=== PATIENT | male | born 1945 | race Caucasian/White ===

== ENCOUNTER → 2021-01-21 16:24 | Outpatient (BNVA) | payer MEDICARE, OTHER, SELFPAY | PROVIDERS: Family Provider Family Medicine; PCP Family Medicine; Visit Provider Urology | DX: N40.1 Benign prostatic hyperplasia with lower urinary tract symptoms (principal); R97.20 Elevated prostate specific antigen [PSA] | CPT/HCPCS: 81003; 84153 ==

== ENCOUNTER 2021-02-19 09:37 | Outpatient (CLI) | payer MEDICARE, OTHER, SELFPAY ==
--- NOTE | 2021-02-19 09:50 | XR_ITS ---
WS: [id number] Chest 2 views, 02/19/2021 Clinical Data: CHRONIC COUGH/THYROMEGALY Comparison: PA and lateral chest, 04/10/2009. Findings: No nodules, masses or effusions are seen. The heart is normal. The pulmonary vascularity is not increased. No pneumonia or pneumothorax is seen. The aortic arch is tortuous. The diaphragms are flattened. XR/XR chest 2V* [id number] Impression: Atherosclerosis and hyperinflation.
== END 2021-02-19 09:38 | disposition home or self-care (01) ==
PROVIDERS: PCP Family Medicine; Visit Provider Family Medicine
DX: R05 Cough (principal); E01.0 Iodine-deficiency related diffuse (endemic) goiter; I70.90 Unspecified atherosclerosis
CPT/HCPCS: 71046

== ENCOUNTER 2021-02-25 12:11 | Outpatient (CLI) | payer MEDICARE, OTHER, SELFPAY ==
--- NOTE | 2021-02-25 12:22 | US_ITS ---
WS: [id number] ULTRASOUND THYROID TECHNIQUE: Ultrasound of the thyroid. CLINICAL INFORMATION: CHRONIC COUGH/THYROMEGALY COMPARISON: None. FINDINGS: Thyroid: Right and left thyroid lobes are normal in size and echotexture. Solid heterogeneous mid right thyroid nodule measuring 1.8 x 1.6 x 1.8 cm with calcifications. 2 smaller solid right thyroid nodules in the mid thyroid measuring 0.6 x 0.5 cm and measuring 0.4 x 0 .4 CM. Additional cystic lesion in the left inferior thyroid measuring 0.4 x 0.3 cm. Right thyroid lobe: 5.2 cm x 2.2 cm x 2.1 cm Left thyroid lobe: 4.2 cm x 1.3 cm x 1.8 cm. Isthmus: 0.4 mm. Cervical lymphadenopathy: None. US/US thyroid [id number] IMPRESSION: 1. Solid heterogeneous mid right thyroid nodule measuring 1.8 x 1.6 x 1.8 cm w ith calcifications. Recommend further evaluation with FNA. 2. Smaller subcentimeter thyroid nodules described above.
== END 2021-02-25 12:12 | disposition home or self-care (01) ==
LOC: RAD 12:19
PROVIDERS: PCP Family Medicine; Visit Provider Family Medicine
DX: R05 Cough (principal); E01.0 Iodine-deficiency related diffuse (endemic) goiter
CPT/HCPCS: 76536

== ENCOUNTER → 2021-04-29 12:53 | Outpatient (BNVA) | payer MEDICARE, OTHER, SELFPAY | PROVIDERS: PCP Family Medicine; Visit Provider Urology | DX: N13.8 Other obstructive and reflux uropathy (principal); N40.1 Benign prostatic hyperplasia with lower urinary tract symptoms; R97.20 Elevated prostate specific antigen [PSA] | CPT/HCPCS: 81003; 84153 ==

== ENCOUNTER 2021-05-25 22:04 | Emergency (ER) | payer MEDICARE, OTHER, SELFPAY ==
[2021-05-25 22:12] VITALS: BMI 23.7
[2021-05-25 22:19] VITALS: BP 168/95; PULSE 65; RESP 14; TEMP 37.1; O2SAT 98
--- NOTE | 2021-05-25 22:22 | CTR_ITS ---
PROCEDURE INFORMATION: Exam: CT Head Without Contrast Exam date and time: 05/25/2021 10:22 PM Age: 75 years old Clinical indication: Pain; Headache; Patient HX: Thyroid removed sept 8; Additional info: Rule out brain bleed TECHNIQUE: Imaging protocol: Computed tomography of the head without contrast. Radiation optimization: All CT scans at this facility use at least one of these dose optimization techniques: automated exposure control; mA and/or kV adjustment per patient size (includes targeted exams where dose is matched to clinical indication); or iterative reconstruction. COMPARISON: [place] thyroid [id number] 02/25/2021 12:34 PM RADIATION DOSE METRICS: Total DLP (mGy-cm): 904.95 FINDINGS: Brain: Large amount of subarachnoid hemorrhage in the basilar cisterns, about the brainstem and 4th ventricle. Cerebral ventricles: See above Paranasal sinuses: Visualized sinuses are unremarkable. No fluid levels. Mastoid air cells: Visualized mastoid air cells are well aerated. Bones/joints: Unremarkable. No acute fracture. Soft tissues: Unremarkable. CT/CT head wo con* [id number] IMPRESSION: Large amount of subarachnoid hemorrhage in the basilar cisterns, about the brainstem and 4th ventricle. Radiation Dose CTDIVOL = (mGy): DLP = 904.95 (mGy-cm)
[2021-05-25 22:49] LABS: Basophils # 0.1 10^3/uL (0.0-0.1); Basophils % 1.2 %; Eosinophils # 0.3 10^3/uL (0.0-0.8); Eosinophils % 3.3 %; Hematocrit 49.5 % (42.0-52.0); Hemoglobin 17.1 g/dL (11.7-16.6); Lymphocytes # 3.6 10^3/uL (0.8-4.8); Lymphocytes % 47.6 %; Mean Corpuscular HGB Conc 34.5 g/dL (30.0-36.0); Mean Corpuscular Hemoglobin 29.9 pg (28.0-34.0); Mean Corpuscular Volume 86.7 fl (80-94); Mean Platelet Volume 11.2 fL (7.4-10.4); Monocytes # 0.8 10^3/uL (0.2-0.9); Monocytes % 10.2 %; Neutrophils # 2.87 10^3/uL (1.8-7.7); Neutrophils % 37.6 %; Nucleated Red Blood Cells % 0 %; Platelet Count 249 10^3/cmm (130-400); Red Blood Count 5.71 10^6/uL (4.1-5.3); White Blood Count 7.6 10^3/uL (4.0-10.0)
--- NOTE | 2021-05-25 22:55 | ED_ITS ---
Documented by User: Ebony Sellers MD 05/27/21 11:58 HPI - General Adult General: Chief complaint: Headache Stated complaint: HEADACHE Time Seen by Provider: 05/25/21 22:22 History of Present Illness: HPI narrative: Patient is a 75-year-old male with a history of basal cell carcinoma, thyroidectomy from 05/21/2021 presents emergency room with complaints of sudden onset of severe headache since 9 PM. Patient reports multiple episodes of emesis and has never had headaches similar to this. Describes bifrontal headache pain and neck pain with turning. Denies any neurological deficits, diplopia, double vision, slurring of speech. Patient has no other complaints going chest pain shortness breath palpitation, lightheadedness, abdominal complaints or complaints at this time. Onset: 1 hr ago Duration:1 hr Location:home Severity:severe Review of Systems Narrative: Constitutional: No fever, no chills. HEENT: No vision changes, +neck pain b/l CV: No chest pain, no palpitations PULM: no cough, no dyspnea. GI: No abdominal pain, +N/+V/D. : No dysuria MSKEL: No muscle pain SKIN: No new rashes, no lesions. NEURO: +headache, no focal weakness. HEME: No visible bruises PSYCH: Normal mood PFSH ED PFSH: Medical History (Updated 05/25/21 @ 22:59 by Ebony Sellers MD) BPH with obstruction/lower urinary tract symptoms Elevated PSA History of basal cell cancer Surgical History History of eye surgery History of hernia repair History of rotator cuff surgery History of surgical removal of ganglion cyst Family History Father , at age 77 Lung cancer Mother , at age 64 Colon cancer Social History Alcohol intake: never Marital status: Current occupational status: retired History of recent travel: No Physical Exam Narrative: EXAM NARRATIVE: Head: Atraumatic Eyes: PERRL, conjunctiva without injection ENT: Mucous membrane moist NECK: Supple, ROM intact, +neck tenderness to movement LUNGS: LCTAB, no crackles/rhonchi CV: RRR ABDOMEN: Soft, nontender in all quadrants EXTREMITY: Normal ROM SKIN: No rash or erythema NEURO: Mental status? Awake, alert, and oriented to self, year, month, location, and situation.? Following simple axial and appendicular commands.? Has appropriate fund of knowledge, comprehension, and insight.? Able to recall and understands pertinent aspects of medical history and current treatment status.? ? Language? Speech is fluent without word-finding difficulties.? Intact naming, expression, customer loyalty representative, and repetition.? ? Cranial nerves? 2,3,4,6: PERRL, EOMI with no nystagmus. 5: Intact sensation to light touch, symmetric? 7: Smile symmetrical, no facial droop.? 8: Hearing grossly intact.? 9,10: Normal palate movement.? 11: Normal strength in trapezius bilaterally 12: Tongue protrudes midline.? ? Motor examination? Normal bulk & tone. Strength as follows (R/L): Delts (5/5), Biceps (5/5), Triceps (5/5), Wrist ext (5/5), hip flexors (5/5), plantarflexors (5/5), dorsiflexors (5/5). Sensation? Light Touch: Grossly intact and equal in upper and lower extremities bilaterally? Romberg: Negative.? Distal joint position sense intact ? Coordination? Znvahr-kz-ldfd-finger movements intact without dysmetria or past-pointing.? Rapid fingertaps: preserved amplitude without decriment.? No tremor, myoclonus or truncal ataxia.? ? Gait/stance? Steady, normal narrow base gait with appropriate arm swing and turning.? Tandem gait without hesitation or loss of balance. PSYCH: Normal mood and affect Course Vital Signs: Vital signs: Vital Signs Temperature 98.7 F 05/25/21 22:19 Pulse Rate 70 05/26/21 01:48 Respiratory Rate 16 05/26/21 01:48 Blood Pressure 153/61 05/26/21 01:48 Pulse Oximetry 93 05/26/21 01:48 MDM - General Adult MDM Narrative: Medical decision making narrative: Patient is a 75-year-old male who presents the emergency room with complaints of severe headache and neck pain. Patient has says the pain started 9 PM. Since then, patient has been endorsing significant nausea vomiting. Given presentation, this is concerning for subarachnoid bleed and other acute intracranial pathologies at this time. Workup: CBC, BMP, PT/PTT/INR, CT Brain, CTA head Intervention: IVF, tylenol, reglan, benadryl Case signed out to Dr. Walker pending workup. Lab Data: Labs: Lab Results 05/25/21 05/25/21 05/25/21 Range/Units 22:34 22:34 22:34 WBC 7.6 (4.0-10.0) 10^3/ uL RBC 5.71 H (4.1-5.3) 10^6/u L Hgb 17.1 H (11.7-16.6) g/dL Hct 49.5 (42.0-52.0) % MCV 86.7 (80-94) fl MCH 29.9 (28.0-34.0) pg MCHC 34.5 (30.0-36.0) g/dL RDW 13.0 (12.1-15.1) % Plt Count 249 (130-400) 10^3/c mm MPV 11.2 H (7.4-10.4) fL Neut % (Auto) 37.6 % Lymph % (Auto) 47.6 % [place] % (Auto) 10.2 % Eos % (Auto) 3.3 % Baso % (Auto) 1.2 % Neut # (Auto) 2.87 (1.8-7.7) 10^3/u L Lymph # (Auto) 3.6 (0.8-4.8) 10^3/u L [place] # (Auto) 0.8 (0.2-0.9) 10^3/u L Eos # (Auto) 0.3 (0.0-0.8) 10^3/u L Baso # (Auto) 0.1 (0.0-0.1) 10^3/u L Nucleated RBC % (a uto) 0 % Nucleated RBCs # 0.0 /100WBC PT 13.80 (12.1-14.9) SECO NDS INR 1.02 (0.8-1.2) APTT 28.1 (23.9-36.7) SECO NDS Sodium 140 (136-145) mmol/L Potassium 3.5 (3.5-5.1) mmol/L Chloride 103 (98-107) mmol/L Carbon Dioxide 22 (22-29) mmol/L Anion Gap 18.5 (5-19) BUN 14 (8-23) mg/dL Creatinine 0.8 (0.7-1.2) mg/dL GFR Calculation Not Reportable Glucose 120 H (65-115) mg/dL Calculated Osmolal ity 292 (285-295) mOsm/k g Calcium 9.0 (8.5-10.5) mg/dL Total Bilirubin 0.7 (0.15-1.2) mg/dL AST 24 (0-40) U/L ALT 18 (0-41) U/L Alkaline Phosphata se 88 (40-130) IU/L Total Protein 6.2 L (6.6-8.7) g/dL Albumin 4.0 (3.5-5.2) g/dL Globulin 2.2 (1.3-4.6) g/dL Lipase 170 H (13-60) U/L TSH 4.92 H (0.27-4.20) uIU/ mL Free T4 1.40 (0.82-1.77) ng/d L Discharge Plan Discharge Clinical Impression: Headache, Nausea & vomiting Condition: Stable Prescriptions: No Action silver sulfadiazine [Silvadene] 1 % cream 1 applic topical BID Qty: 50 RF: 0 PreserVision AREDS 14,320-226-200 [id number]-fbfk capsule 1 cap PO DAILY RF: 0 zinc 50 mg tablet 50 mg PO DAILY RF: 0 magnesium chloride 64 mg magnesium tablet PO DAILY RF: 0 tamsulosin 0.4 mg capsule 0.4 mg PO BID Qty: 180 RF: 3 Referrals: Tom Sow MD [Primary Care Provider] - Sign Out Sign Out Data: Patient Sign Out occurred on 05/26/21 at 00:19. Patient's care was discussed, and care was transferred from to Vignesh Walker MD. Coding Level of Care Code ED Channel Marketing Program Manager for g Fwd Documented by User: Vignesh Walker MD 05/27/21 02:32 HPI - General Adult General: Chief complaint: Headache Stated complaint: HEADACHE Time Seen by Provider: 05/25/21 22:22 [facility] ED PFSH: Medical History (Updated 05/25/21 @ 22:59 by Ebony Sellers MD) BPH with obstruction/lower urinary tract symptoms Elevated PSA History of basal cell cancer Surgical History History of eye surgery History of hernia repair History of rotator cuff surgery History of surgical removal of ganglion cyst Family History Father , at age 77 Lung cancer Mother , at age 64 Colon cancer Social History Alcohol intake: never Marital status: Current occupational status: retired History of recent travel: No Course Vital Signs: Vital signs: Vital Signs Temperature 98.7 F 05/25/21 22:19 Pulse Rate 70 05/26/21 01:48 Respiratory Rate 16 05/26/21 01:48 Blood Pressure 153/61 05/26/21 01:48 Pulse Oximetry 93 05/26/21 01:48 MDM - General Adult MDM Narrative: Medical decision making narrative: Patient care handoff rece ived from Dr. Sellers pending results of work-up. CT head notable for subarachnoid hemorrhage. This is most likely the cause of the patient's symptoms. Results of this finding were discussed with the patient. No neurologic deficits appreciated upon serial reexamination. Head of bed at 30 degrees. Blood pressure improved with symptom control. Dr Mohan accepted the patient for neuro ICU and neurosurgical evaluation. Given high risk of decompensation and need for emergent neurosurgical evaluation patient will be transported by air. Results of ED evaluation were discussed with the patient. All questions answered. Patient agreeable to plan. Vignesh Walker MD Emergency Medicine Lab Data: Labs: Lab Results 05/25/21 05/25/21 05/25/21 Range/Units 22:34 22:34 22:34 WBC 7.6 (4.0-10.0) 10^3/ uL RBC 5.71 H (4.1-5.3) 10^6/u L Hgb 17.1 H (11.7-16.6) g/dL Hct 49.5 (42.0-52.0) % MCV 86.7 (80-94) fl MCH 29.9 (28.0-34.0) pg MCHC 34.5 (30.0-36.0) g/dL RDW 13.0 (12.1-15.1) % Plt Count 249 (130-400) 10^3/c mm MPV 11.2 H (7.4-10.4) fL Neut % (Auto) 37.6 % Lymph % (Auto) 47.6 % [place] % (Auto) 10.2 % Eos % (Auto) 3.3 % Baso % (Auto) 1.2 % Neut # (Auto) 2.87 (1.8-7.7) 10^3/u L Lymph # (Auto) 3.6 (0.8-4.8) 10^3/u L [place] # (Auto) 0.8 (0.2-0.9) 10^3/u L Eos # (Auto) 0.3 (0.0-0.8) 10^3/u L Baso # (Auto) 0.1 (0.0-0.1) 10^3/u L Nucleated RBC % (a uto) 0 % Nucleated RBCs # 0.0 /100WBC PT 13.80 (12.1-14.9) SECO NDS INR 1.02 (0.8-1.2) APTT 28.1 (23.9-36.7) SECO NDS Sodium 140 (136-145) mmol/L Potassium 3.5 (3.5-5.1) mmol/L Chloride 103 (98-107) mmol/L Carbon Dioxide 22 (22-29) mmol/L Anion Gap 18.5 (5-19) BUN 14 (8-23) mg/dL Creatinine 0.8 (0.7-1.2) mg/dL GFR Calculation Not Reportable Glucose 120 H (65-115) mg/dL Calculated Osmolal ity 292 (285-295) mOsm/k g Calcium 9.0 (8.5-10.5) mg/dL Total Bilirubin 0.7 (0.15-1.2) mg/dL AST 24 (0-40) U/L ALT 18 (0-41) U/L Alkaline Phosphata se 88 (40-130) IU/L Total Protein 6.2 L (6.6-8.7) g/dL Albumin 4.0 (3.5-5.2) g/dL Globulin 2.2 (1.3-4.6) g/dL Lipase 170 H (13-60) U/L TSH 4.92 H (0.27-4.20) uIU/ mL Free T4 1.40 (0.82-1.77) ng/d L Discharge Plan Discharge Clinical Impression: Headache, Nausea & vomiting Condition: Stable Prescriptions: No Action silver sulfadiazine [Silvadene] 1 % cream 1 applic topical BID Qty: 50 RF: 0 PreserVision AREDS 14,320-226-200 [id number] capsule 1 cap PO DAILY RF: 0 zinc 50 mg tablet 50 mg PO DAILY RF: 0 magnesium chloride 64 mg magnesium tablet PO DAILY RF: 0 tamsulosin 0.4 mg capsule 0.4 mg PO BID Qty: 180 RF: 3 Referrals: Tom Sow MD [Primary Care Provider] - Sign Out Sign Out Data: Patient Sign Out occurred on 05/26/21 at 00:19. Patient's care was discussed, and care was transferred from to Vignesh Walker MD. Coding Level of Care Code ED Channel Marketing Program Manager for Griselda Hernandez
[2021-05-25] MEDS: metoclopramide 5 mg/mL SDV 2 mL IVP (23:03)
[2021-05-25] MEDS: acetaminophen 500 mg Tablet PO (23:03)
[2021-05-25] MEDS: diphenhydrAMINE 50 mg/mL SDV 1mL IVP (23:03)
[2021-05-25] MEDS: magnesium sulfate premix 2 GM/50 ML PIGGYBACK IV (23:11)
[2021-05-25] MEDS: sodium chloride 0.9% 500 ML IV (23:11)
[2021-05-25 23:15] LABS: Alanine Aminotransferase 18 U/L (0-41); Alkaline Phosphatase 88 IU/L (40-130); Anion Gap 18.5 (5-19); Aspartate Amino Transferase 24 U/L (0-40); Blood Urea Nitrogen 14 mg/dL (8-23); Carbon Dioxide 22 mmol/L (22-29); Chloride 103 mmol/L (98-107); Creatinine Clr Calc Pharmacy 83.1517; Globulin 2.2 g/dL (1.3-4.6); Glucose 120 mg/dL (65-115); Lipase 170 U/L (13-60); Osmolality Calculated 292 mOsm/kg (285-295); Potassium 3.5 mmol/L (3.5-5.1); Sodium 140 mmol/L (136-145); Thyroid Stimulating Hormone 4.92 uIU/mL (0.27-4.20); Total Bilirubin 0.7 mg/dL (0.15-1.2); Total Protein 6.2 g/dL (6.6-8.7)
[2021-05-25 23:58] LABS: INR 1.02 (0.8-1.2); Partial Thromboplastin Time 28.1 SECONDS (23.9-36.7)
[2021-05-26 00:13] VITALS: BP 162/79; PULSE 70; RESP 16; O2SAT 90
[2021-05-26] MEDS: fentaNYL 50 mcg/mL INJ 2mL IVP (00:23)
[2021-05-26 01:48] VITALS: BP 153/61; PULSE 70; RESP 16; O2SAT 93
== END 2021-05-26 01:40 ==
PROVIDERS: Emergency Medicine; Emergency Provider Emergency Medicine; PCP Family Medicine
DX: R51.9 Headache, unspecified (principal); R11.2 Nausea with vomiting, unspecified; Z85.9 Personal history of malignant neoplasm, unspecified
CPT/HCPCS: 70450; 80053; 83690; 84439; 84443; 85025; 85610; 85730; 96365; 96367; 96375; 99285; J1200; J2765; J3010; J3475; J7040

== ENCOUNTER 2021-07-04 14:33 | Emergency (ER) | payer MEDICARE, OTHER, SELFPAY ==
[2021-07-04 14:44] VITALS: BP 122/74; PULSE 82; RESP 18; TEMP 36.9; O2SAT 96; BMI 20.7
[2021-07-04 15:01] VITALS: BP 100/63; PULSE 80; RESP 18; TEMP 36.8; O2SAT 96
[2021-07-04] MEDS: dexamethasone 10 mg/mL INJ IM (15:31)
[2021-07-04] MEDS: HYDROcodone-acetaminophen 7.5-325 mg Tablet 1 TAB PO (15:32)
--- NOTE | 2021-07-04 15:33 | W.ED.BACK ---
HPI - Back Pain/Injury General: Chief Complaint: Back Pain/Injury Stated Complaint: Severe Back Pain Time Seen by Provider: 07/04/21 15:06 History of Present Illness: HPI Narrative: Patient is a 75-year-old male comes to the ED with lower back pain. Patient says symptoms have been going on for approximately 3 weeks. Pain is located in the right lower back region. Denies any injury or trauma to cause pain. Pain only occurs when he is getting up from chair or bed or with certain movements of his upper body. When sitting at rest he has no pain. Pain is localized in right lower back. Denies any pain radiating down his lower extremities. Denies any cauda equina symptoms. Associated symptoms: Deny abdominal pain, chills, dysuria, fatigue, fever(s), hematuria, nausea or vomiting Review of Systems Const: Denies: fever(s), chills or fatigue Eyes: Denies: change in vision or eye discomfort ENMT: Denies: throat pain, odynophagia, nasal discharge or nasal congestion Card: Denies: chest pain, palpitations, edema, swelling of feet/ankles, dyspnea on exertion or orthopnea Resp: Denies: dyspnea, productive cough or non-productive cough GI: Denies: abdominal pain, nausea, vomiting, diarrhea, constipation or hematochezia : Denies: flank pain, difficulty urinating, dysuria or hematuria Musc: Reports: back pain (right lower back); Denies: neck pain or extremity swelling Skin/Breast: Denies: rash or new lesions Neuro: Denies: headache(s), numbness in extremities or weakness in extremities PFSH ED PFSH: Medical History BPH with obstruction/lower urinary tract symptoms Elevated PSA History of basal cell cancer Surgical History History of eye surgery History of hernia repair History of rotator cuff surgery History of surgical removal of ganglion cyst Family History Father , at age 77 Lung cancer Mother , at age 64 Colon cancer Social History Alcohol intake: never Marital status: Current occupational status: retired History of recent travel: No Physical Exam Const: COMMON NORMALS: no acute distress, patient oriented x3 and alert GENERAL APPEARANCE: cooperative and comfortable HENMT: COMMON NORMALS: normocephalic HEAD & SCALP: normocephalic MOUTH: Normal oral and palatal mucosa present THROAT: posterior oropharynx normal and uvula midline Neck/C-Spine: COMMON NORMALS: supple GENERAL: Yes normal visual inspection Resp: COMMON NORMALS: normal respiratory effort, No retractions, No use of accessory muscles and clear to auscultation bilaterally AUSCULTATION: clear to auscultation bilaterally Cardio: COMMON NORMALS: regular rate, regular rhythm, S1 normal heart sound present, S2 normal heart sound present, No gallops present (Cardio), No clicks present (Cardio), No murmurs present (Cardio) and Peripheral pulses 2+ throughout RATE: regular rate RHYTHM: regular rhythm HEART SOUNDS: S1 normal heart sound present and S2 normal heart sound present PERIPHERAL PULSES: Peripheral pulses 2+ throughout GI: COMMON NORMALS: Normal to inspection, nondistended, normoactive bowel sounds present, Soft to palpation, non-tender and no masses PALPATION: Yes Soft to palpation : COMMON NORMALS: Yes no CVA tenderness BLADDER/KIDNEY EXAM: Yes no CVA tenderness Back/Pelvis: COMMON NORMALS: no CVA tenderness LUMBAR SPINE/LOWER BACK: Yes pain with ROM, No lumbar spinal tenderness, Yes paraspinal muscle tenderness Lumbar paraspinal muscle tenderness: right Right lumbar paraspinal muscle tenderness: L2 and L3 and Yes other soft tissue findings Other lumbar soft tissue findings laterality: right Right other lumbar soft tissue findings details: tenderness (Soft tissue and muscle tenderness-right side) Extremity: COMMON NORMALS: normal to inspection Neuro: COMMON NORMALS: patient oriented x3 and moves all extremities SENSORIUM/ORIENTATION: Yes alert Skin: GENERAL SKIN EXAM: dry skin Course Vital Signs: Vital signs: Vital Signs Temperature 98.4 F 07/04/21 15:38 Pulse Rate 74 07/04/21 15:38 Respiratory Rate 18 07/04/21 15:38 Blood Pressure 108/68 07/04/21 15:38 Pulse Oximetry 96 07/04/21 15:01 MDM - Back Pain/Injury MDM Narrative: Medical decision making narrative: Patient is a 75-year-old male comes to the ED with right lower back pain. Denies any injury or trauma to cause pain has been going on for the past 3 weeks. Symptoms worsen with certain movements, but when at rest and sitting there is no pain. Denies any cauda equina symptoms or pain radiating down the leg. Vitals are stable. Exam just shows some soft tissue tenderness on the right lumbar region. No palpable lumbar spinal tenderness noted. Patient diagnosed with lumbar muscle pain and discharged home with a prescription for prednisone and a muscle relaxer. Patient already has a prescription for hydrocodone that he can take for pain. He was told to follow-up with his PCP in 7 to 10 days for reevaluation. Return to ED precautions given. Patient understood agree with plan. Discharge Plan Discharge Patient Disposition: Home Clinical Impression: Lumbar muscle pain Condition: Stable Prescriptions: New methocarbamol 750 mg tablet 750 mg PO Q8H PRN (Reason: muscle pain) Qty: 20 RF: 0 cyclobenzaprine 10 mg tablet 10 mg PO BID PRN (Reason: muscle spasm) Qty: 20 RF: 0 prednisone 20 mg tablet 20 mg PO BID 7 Days Qty: 14 RF: 0 No Action silver sulfadiazine [Silvadene] 1 % cream 1 applic topical BID Qty: 50 RF: 0 PreserVision AREDS 14,320-226-200 [id number] capsule 1 cap PO DAILY RF: 0 zinc 50 mg tablet 50 mg PO DAILY RF: 0 magnesium chloride 64 mg magnesium tablet PO DAILY RF: 0 tamsulosin 0.4 mg capsule 0.4 mg PO BID Qty: 180 RF: 3 Discharge Orders: Discharge ED (Routine); Ordered 07/04/21 Ordered By: Jimbo Quinteros Referrals: Tom Sow MD [Primary Care Provider] - Discharge Diet: Regular Discharge Activity: Increase activity as tolerated Patient Instructions: Low Back Strain (ED), Lower Back Exercises (ED), Opioid Safety Activity Restrictions/Additional Instructions: Follow-up with medical provider as directed in 7 to 10 days for reevaluation. Apply cold pack or heat on lower back to help with symptoms. Take medications as prescribed. Observe you home with 2 different muscle relaxer medications. The methocarbamol is the preferred muscle relaxer I recommend you filling in using, but if your insurance will not cover that I gave you an alternative option which is the cyclobenzaprine. Muscle relaxers can cause some drowsiness so take at night before bed or take during the day with caution. Return to the ER or your medical provider if condition worsens. Please read and understand discharge instructions. Thank you for choosing [facility] for your healthcare needs today. Please realize this is an emergency room and that we are providing you with a medical screening exam and this may not be complete and all inclusive of all the testing and or work up that you may need to determine your ailment or severity of your illness. It is very important that you follow up as instructed or that you return to the Emergency Department should you have concerns or if your condition changes or worsens in any way. Coding Level of Care Code ED Dyeing Machine Feeder for Griselda Fwd Exam Comprehensive
[2021-07-04 15:38] VITALS: BP 108/68; PULSE 74; RESP 18; TEMP 36.9
--- NOTE | 2021-07-04 15:43 | PC.NURSE ---
Patient request to walk out and does not want wc. He ambulates out with his using walker.
== END 2021-07-04 15:44 | disposition home or self-care (01) ==
PROVIDERS: Emergency Provider Physician Assistant; PCP Family Medicine
DX: M79.18 Myalgia, other site (principal)
CPT/HCPCS: 96372; 99283; J1100

== ENCOUNTER 2021-07-10 11:53 | Outpatient (RCR) | payer MEDICARE, OTHER, SELFPAY | END 2021-07-13 23:59 | disposition home or self-care (01) | LOC: SPO 11:53 | PROVIDERS: PCP Family Medicine; Visit Provider Family Medicine | DX: I63.9 Cerebral infarction, unspecified (principal) | CPT/HCPCS: 97110; 97162; 97165 ==

== ENCOUNTER 2021-07-14 06:00 | Outpatient (RCR) | payer MEDICARE, OTHER, SELFPAY | END 2021-07-25 23:59 | disposition home or self-care (01) | LOC: SPO 06:00 | PROVIDERS: PCP Family Medicine; Visit Provider Family Medicine | DX: I69.30 Unspecified sequelae of cerebral infarction (principal) | CPT/HCPCS: 97110 ==

== ENCOUNTER 2021-07-15 10:57 | Outpatient (CLI) | payer MEDICARE, OTHER, SELFPAY ==
--- NOTE | 2021-07-15 11:17 | CT_ITS ---
WS: [id number] CT THORACIC SPINE HISTORY: ACUTE BACK PAIN TECHNIQUE: Contiguous 2.5 mm axial images are reviewed to thoracic spine. Images are reformatted in s agittal and coronal planes. All CT scans at [facility] use at least one of these dose optimiz ation techniques: automated exposure control; mA and/or kV adjustment per patient size (includes targ eted exams where dose is matched to clinical indication); or iterative reconstruction. DLP: 809.0 mGycm COMPARISON: None available. Very slight straightening of the RIGHT curvature of the thoracic spine. Mild disc space narrowing and endplate osteophytes throughout the mid and lower thoracic spine. There is very slight anterior wedg ing of T7 and T8. No compression fractures. Spinous processes and transverse processes are intact. [place] mbar spine T1-2: Normal. T2-3: Normal. T3-4: Normal. T4-5: Normal. T5-6: Mild facet arthritis. Very mild foraminal narrowing. T6-7: Normal. T7-8: Normal. T8-9: Mild bilateral facet joint arthritis causing mild encroachment into the foramen. Mild foramina l narrowing. T9-10: Mild diffuse osteophytosis encroaching upon the ventral thecal sac, most significant osteophy te encroachment is along the LEFT lateral thecal sac with there is encroachment and abutment and disp lacement with moderate LEFT subarticular and foraminal stenosis. Mild central and RIGHT foraminal nils nosis. T10-11: Moderate bilateral facet joint arthritis. Moderate LEFT and mild RIGHT foraminal stenosis. T11-12: Mild bilateral facet joint arthritis. Osteophytes with mild encroachment into the thecal sac . T12-L1: Osteophyte from the RIGHT facet encroaches into the RIGHT lateral thecal sac. CT/CT thoracic spin wo con* [id number] IMPRESSION: 1. No high-grade central stenosis. 2. Moderate spondylitic changes in the mid to lower thoracic spine. 3. Osteophytes encroach into the LEFT lateral thecal sac at T9-10 causing mode rate LEFT subarticular foraminal stenosis. 4. Moderate LEFT and mild RIGHT foraminal stenosis at T10-11. 5. Small osteophyte encroaches into the RIGHT lateral thecal sac at T12-L1. 6. Mild facet joint arthritis at T11-12.
--- NOTE | 2021-07-15 11:17 | CT_ITS ---
WS: [id number] CT LUMBAR SPINE, noncontrast. HISTORY: ACUTE BACK PAIN TECHNIQUE: Contiguous 2.5 mm axial imaging are performed. Sagittal and coronal reformats are submitte d and reviewed. All CT scans at [facility] use at least one of these dose optimization techni ques: automated exposure control; mA and/or kV adjustment per patient size (includes targeted exams w here dose is matched to clinical indication); or iterative reconstruction. IV contrast: None DLP: 1897.25 mGycm COMPARISON: None available. Degenerative lumbar scoliosis. Asymmetric disc space narrowing and mild S-shaped scoliosis of the lum bar spine. Disc spaces are severely narrowed with endplate osteophytes and extending both anterior an d posterior from the vertebral bodies. No fractures. Vacuum disc phenomenon at all levels in the lumb ar spine. L1-2: Diffuse osteophytic ridging with encroachment upon the ventral thecal sac. Mild central and karina ateral foraminal stenosis. Moderate bilateral subarticular recess stenosis with encroachment upon the traversing L2 nerve roots. L2-3: Diffuse osteophytic ridging and annular disc bulging which is asymmetric to the LEFT. Mild liga mentum flavum disease and facet arthritis. Osteophytes causing encroachment into the subarticular rec esses bilaterally. There is also moderate LEFT foraminal stenosis. Mild central stenosis. L3-4: Retrolisthesis of L3 by 3 mm. Diffuse osteophytic ridging with facet and ligamentum flavum arth ritis. There is severe osteophytic encroachment into the subarticular recesses and foramen. Osteophyt e encasement along the LEFT lateral thecal sac. Moderate to severe central and bilateral subarticular recess stenosis with moderate LEFT foraminal stenosis. The most significant encroachment is upon the LEFT traversing L4 nerve root. L4-5: Diffuse osteophytic ridging with facet arthritis. Osteophytes causing at least moderate bilater al subarticular recess stenosis and foraminal stenosis. Mild central stenosis. L5-S1: Diffuse osteophytic ridging. Osteophytic ridging around the vertebral bodies with also osteoph ytes from the facet joints. Osteophytes extend into the subarticular recesses causing severe central, bilateral subarticular recess and moderate to severe foraminal stenosis. Mild atherosclerosis aorta. Mild narrowing of the SI joints. CT/CT lumbar spine wo con* [id number] IMPRESSION: 1. Severe spondylitic changes and mild S-shaped curvature lumbar spine. 2. No acute fracture. 3. Multilevel areas of central, subarticular recess and foraminal stenosis as described above. Predominantly due to osteophyte disease from the vertebral bod y endplates and articular facets. 4. Severe central, bilateral subarticular recess and moderate to severe forami nal stenosis due to osteophytes at L5-S1. 5. Moderate bilateral subarticular recess and foraminal stenosis with mild yu tral stenosis at L4-5. 6. Moderate to severe central and bilateral subarticular recess stenosis and m oderate LEFT foraminal stenosis at L3-4. Osteophyte encasing the LEFT lateral t hecal sac with significant encroachment upon the traversing LEFT L4 nerve root. 7. Moderate bilateral subarticular recess stenosis at L1-2 with mild central a nd mild bilateral foraminal stenosis. 8. Osteophytes encroach into the subarticular recesses bilaterally at L2-3 res ulting in moderate subarticular recess stenosis with moderate LEFT foraminal st enosis.
== END 2021-07-15 10:58 | disposition home or self-care (01) ==
PROVIDERS: PCP Family Medicine; Visit Provider Family Medicine
DX: M25.78 Osteophyte, vertebrae (principal); M47.814 Spondylosis without myelopathy or radiculopathy, thoracic region; M48.061 Spinal stenosis, lumbar region without neurogenic claudication
CPT/HCPCS: 72128; 72131

== ENCOUNTER 2021-07-16 11:07 | Outpatient (CLI) | payer MEDICARE, OTHER, SELFPAY | END 2021-07-16 11:08 | disposition home or self-care (01) | LOC: LAB 11:13 | PROVIDERS: PCP Family Medicine; Visit Provider Urology | DX: R97.20 Elevated prostate specific antigen [PSA] (principal) | CPT/HCPCS: 84153 ==

== ENCOUNTER 2021-07-22 13:41 | Inpatient (IN) | payer MEDICARE, OTHER, SELFPAY ==
--- NOTE | 2021-07-22 13:46 | W.ED.AMS ---
HPI - Altered Mental Status General: Chief Complaint: Fall Stated Complaint: INCREASED CONFUSION/ INCREASED FALLS Time Seen by Provider: 07/22/21 13:46 History of Present Illness: HPI narrative: Ms Cross is a 75-year-old gentleman with history of hypertension, hyperlipidemia, thyroid disorder who presents to the emergency department due to falls. Upon initial arrival it is just patient in the room and history is limited by patient's mental status. He talks about events going back to 16 March though he believes this is recent and he is difficult to understand though exam is otherwise nonfocal. Additional information provided by at bedside. Normally patient is alert and oriented and well functional. He has slowly been declining over the past week or so and has had recurrent falls and balance problems. Condition he has been more confused and has abnormal speech. Overall the course of symptoms has been worsening. No clear infectious symptoms. History is otherwise limited by mental status. Review of Systems General: Reports: ROS unobtainable due to mental status PFS ED PFSH: Medical History BPH with obstruction/lower urinary tract symptoms Elevated PSA History of basal cell cancer Surgical History History of eye surgery History of hernia repair History of rotator cuff surgery History of surgical removal of ganglion cyst Family History Father , at age 77 Lung cancer Mother , at age 64 Colon cancer Social History Alcohol intake: never Marital status: Current occupational status: retired History of recent travel: No Physical Exam Narrative: EXAM NARRATIVE: GENERAL/CONSTITUTIONAL -mildly ill appearing. No acute distress. Eyes - PERRL, no scleral icterus no conjunctival injection ENMT - Atraumatic external nose and ears. Moist mucous membranes NECK - supple. trachea midline CARDIOVASCULAR - regular rate and rhythm. Peripheral pulses 2+ and equal RESPIRATORY -coarse to auscultation bilaterally. No retractions or accessory muscle use. ABDOMEN/GI -generalized tenderness to palpation without evidence of focal peritonitis or remote peritonitis. MSK - Extremities without obvious deformity or tenderness to palpation SKIN - Warm, Dry NEURO - alert but disoriented. Neurologic testing somewhat limited by patient's participation/ability to follow directions however no focal neurologic deficits were appreciated. Small mouth movements. No asterixis on exam. Course ED course: - Patient was seen and evaluated by me at bedside - Patient placed on cardiac monitors, IV access obtained - Initial evaluation notable for exam as noted above - Labs notable for leukocytosis. Metabolic panel without acute abnormality to explain patient's symptoms, bilirubin elevated of unclear etiology. Urinalysis difficult to interpret in the context of squamous epithelial contamination. - Imaging notable for no acute intracranial hemorrhage or mass, no evidence of significant vascular compromise. CT chest abdomen pelvis notable for pulmonary embolism. - Upon serial reexamination after treatment the patient was similar to mildly improved - Based on patient history, evaluation, labs, and imaging as interpreted the most likely cause of the patient's condition is unclear, he has a pulmonary embolism however there is no significant hypoxemia or hypercapnia that would explain mental status change. He does have history of stroke so perhaps there is a component of generalized body stress leading to encephalopathy though another primary cause of metabolic encephalopathy may be present. - Lovenox ordered. - The results of ED evaluation were discussed with the patient including plan for admission due to requirement for level of care not available if discharged to prevent significant worsening/deterioration. -Hospitalist service contacted and agreed admit the patient. - Patient was admitted without further deterioration or significant events. Vital Signs: Vital signs: Vital Signs Temperature 98.9 F 07/25/21 15:22 Pulse Rate 90 07/25/21 15:22 Respiratory Rate 16 07/25/21 15:22 Blood Pressure 147/83 07/25/21 15:22 Pulse Oximetry 96 07/25/21 15:22 MDM - Altered Mental Status Medical Records: Attestation: I reviewed the patient's medical records. Lab Data: Attestation: I reviewed the patient's lab results. Labs: Lab Results 07/22/21 07/22/21 07/22/21 13:40 13:40 13:40 WBC 14.4 10^3/uL H 10 ^3/uL (4.0-10.0) RBC 4.81 10^6/uL 10^6 /uL (4.1-5.3) Hgb 14.4 g/dL g/dL (11.7-16.6) Hct 42.6 % % (42.0-52.0) MCV 88.6 fl fl (80-94) MCH 29.9 pg pg (28.0-34.0) MCHC 33.8 g/dL g/dL (30.0-36.0) RDW 14.1 % % (12.1-15.1) Plt Count 243 10^3/cmm 10^3 /cmm (130-400) MPV 10.7 fL H fL (7.4-10.4) Neut % (Auto) 75.9 % % Lymph % (Auto) 12.7 % % [place] % (Auto) 10.3 % % Eos % (Auto) 0.2 % % Baso % (Auto) 0.3 % % Neut # (Auto) 10.95 10^3/uL H 1 0^3/uL (1.8-7.7) Lymph # (Auto) 1.8 10^3/uL 10^3/ uL (0.8-4.8) [place] # (Auto) 1.5 10^3/uL H 10^ 3/uL (0.2-0.9) Eos # (Auto) 0.0 10^3/uL 10^3/ uL (0.0-0.8) Baso # (Auto) 0.1 10^3/uL 10^3/ uL (0.0-0.1) Nucleated RBC % (a uto) 0 % % Nucleated RBCs # 0.0 /100WBC /100W BC Specimen Type Sample Site ABG pH ABG pCO2 ABG pO2 ABG HCO3 ABG Base Excess Rashid Test Hematocrit O2 Delivery Device FiO2 Home Staging Specialist ID Sodium 137 mmol/L mmol/L (136-145) Potassium 4.5 mmol/L mmol/L (3.5-5.1) Chloride 100 mmol/L mmol/L (98-107) Carbon Dioxide 24 mmol/L mmol/L (22-29) Anion Gap 17.5 (5-19) BUN 25 mg/dL H mg/dL (8-23) Creatinine 0.9 mg/dL mg/dL (0.7-1.2) GFR Calculation Not Reportable Glucose 101 mg/dL mg/dL (65-115) POC Glucose Calculated Osmolal ity 289 mOsm/kg mOsm/ kg (285-295) Lactate Calcium 9.8 mg/dL mg/dL (8.5-10.5) Total Bilirubin 1.4 mg/dL H mg/dL (0.15-1.2) AST 56 U/L H U/L (0-40) ALT 31 U/L U/L (0-41) Alkaline Phosphata se 95 IU/L IU/L (40-130) Ammonia Troponin T Baselin e 21 ng/L H ng/L (0-15) Troponin T 120 Min [place] Troponin T NT-Pro-B Natriuret Pep Total Protein 6.1 g/dL L g/dL (6.6-8.7) Albumin 4.0 g/dL g/dL (3.5-5.2) Globulin 2.1 g/dL g/dL (1.3-4.6) Vitamin B12 TSH 3.51 uIU/mL uIU/m L (0.27-4.20) Urine Color Urine Appearance Urine pH Ur Specific Gravit y Urine Protein Urine Glucose (UA) Urine Ketones Urine Blood Urine Nitrate Urine Bilirubin Urine Urobilinogen Ur Leukocyte Afsaneh ase Urine RBC Urine WBC Ur Squamous Epith Cells Amorphous Sediment Urine Bacteria RPR 07/22/21 07/22/21 07/22/21 13:40 13:40 14:34 WBC RBC Hgb Hct MCV MCH MCHC RDW Plt Count MPV Neut % (Auto) Lymph % (Auto) [place] % (Auto) Eos % (Auto) Baso % (Auto) Neut # (Auto) Lymph # (Auto) [place] # (Auto) Eos # (Auto) Baso # (Auto) Nucleated RBC % (a uto) Nucleated RBCs # Specimen Type Sample Site ABG pH ABG pCO2 ABG pO2 ABG HCO3 ABG Base Excess Rashid Test Hematocrit O2 Delivery Device FiO2 Home Staging Specialist ID Sodium Potassium Chloride Carbon Dioxide Anion Gap BUN Creatinine GFR Calculation Glucose POC Glucose Calculated Osmolal ity Lactate 1.6 mmol/L mmol/L (0.5-2.2) Calcium Total Bilirubin AST ALT Alkaline Phosphata se Ammonia Troponin T Baselin e Troponin T 120 Min [place] Troponin T NT-Pro-B Natriuret Pep 117 pg/mL pg/mL (0-450) Total Protein Albumin Globulin Vitamin B12 915 pg/mL pg/mL (232-1245) TSH Urine Color Urine Appearance Urine pH Ur Specific Gravit y Urine Protein Urine Glucose (UA) Urine Ketones Urine Blood Urine Nitrate Urine Bilirubin Urine Urobilinogen Ur Leukocyte Afsaneh ase Urine RBC Urine WBC Ur Squamous Epith Cells Amorphous Sediment Urine Bacteria RPR Nonreactive (Nonreactive) 07/22/21 07/22/21 07/22/21 14:35 15:30 16:40 WBC RBC Hgb Hct MCV MCH MCHC RDW Plt Count MPV Neut % (Auto) Lymph % (Auto) [place] % (Auto) Eos % (Auto) Baso % (Auto) Neut # (Auto) Lymph # (Auto) [place] # (Auto) Eos # (Auto) Baso # (Auto) Nucleated RBC % (a uto) Nucleated RBCs # Specimen Type Sample Site ABG pH ABG pCO2 ABG pO2 ABG HCO3 ABG Base Excess Rashid Test Hematocrit O2 Delivery Device FiO2 Home Staging Specialist ID Sodium Potassium Chloride Carbon Dioxide Anion Gap BUN Creatinine GFR Calculation Glucose POC Glucose 111 mg/dL H mg/dL (70-110) Calculated Osmolal ity Lactate Calcium Total Bilirubin AST ALT Alkaline Phosphata se Ammonia Troponin T Baselin e Troponin T 120 Min [place] 17.75 ng/L H ng/L (0-15) Delta Troponin T -3.25 ABS# L ABS# (0-10) NT-Pro-B Natriuret Pep Total Protein Albumin Globulin Vitamin B12 TSH Urine Color Yellow (Yellow) Urine Appearance Sl hazy (CLEAR) Urine pH 6.5 (5-7) Ur Specific Gravit y 1.015 (1.005-1.030) Urine Protein Neg (Negative) Urine Glucose (UA) Norm (Normal) Urine Ketones Negative (Negative) Urine Blood Neg (Negative) Urine Nitrate Positive H (Negative) Urine Bilirubin Neg (Negative) Urine Urobilinogen Norm mg/dL mg/dL (Negative) Ur Leukocyte Afsaneh ase Negative (Negative) Urine RBC 0-4 /hpf H /hpf (0-2) Urine WBC 5-10 /hpf H /hpf (0-5) Ur Squamous Epith Cells 5-10 /hpf H /hpf (0-5) Amorphous Sediment Not Reportable Urine Bacteria 3+ /hpf H /hpf (NONE) RPR 07/22/21 07/22/21 17:19 17:54 WBC RBC Hgb Hct MCV MCH MCHC RDW Plt Count MPV Neut % (Auto) Lymph % (Auto) [place] % (Auto) Eos % (Auto) Baso % (Auto) Neut # (Auto) Lymph # (Auto) [place] # (Auto) Eos # (Auto) Baso # (Auto) Nucleated RBC % (a uto) Nucleated RBCs # Specimen Type Arterial Sample Site Radial, right ABG pH 7.46 H (7.35-7.45) ABG pCO2 34.2 mmHg L mmHg (35-45) ABG pO2 65.3 mmHg L mmHg (80.0-100.0) ABG HCO3 24.1 mmol/L mmol/ L (22-26) ABG Base Excess 0.6 mmol/L mmol/L (-2.0-2.0) Rashid Test N/a Hematocrit 40.1 % L % (42-52) O2 Delivery Device Room air FiO2 21.0 % % Home Staging Specialist ID Amh Sodium Potassium Chloride Carbon Dioxide Anion Gap BUN Creatinine GFR Calculation Glucose POC Glucose Calculated Osmolal ity Lactate Calcium Total Bilirubin AST ALT Alkaline Phosphata se Ammonia 17 umol/L umol/L (16-60) Troponin T Baselin e Troponin T 120 Min [place] Troponin T NT-Pro-B Natriuret Pep Total Protein Albumin Globulin Vitamin B12 TSH Urine Color Urine Appearance Urine pH Ur Specific Gravit y Urine Protein Urine Glucose (UA) Urine Ketones Urine Blood Urine Nitrate Urine Bilirubin Urine Urobilinogen Ur Leukocyte Afsaneh ase Urine RBC Urine WBC Ur Squamous Epith Cells Amorphous Sediment Urine Bacteria RPR EKG Data^: EKG 1: Attestation: I personally reviewed and interpreted this EKG as follows: EKG interpretation date: 07/22/21 EKG interpretation time: 14:33 Interpretation: Twelve-lead EKG shows a regular rhythm at a rate of 90. MS interval 156, QRS duration 94, QTc 385. Normal axis. Interpretation: Sinus rhythm. Discharge Plan Discharge Admit Provider: Levy Moralez Condition: Stable Discharge Orders: Discharge Order (Routine); Ordered 07/25/21 Ordered By: Cata Vallecillo Discharge Diet: Regular Discharge Activity: Resume usual activity Coding Level of Care Code ED Legal Billing Clerk for Chg Mary
[2021-07-22 13:47] VITALS: BP 118/62; PULSE 85; RESP 17; TEMP 37.2; O2SAT 95; BMI 20.9
--- NOTE | 2021-07-22 13:56 | CT_ITS ---
WS: [id number] CT HEAD NONCONTRAST HISTORY: ams TECHNIQUE: Contiguous axial imaging performed through the brain in 2.5 mm imaging. Bone and soft tiss ue windows. Sagittal and coronal reformats reviewed. All CT scans at [facility] use at least one of these dose optimization techniques: automated exposure control; mA and/or kV adjustment per pa tient size (includes targeted exams where dose is matched to clinical indication); or iterative recon struction. DLP: 938.13 mGy.cm COMPARISON: 05/25/2021 Resolved subarachnoid hemorrhage since 05/25/2021. No acute blood products are identified. Mild symmetric atrophy and mild chronic microvascular ischemic disease. No prior large territory infa rct. Small lacunar infarct in the anterior RIGHT internal capsule. Ventricles: Normal size with no hydrocephalus. Paranasal sinuses: As visualized are clear. Mastoid air cells: Well pneumatized. Calvarium and scalp: Skull is intact with no soft tissue edema or swelling. CT/CT head wo con* [id number] IMPRESSION: 1. No acute intracranial hemorrhage or edema. 2. Mild cerebral atrophy and mild chronic microvascular ischemic disease.
--- NOTE | 2021-07-22 13:56 | XRR_ITS ---
PROCEDURE INFORMATION: Exam: XR Chest Exam date and time: 07/22/2021 1:56 PM Age: 75 years old Clinical indication: Other: Increased falls, confusion, AMS TECHNIQUE: Imaging protocol: XR of the chest. Views: 1 view. COMPARISON: CR XR chest 2V* [id number] 02/19/2021 10:01 AM FINDINGS: Lungs: Unremarkable. No consolidation. Pleural spaces: Unremarkable. No pleural effusion. No pneumothorax. Heart/Mediastinum: Unremarkable. No cardiomegaly. Bones/joints: Unremarkable. XR/XR chest 1V portable [id number] IMPRESSION: No acute findings. Radiation Dose CTDIVOL = (mGy): DLP = (mGy-cm)
--- NOTE | 2021-07-22 13:56 | CT_ITS ---
WS: [id number] CT ANGIOGRAM CEREBRAL AND CAROTID ARTERIES HISTORY: ams TECHNIQUE: CT angiogram is performed of the carotid and cerebral arteries. During arterial injection imaging is obtained from the skull vertex to the aortic arch in 1.25 mm imaging. Coronal and sagittal reformats are submitted. Additional multi planar reformats of the carotid and cerebral arteries are submitted, MIP imaging also reviewed. NASCET criteria utilized. [facility] at least one of these dose optimization techniques: automated exposure control; mA and/or kV adjust ment per patient size (includes targeted exams where dose is matched to clinical indication); or iter ative reconstruction. CONTRAST: Omnipaque 350; 95 mL IV. DLP: 2272.29 mGy.cm COMPARISON: None available. Carotid Angiogram: Right carotid: Common carotid artery: Arises normally from the innominate artery. No significant plaque or stenosis. Internal carotid artery: Partial calcified encasement of the proximal RIGHT ICA. No significant steno sis. External carotid artery: Patent. Left carotid: Common carotid artery: Arises normally from the aorta. No significant plaque or stenosis. Internal carotid artery: No plaque or stenosis. External carotid artery: Patent. Right vertebral artery: Unremarkable. Left vertebral artery: Small caliber but patent. Subclavian arteries: No stenosis or significant abnormality. Upper thorax: Normal. Thyroid gland: Absent RIGHT thyroid lobe. Subcentimeter nodule in the LEFT thyroid. Osseous structures: Mild cervical spondylitic disease. CEREBRAL ANGIOGRAM: Intracranial vertebral arteries: Normal with no significant atherosclerosis. Basilar artery: No significant stenosis or occlusion. No aneurysm. Intracranial Internal carotid arteries: Mild atherosclerotic plaque. No high-grade stenosis. Middle cerebral arteries: Normal. Anterior cerebral arteries and ACOM: Normal. Posterior cerebral arteries and PCOM's: Normal. Dural venous sinuses are normally enhancing. Mastoid air cells: Normal. Paranasal sinuses: Normal. Calvarium: Normal. CT/CT angio headneck* [id number] IMPRESSION: 1. No high-grade carotid stenosis. Mild atherosclerotic plaque and intimal thi ckening of the proximal RIGHT ICA. 2. No aneurysms or significant occlusions or stenosis.
[2021-07-22] MEDS: iohexol 350 mg/mL 100 mL Btl IV ×2 (14:23→15:45)
[2021-07-22 14:29] LABS: Basophils # 0.1 10^3/uL (0.0-0.1); Basophils % 0.3 %; Eosinophils % 0.2 %; Hematocrit 42.6 % (42.0-52.0); Hemoglobin 14.4 g/dL (11.7-16.6); Lymphocytes # 1.8 10^3/uL (0.8-4.8); Lymphocytes % 12.7 %; Mean Corpuscular HGB Conc 33.8 g/dL (30.0-36.0); Mean Corpuscular Hemoglobin 29.9 pg (28.0-34.0); Mean Corpuscular Volume 88.6 fl (80-94); Mean Platelet Volume 10.7 fL (7.4-10.4); Monocytes # 1.5 10^3/uL (0.2-0.9); Monocytes % 10.3 %; Neutrophils # 10.95 10^3/uL (1.8-7.7); Neutrophils % 75.9 %; Nucleated Red Blood Cells % 0 %; Platelet Count 243 10^3/cmm (130-400); Red Blood Count 4.81 10^6/uL (4.1-5.3); Red Cell Distribution Width 14.1 % (12.1-15.1); White Blood Count 14.4 10^3/uL (4.0-10.0)
--- NOTE | 2021-07-22 14:32 | PC.PHAR ---
pts bradley [phone] verified pts medications-pts states the modafinil was dced ext med history shows last filled 06/24/21 30d/s pts states the pt hasnt had in 2-3 week
[2021-07-22 14:38] LABS: Glucose Point of Care 111 mg/dL (70-110)
[2021-07-22 14:45] VITALS: BP 135/65; PULSE 135; RESP 13; TEMP 37.1; O2SAT 97
[2021-07-22 14:53] LABS: Troponin(5th) Baseline 21 ng/L (0-15)
[2021-07-22 15:03] LABS: Alanine Aminotransferase 31 U/L (0-41); Alkaline Phosphatase 95 IU/L (40-130); Blood Urea Nitrogen 25 mg/dL (8-23); Calcium 9.8 mg/dL (8.5-10.5); Carbon Dioxide 24 mmol/L (22-29); Chloride 100 mmol/L (98-107); Creatinine Clr Calc Pharmacy 70.3846; Globulin 2.1 g/dL (1.3-4.6); Glucose 101 mg/dL (65-115); Osmolality Calculated 289 mOsm/kg (285-295); Sodium 137 mmol/L (136-145); Thyroid Stimulating Hormone 3.51 uIU/mL (0.27-4.20); Total Bilirubin 1.4 mg/dL (0.15-1.2); Total Protein 6.1 g/dL (6.6-8.7)
[2021-07-22 15:06] LABS: Anion Gap 17.5 (5-19); Aspartate Amino Transferase 56 U/L (0-40); Potassium 4.5 mmol/L (3.5-5.1)
--- NOTE | 2021-07-22 15:29 | CTR_ITS ---
PROCEDURE INFORMATION: Exam: CT Chest With Contrast; Diagnostic Exam date and time: 07/22/2021 3:29 PM Age: 75 years old Clinical indication: Constipation; Shortness of breath and other: AMS; Patient HX: Best images possible PT has difficulty staying still and following commands; Additional info: AMS, ? source of infection, abd pain, SOB TECHNIQUE: Imaging protocol: Diagnostic computed tomography of the chest with contrast. Radiation optimization: All CT scans at this facility use at least one of these dose optimization techniques: automated exposure control; mA and/or kV adjustment per patient size (includes targeted exams where dose is matched to clinical indication); or iterative reconstruction. Contrast material: OMNI 350; Contrast volume: 95 ml; Contrast route: INTRAVENOUS (IV); COMPARISON: CT thoracic spin wo con* [id number] 07/15/2021 11:30 AM RADIATION DOSE METRICS: Total DLP (mGy-cm): 1194.04 FINDINGS: Lungs: Unremarkable. No consolidation. No masses. Pulmonary arteries: The arteries are optimally filled with intravenous contrast. Large filling defect is seen in the proximal right pulmonary artery with smaller scattered filling defects scattered in the right and left pulmonary arteries. These findings correspond to positive diagnosis of proximal pulmonary embolism. Pleural spaces: Pleural thickening is seen in the posteromedial aspect of the right lower lobe 16 mm x 17 mm (series 4, image 40). A small pleural based density seen in the anterolateral aspect of the left lower lobe measuring 9.7 mm (series 4, image 44). No pneumothorax. No pleural effusion. Heart: Unremarkable. No cardiomegaly. No pericardial effusion. Aorta: Unremarkable. No aortic aneurysm. Lymph nodes: Unremarkable. No enlarged lymph nodes. Bones/joints: Unremarkable Soft tissues: Unremarkable. IMPRESSION: 1. Positive for proximal pulmonary embolism 2. Small subpleural densities bilateral lower lobes 3. Otherwise negative chest examination. PROCEDURE INFORMATION: Exam: CT Abdomen And Pelvis With Contrast Exam date and time: 07/22/2021 3:29 PM Age: 75 years old Clinical indication: Constipation; Shortness of breath and other: AMS; Patient HX: Best images possible PT has difficulty staying still and following commands; Additional info: AMS, ? source of infection, abd pain, SOB TECHNIQUE: Imaging protocol: Computed tomography of the abdomen and pelvis with contrast. Radiation optimization: All CT scans at this facility use at least one of these dose optimization techniques: automated exposure control; mA and/or kV adjustment per patient size (includes targeted exams where dose is matched to clinical indication); or iterative reconstruction. Contrast material: OMNI 350; Contrast volume: 95 ml; Contrast route: INTRAVENOUS (IV); COMPARISON: CT thoracic spin wo con* [id number] 07/15/2021 11:30 AM RADIATION DOSE METRICS: Total DLP (mGy-cm): 1194.04 FINDINGS: Liver: Normal. No mass. Gallbladder and bile ducts: Normal. No calcified stones. No ductal dilation. Pancreas: Normal. No ductal dilation. Spleen: Normal. No splenomegaly. Adrenal glands: Normal. No mass. Kidneys and ureters: Normal. No hydronephrosis. Stomach and bowel: Unremarkable. No obstruction. No mucosal thickening. Appendix: No evidence of appendicitis. Intraperitoneal space: Unremarkable. No free air. No significant fluid collection. Vasculature: Unremarkable. No abdominal aortic aneurysm. Lymph nodes: Unremarkable. No enlarged lymph nodes. Urinary bladder: Excessively filled with fluid. (Coronal measurement 13 cm x 15 cm) Reproductive: Unremarkable as visualized. Bones/joints: Severe osteoarthritis lumbar spine No acute fracture. Soft tissues: Unremarkable. CT/CT chest abd pel w con* IMPRESSION: Negative examination of the abdomen and pelvis. Radiation Dose CTDIVOL = (mGy): DLP = 1194.04~1194.04 (mGy-cm)
[2021-07-22 15:50] LABS: Lactate (Lactic Acid level) 1.6 mmol/L (0.5-2.2)
[2021-07-22 15:54] LABS: Rapid Plasma Reagin Syphilis Nonreactive (Nonreactive)
[2021-07-22 16:21] LABS: Troponin 5 2HR 17.75 ng/L (0-15)
[2021-07-22 16:26] LABS: Troponin 5 2HR Delta -3.25 ABS# (0-10)
[2021-07-22 16:36] VITALS: PULSE 87; RESP 24; TEMP 37.4; O2SAT 97
[2021-07-22 16:36] LABS: Vitamin B12 915 pg/mL (232-1245)
[2021-07-22] MEDS: sodium chloride 0.9% 1,000 ML 999 ML IV (17:10)
--- NOTE | 2021-07-22 17:10 | PC.NURSE ---
performed in and out cath per provider order. Output of 1200 ml.
[2021-07-22 17:25] LABS: NT Pro B Type Natriuretic Pept 117 pg/mL (0-450)
[2021-07-22 17:31] LABS: ABG PCO2 34.2 mmHg (35-45); ABG PH Result 7.46 (7.35-7.45); Arterial Blood Gas Hematocrit 40.1 % (42-52); Base Excess ABG 0.6 mmol/L (-2.0-2.0); Blood Gas Operator Identificat AMH; Blood Gas Sample Site Radial, right; Blood Gas Sample Type Arterial; HCO3 ABG 24.1 mmol/L (22-26); Oxygen Device ROOM AIR; PO2 ABG 65.3 mmHg (80.0-100.0)
[2021-07-22] MEDS: enoxaparin 80 mg/0.8 mL Syringe 70 MG SUBCUT (17:46)
[2021-07-22 17:59] LABS: Add Urine Microscopic? YES; Bilirubin Urine Neg (Negative); Blood Urine Neg (Negative); Glucose Urine UA Norm (Normal); Ketones Urine Negative (Negative); Leukocyte Esterase Urine Negative (Negative); Nitrate Urine Positive (Negative); Protein Urine Neg (Negative); Specific Gravity, Urine 1.015 (1.005-1.030); Urine Appearance SL Hazy (CLEAR); Urine Color Yellow (Yellow); Urobilinogen Urine Norm (Negative); pH Urine 6.5 (5-7)
[2021-07-22 18:00] LABS: Add Urine Culture? Yes; Bacteria Urine 3+ /hpf; RBC Urine 0-4 /hpf (0-2)
[2021-07-22 18:28] LABS: Ammonia 17 umol/L (16-60)
[2021-07-22] MEDS: folic acid 1 mg Tablet PO (18:33)
[2021-07-22 20:23] VITALS: BP 114/60; PULSE 88; RESP 14; O2SAT 95
[2021-07-22 20:27] LABS: Troponin 5 6HR 24.91 ng/L (0-15); Troponin 5 6HR Delta 3.91 ng/L (0-12)
--- NOTE | 2021-07-22 21:23 | PM.HP ---
Providers/Chief Complaint Admitting Physician: Levy Moralez Primary Care Provider: Tom Sow MD Chief Complaint: INCREASED CONFUSION/ INCREASED FALLS History of Present Illness Bryant Cross is a 75 year old male with past medical history of hypertension, dyslipidemia, thyroid disease, BPH, prior falls, recent subacromial hemorrhage requiring hospitalization who is brought to emergency room by his family due to increased confusion and falls. The symptoms started to 3 days ago and progressively got worse. The family is not sure why the patient is confused. The patient received IV fluids in the emergency room and feels a little better. He reports pain in the suprapubic area with burning urination. Denies nausea or vomiting. No diarrhea. Reports being thirsty. Patient's son who is a lab support technician in this hospital also mentions that he has difficulties with urination, difficulties with passing urine. Emergency room the patient was found to have urinary tract infection. Also he has a PE. He received first dose of Lovenox in the emergency room. ER physician discussed the case with the patient's neurosurgeon at [facility] who was okay with anticoagulation. According to the ER physician, per neurosurgery Xarelto or Eliquis would be reasonable choices for outpatient anticoagulation. The patient denies any recent tenderness or swelling in the legs. No chest pain, shortness of breath, cough, palpitations. Review of Systems General: Reports: 10 or more systems reviewed and unremarkable except in HPI and below Medications/Allergies Home Medications Medication Instructions Recorded Confirmed Last Taken Type zinc 50 mg tablet 50 mg PO DAILY 01/21/21 07/22/21 Unknown History tamsulosin 0.4 mg capsule 0.4 mg PO BID #180 cap 01/23/21 07/22/21 Unknown Rx albuterol sulfate 2 puff INHALATION Q4H PRN 07/22/21 07/22/21 Unknown History carvedilol 6.25 mg PO BID 07/22/21 07/22/21 07/22/21 10:00 History cyclobenzaprine 10 mg PO TID PRN 07/22/21 07/22/21 Unknown History famotidine [Pepcid] 20 mg PO BID 07/22/21 07/22/21 07/22/21 History finasteride 5 mg PO QAM 07/22/21 07/22/21 07/22/21 10:00 History hydrocodone-acetaminophen [Corona] 1 tab PO QID PRN 07/22/21 07/22/21 07/19/21 History levothyroxine 25 mcg PO QAM 07/22/21 07/22/21 07/22/21 History losartan 25 mg PO QAM 07/22/21 07/22/21 07/22/21 10:00 History magnesium 1 cap PO DAILY 07/22/21 07/22/21 Unknown History multivitamin 1 tab PO DAILY 07/22/21 07/22/21 Unknown History vit C,I-Gs-sruzj-lutein-zeaxan 1 tab PO BID 07/22/21 07/22/21 07/22/21 History [PreserVision AREDS-2] Allergies Allergy/AdvReac Type Severity Reaction Status Date / Time levofloxacin [From Levaquin] Allergy Unknown Verified 07/22/21 13:47 tramadol [From Ultram] Allergy Unknown Verified 07/22/21 13:47 PFSH Acute PFSH: Medical History BPH with obstruction/lower urinary tract symptoms Elevated PSA History of basal cell cancer Surgical History History of eye surgery History of hernia repair History of rotator cuff surgery History of surgical removal of ganglion cyst Family History Father , at age 77 Lung cancer Mother , at age 64 Colon cancer Social History Alcohol intake: never Marital status: Current occupational status: retired History of recent travel: No Vitals/I&O/Wt Last Vital Signs Temp 99.4 F 07/22/21 16:36 Pulse 88 07/22/21 20:23 Resp 14 07/22/21 20:23 BP 114/60 07/22/21 20:23 Pulse Ox 95 07/22/21 20:23 07/22/21 07/22/21 07/22/21 06:59 14:59 22:59 Intake Total 1000 / 1000 Balance 1000 / 1000 Weight last 48 hrs Weight 68.039 kg Physical Exam Narrative: EXAM NARRATIVE: Currently the patient is awake but confused and disoriented. Follows instructions. Responses are slow but adequate. Slightly restless. No other type of acute distress. Skin is warm and dry. Eyes PERRL, extraocular muscles are intact. Dry mucous membranes Neck supple. No JVD Lungs are clear bilaterally. No wheeze or crackles. No respiratory distress Heart S1, S2, regular Abdomen is soft, nontender, bowel sounds are present Extremities no edema cyanosis or calf tenderness bilaterally. Neuro examination is nonfocal. Speech is slurred. No facial asymmetry. Data : 07/22/21 13:40 07/22/21 13:40 Other Labs: Laboratory Results WBC 14.4 10^3/uL (4.0-10.0) H 07/22/21 13:40 RBC 4.81 10^6/uL (4.1-5.3) 07/22/21 13:40 Hgb 14.4 g/dL (11.7-16.6) 07/22/21 13:40 Hct 42.6 % (42.0-52.0) 07/22/21 13:40 MCV 88.6 fl (80-94) 07/22/21 13:40 MCH 29.9 pg (28.0-34.0) 07/22/21 13:40 MCHC 33.8 g/dL (30.0-36.0) 07/22/21 13:40 RDW 14.1 % (12.1-15.1) 07/22/21 13:40 Plt Count 243 10^3/cmm (130-400) 07/22/21 13:40 MPV 10.7 fL (7.4-10.4) H 07/22/21 13:40 Neut % (Auto) 75.9 % 07/22/21 13:40 Lymph % (Auto) 12.7 % 07/22/21 13:40 Hooker % (Auto) 10.3 % 07/22/21 13:40 Eos % (Auto) 0.2 % 07/22/21 13:40 Baso % (Auto) 0.3 % 07/22/21 13:40 Neut # (Auto) 10.95 10^3/uL (1.8-7.7) H 07/22/21 13:40 Lymph # (Auto) 1.8 10^3/uL (0.8-4.8) 07/22/21 13:40 Hooker # (Auto) 1.5 10^3/uL (0.2-0.9) H 07/22/21 13:40 Eos # (Auto) 0.0 10^3/uL (0.0-0.8) 07/22/21 13:40 Baso # (Auto) 0.1 10^3/uL (0.0-0.1) 07/22/21 13:40 Nucleated RBC % (auto) 0 % 07/22/21 13:40 Nucleated RBCs # 0.0 /100WBC 07/22/21 13:40 Specimen Type Arterial 07/22/21 17:19 Sample Site Radial, right 07/22/21 17:19 ABG pH 7.46 (7.35-7.45) H 07/22/21 17:19 ABG pCO2 34.2 mmHg (35-45) L 07/22/21 17:19 ABG pO2 65.3 mmHg (80.0-100.0) L 07/22/21 17:19 ABG HCO3 24.1 mmol/L (22-26) 07/22/21 17:19 ABG Base Excess 0.6 mmol/L (-2.0-2.0) 07/22/21 17:19 Rashid Test N/a 07/22/21 17:19 Hematocrit 40.1 % (42-52) L 07/22/21 17:19 O2 Delivery Device Room air 07/22/21 17:19 FiO2 21.0 % 07/22/21 17:19 Radiographer Mammographer ID [facility] 07/22/21 17:19 Sodium 137 mmol/L (136-145) 07/22/21 13:40 Potassium 4.5 mmol/L (3.5-5.1) 07/22/21 13:40 Chloride 100 mmol/L (98-107) 07/22/21 13:40 Carbon Dioxide 24 mmol/L (22-29) 07/22/21 13:40 Anion Gap 17.5 (5-19) 07/22/21 13:40 BUN 25 mg/dL (8-23) H 07/22/21 13:40 Creatinine 0.9 mg/dL (0.7-1.2) 07/22/21 13:40 GFR Calculation Not Reportable 07/22/21 13:40 Glucose 101 mg/dL (65-115) 07/22/21 13:40 POC Glucose 111 mg/dL (70-110) H 07/22/21 14:35 Calculated Osmolality 289 mOsm/kg (285-295) 07/22/21 13:40 Lactate 1.6 mmol/L (0.5-2.2) 07/22/21 14:34 Calcium 9.8 mg/dL (8.5-10.5) 07/22/21 13:40 Total Bilirubin 1.4 mg/dL (0.15-1.2) H 07/22/21 13:40 AST 56 U/L (0-40) H 07/22/21 13:40 ALT 31 U/L (0-41) 07/22/21 13:40 Alkaline Phosphatase 95 IU/L (40-130) 07/22/21 13:40 Ammonia 17 umol/L (16-60) 07/22/21 17:54 Troponin T Baseline 21 ng/L (0-15) H 07/22/21 13:40 Troponin T 120 Minute 17.75 ng/L (0-15) H 07/22/21 15:30 Delta Troponin T -3.25 ABS# (0-10) L 07/22/21 15:30 Troponin T Hi Sens 6Hr 24.91 ng/L (0-15) H 07/22/21 19:58 Troponin T Hi Sens 6Hr Delta 3.91 ng/L (0-12) 07/22/21 19:58 NT-Pro-B Natriuret Pep 117 pg/mL (0-450) 07/22/21 13:40 Total Protein 6.1 g/dL (6.6-8.7) L 07/22/21 13:40 Albumin 4.0 g/dL (3.5-5.2) 07/22/21 13:40 Globulin 2.1 g/dL (1.3-4.6) 07/22/21 13:40 Vitamin B12 915 pg/mL (232-1245) 07/22/21 13:40 TSH 3.51 uIU/mL (0.27-4.20) 07/22/21 13:40 Urine Color Yellow (Yellow) 07/22/21 16:40 Urine Appearance Sl hazy (CLEAR) 07/22/21 16:40 Urine pH 6.5 (5-7) 07/22/21 16:40 Ur Specific [place] 1.015 (1.005-1.030) 07/22/21 16:40 Urine Protein Neg (Negative) 07/22/21 16:40 Urine Glucose (UA) Norm (Normal) 07/22/21 16:40 Urine Ketones Negative (Negative) 07/22/21 16:40 Urine Blood Neg (Negative) 07/22/21 16:40 Urine Nitrate Positive (Negative) H 07/22/21 16:40 Urine Bilirubin Neg (Negative) 07/22/21 16:40 Urine Urobilinogen Norm mg/dL (Negative) 07/22/21 16:40 Ur Leukocyte Esterase Negative (Negative) 07/22/21 16:40 Urine RBC 0-4 /hpf (0-2) H 07/22/21 16:40 Urine WBC 5-10 /hpf (0-5) H 07/22/21 16:40 Ur Squamous Epith Cells 5-10 /hpf (0-5) H 07/22/21 16:40 Amorphous Sediment Not Reportable 07/22/21 16:40 Urine Bacteria 3+ /hpf (NONE) H 07/22/21 16:40 RPR Nonreactive (Nonreactive) 07/22/21 13:40 Impressions Chest X-Ray 07/22/21 13:56 IMPRESSION: No acute findings. Radiation Dose CTDIVOL = (mGy): DLP = (mGy-cm) Head CT 07/22/21 13:56 IMPRESSION: 1. No acute intracranial hemorrhage or edema. 2. Mild cerebral atrophy and mild chronic microvascular ischemic disease. Head/Neck CTA 07/22/21 13:56 IMPRESSION: 1. No high-grade carotid stenosis. Mild atherosclerotic plaque and intimal thickening of the proximal RIGHT ICA. 2. No aneurysms or significant occlusions or stenosis. Chest/Abdomen/Pelvis CT 07/22/21 15:29 IMPRESSION: Negative examination of the abdomen and pelvis. Radiation Dose CTDIVOL = (mGy): DLP = 1194.04~1194.04 (mGy-cm) ADDENDUM: 07/22/21 1677 Findings were discussed with Vignesh Walker at 07/22/2021 5:01 PM FOOD SERVICE SUPERVISOR. Radiation Dose CTDIVOL = (mGy): DLP = 1194.04~1194.04 (mGy-cm) Micro: Microbiology 07/22/21 15:36 Blood Culture - Preliminary Blood SPECIMEN COLLECTED 07/22/21 15:30 Blood Culture - Preliminary Blood SPECIMEN COLLECTED A&P Assessment and plan (1) Acute metabolic encephalopathy: Status: Acute (2) UTI (urinary tract infection): Status: Acute (3) Urinary retention: Status: Acute (4) BPH with obstruction/lower urinary tract symptoms: Status: Acute (5) Pulmonary embolus: Status: Acute (6) Dehydration: Status: Acute (7) Hypertension: Status: Acute Additional A&P Information 75 year old male with past medical history of hypertension, dyslipidemia, thyroid disease, BPH, prior falls, recent subacromial hemorrhage requiring hospitalization who is brought to emergency room by his family due to increased confusion and falls. The symptoms started to 3 days ago and progressively got worse. He reports pain in the suprapubic area with burning urination. Most likely the patient has acute metabolic encephalopathy due to urinary tract infection, urinary retention, dehydration. Additionally the patient is found to have PE. He is hemodynamically and respiratory carson stable. Received first dose of Lovenox. Okay to anticoagulate per neurosurgery. (Per ED physician) Sutton catheter will be inserted. We will start him on IV fluids and Rocephin. We will monitor his CBC and chemistry panel. We will continue Lovenox. Okay to use Xarelto or Eliquis for long-term anticoagulation. CODE STATUS. The patient wants to be full code. The plan of care was discussed with the patient and his son. They verbalized understanding and agreement. Attestations Medical Necessity Statement*: Based on my assessment of patient's current condition, findings and diagnosis I expect that the patient will spend more than 2 midnights in the hospital. Coding Level of Care Code Acute Meat Team Lead for Griselda Fwd Diagnoses Acute metabolic encephalopathy G93.41 UTI (urinary tract infection) N39.0 Urinary retention R33.9 BPH with obstruction/lower urinary tract symptoms N40.1; N13.8 Pulmonary embolus I26.99 Dehydration E86.0 Hypertension I10
[2021-07-22] MEDS: cefTRIAXone 1,000 MG in sodium chloride 0.9% (plus) 50 ML 100 MG IV (21:51)
[2021-07-22] MEDS: sodium chloride 0.9% 1,000 ML 75 ML IV (21:52)
[2021-07-23] VITALS (7 sets, daily range): BP systolic 99–120; BP diastolic 53–63; PULSE 77–94; RESP 16–19; TEMP 36.4–37.1; O2SAT 92–96
[2021-07-23 00:54] LABS: Vitamin B12 741 pg/mL (232-1245)
[2021-07-23 05:49] LABS: Basophils # 0.1 10^3/uL (0.0-0.1); Basophils % 0.4 %; Eosinophils # 0.1 10^3/uL (0.0-0.8); Eosinophils % 0.7 %; Hematocrit 35.5 % (42.0-52.0); Hemoglobin 12.2 g/dL (11.7-16.6); Lymphocytes # 1.9 10^3/uL (0.8-4.8); Lymphocytes % 14.4 %; Mean Corpuscular HGB Conc 34.4 g/dL (30.0-36.0); Mean Corpuscular Volume 90.1 fl (80-94); Mean Platelet Volume 10.5 fL (7.4-10.4); Monocytes # 1.4 10^3/uL (0.2-0.9); Monocytes % 10.3 %; Neutrophils # 9.95 10^3/uL (1.8-7.7); Neutrophils % 73.8 %; Nucleated Red Blood Cells % 0 %; Platelet Count 200 10^3/cmm (130-400); Red Blood Count 3.94 10^6/uL (4.1-5.3); Red Cell Distribution Width 14.3 % (12.1-15.1); White Blood Count 13.5 10^3/uL (4.0-10.0)
[2021-07-23 06:12] LABS: Anion Gap 12.5 (5-19); Blood Urea Nitrogen 13 mg/dL (8-23); Calcium 8.4 mg/dL (8.5-10.5); Carbon Dioxide 24 mmol/L (22-29); Chloride 103 mmol/L (98-107); Glucose 79 mg/dL (65-115); Magnesium 1.8 mg/dL (1.7-2.3); Osmolality Calculated 281 mOsm/kg (285-295); Phosphorus 2.8 mg/dL (2.5-4.5); Potassium 3.5 mmol/L (3.5-5.1); Sodium 136 mmol/L (136-145)
[2021-07-23] MEDS: enoxaparin 80 mg/0.8 mL Syringe 70 MG SUBCUT ×2 (08:31→20:27)
[2021-07-23] MEDS: sodium chloride 0.9% 1,000 ML 75 ML IV (10:10)
--- NOTE | 2021-07-23 10:59 | P.PN_ITS ---
Subjective Subjective: Interval history: Seen and examined this morning. Patient oriented to self and to time but not to place. He was a little slow to answer but was able to tell me it is the year 2020 and Rosailno is the president. He also know his date of and his name. He did tell me that he had a brain bleed but unsure when it happened. He says he lives at home with his . He does appear slightly confused but able to give me some details. He denies any urinary complaints at this time. Unable to provide further history. Vitals/I&O/Wt Last Vital Signs Temp 98.1 F 07/23/21 07:52 Pulse 79 07/23/21 07:52 Resp 16 07/23/21 07:52 BP 116/53 07/23/21 07:52 Pulse Ox 93 07/23/21 07:52 07/22/21 07/23/21 07/23/21 22:59 06:59 14:59 Intake Total 1050 / 1050 1000 / 1000 Output Total 200 / 200 550 / 750 Balance 850 / 850 -550 / 300 1000 / 1000 Weight last 48 hrs Weight 68.039 kg Physical Exam Narrative: EXAM NARRATIVE: General: Alert oriented x2, patient seen sitting up in bed. Able to follow all instructions. Does respond slowly but responds appropriately. He is not in any acute distress at this time. HEENT: Normocephalic, atraumatic, EOMI, breathing room air Cardio: Regular rate rhythm, normal S1-S2, no murmurs rubs gallops, Respiratory: Good bilateral air entry, no wheezes no rhonchi appreciated GI: Abdomen soft, nontender, nondistended, bowel sounds + Extremities: Pulses 2+, no edema, no cyanosis Neuro: Nonfocal neuro exam. Speech is very clear. No focal asymmetry. Able to move all 4 extremities and follow commands appropriately. Does not appear confused. Believes he is in [facility] but other than that is alert and oriented. Urinary Catheter Management^: Sutton: Cath Placed During This Visit: yes Reason for Continuing Indwelling Catheter: Acute Urinary Retention or Obstruction Urinary Catheter Date of Insertion: 07/22/21 Urinary Catheter Time of Insertion: 21:25 Data : 07/23/21 05:12 07/23/21 05:12 Micro: Microbiology 07/22/21 15:36 Blood Culture - Preliminary Blood SPECIMEN COLLECTED 07/22/21 15:30 Blood Culture - Preliminary Blood SPECIMEN COLLECTED A&P Assessment and plan (1) Dehydration: Status: Acute (2) UTI (urinary tract infection): Status: Acute (3) Pulmonary embolus: Status: Acute (4) BPH with obstruction/lower urinary tract symptoms: Status: Acute Additional A&P Information Patient's urinalysis was abnormal. Urine culture has been sent. He is currently on ceftriaxone. He denies any urine complaints at this time. Most likely confusion on admission was secondary to UTI. Patient does appear stable at this time. Sutton catheter was inserted. IV fluids were started. ER physician did speak to [facility] because of patient's recent subarachnoid hemorrhage requiring hospitalization. Patient was brought in due to confusion and falls. Patient is no longer confused. He was disoriented to place and thought he was in [facility] but other than that he was quite alert and oriented this morning when seen. We will continue patient on Lovenox twice daily. Will transition to Eliquis at discharge. Patient is improving altered mental status carson. Will await for final urine culture to decide antibiotics. DVT prophylaxis: On full dose Lovenox Diet: Regular diet Disposition: Greater than 48-hour inpatient stay. Attestations Medical Necessity Statement*: >48 hrs Time Spent in Patient Care: 16 - 35 minutes Coding Level of Care Code Acute Crisis Intervention Specialist for Griselda Hernandez Diagnoses Dehydration E86.0 UTI (urinary tract infection) N39.0 Pulmonary embolus I26.99 BPH with obstruction/lower urinary tract symptoms N40.1; N13.8
[2021-07-23] MEDS: famotidine 20 mg Tablet PO (17:07)
--- NOTE | 2021-07-23 21:20 | USCV_ITS ---
Bryant Cross Age: 75 Gender: M : 1945 Exam Date: 07/23/2021 06:55 Ordering Phys: Levy Moralez MD Technologist: Yu Champagne [place] [facility] [place]: EVAL FOR DVT HISTORY: Lower extremity swelling. PROCEDURES: Venous duplex imaging was performed in bilateral lower extremities. The following venous structures were evaluated: common femoral vein, profunda vein, proximal portion of the greater saphenous vein, superficial femoral vein, and the popliteal vein. In addition, the posterior tibial and peroneal trunk were evaluated. Serial compression, augmentation maneuvers, and spectral Doppler flow evaluation were performed. FINDINGS: Normal 2-D Doppler and augmentation and compressibility throughout the lower extremity venous structures. Additional imaging through the proximal calf veins also reveals no thrombus. Limited evaluation of the greater saphenous vein is patent with no thrombus. CONCLUSIONS No DVT bilateral lower extremities. Dr. Stephy Deras DO (Electronically Signed) Final Date: 23 July 2021 08:40 S
[2021-07-24] VITALS (8 sets, daily range): BP systolic 100–151; BP diastolic 60–82; PULSE 78–90; RESP 12–18; TEMP 36.7–37.3; O2SAT 92–96
[2021-07-24 02:47] LABS: Basophils % 0.4 %; Eosinophils # 0.3 10^3/uL (0.0-0.8); Eosinophils % 2.9 %; Hemoglobin 11.8 g/dL (11.7-16.6); Lymphocytes # 2.1 10^3/uL (0.8-4.8); Lymphocytes % 22.5 %; Mean Corpuscular HGB Conc 34.7 g/dL (30.0-36.0); Mean Corpuscular Hemoglobin 30.4 pg (28.0-34.0); Mean Corpuscular Volume 87.6 fl (80-94); Mean Platelet Volume 10.4 fL (7.4-10.4); Monocytes % 11.1 %; Neutrophils # 5.72 10^3/uL (1.8-7.7); Neutrophils % 62.8 %; Nucleated Red Blood Cells % 0 %; Platelet Count 204 10^3/cmm (130-400); Red Blood Count 3.88 10^6/uL (4.1-5.3); Red Cell Distribution Width 14.2 % (12.1-15.1); White Blood Count 9.1 10^3/uL (4.0-10.0)
[2021-07-24 03:10] LABS: Anion Gap 10.5 (5-19); Blood Urea Nitrogen 11 mg/dL (8-23); Carbon Dioxide 24 mmol/L (22-29); Chloride 105 mmol/L (98-107); Glucose 84 mg/dL (65-115); Magnesium 1.7 mg/dL (1.7-2.3); Osmolality Calculated 281 mOsm/kg (285-295); Potassium 3.5 mmol/L (3.5-5.1); Sodium 136 mmol/L (136-145)
[2021-07-24] MEDS: levothyroxine 25 mcg Tablet PO (05:46)
[2021-07-24] MEDS: sodium chloride 0.9% 1,000 ML 75 ML IV ×2 (05:46→20:33)
[2021-07-24] MEDS: enoxaparin 80 mg/0.8 mL Syringe 70 MG SUBCUT ×2 (08:51→20:33)
[2021-07-24] MEDS: famotidine 20 mg Tablet PO ×2 (08:51→17:32)
[2021-07-24] MEDS: cefTRIAXone 1,000 MG in sodium chloride 0.9% (plus) 50 ML 100 MG IV (08:53)
--- NOTE | 2021-07-24 11:18 | P.PN_ITS ---
Subjective Subjective: Interval history: Seen this morning. Patient is much more awake alert oriented and lucid today. He does not appear very confused. Appears much improved compared to admission. He states he is doing well has no complaints. Denies any urinary complaints today. However does state that he is wearing a diaper and has soiled it and would like nursing to come and help him. Urine culture does show coagulase-negative Staphylococcus greater than 100,000 colonies. Final results culture sensitivity pending. Vitals/I&O/Wt Last Vital Signs Temp 98.4 F 07/24/21 08:00 Pulse 84 07/24/21 08:24 Resp 18 07/24/21 08:24 BP 151/77 07/24/21 08:00 Pulse Ox 95 07/24/21 08:24 07/23/21 07/24/21 07/24/21 22:59 06:59 14:59 Intake Total 1300 / 2540 200 / 2740 410 / 410 Output Total 400 / 400 620 / 1020 Balance 900 / 2140 -420 / 1720 410 / 410 Weight last 48 hrs Weight 68.039 kg Physical Exam Narrative: EXAM NARRATIVE: General: Alert oriented x3, patient seen sitting up in bed. Able to follow all instructions. No acute distress. Appears much better energetic and improved compared to admission. HEENT: Normocephalic, atraumatic, EOMI, breathing room air Cardio: Regular rate rhythm, normal S1-S2, no murmurs rubs gallops, Respiratory: Good bilateral air entry, no wheezes no rhonchi appreciated GI: Abdomen soft, nontender, nondistended, bowel sounds + Extremities: Pulses 2+, no edema, no cyanosis Neuro: Nonfocal neuro exam. Urinary Catheter Management^: Sutton: Cath Placed During This Visit: yes Reason for Continuing Indwelling Catheter: Acute Urinary Retention or Obstruction Urinary Catheter Date of Insertion: 07/22/21 Urinary Catheter Time of Insertion: 21:25 Data : 07/24/21 02:23 07/24/21 02:23 Micro: Microbiology 07/22/21 16:40 Urine Culture - Preliminary Urine,Clean Catch Coagulase negativ staphylococc 07/22/21 15:36 Blood Culture - Preliminary Blood NEGATIVE TO DATE 07/22/21 15:30 Blood Culture - Preliminary Blood NEGATIVE TO DATE A&P Assessment and plan (1) Dehydration: Status: Acute (2) UTI (urinary tract infection): Status: Acute (3) Pulmonary embolus: Status: Acute (4) BPH with obstruction/lower urinary tract symptoms: Status: Acute Additional A&P Information Patient's urinalysis was abnormal. Urine culture has been sent. He is currently on ceftriaxone. He denies any urine complaints at this time. Most likely confusion on admission was secondary to UTI. Patient does appear stable at this time. Sutton catheter was inserted. IV fluids were started. We will continue patient on IV ceftriaxone at this point. Urine culture growing-is negative Staphylococcus. Final culture sensitivity pending. ER physician did speak to [facility] because of patient's recent subarachnoid hemorrhage requiring hospitalization. Patient was brought in due to confusion and falls. Patient is no longer confused. We will transition patient to Eliquis at discharge. We will stop full dose Lovenox. Will await for final urine culture to decide antibiotics. DVT prophylaxis: On full dose Lovenox Diet: Regular diet Disposition: Plan for discharge in a.m after culture sensitivity results are back.. Attestations Medical Necessity Statement*: Greater than 24 hours Time Spent in Patient Care: 16 - 35 minutes Coding Level of Care Code Acute Supervisor Tank Cleaning for [facility] Fwd Diagnoses Dehydration E86.0 UTI (urinary tract infection) N39.0 Pulmonary embolus I26.99 BPH with obstruction/lower urinary tract symptoms N40.1; N13.8
[2021-07-24 16:20] LABS: SARS Covid-2 Antigen Negative (Negative)
--- NOTE | 2021-07-24 19:05 | PC.NURSE ---
Report to Funmi TANG at this time.
[2021-07-25 02:30] VITALS: PULSE 80; RESP 18; O2SAT 93
[2021-07-25 02:59] LABS: Basophils % 0.5 %; Eosinophils # 0.3 10^3/uL (0.0-0.8); Eosinophils % 4.5 %; Hematocrit 35.1 % (42.0-52.0); Hemoglobin 12.2 g/dL (11.7-16.6); Lymphocytes # 1.9 10^3/uL (0.8-4.8); Lymphocytes % 31.2 %; Mean Corpuscular HGB Conc 34.8 g/dL (30.0-36.0); Mean Corpuscular Hemoglobin 30.4 pg (28.0-34.0); Mean Corpuscular Volume 87.5 fl (80-94); Mean Platelet Volume 10.5 fL (7.4-10.4); Monocytes # 0.7 10^3/uL (0.2-0.9); Monocytes % 11.7 %; Neutrophils % 51.8 %; Nucleated Red Blood Cells % 0 %; Platelet Count 222 10^3/cmm (130-400); Red Blood Count 4.01 10^6/uL (4.1-5.3); Red Cell Distribution Width 13.6 % (12.1-15.1)
[2021-07-25 03:25] LABS: Anion Gap 12.4 (5-19); Blood Urea Nitrogen 8 mg/dL (8-23); Calcium 8.3 mg/dL (8.5-10.5); Carbon Dioxide 23 mmol/L (22-29); Chloride 107 mmol/L (98-107); Glucose 90 mg/dL (65-115); Osmolality Calculated 286 mOsm/kg (285-295); Potassium 3.4 mmol/L (3.5-5.1); Sodium 139 mmol/L (136-145)
[2021-07-25 04:00] VITALS: BP 139/78; PULSE 78; RESP 12; TEMP 36.6; O2SAT 97
[2021-07-25] MEDS: levothyroxine 25 mcg Tablet PO (06:47)
[2021-07-25 08:00] VITALS: BP 148/82; PULSE 82; RESP 17; TEMP 36.8; O2SAT 94
[2021-07-25 08:13] VITALS: PULSE 78; RESP 16; O2SAT 97
[2021-07-25] MEDS: enoxaparin 80 mg/0.8 mL Syringe 70 MG SUBCUT (08:13)
[2021-07-25] MEDS: cefTRIAXone 1,000 MG in sodium chloride 0.9% (plus) 50 ML 100 MG IV (08:13)
[2021-07-25] MEDS: famotidine 20 mg Tablet PO (08:14)
[2021-07-25] MEDS: potassium chloride oral liq 20 mEq/15 mL UDC 40 MEQ PO (08:46)
[2021-07-25] MEDS: sodium chloride 0.9% 1,000 ML 75 ML IV (10:06)
[2021-07-25 11:35] VITALS: BP 147/83; PULSE 90; RESP 16; TEMP 37.2; O2SAT 96
--- NOTE | 2021-07-25 11:57 | PC.SOCIAL ---
IMM Update: pg 2 of IMM updated and reviewed w/ patient. Copy provided.
--- NOTE | 2021-07-25 13:58 | PC.CHAP ---
Pastoral Care Encounter/Spiritual Assessment Type of Contact [] Declined broach trouble shooter visit [] Patient/Family/Request visit [] Outpatient visit [xx] Follow-up visit [] Physician referral [] Code/Alert [xx] Routine visit [] Staff referral [] Actively dying [] Patient sleeping [] Family support [] [] Out of room [] Palliative care [] [] Receiving care in room [] Pre-surgical visit [] Trauma [] Long length of stay [] ICU visit [] Other: Relational/Emotional Strength [xx] Patient feels connected with others/family/visitors/staff [] Distress [] Loneliness/isolation [] Abandonment Spirituality of Patient [xx] Person of Mechelle [] Attends [employer] of their Mechelle [xx] Believes in Prayer [xx] Reads Bible or Judaism materials [] There are Spiritual issues to be addressed Retail Merchandiser Technician Interventions [xx] Prayer [xx] Active listening [xx] Non-anxious presence [] Spiritual/emotional support [] Crisis/trauma care [] Spiritual counseling [] Bereavement support [] Provided bereavement packet [xx] Provided Bible/devotional materials [] Provided toy/stuffed animal, coloring book to patient or family member [] Provided Communion [] Anointing/Stites [] Salvation [xx] Completed spiritual assessment [] Other: Impact on Illness or Injury [] Angry [] Fearful [] Anxious [] Often cries [] Exhaustion [] Unable to work [] Unable to attend zoroastrianism [] Unable to walk/stand [] Unable to read [] Unable to drive [] Unable to eat/drink [] Unable to sleep [] Unable to be with family [] Patient intubated [] Other: Summary Patient stated he is feeling great now. He is being discharged today. His bride of 50+ years will be caring for him at home and he intends to let her spoil him. Time spent with patient 7 minutes
[2021-07-25 15:22] VITALS: BP 147/83; PULSE 90; RESP 16; TEMP 37.2; O2SAT 96
--- NOTE | 2021-07-25 17:46 | PM.DCS ---
Discharge Providers Date of Admission: 07/22/21 19:20 Date of Discharge: July 25, 2021 Attending Provider at Admission: Levy Moralez Attending Provider at Discharge: Cata Vallecillo MD Primary Care Provider: Tom Sow MD Diagnoses at Discharge Discharge Diagnosis (1) Dehydration: Status: Acute (2) UTI (urinary tract infection): Status: Acute (3) Pulmonary embolus: Status: Acute (4) BPH with obstruction/lower urinary tract symptoms: Status: Acute Reason for Visit Reason for Visit: INCREASED CONFUSION/ INCREASED FALLS Hospital Course Hospital Course HPI as per Dr. Moralez Bryant Cross is a 75 year old male with past medical history of hypertension, dyslipidemia, thyroid disease, BPH, prior falls, recent subacromial hemorrhage requiring hospitalization who is brought to emergency room by his family due to increased confusion and falls. The symptoms started to 3 days ago and progressively got worse. The family is not sure why the patient is confused. The patient received IV fluids in the emergency room and feels a little better. He reports pain in the suprapubic area with burning urination. Denies nausea or vomiting. No diarrhea. Reports being thirsty. Patient's son who is a industrial engineering technician in this hospital also mentions that he has difficulties with urination, difficulties with passing urine. Emergency room the patient was found to have urinary tract infection. Also he has a PE. He received first dose of Lovenox in the emergency room. ER physician discussed the case with the patient's neurosurgeon at [facility] who was okay with anticoagulation. According to the ER physician, per neurosurgery Xarelto or Eliquis would be reasonable choices for outpatient anticoagulation. The patient denies any recent tenderness or swelling in the legs. No chest pain, shortness of breath, cough, palpitations. Course Patient was treated with full dose Lovenox while in the hospital for PE. He was also placed on ceftriaxone for UTI. Urine culture grew coagulase-negative staph aureus. Patient responded well to ceftriaxone and confusion improved. He is back to baseline now. Sutton catheter removed at discharge. He will be sent home on Eliquis and cefpodoxime. Stable at discharge doing well cognitively intact. Physical Exam Narrative: EXAM NARRATIVE: General: Alert oriented x3, patient seen sitting up in bed. No acute distress. HEENT: Normocephalic, atraumatic, EOMI, breathing room air Cardio: Regular rate rhythm, normal S1-S2, no murmurs rubs gallops, Respiratory: Good bilateral air entry, no wheezes no rhonchi appreciated GI: Abdomen soft, nontender, nondistended, bowel sounds + Extremities: Pulses 2+, no edema, no cyanosis Neuro: Nonfocal neuro exam. Urinary Catheter Management^: Sutton: Cath Placed During This Visit: yes, but has since been removed by the nurse Reason for Continuing Indwelling Catheter: Other Urinary Catheter Date of Insertion: 07/22/21 Urinary Catheter Time of Insertion: 21:25 Date Urinary Catheter Removed: 07/25/21 Time Urinary Catheter Discontinued: 14:54 Discharge Data Data Completed and Pending: Completed Studies During Hospitalization Category Date Time Status CT angio headneck * 44325/[id number] Urge nt Cat Scan 07/22/21 13:[address] chest abd pel w con* Stat Cat Scan 07/22/21 15:[address] head wo con* 7 0450 Urgent Cat Scan 07/22/21 13:56 Completed XR chest 1V zack ble [id number] Urgent Exams 07/22/21 13:56 [place] [id number] Routin e Ultrasound 07/23/21 21:20 Completed Pending at discharge Category Date Time Status Blood Culture Sta t Lab 07/22/21 15:36 Results Urine Culture Sta t Lab 07/22/21 16:40 Results Labs from last 24 hours 07/25/21 07/25/21 02:18 02:18 WBC 6.0 RBC 4.01 L Hgb 12.2 Hct 35.1 L MCV 87.5 MCH 30.4 MCHC 34.8 RDW 13.6 Plt Count 222 MPV 10.5 H Neut % (Auto) 51.8 Lymph % (Auto) 31.2 [place] % (Auto) 11.7 Eos % (Auto) 4.5 Baso % (Auto) 0.5 Neut # (Auto) 3.10 Lymph # (Auto) 1.9 [place] # (Auto) 0.7 Eos # (Auto) 0.3 Baso # (Auto) 0.0 Nucleated RBC % (a uto) 0 Nucleated RBCs # 0.0 Sodium 139 Potassium 3.4 L Chloride 107 Carbon Dioxide 23 Anion Gap 12.4 BUN 8 Creatinine 0.7 GFR Calculation Not Reportable Glucose 90 Calculated Osmolal ity 286 Calcium 8.3 L Vitals: Last Vital Signs Temp 98.9 F 07/25/21 15:22 Pulse 90 07/25/21 15:22 Resp 16 07/25/21 15:22 BP 147/83 07/25/21 15:22 Pulse Ox 96 07/25/21 15:22 Discharge Plan Discharge Patient Disposition: Xfer SNF Condition: Stable Prescriptions: New Eliquis 5 mg tablet 5 mg PO BID 30 Days Qty: 76 RF: 2 cefpodoxime 200 mg tablet 200 mg PO BID 4 Days Qty: 8 RF: 0 Continued zinc 50 mg tablet 50 mg PO DAILY RF: 0 tamsulosin 0.4 mg capsule 0.4 mg PO BID Qty: 180 RF: 3 PreserVision AREDS-2 250-90-40-1 mg Capsule 1 tab PO BID RF: 0 cyclobenzaprine 10 mg tablet 10 mg PO TID PRN (Reason: muscle spasm) RF: 0 multivitamin Tablet 1 tab PO DAILY RF: 0 carvedilol 6.25 mg tablet 6.25 mg PO BID RF: 0 hydrocodone-acetaminophen 5-325 mg Tablet 1 tab PO QID PRN (Reason: Pain) RF: 0 levothyroxine 25 mcg tablet 25 mcg PO QAM RF: 0 Pepcid 20 mg Tablet 20 mg PO BID RF: 0 losartan 25 mg tablet 25 mg PO QAM RF: 0 albuterol sulfate 90 mcg/actuation HFA aerosol inhaler 2 puff INHALATION Q4H PRN (Reason: Shortness Of Breath) RF: 0 finasteride 5 mg tablet 5 mg PO QAM RF: 0 Held magnesium 1 cap PO DAILY RF: 0 Hold Instructions: see pcp Discharge Orders: Discharge Order (Routine); Ordered 07/25/21 Ordered By: Cata Vallecillo Referrals: [facility] [Outside] Luis Brannon MD [Physician] - 08/06/21 9:15 am Tom Sow MD [Primary Care Provider] - 2 weeks (Please schedule an appointment with your primary care provider within the next two weeks.) Discharge Diet: Regular Discharge Activity: Resume usual activity Patient Instructions: Cefpodoxime Proxetil (By mouth) (Vantin), Apixaban (By mouth) (Eliquis), Opioid Safety Discharge Attestations Time Spent in Discharge Care*: less than 30 min Quality Metrics Clinical Quality Measures During this hospital stay, did patient experience: VTE Contraindication to Overlap Therapy: Overlap therapy prescribed VTE Discharge Education: Education about anticoagulant therapy/Care Notes given Deep Vein Thrombosis/Pulmonary Embolism Present on Admission: Yes Coding Level of Care Code Acute Chg FW DC note Diagnoses Dehydration E86.0 UTI (urinary tract infection) N39.0 Pulmonary embolus I26.99 BPH with obstruction/lower urinary tract symptoms N40.1; N13.8
== END 2021-07-25 15:23 | disposition skilled nursing facility (03) | DRG 689 ==
LOC: ER 15:31 → MEDSURG 19:59
PROVIDERS: Admitting Provider Internal Medicine; Emergency Provider Emergency Medicine; PCP Family Medicine; Visit Provider Internal Medicine
DX: N39.0 Urinary tract infection, site not specified (principal); I26.99 Other pulmonary embolism without acute cor pulmonale; G93.41 Metabolic encephalopathy; I10 Essential (primary) hypertension; E78.5 Hyperlipidemia, unspecified; N40.1 Benign prostatic hyperplasia with lower urinary tract symptoms; R33.8 Other retention of urine; R97.20 Elevated prostate specific antigen [PSA]; Z85.828 Personal history of other malignant neoplasm of skin; Z91.81 History of falling; E86.0 Dehydration; B95.8 Unspecified staphylococcus as the cause of diseases classified elsewhere; Z79.891 Long term (current) use of opiate analgesic; E07.9 Disorder of thyroid, unspecified
CPT/HCPCS: 36415; 36416; 36600; 51701; 51702; 70450; 70496; 70498; 71045; 71260; 74177; 80048; 80053; 81001; 82140; 82607; 82803; 82962; 83605; 83735; 83880; 84100; 84443; 84484; 85025; 86592; 87040; 87077; 87086; 87186; 87426; 93005; 93970; 96361; 96372; 96374; 97110; 97116; 97162; 97165; 97535; 99285; J0696; J1650; J3411; J7030; Q9967

== ENCOUNTER → 2021-07-31 15:43 | Outpatient (BNVA) | payer MEDICARE, OTHER, SELFPAY | PROVIDERS: PCP Family Medicine; Visit Provider Nurse Practitioner Family | DX: N39.0 Urinary tract infection, site not specified (principal) | CPT/HCPCS: 81003; 87086 ==

== ENCOUNTER → 2021-08-06 09:23 | Outpatient (BNVA) | payer MEDICARE, OTHER, SELFPAY | PROVIDERS: PCP Family Medicine; Visit Provider Urology | DX: N39.0 Urinary tract infection, site not specified (principal) | CPT/HCPCS: 81003 ==

== ENCOUNTER → 2021-08-11 08:54 | Outpatient (BNVA) | payer MEDICARE, OTHER, SELFPAY | PROVIDERS: PCP Family Medicine; Referring Provider Family Medicine; Visit Provider Nurse Practitioner | DX: Z86.79 Personal history of other diseases of the circulatory system (principal); Z86.711 Personal history of pulmonary embolism; M54.9 Dorsalgia, unspecified; Z79.01 Long term (current) use of anticoagulants | CPT/HCPCS: 99204 ==

== ENCOUNTER 2021-08-19 06:00 | Outpatient (RCR) | payer MEDICARE, OTHER, SELFPAY | END 2021-09-11 16:51 | disposition home or self-care (01) | LOC: SPT 06:00 | PROVIDERS: PCP Family Medicine; Referring Provider Nurse Practitioner; Visit Provider Nurse Practitioner | DX: R26.89 Other abnormalities of gait and mobility (principal); Z86.79 Personal history of other diseases of the circulatory system | CPT/HCPCS: 97110; 97112; 97162 ==

== ENCOUNTER 2021-09-25 14:07 | Outpatient (CLI) | payer MEDICARE, OTHER, SELFPAY ==
--- NOTE | 2021-09-25 17:41 | ONC CON_ITS ---
Dr. Yuan New Patient Note Patient: Bryant Cross Unit #: [id number]: [id number] Dicatated By: Santo Yuan M.D.Date of Visit: Sep 25, 2021 Onc MED New Patient/Consult Referring Physician: Dr. Tom Sow M.D. Chief Complaint: Pulmonary embolism. History of Present Illness: This is a 76-year-old man who had an episode of significant pulmonary embolism in July 2021. In February 2021 he was found on ultrasound to have a solid heterogeneous mid right thyroid nodule measuring 1.8 x 1.6 x 1.8 cm. He was referred to Dr. 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 That procedure was complicated by postoperative nausea/vomiting. May 25, 2021 he presented to the emergency room with severe pain in his head and neck and he was confirmed on head CT to have a large amount of subarachnoid hemorrhage in the basilar cisterns, about the brainstem, and the fourth ventricle. He was admitted to the [facility], and on discharge he was transferred to [facility] in [place]. According to his he experienced severe back pain during his rehab, but eventually was able to return home. On July 22, 2021 he was seen in the emergency room after having recurrent falls at home in association with acute mental status changes. He was found to have evidence of urinary retention and tract infection. His evaluation included CT scans of the chest, abdomen, and pelvis. 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 The chest CT, though, showed a large filling defect in the proximal right pulmonary artery with scattered smaller filling defects in the right and left pulmonary arteries, consistent with pulmonary emboli. Small subpleural densities were noted in the lower lobes bilaterally. There were no other acute findings. He began on anticoagulation with Lovenox and he was also given antibiotic coverage for the urinary tract infection. His bilateral lower extremity venous Doppler study showed no evidence of deep vein thrombosis. He was discharged to [facility] on apixaban. He was able to return home 5 days later. He is seen now in regard to the pulmonary embolism. He has remained on anticoagulation with apixaban, currently at a standard dosage of 5 mg twice daily. He says he is still fatigued and is still having problems with his short-term memory, but he is better now than he was. He is up and around at home, though he does have some difficulty walking due to balance issues. His ECOG score is 2. His appetite is better. His weight had dropped 30 pounds, but he has now regained 10 pounds. He is not have fever or night sweats. He has not had any further headaches. He sometimes has numbness in his hands and arms when he first wakes up in the morning. He has not been having shortness of breath or chest pain. He does have some cough associated with sinus drainage. He has GERD and he has been having problems with constipation following the hospital admission in July. He did require an indwelling Sutton catheter on a temporary basis. It was able to be [facility] and his bladder function since that has been okay. He has been seen by Dr. Brannon for an elevated PSA level. Past Medical History: His medical history includes asthma, benign prostatic hypertrophy, elevated PSA, gastroesophageal reflux disease, history of subarachnoid hemorrhage in May 2021, hyperlipidemia, obstructive sleep apnea, osteoarthritis, and thyroid cancer. Past Surgical History: His surgical/procedural history includes bilateral inguinal hernia repairs, excision of basal cell skin cancer, lasix eye surgery, right hemithyroidectomy, right shoulder rotator cuff repair, and colonoscopy in 2007. Medications: Apixaban 1 Tablet (of 5 mg) Oral b.i.d., Carvedilol 1 Tablet (of 6.25 mg) Oral b.i.d., Finasteride 1 Tablet (of 5 mg) Oral daily, IS-ZC 50 1 Tablet (of 50 mg) Oral daily, Levothyroxine Sodium 1 Tablet (of 25 mcg) Oral daily, Losartan Potassium 1 Tablet (of 25 mg) Oral daily, Mag-Tab SR 1 Tablet (of 84 mg (7meq) ) Tablet, controlled release Oral daily, Multivitamin 1 Tablet Oral daily, ProAir HFA 2 Puff(s) (of 108 (90 base) mcg/act) Aerosol, solution Inhalation q 4 hours PRN, Tamsulosin HCl 1 Tablet (of 0.4 mg) Capsule Oral b.i.d. Allergies: Levaquin and Ultram. Social History: Mr. Cross is . He had a [employer] business. He is now retired. He is a non-smoker. He does not drink alcohol. Family History: Father of lung cancer and mother of colon cancer. He has 1 sister who is in good health. He has 1 brother who suffers from alcoholism. Review Of Symptoms: Constitutional - He still feels fatigued and he says his short-term memory is not good, but he is better now than he was. He is up and around, though he does have some difficulty walking due to balance issues. His appetite was very poor and he had a weight loss of 30 pounds. He is eating better now, and he has regained 10 pounds. He does not have fever or night sweats. 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 About 2 weeks ago he had an acute visual change in his left eye which he described as his blind spot getting bigger. It lasted only a few minutes, ENMT - He has hearing loss, and that is also a little worse. He has sinus drainage. No mouth sores. No sore throat or difficulty swallowing, Hematologic/Lymphatic - No abnormal bruising or bleeding, Respiratory - No shortness of breath. He has cough associated with the sinus drainage. No pleuritic pain or hemoptysis, Cardiovascular - No angina pain. No palpitations, Gastrointestinal - No nausea or vomiting. He has acid reflux. He has been having problems with constipation. No blood in the stool or black stools, Genitourinary (M) - He had urinary retention, but his bladder function is better now. He still has some urinary frequency and nocturia, Musculoskeletal - He has joint pain, mainly in his hands, Integumentary - No skin rash or other skin changes, Neurologic - He currently is not having headache. He is having difficulty with balance. He sometimes has numbness in his hands and arms when he first wakes up in the morning, Psychiatric - No anxiety. He is having some depression. He has been not sleeping well. Vital Signs: Performed on Sep 25, 2021 16:12: 4, 0, 22.85, 1.94 sq.m, 71 in, 97 %, 70 /min, 18 /min, 122/68 mm(hg), 98.1 F (LOW), and 163.8 lbs (HIGH). Physical Examination: Constitutional - He appears somewhat weak generally, Eyes - Sclerae nonicteric. Conjunctivae clear, ENMT - No lesions noted in the oral cavity, Neck - No mass or thyromegaly, Hematologic/Lymphatic - No cervical, clavicular, or axillary adenopathy, Respiratory - Lungs are clear with some decrease in air movement bilaterally, Cardiovascular - Heart rhythm is regular. There is no murmur, gallop, or rub noted. There is no carotid bruit noted, Abdomen - Soft and non-tender. Liver and spleen are not enlarged. There is no abdominal mass or ascites noted and there is no inguinal adenopathy, Back/Spine - No spine or CVA tenderness noted, Extremities - No edema. He has good posterior tibial pulses bilaterally, Integumentary - No rashes. No suspicious skin lesions noted, Neurologic - No focal neurologic deficits noted. Problem List: 1. Pulmonary embolism diagnosed by chest CT in July 2021. 2. History of subarachnoid hemorrhage in May 2021, diagnosed 4 days following right hemithyroidectomy for thyroid papillary carcinoma. 3. Hyperlipidemia. 4. GERD. 5. Mild asthma. 6. Obstructive sleep apnea. 7. Osteoarthritis. 8. Benign prostatic hypertrophy. Problems Addressed with this Encounter and Plan: Patient with an episode of significant pulmonary embolism in July 2021. It involved the proximal right pulmonary artery as well as smaller pulmonary arteries bilaterally. It occurred during the recovery phase of a subarachnoid hemorrhage in May 2021. He has been on anticoagulation with apixaban, thus far with no adverse consequences. I discussed the situation at length with the patient and his . It seems likely that the subarachnoid hemorrhage was associated with the recurrent vomiting he was experiencing following the thyroid surgery. As there is no evidence to suggest any underlying vascular anomaly, the risk for him having further hemorrhage appears to be low. In addition, as the pulmonary embolism occurred during his recovery, it is likely to have been a provoked episode of thromboembolism. As such, as long as the emboli are resolving, I think it will be acceptable to limit his anticoagulation to 3 months of treatment. As he has now been on anticoagulation for 2 months, I am going to schedule him for CT pulmonary angiogram. I will then plan to see him for a follow-up visit in 1 month. If the emboli are resolved and he is otherwise stable clinically, he will be given the option to stop the apixaban. Signed By: Santo Yuan M.D. <<Signature on File>>
== END 2021-09-25 14:08 | disposition home or self-care (01) ==
LOC: ONCMED 14:16
PROVIDERS: PCP Family Medicine; Visit Provider Internal Medicine Medical Oncology
DX: I26.99 Other pulmonary embolism without acute cor pulmonale (principal); I10 Essential (primary) hypertension; E78.5 Hyperlipidemia, unspecified; K21.9 Gastro-esophageal reflux disease without esophagitis; J45.909 Unspecified asthma, uncomplicated; G47.33 Obstructive sleep apnea (adult) (pediatric); M19.90 Unspecified osteoarthritis, unspecified site; N40.0 Benign prostatic hyperplasia without lower urinary tract symptoms; Z79.01 Long term (current) use of anticoagulants; Z79.899 Other long term (current) drug therapy
CPT/HCPCS: 99205

== ENCOUNTER 2021-09-29 06:00 | Outpatient (RCR) | payer MEDICARE, OTHER, SELFPAY | END 2021-10-13 23:59 | disposition home or self-care (01) | LOC: SPT 06:00 | PROVIDERS: PCP Family Medicine; Referring Provider Physician Assistant; Visit Provider Physician Assistant | DX: M54.50 Low back pain, unspecified (principal); M19.90 Unspecified osteoarthritis, unspecified site | CPT/HCPCS: 97110; 97162 ==

== ENCOUNTER 2021-09-30 07:48 | Outpatient (CLI) | payer MEDICARE, OTHER, SELFPAY ==
--- NOTE | 2021-09-30 | CT_ITS ---
WS: [id number] CTA OF THE CHEST WITH PULMONARY EMBOLISM PROTOCOL TECHNIQUE: High-resolution contrast enhanced CTA of the chest with coronal and sagittal reformatted i mages with pulmonary embolism protocol. MIP images are also reviewed. CLINICAL INFORMATION: FOLLOW UP PULMONARY EMBOLI COMPARISON: None. DLP: 827.[address] scans at [facility] use at least one of these dose optimization techniques: automated e xposure control; mA and/or kV adjustment per patient size (includes targeted exams where dose is matc hed to clinical indication); or iterative reconstruction. FINDINGS: Proximal main pulmonary arteries are normal. Normal segmental and subsegmental pulmonary arteries. Pr eviously described pulmonary emboli have resolved. No new or progressed pulmonary embolus today. Mild chronic emphysematous changes. Patchy subpleural opacities in the left lower lobe. Micronodular tree-in-bud infiltrates in the lingula likely inflammatory. 4 mm noncalcified nodule right lower lobe unchanged. A few hazy opacities in the right lower lobe. Prominent right hilar lymph node nonspecifi c but likely reactive. No anterior mediastinal or subcarinal lymphadenopathy. No axillary lymphadenop athy. Adrenal glands are normal. Hypertrophic changes thoracic spine. Disc space narrowing worse in t he lower thoracic spine. CT/CT angio chest PE protcl [id number] IMPRESSION: 1. Previously described pulmonary emboli have resolved. No suspicious filling defects today. 2. Slight patchy opacities in the left greater than right lower lobe. This is likely infectious or inflammatory. Recommend follow-up to resolution. 3. Small noncalcified nodule right lower lobe measuring 4 mm is unchanged. 4. Mild chronic emphysematous changes. 5. Prominent right hilar lymph node nonspecific but likely reactive. Otherwise no lymphadenopathy
[2021-09-30] MEDS: iohexol 350 mg/mL 100 mL Btl IV (11:45)
== END 2021-09-30 07:49 | disposition home or self-care (01) ==
PROVIDERS: PCP Family Medicine; Visit Provider Internal Medicine Medical Oncology
DX: I26.99 Other pulmonary embolism without acute cor pulmonale (principal); R91.1 Solitary pulmonary nodule
CPT/HCPCS: 71275; Q9967

== ENCOUNTER 2021-10-14 06:00 | Outpatient (RCR) | payer MEDICARE, OTHER, SELFPAY | END 2021-10-31 23:00 | disposition home or self-care (01) | LOC: SPT 06:00 | PROVIDERS: PCP Family Medicine; Referring Provider Physician Assistant; Visit Provider Physician Assistant | DX: M54.50 Low back pain, unspecified (principal); M51.36 Other intervertebral disc degeneration, lumbar region | CPT/HCPCS: 97110 ==

== ENCOUNTER 2021-10-28 14:30 | Outpatient (CLI) | payer MEDICARE, OTHER, SELFPAY ==
--- NOTE | 2021-10-28 18:11 | ONC FU_ITS ---
Dr. Yuan Patient Follow-Up Note Patient: Bryant Cross Unit #: [id number]: [id number] Dicatated By: Santo Yuan M.D.Date of Visit:Oct 28, 2021 Onc Med Follow-up/Prog Note Chief Complaint: Pulmonary embolism. History of Present Illness: This is a 76-year-old man who had an episode of significant pulmonary embolism in July 2021. In February 2021 he was found on ultrasound to have a solid heterogeneous mid right thyroid nodule measuring 1.8 x 1.6 x 1.8 cm. He was referred to Dr. 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 That procedure was complicated by postoperative nausea/vomiting. On May 25, 2021 he had presented to the emergency room with severe pain in his head and neck and he was confirmed on head CT to have a large amount of subarachnoid hemorrhage in the basilar cisterns, about the brainstem, and the fourth ventricle. He was admitted to the [facility], and on discharge he was transferred to [facility] in [place]. According to his he experienced severe back pain during his rehab, but he eventually was able to return home. On July 22, 2021 he was seen in the emergency room after having recurrent falls at home in association with acute mental status changes. He was found to have evidence of urinary retention and a urinary tract infection. His evaluation included CT scans of the chest, abdomen, and pelvis. 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 The chest CT, though, showed a large filling defect in the proximal right pulmonary artery with scattered smaller filling defects in the right and left pulmonary arteries, consistent with pulmonary emboli. Small subpleural densities were noted in the lower lobes bilaterally. There were no other acute findings. He began on anticoagulation with Lovenox and he was also given antibiotic coverage for the urinary tract infection. His bilateral lower extremity venous Doppler study showed no evidence of deep vein thrombosis. He was discharged to [facility] on apixaban. He was able to return home 5 days later. I had seen him initially on 09/25/2021. He was still on anticoagulation with apixaban, though he was fairly anxious to get off of it. In the setting of what was potentially a provoked episode of thromboembolism, we discussed the possibility of stopping anticoagulation after 3 months of treatment with the provision that there was satisfactory resolution of the emboli. His repeat CT pulmonary angiogram on 09/30/2021 did show resolution of previously described pulmonary emboli. There were slight patchy opacities, including micronodular tree-in-bud infiltrates in the lingula, which were felt to be most likely inflammatory, but follow-up was recommended. A 4 mm noncalcified right lower lobe nodule appeared unchanged. There was no mediastinal or axillary lymphadenopathy. He is seen for a follow-up visit. He continues to have significant fatigue, though he has up and around at home and he is able to do some light work. ECOG score is 1. His notes that he has continued to sleep a lot, requiring at least 2 or 3 naps every day. He also instantly forgets stuff, and he continues to have issues with balance. His appetite is not too bad. He has not had fever. During the past several weeks he has had a few episodes of night sweating. He has sinus drainage and he has some cough associated with it. He does not complain of shortness of breath or chest pain. He currently has no GI/ complaints other than occasional acid reflux. He notes improvement in his bowel function. His back pain has been getting better with physical therapy. He does not complain of headache. He occasionally has numbness in his right arm at night. He has no other focal neurologic symptoms. He does have known obstructive sleep apnea, but in the past he had very poor tolerance for CPAP. Medications: Apixaban 1 Tablet (of 5 mg) Oral b.i.d., Finasteride 1 Tablet (of 5 mg) Oral daily, IS-ZC 50 1 Tablet (of 50 mg) Oral daily, Losartan Potassium 1 Tablet (of 25 mg) Oral daily, Mag-Tab SR 1 Tablet (of 84 mg (7meq) ) Tablet, controlled release Oral daily, Multivitamin 1 Tablet Oral daily, ProAir HFA 2 Puff(s) (of 108 (90 base) mcg/act) Aerosol, solution Inhalation q 4 hours PRN, Tamsulosin HCl 1 Tablet (of 0.4 mg) Capsule Oral b.i.d. Allergies: Levaquin and Ultram. Vital Signs: Performed on Oct 28, 2021 15:29 Height - 71.00 in Weight - 170.0 lbs (HIGH) BSA - 1.97 sq.m BMI - 23.71 Temperature - 98.8 F Pulse - 74 /min Respiration - 18 /min BP - 109/64 mm(hg) O2 Sat - 94 % (LOW) Pain - 0 Fatigue - 5 Physical Examination: Constitutional - He appears somewhat weak generally, Eyes - Sclerae nonicteric. Conjunctivae clear, ENMT - No lesions noted in the oral cavity, Hematologic/Lymphatic - No cervical, clavicular, or axillary adenopathy, Respiratory - Lungs are clear with some decrease in air movement bilaterally, Cardiovascular - Heart rhythm is regular. There is no murmur, gallop, or rub noted, Abdomen - Soft. Liver and spleen are not enlarged. There is no abdominal mass or ascites noted and there is no inguinal adenopathy, Extremities - No edema, Neurologic - No focal neurologic deficits noted. Problem List: 1. Pulmonary embolism diagnosed by chest CT in July 2021. 2. History of subarachnoid hemorrhage in May 2021, diagnosed 4 days following right hemithyroidectomy for thyroid papillary carcinoma. 3. Hyperlipidemia. 4. GERD. 5. Mild asthma. 6. Obstructive sleep apnea. 7. Osteoarthritis. 8. Benign prostatic hypertrophy. Problems Addressed with this Encounter and Plan: 1. Patient with an episode of significant pulmonary embolism in July 2021. It involved the proximal right pulmonary artery as well as smaller pulmonary arteries bilaterally. It occurred during the recovery phase of a subarachnoid hemorrhage in May 2021. He initially began on anticoagulation with Lovenox, with subsequent transition to apixaban. A repeat CT pulmonary angiogram on 09/30/2021 showed complete resolution of the pulmonary emboli. He has now completed 3 months of anticoagulation. As this was potentially a provoked episode of thromboembolism and the emboli have resolved, he is given the option to stop the apixaban now. He is aware that there will be some risk for recurrent thrombosis. 2. His repeat CT scan did show pulmonary opacities bilateral, which were felt to be most likely inflammatory. He will be given empiric antibiotic coverage with azithromycin, and he will be scheduled for a follow-up CT in 3 months. 3. He underwent hemithyroidectomy in May 2021, reportedly for thyroid papillocarcinoma. He is requesting follow-up information, I will request the op note and path report from Dr. Ahuja. Signed By: Santo Yuan M.D. <<Signature on File>>
== END 2021-10-28 14:31 | disposition home or self-care (01) ==
PROVIDERS: PCP Family Medicine; Visit Provider Internal Medicine Medical Oncology
DX: Z86.711 Personal history of pulmonary embolism (principal); E78.5 Hyperlipidemia, unspecified; K21.9 Gastro-esophageal reflux disease without esophagitis; J45.909 Unspecified asthma, uncomplicated; G47.33 Obstructive sleep apnea (adult) (pediatric); N40.0 Benign prostatic hyperplasia without lower urinary tract symptoms; M19.90 Unspecified osteoarthritis, unspecified site; Z79.01 Long term (current) use of anticoagulants; Z79.899 Other long term (current) drug therapy
CPT/HCPCS: 99214

== ENCOUNTER → 2021-11-04 10:44 | Outpatient (BNVA) | payer MEDICARE, OTHER, SELFPAY | PROVIDERS: PCP Family Medicine; Visit Provider Urology | DX: N13.8 Other obstructive and reflux uropathy (principal); N40.1 Benign prostatic hyperplasia with lower urinary tract symptoms; R97.20 Elevated prostate specific antigen [PSA] | CPT/HCPCS: 81003; 84153 ==

== ENCOUNTER → 2022-01-08 10:44 | Outpatient (BNVA) | payer MEDICARE, OTHER, SELFPAY | PROVIDERS: PCP Family Medicine; Visit Provider Orthopaedic Surgery | DX: M48.061 Spinal stenosis, lumbar region without neurogenic claudication (principal) | CPT/HCPCS: 72110; 99214 ==

== ENCOUNTER → 2022-01-13 10:26 | Outpatient (BNVA) | payer MEDICARE, OTHER, SELFPAY | PROVIDERS: PCP Family Medicine; Referring Provider Orthopaedic Surgery; Visit Provider Anesthesiology Pain Medicine | DX: M48.061 Spinal stenosis, lumbar region without neurogenic claudication (principal); M47.816 Spondylosis without myelopathy or radiculopathy, lumbar region; M51.16 Intervertebral disc disorders with radiculopathy, lumbar region; M51.9 Unspecified thoracic, thoracolumbar and lumbosacral intervertebral disc disorder; M79.604 Pain in right leg; M79.605 Pain in left leg | CPT/HCPCS: 99205 ==

== ENCOUNTER 2022-01-14 14:26 | Outpatient (CLI) | payer MEDICARE, OTHER, SELFPAY ==
--- NOTE | 2022-01-14 14:30 | MR_ITS ---
WS: [id number] MRI LUMBAR SPINE NONCONTRAST HISTORY: pain COMPARISON: CT 07/22/2021 TECHNIQUE: Sagittal and axial multisequence imaging is submitted. Cervical spondylosis with mild stenosis centrally at C4-5. Mild increase in the lumbar lordosis. Mild RIGHT curvature. Retrolisthesis of L1-L5 by 2 to 4 mm. Disc spaces are moderately narrowed throughout with a large endplate osteophytes. Conus terminates normally at L1-2 disc level. T12-L1: Diffuse annular disc bulge. RIGHT foraminal disc protrusion. Mild central and bilateral joelle inal stenosis. L1-L2: Diffuse osteophytic ridging with retrolisthesis of L1. Effacement of ventral CSF. Mild central and bilateral foraminal stenosis. L2-L3: Diffuse annular disc bulging and osteophytic ridging. Mild encroachment upon the ventral theca l sac by disc and osteophyte disease. Moderate central with bilateral subarticular recess stenosis an d mild to moderate foraminal stenosis, LEFT greater than RIGHT. L3-L4: Mild annular disc bulging and osteophytic ridging. Moderate facet and ligamentum flavum arthri tis. Severe central with bilateral subarticular recess stenosis and moderate foraminal stenosis. Oste ophytes contribute to the stenosis especially involving the LEFT subarticular recess. L4-L5: Diffuse annular disc bulging with osteophytic ridging. Ligamentum flavum hypertrophy. Severe c entral, bilateral subarticular recess and at least moderate foraminal stenosis. L5-S1: Retrolisthesis of L5 with severe ligamentum flavum hypertrophy. There is severe central and bi lateral subarticular recess and foraminal stenosis. Significant encroachment upon the L5 and S1 nerve roots. Paravertebral soft tissues are normal. MR/MR lumbar spine wo con* [id number] IMPRESSION: 1. Advanced degenerative disc disease and spondylitic changes throughout the l umbar spine. 2. Severe central, bilateral subarticular recess and foraminal stenosis at L5- S1 with encroachment upon the L5 and S1 nerve roots. 3. Severe central, bilateral subarticular recess stenosis and moderate foramin al stenosis at L3-4 and L4-5. Secondary to combination of factors as described above. 4. Moderate central, bilateral subarticular recess and mild to moderate forami nal stenosis at L2-3. 5. Mild central and bilateral foraminal stenosis at T12-L1 and L1-2.
== END 2022-01-14 14:27 | disposition home or self-care (01) ==
LOC: RAD 14:31
PROVIDERS: PCP Family Medicine; Visit Provider Orthopaedic Surgery
DX: M48.061 Spinal stenosis, lumbar region without neurogenic claudication (principal); M54.9 Dorsalgia, unspecified; M51.36 Other intervertebral disc degeneration, lumbar region; M48.02 Spinal stenosis, cervical region; M48.05 Spinal stenosis, thoracolumbar region
CPT/HCPCS: 72148

== ENCOUNTER → 2022-01-20 10:41 | Outpatient (BNVA) | payer MEDICARE, OTHER, SELFPAY | PROVIDERS: PCP Family Medicine; Visit Provider Physician Assistant | DX: M48.062 Spinal stenosis, lumbar region with neurogenic claudication (principal); M51.37 Other intervertebral disc degeneration, lumbosacral region | CPT/HCPCS: 99213; 99999 ==

== ENCOUNTER 2022-03-06 08:30 | Oncology outpatient (recurring) (ONCR) | payer MEDICARE, OTHER, SELFPAY ==
[2022-02-25 10:57] LABS: Basophils # 0.1 10^3/uL (0.0-0.1); Basophils % 0.9 %; Eosinophils # 0.2 10^3/uL (0.0-0.8); Eosinophils % 3.3 %; Hematocrit 46.4 % (42.0-52.0); Hemoglobin 16.3 g/dL (11.7-16.6); Lymphocytes # 2.8 10^3/uL (0.8-4.8); Lymphocytes % 42.4 %; Mean Corpuscular HGB Conc 35.1 g/dL (30.0-36.0); Mean Corpuscular Hemoglobin 30.7 pg (28.0-34.0); Mean Corpuscular Volume 87.4 fl (80-94); Mean Platelet Volume 10.8 fL (7.4-10.4); Monocytes # 0.6 10^3/uL (0.2-0.9); Monocytes % 9.3 %; Neutrophils # 2.93 10^3/uL (1.8-7.7); Nucleated Red Blood Cells % 0 %; Platelet Count 198 10^3/cmm (130-400); Red Blood Count 5.31 10^6/uL (4.1-5.3); Red Cell Distribution Width 13.3 % (12.1-15.1); White Blood Count 6.7 10^3/uL (4.0-10.0)
[2022-02-25 11:14] LABS: Erythrocyte Sedimentation Rate < 1 mm/hr (0-10)
[2022-02-25 11:40] LABS: Alanine Aminotransferase 21 U/L (0-41); Albumin Level 4.1 g/dL (3.5-5.2); Alkaline Phosphatase 84 IU/L (40-130); Aspartate Amino Transferase 22 U/L (0-40); Blood Urea Nitrogen 16 mg/dL (8-23); Calcium 9.6 mg/dL (8.5-10.5); Carbon Dioxide 27 mmol/L (22-29); Chloride 105 mmol/L (98-107); Globulin 2.4 g/dL (1.3-4.6); Glucose 125 mg/dL (65-115); Iron 105 ug/dL (59-158); Osmolality Calculated 293 mOsm/kg (285-295); Percent Saturation 39.9 % (20-50); Sodium 140 mmol/L (136-145); Total Bilirubin 0.7 mg/dL (0.15-1.2); Total Iron Binding Capacity 263 mcg/dl; Total Protein 6.5 g/dL (6.6-8.7); Unsaturated Iron Binding 158 ug/dL (112-347)
[2022-02-25 12:11] LABS: Vitamin B12 635 pg/mL (232-1245)
--- NOTE | 2022-03-06 08:30 | CT_ITS ---
WS: [id number] CT CHEST WITH INTRAVENOUS CONTRAST HISTORY: Follow-up pulmonary opacifications. TECHNIQUE: Contiguous 5 mm axial imaging performed on the thorax. Coronal and sagittal reformats are submitted. All CT scans at [facility] use at least one of these dose optimization techniques: automated exposure control; mA and/or kV adjustment per patient size (includes targeted exams where dose is matched to clinical indication); or iterative reconstruction. CONTRAST: Omnipaque 300; 50 mL IV. DLP: 757.44 mGy.cm COMPARISON: 09/30/1999 2200 07/22/2021 Lungs and central airway: Mild pulmonary hyperexpansion with centrilobular and paraseptal emphysemato us changes. Very minimal septal thickening in the posterior RIGHT lower lobe. As compared to the prio r study the interstitial and septal thickening has continued to improve. Mild persistent interstitial thickening at the lung bases. No change in the 4 mm nodule at the LEFT lung base. Pleura: Normal. No pleural effusion. Heart and pericardium: Normal size heart with no pericardial effusion. Mediastinum and mode: No mediastinum or hilar adenopathy. Decrease in size of the RIGHT hilar lymph n ode to 10 mm. Vessels: Normal size pulmonary artery. Very minimal atherosclerosis aorta. No aneurysm. Mild coronary artery atherosclerosis. Chest wall and lower neck: Prior RIGHT thyroidectomy. Upper abdomen: Small hiatal hernia. Stomach is markedly distended with food products. No adrenal mass . Visualized liver and spleen are negative. Gallbladder contracted. Osseous structures: Mild straightening of the normal thoracic kyphosis. Disc spaces are narrowed. No osteoblastic or osteolytic bone disease. CT/CT chest w con* [id number] IMPRESSION: 1. Continued improvement in pulmonary aeration since the prior study 09/30/2021 . Very minimal residual interstitial thickening at the lung bases. No pneumonia . 2. No adenopathy. 3. Chronic emphysema. 4. RIGHT thyroidectomy.
[2022-03-06] MEDS: iohexol 300 mg/mL 50 mL Btl IV (08:55)
== END 2022-03-12 23:59 | disposition home or self-care (01) ==
LOC: ONCMED 03-12 10:25
PROVIDERS: Internal Medicine Medical Oncology; PCP Family Medicine; Visit Provider Nurse Practitioner Family
DX: Z53.9 Procedure and treatment not carried out, unspecified reason (principal); R91.8 Other nonspecific abnormal finding of lung field; J43.9 Emphysema, unspecified; D48.5 Neoplasm of uncertain behavior of skin; N40.1 Benign prostatic hyperplasia with lower urinary tract symptoms
CPT/HCPCS: 36415; 71260; 80053; 82607; 83540; 83550; 84153; 85025; 85651; 86140; 99214

== ENCOUNTER 2022-04-08 10:57 | Outpatient (CLI) | payer MEDICARE, OTHER, SELFPAY ==
--- NOTE | 2022-04-08 11:04 | MR_ITS ---
WS: [id number] MRI HEAD WITHOUT CONTRAST TECHNIQUE: Sagittal T1, T2 axial, T2 axial FLAIR, axial and coronal T1 images, axial susceptibility w eighted imaging, axial diffusion weighted images, and coronal T2 images were obtained. CLINICAL INFORMATION: MEMORY LOSS/BALANCE PROBLEM/CVA COMPARISON: CT July 22, 2021 and MRI 2008 FINDINGS: No evidence of restricted diffusion to suggest acute ischemia. Ventricular system and basal cisterns are patent. Mild small vessel changes progressed compared to 2009. Small vessel changes in the keshawn. Mild parenchymal volume loss. Normal posterior fossa. Normal vascular flow voids at the skull base. No extra-axial fluid collection s. No evidence of mass or mass effect. Mild mucosal thickening in the ethmoid air cells. Mastoid air cells are well aerated. No hemosiderin on susceptibly weighted images. Normal optic chiasm and pituitary infundibulum. Cavern ous sinuses and Meckel's cave are normal. Advanced symmetric atrophy temporal lobes and hippocampal f ormations. MR/MR head wo con* [id number] IMPRESSION: 1. No evidence of restricted diffusion to suggest acute ischemia. 2. Mild small vessel changes with mild parenchymal volume loss progressed sin ce 2008. Small vessel changes in the keshawn. 3. Moderate to advanced symmetric atrophy temporal lobes and hippocampal forma tions progressed compared to 2009. 4. No hemosiderin on susceptibly weighted images. 5. No other suspicious findings.
== END 2022-04-08 10:58 | disposition home or self-care (01) ==
LOC: RAD 10:57
PROVIDERS: PCP Family Medicine; Visit Provider Family Medicine
DX: R41.3 Other amnesia (principal); R27.9 Unspecified lack of coordination; I63.9 Cerebral infarction, unspecified; G31.9 Degenerative disease of nervous system, unspecified
CPT/HCPCS: 70551

== ENCOUNTER → 2022-05-05 10:17 | Outpatient (BNVA) | payer MEDICARE, OTHER, SELFPAY | PROVIDERS: PCP Family Medicine; Visit Provider Urology | DX: N40.1 Benign prostatic hyperplasia with lower urinary tract symptoms (principal); R97.20 Elevated prostate specific antigen [PSA]; N13.8 Other obstructive and reflux uropathy | CPT/HCPCS: 36415; 81003; 84153; 99213 ==

== ENCOUNTER 2022-06-03 12:30 | Oncology outpatient (recurring) (ONCR) | payer MEDICARE, OTHER, SELFPAY ==
[2022-06-03 13:03] LABS: Basophils % 0.8 %; Eosinophils # 0.1 10^3/uL (0.0-0.8); Eosinophils % 1.7 %; Hematocrit 46.9 % (42.0-52.0); Lymphocytes # 1.2 10^3/uL (0.8-4.8); Lymphocytes % 23.1 %; Mean Corpuscular HGB Conc 34.1 g/dL (30.0-36.0); Mean Corpuscular Hemoglobin 30.6 pg (28.0-34.0); Mean Corpuscular Volume 89.7 fl (80-94); Mean Platelet Volume 10.4 fL (7.4-10.4); Monocytes # 0.9 10^3/uL (0.2-0.9); Monocytes % 16.7 %; Neutrophils # 3.05 10^3/uL (1.8-7.7); Neutrophils % 57.3 %; Nucleated Red Blood Cells % 0 %; Platelet Count 172 10^3/cmm (130-400); Red Blood Count 5.23 10^6/uL (4.1-5.3); Red Cell Distribution Width 13.4 % (12.1-15.1); White Blood Count 5.3 10^3/uL (4.0-10.0)
[2022-06-03 13:23] LABS: Alanine Aminotransferase 20 U/L (0-41); Albumin Level 3.8 g/dL (3.5-5.2); Alkaline Phosphatase 95 U/L (40-130); Anion Gap 14.1 (5-19); Aspartate Amino Transferase 22 U/L (0-40); Blood Urea Nitrogen 17 mg/dL (8-23); Calcium 9.4 mg/dL (8.5-10.5); Carbon Dioxide 27 mmol/L (22-29); Chloride 103 mmol/L (98-107); Globulin 2.6 g/dL (1.3-4.6); Glucose 121 mg/dL (65-115); Osmolality Calculated 293 mOsm/kg (285-295); Potassium 4.1 mmol/L (3.5-5.1); Sodium 140 mmol/L (136-145); Total Bilirubin 1.2 mg/dL (0.15-1.2); Total Protein 6.4 g/dL (6.6-8.7)
== END 2022-06-12 23:59 | disposition home or self-care (01) ==
PROVIDERS: PCP Family Medicine; Visit Provider Nurse Practitioner Family
DX: I26.99 Other pulmonary embolism without acute cor pulmonale (principal); R53.83 Other fatigue; R41.3 Other amnesia; Z79.899 Other long term (current) drug therapy
CPT/HCPCS: 36415; 80053; 85025; 99214

== ENCOUNTER → 2022-06-26 13:30 | Outpatient (BNVA) | payer MEDICARE, OTHER, SELFPAY | PROVIDERS: PCP Family Medicine; Visit Provider Podiatrist Foot & Ankle Surgery | DX: L60.8 Other nail disorders (principal); L60.3 Nail dystrophy | CPT/HCPCS: 99213 ==

== ENCOUNTER 2022-08-28 12:21 | Outpatient (CLI) | payer MEDICARE, OTHER, SELFPAY ==
[2022-08-28 13:19] LABS: Thyroid Stimulating Hormone 3.94 uIU/mL (0.27-4.20)
== END 2022-08-28 12:22 | disposition home or self-care (01) ==
PROVIDERS: PCP Family Medicine; Visit Provider Specialist
DX: C73 Malignant neoplasm of thyroid gland (principal); E04.1 Nontoxic single thyroid nodule
CPT/HCPCS: 36415; 84439; 84443

== ENCOUNTER 2022-09-11 10:06 | Outpatient (CLI) | payer MEDICARE, OTHER, SELFPAY ==
[2022-09-11 11:11] LABS: Prostate Specific AG Urology 27.24 ng/mL (0-4)
== END 2022-09-11 10:07 | disposition home or self-care (01) ==
LOC: LAB 10:13
PROVIDERS: PCP Family Medicine; Visit Provider Urology
DX: R97.20 Elevated prostate specific antigen [PSA] (principal)
CPT/HCPCS: 36415; 84153

== ENCOUNTER → 2022-09-15 15:24 | Outpatient (BNVA) | payer MEDICARE, OTHER, SELFPAY | PROVIDERS: PCP Family Medicine; Visit Provider Urology | DX: R97.20 Elevated prostate specific antigen [PSA] (principal); R93.89 Abnormal findings on diagnostic imaging of other specified body structures | CPT/HCPCS: 81003; 99213 ==

== ENCOUNTER → 2022-09-23 13:06 | Outpatient (BNVA) | payer MEDICARE, OTHER, SELFPAY | PROVIDERS: PCP Family Medicine; Visit Provider Podiatrist Foot & Ankle Surgery | DX: L60.8 Other nail disorders (principal); L60.3 Nail dystrophy | CPT/HCPCS: 99213 ==

== ENCOUNTER → 2022-09-24 11:11 | Outpatient (BNVA) | payer MEDICARE, OTHER, SELFPAY | PROVIDERS: PCP Family Medicine; Visit Provider Family Medicine | DX: I26.99 Other pulmonary embolism without acute cor pulmonale (principal); Z86.79 Personal history of other diseases of the circulatory system; M48.061 Spinal stenosis, lumbar region without neurogenic claudication; C73 Malignant neoplasm of thyroid gland; R93.89 Abnormal findings on diagnostic imaging of other specified body structures; R00.2 Palpitations; N13.8 Other obstructive and reflux uropathy; N40.1 Benign prostatic hyperplasia with lower urinary tract symptoms; Z13.220 Encounter for screening for lipoid disorders; Z79.899 Other long term (current) drug therapy | CPT/HCPCS: 80053; 80061; 84443; 85025 ==

== ENCOUNTER 2022-10-19 11:51 | Outpatient (CLI) | payer MEDICARE, OTHER, SELFPAY ==
--- NOTE | 2022-10-19 12:14 | CT_ITS ---
WS: [id number] CT NECK TECHNIQUE: Contrast-enhanced CT of the neck with coronal and sagittal reformatted images. CLINICAL INFORMATION: MALIGNANT NEOPLASM OF THYROID GLAND/THYROID NODULE COMPARISON: None. DLP: 215.[address] scans at [facility] use at least one of these dose optimization techniques: automated e xposure control; mA and/or kV adjustment per patient size (includes targeted exams where dose is matc hed to clinical indication); or iterative reconstruction. FINDINGS: Prior postoperative changes RIGHT thyroidectomy. Several clusters of low-attenuation peripheral enhan cing ovoid nodules in the RIGHT thyroid bed and extending about the RIGHT jugular vein and common car otid artery in the superior thyroid bed. This may represent recurrent disease or enlarged lymph nodes .This can be further evaluated with ultrasound and/or PET/CT to assess for activity. Largest nodule i n the RIGHT thyroid bed measures 12.9 mm. Small LEFT low-attenuation thyroid nodule measuring 4 mm. Normal LEFT thyroid enhancement. Lung apices are well aerated. Partially visualized paranasal sinuses are well aerated. Mild mucosal t hickening LEFT maxillary sinus. Mastoid air cells are well aerated. Normal posterior nasopharynx. Nor mal parapharyngeal fat. Tiny peripheral enhancing polypoid lesion in the RIGHT vallecula. This measur es 5 mm and could be further evaluated with endoscopy. This abuts the RIGHT epiglottis. Normal glotti s and subglottic airway. Normal piriform sinuses. Normal RIGHT submandibular gland. Atrophic LEFT submandibular gland. Parotid glands are normal. Other carson no cervical lymphadenopathy. Moderate calcified atheromatous disease RIGHT carotid bulb. Moderat e spondylitic changes cervical spine. Pannus of the C1-C2 articulation. Grade 1 anterolisthesis C4 on C5. Disc space narrowing worse at C4-C6. CT/CT neck w con* [id number] IMPRESSION: 1. Postoperative changes prior RIGHT thyroidectomy with surgical clips. Severa l low-attenuation peripherally enhancing ovoid nodules in the RIGHT thyroid bed and extending about the RIGHT carotid and jugular vein in the superior bed..Th is can be further evaluated with ultrasound and/or PET/CT. Largest nodule or ly mph node measures 12 x 9 mm. Recurrent disease not excluded. 2. Normal LEFT thyroid enhancement with small 4 mm low-attenuation nodule. 3. Tiny peripherally enhancing polypoid lesion in the RIGHT vallecula abutting the epiglottis. This can be further evaluated with endoscopy. 4. No other suspicious findings.
[2022-10-19] MEDS: iohexol 350 mg/mL 500 mL Btl (per mL) IV (13:00)
== END 2022-10-19 11:52 | disposition home or self-care (01) ==
LOC: RAD 11:51
PROVIDERS: PCP Family Medicine; Visit Provider Specialist
DX: E04.1 Nontoxic single thyroid nodule (principal)
CPT/HCPCS: 70491; Q9967

== ENCOUNTER 2022-12-26 13:27 | Outpatient (CLI) | payer MEDICARE, OTHER, SELFPAY ==
--- NOTE | 2022-12-26 13:45 | CTR_ITS ---
PROCEDURE INFORMATION: Exam: CT Abdomen And Pelvis Without And With Contrast Exam date and time: 12/26/2022 1:52 PM Age: 77 years old Clinical indication: Other: Prostate CA; Prior surgery; Surgery type: Hernia x 2; Additional info: Prostate cancer, CT abd/pelvis with and without contrast as soon as possible TECHNIQUE: Imaging protocol: Computed tomography of the abdomen and pelvis without and with contrast. Radiation optimization: All CT scans at this facility use at least one of these dose optimization techniques: automated exposure control; mA and/or kV adjustment per patient size (includes targeted exams where dose is matched to clinical indication); or iterative reconstruction. Contrast material: OMNI 350; Contrast volume: 100 ml; Contrast route: INTRAVENOUS (IV); REPORTING DATA: Count of CT and Cardiac NM exams in prior 12 months: This patient has received 2 known CTs and 0 known cardiac nuclear medicine studies in the 12 months prior to the current study. COMPARISON: CT chest abd pel w con* 07/22/2021 3:42 PM RADIATION DOSE METRICS: Total DLP (mGy-cm): 981.49 FINDINGS: Lungs: There are chronic changes at the lung bases. Mediastinal space: There is mucosal thickening of the distal esophagus and gastroesophageal junction. Liver: Normal. No mass. Gallbladder and bile ducts: Normal. No calcified stones. No ductal dilation. Pancreas: There are punctate pancreatic calcifications consistent with chronic pancreatitis change. Subcentimeter cystic lesions are present at the junction of the pancreatic body/tail the larger of which measures 0.4 mm. Spleen: Normal. No splenomegaly. Adrenal glands: Normal. No mass. Kidneys and ureters: Normal. No hydronephrosis. Stomach and bowel: There is focal exophytic contour abnormality of the proximal sigmoid colon measuring 2.2 x 2.4 cm in the transverse/AP dimensions with internal heterogeneous density. Appendix: A normal appendix is identified. Intraperitoneal space: Unremarkable. No free air. No significant fluid collection. Vasculature: Unremarkable. No abdominal aortic aneurysm. Lymph nodes: Unremarkable. No enlarged lymph nodes. Urinary bladder: See Reproductive finding. Reproductive: Prostate gland is heterogeneous, enlarged, and indents the base of the bladder. Bones/joints: There are degenerative changes in the visualized spine. Grade 1 retrolisthesis of L1 on L2, L2 on L3, L3 on L4, L4 on L5, and L5 on S1. Multilevel broad-based disc osteophyte complexes. Mild lateral curvature of the lumbar spine with the convexity to the right. This may be positional in nature. Soft tissues: Small fat containing umbilical hernia. CT/CT abdomen pelvis wo/w [id number] IMPRESSION: 1. Prostate gland is heterogeneous, enlarged, and indents the base of the bladder. 2. There is mucosal thickening of the distal esophagus and gastroesophageal junction. Differential includes nonspecific esophagitis/gastritis. Follow-up to exclude neoplasm as clinically warranted. 3. Focal exophytic contour abnormality of the proximal sigmoid colon may represent a large diverticulum. Neoplasm cannot be excluded. There is heterogeneous density within this region which may represent stool or mucosal thickening. Follow-up with colonoscopy findings as clinically warranted.
[2022-12-26] MEDS: iohexol 350 mg/mL 500 mL Btl (per mL) IV (14:12)
== END 2022-12-26 13:28 | disposition home or self-care (01) ==
LOC: RAD 13:34
PROVIDERS: PCP Family Medicine; Visit Provider Urology
DX: C61 Malignant neoplasm of prostate (principal)
CPT/HCPCS: 74178; Q9967

== ENCOUNTER → 2023-01-12 14:56 | Outpatient (BNVA) | payer MEDICARE, OTHER, SELFPAY | PROVIDERS: PCP Family Medicine; Referring Provider Specialist; Visit Provider Internal Medicine | DX: C73 Malignant neoplasm of thyroid gland (principal); C77.0 Secondary and unspecified malignant neoplasm of lymph nodes of head, face and neck; R97.20 Elevated prostate specific antigen [PSA] | CPT/HCPCS: 99204 ==

== ENCOUNTER 2023-01-18 11:10 | Outpatient (CLI) | payer MEDICARE, OTHER, SELFPAY ==
--- NOTE | 2023-01-18 09:00 | NM_ITS ---
WS: [id number] NUCLEAR MEDICINE BONE SCAN Radiopharmaceutical: 26.1 Tc-99m MDP mCi IV Injection site: antecubital Postinjection imaging delay: 1 hr CLINICAL INFORMATION: PROSTATE CANCER COMPARISON: None. FINDINGS: Bone lesions: There are no osseous lesions suspicious for metastatic disease. Linear type uptake in t he lumbar spine endplate suspicious for acute to subacute compression versus degenerative endplate-ty pe change. This appears to involve the inferior endplate L2 and superior endplate L4. Soft tissue contours: Normal. Kidneys: Normal. Other findings: Degenerative uptake in both knees and AC joints. NM/NM bone scan whole body* [id number] IMPRESSION: 1. No evidence of osseous metastatic disease. 2. Linear radiotracer uptake within the lumbar spine suspicious for acute to s ubacute compression fractures versus degenerative endplate-type change. This ca n be followed up with MRI.
== END 2023-01-18 11:11 | disposition home or self-care (01) ==
PROVIDERS: PCP Family Medicine; Visit Provider Urology
DX: C61 Malignant neoplasm of prostate (principal)
CPT/HCPCS: 78306; A9561

== ENCOUNTER 2023-01-18 12:13 | Emergency (ER) | payer MEDICARE, OTHER, SELFPAY ==
[2023-01-18 12:16] VITALS: BP 129/66; PULSE 68; TEMP 36.9; O2SAT 93; BMI 25.1
[2023-01-18 12:26] VITALS: BP 126/68; PULSE 68; O2SAT 95
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
[2023-01-18 14:21] VITALS: BP 117/70; PULSE 59; O2SAT 96
== END 2023-01-18 14:22 | disposition home or self-care (01) ==
PROVIDERS: Emergency Provider Physician Assistant; PCP Family Medicine
DX: S16.1XXA Strain of muscle, fascia and tendon at neck level, initial encounter (principal); Z79.82 Long term (current) use of aspirin; V89.2XXA Person injured in unspecified motor-vehicle accident, traffic, initial encounter; E78.5 Hyperlipidemia, unspecified; Z85.850 Personal history of malignant neoplasm of thyroid
CPT/HCPCS: 72125; 99284

== ENCOUNTER → 2023-01-20 12:14 | Outpatient (BNVA) | payer MEDICARE, OTHER, SELFPAY | PROVIDERS: PCP Family Medicine; Visit Provider Urology | DX: C61 Malignant neoplasm of prostate (principal); R33.8 Other retention of urine | CPT/HCPCS: 81003; 99213 ==

== ENCOUNTER 2023-01-26 08:56 | Oncology outpatient (recurring) (ONCR) | payer MEDICARE, OTHER, SELFPAY ==
--- NOTE | 2023-01-26 09:53 | N.ONRAD NP_ITS ---
Radiation Oncology Consultation Patient Name: Braynt Cross Date of : 1945 Date of Service: 01/26/2023 Attending Physician: Roge Muñoz M.D. Bryant Cross was seen in consultation this afternoon at the request of the Luis Brannon M.D. for consideration of prostate radiotherapy in the management of a recently diagnosed very high-risk prostate cancer. He initially was identified to have an elevated PSA level of 16.1 ng/mL in April of 2022. An MRI of the prostate ordered on May 21, 2022 described a 4.6 cm x 3.5 cm x 3.8 cm prostate gland (40 cc). Abnormal signal intensity was identified in the transition zone and peripheral zone of the left lobe and 2.5 cm. The lesion abutted the prostatic capsule (PI-RADS 5). He initially elected active surveillance. A repeat PSA obtained in September 2022 was 27.2 ng/mL. An MRI guided biopsy performed on December 17, 2022 diagnosed a prostatic adenocarcinoma with a Nigel score of 4+5 the left mid gland, the left apex, and 95% of the tissue submitted from the prostatic lesion. An adenocarcinoma with a Graford score of 4+4 was also present within the biopsy specimens obtained from the right base, right mid gland, apex, and left base. No perineural invasion or extraprostatic extension was reported. A nuclear bone scintigraphy and abdominopelvic CT scan did not demonstrate metastatic disease. The patient was referred for radiotherapy treatment options. I discussed with Mr. Cross The [place] [employer] on Cancer for prostate cancer and specifically the patient's clinical IIIC (T1cN0) very high-risk prostate cancer and the National Comprehensive Cancer Network Guidelines recommending androgen deprivation therapy, external beam radiotherapy with or without brachytherapy. I will request a PYLARIFY scan to evaluate possible metastatic disease. Pending the results of imaging, I would endorse a 7/2-week course of radiotherapy which will be implemented following neoadjuvant hormonal therapy. I will request a medical oncology consultation for ADT and will order labs. A planning CT scan with contrast will be acquired prior to implementation of radiation treatment to delineate the clinical target volumes. I reviewed the potential toxicities of pelvic radiotherapy. The patient has verbalized understanding would like to proceed as recommended. The patient's medical treatment plan was discussed with Luis Brannon M.D. Signed by: Roge Muñoz 01/26/2023 9:53:03 AM
== END 2023-02-10 23:59 | disposition home or self-care (01) ==
PROVIDERS: PCP Family Medicine; Visit Provider Radiology Radiation Oncology
DX: C61 Malignant neoplasm of prostate (principal)
CPT/HCPCS: 99205

== ENCOUNTER → 2023-02-09 15:18 | Outpatient (BNVA) | payer MEDICARE, OTHER, SELFPAY | PROVIDERS: PCP Family Medicine; Visit Provider Nurse Practitioner Family | DX: L81.4 Other melanin hyperpigmentation (principal); D22.5 Melanocytic nevi of trunk; Z71.89 Other specified counseling; L85.3 Xerosis cutis; L57.8 Other skin changes due to chronic exposure to nonionizing radiation; Z85.828 Personal history of other malignant neoplasm of skin; L57.0 Actinic keratosis | CPT/HCPCS: 17000; 17003; 99213 ==

== ENCOUNTER 2023-03-05 10:30 | Oncology outpatient (recurring) (ONCR) | payer MEDICARE, OTHER, SELFPAY ==
--- NOTE | 2023-02-19 11:25 | ONCRAD EPV_ITS ---
Radiation Oncology Follow-Up Note Patient Name: Bryant Cross Date of : 1945 Date of Service: 02/19/2023 Attending Physician: Roge Muñoz M.D. Bryant Cross returned to my office this to discuss the results of a Pylarify scan. He was recently diagnosed with a clinical stage IIIC (T1cN0) very high-risk prostate cancer. He initially was identified to have an elevated PSA level of 16.1 ng/mL in April of 2022. An MRI of the prostate ordered on May 21, 2022 described a 4.6 cm x 3.5 cm x 3.8 cm prostate gland (40 cc). Abnormal signal intensity was identified in the transition zone and peripheral zone of the left lobe and 2.5 cm. The lesion abutted the prostatic capsule (PI-RADS 5). He initially elected active surveillance. A repeat PSA obtained in September 2022 was 27.2 ng/mL. An MRI guided biopsy performed on December 17, 2022 diagnosed a prostatic adenocarcinoma with a [place] score of 4+5 the left mid gland, the left apex, and 95% of the tissue submitted from the prostatic lesion. An adenocarcinoma with a Nigel score of 4+4 was also present within the biopsy specimens obtained from the right base, right mid gland, apex, and left base. No perineural invasion or extraprostatic extension was reported. A nuclear bone scintigraphy and abdominopelvic CT scan did not demonstrate metastatic disease. A Pylarify scan ordered on February 16, 2023 identified abnormal activity within the left side of the prostate gland. I would endorse a 7/2-week course of radiotherapy which will be implemented following neoadjuvant hormonal therapy. I will request a medical oncology consultation for ADT and order PSA and testosterone levels. A planning CT scan with contrast will be acquired prior to implementation of radiation treatment to delineate the clinical target volumes. I reviewed the potential toxicities of pelvic radiotherapy. The patient has verbalized understanding would like to proceed as recommended. The patient's medical treatment plan was discussed with Santo Yuan M.D. Signed by: Dr. Roge Muñoz 02/19/2023 11:23:39 AM
[2023-02-19 12:32] LABS: Testosterone Total 399.9 ng/dL (193-740)
[2023-03-05] MEDS: leuprolide 22.5 mg Kit IM (11:15)
[2023-03-05 11:20] VITALS: BP 105/59; PULSE 89; RESP 16; TEMP 36.4; O2SAT 93
== END 2023-03-12 23:59 | disposition home or self-care (01) ==
PROVIDERS: PCP Family Medicine; Visit Provider Radiology Radiation Oncology
DX: C61 Malignant neoplasm of prostate (principal); Z79.52 Long term (current) use of systemic steroids; Z79.818 Long term (current) use of other agents affecting estrogen receptors and estrogen levels; Z86.711 Personal history of pulmonary embolism; Z92.3 Personal history of irradiation
CPT/HCPCS: 36415; 84153; 84403; 96372; 99204; 99215; J9217

== ENCOUNTER → 2023-03-22 10:30 | Outpatient (BNVA) | payer MEDICARE, OTHER, SELFPAY | PROVIDERS: PCP Family Medicine; Visit Provider Internal Medicine Cardiovascular Disease | DX: I48.91 Unspecified atrial fibrillation (principal); I47.29 Other ventricular tachycardia; Z86.711 Personal history of pulmonary embolism; N40.1 Benign prostatic hyperplasia with lower urinary tract symptoms; N13.8 Other obstructive and reflux uropathy; M51.37 Other intervertebral disc degeneration, lumbosacral region | CPT/HCPCS: 93005; 99204 ==

== ENCOUNTER → 2023-03-26 13:05 | Outpatient (BNVA) | payer MEDICARE, OTHER, SELFPAY | PROVIDERS: PCP Family Medicine; Visit Provider Podiatrist Foot & Ankle Surgery | DX: E11.8 Type 2 diabetes mellitus with unspecified complications (principal); S90.32XA Contusion of left foot, initial encounter; W20.8XXA Other cause of strike by thrown, projected or falling object, initial encounter; L60.8 Other nail disorders; M20.21 Hallux rigidus, right foot; M20.22 Hallux rigidus, left foot | CPT/HCPCS: 73630; 99213 ==

== ENCOUNTER → 2023-03-29 10:04 | Outpatient (BNVA) | payer MEDICARE, OTHER, SELFPAY | PROVIDERS: PCP Family Medicine | DX: I47.29 Other ventricular tachycardia (principal); I47.20 Ventricular tachycardia, unspecified; I48.91 Unspecified atrial fibrillation; R07.9 Chest pain, unspecified | CPT/HCPCS: 93005 ==

== ENCOUNTER 2023-04-14 07:19 | Outpatient (CLI) | payer MEDICARE, OTHER, SELFPAY ==
--- NOTE | 2023-04-14 08:00 | USCV_ITS ---
Bryant Cross Age: 77 Gender: M : 1945 Exam Date: 04/14/2023 07:34 Ordering Phys: Hanna Jacinto MD ([email or web address]) Technologist: Robin Granados Exam Location: [facility] Indication: SOB BP: 132 / 70 HR: 69 Rhythm: Sinus Technical Quality: Adequate MEASUREMENTS (Male / Female) Normal Values 2D ECHO LVOT Diameter 2.0 cm LV Ejection Fraction MOD 2C 71.2 % LV Ejection Fraction 2C AL 71.7 % LA Diameter 3.1 cm LA Width 2.8 cm LA Height 4.3 cm RA Width 4.6 cm RA Height 4.5 cm Aorta at Sinotubular Diameter 2.7 cm IVC Diameter 1.7 cm M-MODE Aortic Annulus Diameter 2.9 cm LA Ao Ratio MM 1.1 MV E Point Septal Separation 0.6 cm DOPPLER AV Peak Velocity 131.7 cm/s LVOT Peak Velocity 91.0 cm/s AV Area Cont Eq vti 2.3 cm squared AV Area Cont Eq pk 2.3 cm squared MV Peak Velocity 68.0 cm/s MV Area PHT 4.6 cm squared Mitral E to A Ratio 0.8 MV E' Velocity 27.0 cm/s Mitral E to MV E' Ratio 6.4 Mitral E to LV E' Lateral Ratio 5.2 Mitral E to LV E' Septal Ratio 8.2 TR Peak Velocity 257.3 cm/s TR Peak Gradient 26.5 mmHg TR Mean Velocity 190.5 cm/s TR Mean Gradient 15.7 mmHg TR Velocity Time Integral 60.0 cm Right Atrial Pressure 3.0 mmHg Pulmonary Artery Systolic Pressu 29.5 mmHg PV Peak Velocity 120.7 cm/s RV Acceleration Time 0.1 s RV Ejection Time 0.3 s RV AcT/ET 0.5 FINDINGS Left Ventricle Normal left ventricular size, systolic function and wall thickness, with no regional wall motion abnormalities. Left ventricular ejection fraction is estimated at 70 %. Normal diastolic function. Right Ventricle Normal right ventricular size and systolic function. Right Atrium Normal right atrial size. Left Atrium Normal left atrial size. Mitral Valve Structurally normal mitral valve. No mitral valve stenosis. Trace mitral valve regurgitation. Aortic Valve Structurally normal trileaflet aortic valve. No aortic valve stenosis. Trace aortic valve regurgitation. Tricuspid Valve Structurally normal tricuspid valve. No tricuspid valve stenosis. Trace tricuspid valve regurgitation. Pulmonic Valve Structurally normal pulmonic valve. No pulmonary valve stenosis. Trace pulmonary valve regurgitation. Pericardium No pericardial effusion. Aorta Normal size aortic root and proximal ascending aorta. IVC Normal IVC dimension with >50% respiratory change of the inferior vena cava. CONCLUSIONS 1. Normal left ventricular size, systolic function and wall thickness, with no regional wall motion abnormalities. Left ventricular ejection fraction is estimated at 70 %. Normal diastolic function. 2. No prior similar studies to compare. Hanna Jacinto MD (Electronically Signed) Final Date: 18 April 2023 15:17 S
--- NOTE | 2023-04-14 08:31 | ECG_ITS ---
[facility] Test Date: 2023-04-14 Pat Name: Bryant Cross Department: Room: Gender: Male Director Mission: : 1945 Requested By: Hanna Jacinto Order Number: [id number] Ab MD: Hanna Jacinto M.D. Interpretive Statements NAME OF STUDY: EXERCISE SESTAMIBI STRESS TEST INDICATION: Chest Pain Baseline blood pressure of 129/76 mm Hg, heart rate of 69 beats per minute and oxygen saturation of 92%. EKG showed sinus rhythm, normal axis with normal ST-Ts. The patient exercised for 6 minutes 3 seconds on a standard Jose protocol. Patient attained a maximum heart rate of 122 beats per minute(86% of the maximum predicted heart rate) with a blood pressure at the peak exercise of 169/68 mm Hg. The EKG at the peak exercise revealed sinus tachycardia with [address] depression in lead II, III, aVF, V4 to V6 not diagnostic of ischemia. Patient did not have any chest pain or any significant arrhythmis with the exercise During the recovery phase, there were no new changes. Blood pressure at the end of the recovery phase was not done with a heart rate of 27 beats per minute. CONCLUSION: 1. Normal EKG response to treadmill exercise. 2. No exercise-induced chest pain or cardiac arrhythmia 3. Excellent exercise tolerance for age, attained a maximum of 7 METs. 4. Baseline normal blood pressure with normal response to exercise. 5. Perfusion scan will be documented separately. Electronically Signed On 04-15-2023 11:36:47 CDT by Hanna Jacinto M.D. [email or web address]
--- NOTE | 2023-04-14 08:31 | NMCV_ITS ---
NM claire perf SPECT r/s* [id number] Bryant Cross Age: 77 Gender: M : 1945 Exam Date: 04/14/2023 08:31 Ordering Phys: Hanna Jacinto MD ([email or web address]) Technologist: ROCIO Yung Exam Location: [facility] Indications: SHORTNESS OF BREATH, CHEST PAIN STRESS TEST Please see [facility] for [facility] IMAGE PROTOCOL Rest/Stress 1 Exercise Day Radiopharmaceutical Dose (mCi) Administration Site Administered by Rest: Tc-99m 11.0 IV ROCIO Whatley Sestamibi Stress:Tc-99m 32.9 IV ROCIO Whatley Sestamibi Rest: 14-Apr-2023 60 Discovery 630 Stress: 14-Apr-2023 15 Discovery 630 Radiopharmaceutical was injected at 85 % maximum heart rate. Images obtained in supine and prone position. SPECT RESULTS Technical Quality: Excellent Raw Data Analysis: Normal Image Corrections: No attenuation or motion correction applied Summed Stress Score: 0 Summed Rest Score: 0 Summed Difference Score: 0 PERFUSION FINDINGS SPECT images demonstrate homogeneous tracer distribution throughout the myocardium. FUNCTIONAL RESULTS (calculated via Gated SPECT) Stress Image LV EF (%): 68 Stress EDV (mL):78 TID: 1.02 Stress ESV (mL):25 FUNCTIONAL FINDINGS: The left ventricle is normal in size. Transient Ischemia Dilatation of 1. The left ventricular ejection fraction is normal with a value of 68%. There is normal left ventricular wall thickening. Normal end-diastolic and end-systolic volumes. IMPRESSIONS 1. Myocardial perfusion imaging is normal. 2. Overall left ventricular systolic function is normal without regional wall motion abnormalities, LVEF=68%. 3. EKG portion of the study will be reported separately. 4. Scan indicates low risk for cardiac events. Hanna Jacinto MD (Electronically Signed) Final Date: 14 April 2023 17:44 S
[2023-04-14 08:32] VITALS: BMI 26.1
[2023-04-14 10:33] VITALS: BP 138/62; PULSE 82
== END 2023-04-14 07:20 | disposition home or self-care (01) ==
LOC: RAD 07:22 → CDL 08:30
PROVIDERS: PCP Family Medicine; Visit Provider Internal Medicine Cardiovascular Disease
DX: R06.02 Shortness of breath (principal); R07.9 Chest pain, unspecified
CPT/HCPCS: 36415; 78452; 93017; 93306; A9500

== ENCOUNTER → 2023-04-21 16:05 | Outpatient (BNVA) | payer MEDICARE, OTHER, SELFPAY | PROVIDERS: PCP Family Medicine; Visit Provider Internal Medicine | DX: C73 Malignant neoplasm of thyroid gland (principal); C77.0 Secondary and unspecified malignant neoplasm of lymph nodes of head, face and neck; R97.20 Elevated prostate specific antigen [PSA] | CPT/HCPCS: 36415; 84432; 84439; 84443; 86800; 99214 ==

== ENCOUNTER 2023-05-03 10:55 | Oncology outpatient (recurring) (ONCR) | payer MEDICARE, OTHER, SELFPAY ==
[2023-04-14 08:42] LABS: Basophils # 0.1 10^3/uL (0.0-0.1); Basophils % 0.8 %; Eosinophils # 0.3 10^3/uL (0.0-0.8); Eosinophils % 5.4 %; Hematocrit 46.1 % (42.0-52.0); Hemoglobin 16.3 g/dL (11.7-16.6); Lymphocytes # 1.9 10^3/uL (0.8-4.8); Lymphocytes % 32.6 %; Mean Corpuscular HGB Conc 35.4 g/dL (30.0-36.0); Mean Corpuscular Hemoglobin 31.5 pg (28.0-34.0); Mean Platelet Volume 10.3 fL (7.4-10.4); Monocytes # 0.7 10^3/uL (0.2-0.9); Monocytes % 11.4 %; Neutrophils # 2.95 10^3/uL (1.8-7.7); Neutrophils % 49.5 %; Nucleated Red Blood Cells % 0 %; Platelet Count 177 10^3/cmm (130-400); Red Blood Count 5.18 10^6/uL (4.1-5.3); Red Cell Distribution Width 13.1 % (12.1-15.1)
[2023-04-14 09:22] LABS: Alanine Aminotransferase 25 U/L (0-41); Albumin Level 3.9 g/dL (3.5-5.2); Alkaline Phosphatase 76 U/L (40-130); Anion Gap 13.4 (5-19); Aspartate Amino Transferase 27 U/L (0-40); Blood Urea Nitrogen 16 mg/dL (8-23); Calcium 9.9 mg/dL (8.5-10.5); Carbon Dioxide 26 mmol/L (22-29); Chloride 104 mmol/L (98-107); Globulin 2.5 g/dL (1.3-4.6); Glucose 104 mg/dL (65-115); Osmolality Calculated 289 mOsm/kg (285-295); Potassium 4.4 mmol/L (3.5-5.1); Sodium 139 mmol/L (136-145); Total Bilirubin 0.8 mg/dL (0.15-1.2); Total Protein 6.4 g/dL (6.6-8.7)
[2023-04-22] MEDS: iohexol 350 mg/mL 100 mL Btl IV (08:36)
== END 2023-05-03 23:59 | disposition home or self-care (01) ==
PROVIDERS: Radiology Radiation Oncology; PCP Family Medicine; Visit Provider Radiology Radiation Oncology
DX: Z51.0 Encounter for antineoplastic radiation therapy (principal); C61 Malignant neoplasm of prostate
CPT/HCPCS: 77300; 77301; 77334; 77338; 77385; 77470; 80053; 85025; Q9967

== ENCOUNTER 2023-05-13 10:41 | Oncology outpatient (recurring) (ONCR) | payer MEDICARE, OTHER, SELFPAY ==
--- NOTE | 2023-05-04 13:06 | ONCRAD TMN_ITS ---
Radiation Oncology Weekly Treatment Management Patient: Tay Hurtado MR#: [id number] : 1945 Attending Physician: Yang Hurely Date of Service: 05/04/2023 Referring Physician(s) : Dr. Tom Sow Diagnosis: C61 - Malignant neoplasm of prostate, Diagnosed 12/17/2022 (Active) Stage IIIC, T1c, N0, M0, P>=20, G5 I26.99 - Other pulmonary embolism without acute cor pulmonale, Diagnosed 09/25/2021 (Active) Radiotherapy to date: Course: [id number], Treatment Site: Prost Initial, Ref. ID: [id number], Energy: 15X, Dose/Fx (cGy): 200, #Fx: , Dose Correction (cGy): 0, Total Dose (cGy): 1,000, Start Date: 04/28/2023, Elapsed Days: 6 Reason for visit: The patient is being seen today as part of their regularly scheduled weekly on treatment visits to assess for acute toxicities from radiotherapy. Review of Systems: No urinary changes. 5 x nocturia. On Flomax am and PM. Takes pm dose in afternoon. [place] ok. Walking on Treadmill 15 min a day. Vital Signs: Performed on 05/04/2023 11:13 AM BMI - 25.161 kg/m2 (high), Height - 71 in, Weight - 180.4 lbs, Temperature - 97.5 f, Pulse - 68 /min, Respiration - 16 /min, O2 Sat - 96 %, Pain - 0, Fatigue - 8 and BP - 130/ 65 mm(hg). Physical Exam: Imaging: Radiation therapy imaging related to accurate target localization (i.e. KV, MV and CBCT) was reviewed. Appropriate changes, if any, were made to ensure treatment accuracy. Plan: Good tolerance of treatment. Delay pm dose of tamsulosin dose until evening. If that does not help then take both tabs in evening. Continue as planned. Telemedicine Consent Patient seen today via Telemedicine by agreement and consent of patient. Telemedicine technology used during the visit include audio and, as available, review of images. This patient encounter is appropriate and reasonable under the circumstances given the patient???s particular presentation at this time. The patient has been advised of the potential risks and limitations of this mode of treatment (including but not limited to the absence of in-person examination) and has agreed to be treated in a remote fashion in spite of them. Any and all of the patient???s/patient???s family???s questions on this issue have been answered and I have made no promises or guarantees to the patient. The patient has also been advised to contact this office for worsening conditions or problems, and seek emergency medical treatment and/or call 911 if the patient deems either necessary. Signed by: Yang Hurley 05/04/2023 1:06:01 PM
--- NOTE | 2023-05-11 11:56 | ONCRAD TMN_ITS ---
Radiation Oncology Weekly Treatment Management Patient: Bryant Cross MR#: [id number] : 1945 Attending Physician: Yang Hurley Date of Service: 05/11/2023 Referring Physician(s) : Dr. Tom Sow Diagnosis: C61 - Malignant neoplasm of prostate, Diagnosed 12/17/2022 (Active) Stage IIIC, T1c, N0, M0, P>=20, G5 I26.99 - Other pulmonary embolism without acute cor pulmonale, Diagnosed 09/25/2021 (Active) Radiotherapy to date: Course: [id number], Treatment Site: Prost Initial, Ref. ID: [id number], Energy: 15X, Dose/Fx (cGy): 200, #Fx: , Dose Correction (cGy): 0, Total Dose (cGy): 2,000, Start Date: 04/28/2023, Elapsed Days: 13 Reason for visit: The patient is being seen today as part of their regularly scheduled weekly on treatment visits to assess for acute toxicities from radiotherapy. Review of Systems: Stable urination with 3 to 4 x nocturia. He is taking 2 Flomax together after dinner with no real improvement. Previously took this BID. Some non bothersome HF. Vital Signs: Performed on 05/11/2023 10:54 AM BMI - 25.161 kg/m2 (high), Height - 71 in, Weight - 180.4 lbs, Temperature - 97.1 f, Pulse - 60 /min, Respiration - 16 /min, O2 Sat - 98 %, Pain - 0, Fatigue - 4 and BP - 117/ 71 mm(hg). Physical Exam: Imaging: Radiation therapy imaging related to accurate target localization (i.e. KV, MV and CBCT) was reviewed. Appropriate changes, if any, were made to ensure treatment accuracy. Plan: Good tolerance of treatment. Will continue as planned. Signed by: Yang Hurley 05/11/2023 11:54:12 AM Telemedicine Consent Patient seen today via Telemedicine by agreement and consent of patient. Telemedicine technology used during the visit include audio and, as available, review of images. This patient encounter is appropriate and reasonable under the circumstances given the patient???s particular presentation at this time. The patient has been advised of the potential risks and limitations of this mode of treatment (including but not limited to the absence of in-person examination) and has agreed to be treated in a remote fashion in spite of them. Any and all of the patient???s/patient???s family???s questions on this issue have been answered and I have made no promises or guarantees to the patient. The patient has also been advised to contact this office for worsening conditions or problems, and seek emergency medical treatment and/or call 911 if the patient deems either necessary.
== END 2023-05-13 23:59 | disposition home or self-care (01) ==
PROVIDERS: PCP Family Medicine; Visit Provider Radiology Radiation Oncology
DX: C61 Malignant neoplasm of prostate (principal)
CPT/HCPCS: 77336; 77385; 99024

== ENCOUNTER 2023-06-02 10:51 | Oncology outpatient (recurring) (ONCR) | payer MEDICARE, OTHER, SELFPAY ==
--- NOTE | 2023-05-18 15:39 | ONCRAD TMN_ITS ---
Radiation Oncology Weekly Treatment Management Patient: Tay Carnes MR#: [id number] : 1945> Attending Physician: Dallin Hoff Date of Service: 05/18/2023 Referring Physician(s) : Dr. Tom Sow Diagnosis: C61 - Malignant neoplasm of prostate, Diagnosed 12/17/2022 (Active) Stage IIIC, T1c, N0, M0, P>=20, G5 I26.99 - Other pulmonary embolism without acute cor pulmonale, Diagnosed 09/25/2021 (Active) Radiotherapy to date: Course: [id number], Treatment Site: Prost Initial, Ref. ID: [id number], Energy: 15X, Dose/Fx (cGy): 200, #Fx: , Dose Correction (cGy): 0, Total Dose (cGy): 2,800, Start Date: 04/28/2023, End Date: 05/18/2023, Elapsed Days: 20 Reason for visit: The patient is being seen today as part of their regularly scheduled weekly on treatment visits to assess for acute toxicities from radiotherapy. Review of Systems: He is stable with nocturia x3 or 4. He is taking 2 Flomax in the evening. He states that his urinary pattern has significantly improved compared to pretreatment when he was getting up 7-8 times per night. No issues with bowel movements. Performance status unchanged. Vital Signs: Performed on 05/18/2023 11:18 AM BMI - 25.551 kg/m2 (high), Height - 71 in, Weight - 183.2 lbs, Temperature - 97 f, Pulse - 62 /min, Respiration - 18 /min, O2 Sat - 96 %, Pain - 0, Fatigue - 0 and BP - 133/ 69 mm(hg). Physical Exam: Alert, oriented, no acute distress. Ambulatory without assistance. Imaging: Radiation therapy imaging related to accurate target localization (i.e. KV, MV and CBCT) was reviewed. Appropriate changes, if any, were made to ensure treatment accuracy. Plan: Continue radiation according to plan. No questions about the treatment process. Signed by: Dallin Hoff 05/18/2023 3:37:42 PM
--- NOTE | 2023-05-26 16:19 | ONCRAD TMN_ITS ---
Radiation Oncology Weekly Treatment Management Patient: Bryant Cross MR#: [id number] : 1945 Attending Physician: Desean Borges Date of Service: 05/26/2023 Referring Physician(s) : Dr. Tom Sow Diagnosis: C61 - Malignant neoplasm of prostate, Diagnosed 12/17/2022 (Active) Stage IIIC, T1c, N0, M0, P>=20, G5 I26.99 - Other pulmonary embolism without acute cor pulmonale, Diagnosed 09/25/2021 (Active) Radiotherapy to date: Course: [id number], Treatment Site: Prost Initial, Ref. ID: [id number], Energy: 15X, Dose/Fx (cGy): 200, #Fx: , Dose Correction (cGy): 0, Total Dose (cGy): 4,000, Start Date: 04/28/2023, Elapsed Days: 28 Reason for visit: The patient is being seen today as part of their regularly scheduled weekly on treatment visits to assess for acute toxicities from radiotherapy. Review of Systems: Patient continues on Flomax 2 in the evening. He denies any difficulty with diarrhea, constipation or rectal bleeding. He drinks an herbal tea at about 5 in the afternoon. Patient is present today with his . Vital Signs: Physical Exam: Alert and oriented male appearing his stated age. Patient is ambulatory without assistance. Imaging: Radiation therapy imaging related to accurate target localization (i.e. KV, MV and CBCT) was reviewed. Appropriate changes, if any, were made to ensure treatment accuracy. Plan: Continue prescribed treatment. Signed by: Desean Borges 05/26/2023 4:17:36 PM
--- NOTE | 2023-06-01 10:59 | ONCRAD TMN_ITS ---
Radiation Oncology Weekly Treatment Management Patient: Bryant Cross MR#: [id number] : 1945 Attending Physician: Yang Hurley Date of Service: 06/01/2023 Referring Physician(s) : Dr. Tom Sow Diagnosis: C61 - Malignant neoplasm of prostate, Diagnosed 12/17/2022 (Active) Stage IIIC, T1c, N0, M0, P>=20, G5 I26.99 - Other pulmonary embolism without acute cor pulmonale, Diagnosed 09/25/2021 (Active) Radiotherapy to date: Course: [id number], Treatment Site: Prost Initial, Ref. ID: [id number], Energy: 15X, Dose/Fx (cGy): 200, #Fx: , Dose Correction (cGy): 0, Total Dose (cGy): 4,600, Start Date: 04/28/2023, End Date: 05/31/2023, Elapsed Days: 33 [id number], Treatment Site: ProstateBoost, Ref. ID: [id number], Energy: 15X, Dose/Fx (cGy): 200, #Fx: , Dose Correction (cGy): 0, Total Dose (cGy): 200, Start Date: 06/01/2023, Elapsed Days: 0 Reason for visit: The patient is being seen today as part of their regularly scheduled weekly on treatment visits to assess for acute toxicities from radiotherapy. Review of Systems: Fatigued with ongoing HF and sweats. These HF and sweats do wake him at night .This contributes to his q 2 hr nocturia. Low is ok. No pain. On Flomax 2 q HS. Some bowel urgency. Vital Signs: Performed on 06/01/2023 9:35 AM BMI - 25.272 kg/m2 (high), Height - 71 in, Weight - 181.2 lbs, Temperature - 97.2 f, Pulse - 65 /min, Respiration - 16 /min, O2 Sat - 96 %, Pain - 0, Fatigue - 0 and BP - 121/ 68 mm(hg). Physical Exam: Imaging: Radiation therapy imaging related to accurate target localization (i.e. KV, MV and CBCT) was reviewed. Appropriate changes, if any, were made to ensure treatment accuracy. Plan: Good tolerance of treatment. He has significant ongoing hormonal withdraw symptoms. He may choose to stop any continued ADT due to the decreased QOL . I discussed adding Effexor for HF. He will consider it. Continue treatment as planned. Signed by: Yang Hurley 06/01/2023 10:57:42 AM
== END 2023-06-02 23:59 | disposition home or self-care (01) ==
PROVIDERS: PCP Family Medicine; Visit Provider Radiology Radiation Oncology
DX: C61 Malignant neoplasm of prostate (principal)
CPT/HCPCS: 77336; 77385; 99024

== ENCOUNTER → 2023-06-10 10:06 | Outpatient (BNVA) | payer MEDICARE, OTHER, SELFPAY | PROVIDERS: PCP Family Medicine; Visit Provider Podiatrist Foot & Ankle Surgery | DX: L60.0 Ingrowing nail (principal) | CPT/HCPCS: 99213 ==

== ENCOUNTER 2023-06-11 09:00 | Oncology outpatient (recurring) (ONCR) | payer MEDICARE, OTHER, SELFPAY ==
--- NOTE | 2023-06-08 15:25 | ONCRAD TMN_ITS ---
Radiation Oncology Weekly Treatment Management Patient: Tay Carnes MR#: [id number] : 1945> Attending Physician: Yang Hurley Date of Service: 06/08/2023 Referring Physician(s) : Dr. Tom Sow Diagnosis: C61 - Malignant neoplasm of prostate, Diagnosed 12/17/2022 (Active) Stage IIIC, T1c, N0, M0, P>=20, G5 I26.99 - Other pulmonary embolism without acute cor pulmonale, Diagnosed 09/25/2021 (Active) Radiotherapy to date: Course: [id number], Treatment Site: Prost Initial, Ref. ID: [id number], Energy: 15X, Dose/Fx (cGy): 200, #Fx: 23 / 23, Dose Correction (cGy): 0, Total Dose (cGy): 4,600, Start Date: 04/28/2023, End Date: 05/31/2023, Elapsed Days: 33 Treatment Site: ProstateBoost, Ref. ID: [id number], Energy: 15X, Dose/Fx (cGy): 200, #Fx: 6 15, Dose Correction (cGy): 0, Total Dose (cGy): 1,200, Start Date: 06/01/2023, Elapsed Days: 7 Reason for visit: The patient is being seen today as part of their regularly scheduled weekly on treatment visits to assess for acute toxicities from radiotherapy. Review of Systems: Some abdominal bloating. No diarrhea. Persistent hot flashes. A bit of urinary burning. Some decrease of nocturia. On Flomax 2 q hs Vital Signs: Performed on 06/08/2023 11:10 AM BMI - 25.189 kg/m2 (high), Height - 71 in, Weight - 180.6 lbs, Temperature - 97.1 f, Pulse - 64 /min, Respiration - 18 /min, O2 Sat - 96 %, Pain - 0, Fatigue - 8 and BP - 111/ 59 mm(hg)(/low). Physical Exam: Imaging: Radiation therapy imaging related to accurate target localization (i.e. KV, MV and CBCT) was reviewed. Appropriate changes, if any, were made to ensure treatment accuracy. Plan: Fair to good tolerance of treatment. Need simethicone containing AA for gassy abdominal pain. He had a UA and did not have a UTI. Not interested now in Pyridium. Continue treatment as planned. Telemedicine Consent Patient seen today via Telemedicine by agreement and consent of patient. Telemedicine technology used during the visit include audio and, as available, review of images. This patient encounter is appropriate and reasonable under the circumstances given the patient???s particular presentation at this time. The patient has been advised of the potential risks and limitations of this mode of treatment (including but not limited to the absence of in-person examination) and has agreed to be treated in a remote fashion in spite of them. Any and all of the patient???s/patient???s family???s questions on this issue have been answered and I have made no promises or guarantees to the patient. The patient has also been advised to contact this office for worsening conditions or problems, and seek emergency medical treatment and/or call 911 if the patient deems either necessary Signed by: Yang Hurley 06/08/2023 3:24:11 PM
[2023-06-11 09:03] VITALS: BMI 26.1
[2023-06-11 09:06] VITALS: BP 119/71; PULSE 65; RESP 18; TEMP 36.6; O2SAT 97
[2023-06-11 09:25] LABS: Basophils % 0.7 %; Eosinophils # 0.8 10^3/uL (0.0-0.8); Eosinophils % 17.7 %; Hematocrit 41.1 % (37-53); Lymphocytes # 0.7 10^3/uL (0.8-4.8); Lymphocytes % 15.9 %; Mean Corpuscular HGB Conc 35.3 g/dL (30-55); Mean Corpuscular Hemoglobin 31.4 pg (27-33); Mean Platelet Volume 9.9 fL (7.4-10.4); Monocytes # 0.6 10^3/uL (0.2-0.9); Neutrophils # 2.33 10^3/uL (1.8-7.7); Neutrophils % 52.3 %; Nucleated Red Blood Cells % 0 %; Platelet Count 150 10^3/cmm (157-399); Red Blood Count 4.62 10^6/uL (3.85-5.65); Red Cell Distribution Width 14.4 % (12.1-15.1); White Blood Count 4.46 10^3/uL (3.29-11.43)
[2023-06-11 09:56] LABS: Alanine Aminotransferase 30 U/L (0-41); Albumin Level 4.1 g/dL (3.5-5.2); Alkaline Phosphatase 81 U/L (40-130); Anion Gap 11.1 (5-19); Aspartate Amino Transferase 29 U/L (0-40); Blood Urea Nitrogen 13 mg/dL (8-23); Calcium 9.5 mg/dL (8.5-10.5); Carbon Dioxide 29 mmol/L (22-29); Chloride 106 mmol/L (98-107); Globulin 2.5 g/dL (1.3-4.6); Glucose 101 mg/dL (65-115); Osmolality Calculated 294 mOsm/kg (285-295); Potassium 4.1 mmol/L (3.5-5.1); Prostate Specific Antigen 0.023 ng/mL (0-4); Sodium 142 mmol/L (136-145); Total Protein 6.6 g/dL (6.6-8.7)
[2023-06-11] MEDS: leuprolide 22.5 mg Kit IM (11:15)
== END 2023-06-12 23:59 | disposition home or self-care (01) ==
PROVIDERS: Internal Medicine Medical Oncology; PCP Family Medicine; Visit Provider Radiology Radiation Oncology
DX: C61 Malignant neoplasm of prostate (principal); Z51.0 Encounter for antineoplastic radiation therapy; Z79.818 Long term (current) use of other agents affecting estrogen receptors and estrogen levels; Z86.711 Personal history of pulmonary embolism; Z79.899 Other long term (current) drug therapy
CPT/HCPCS: 36415; 77014; 77336; 77385; 80053; 81000; 84153; 85025; 87086; 96402; 99024; 99214; J9217

== ENCOUNTER 2023-06-21 10:55 | Oncology outpatient (recurring) (ONCR) | payer MEDICARE, OTHER, SELFPAY ==
--- NOTE | 2023-06-15 13:32 | ONCRAD TMN_ITS ---
Radiation Oncology Weekly Treatment Management Patient: Tay Hurtado MR#: [id number] : 1945 Attending Physician: Yang Hurley Date of Service: 06/15/2023 Referring Physician(s) : Dr. Tom Sow Diagnosis: C61 - Malignant neoplasm of prostate, Diagnosed 12/17/2022 (Active) Stage IIIC, T1c, N0, M0, P>=20, G5 I26.99 - Other pulmonary embolism without acute cor pulmonale, Diagnosed 09/25/2021 (Active) Radiotherapy to date: Course: [id number], Treatment Site: Prost Initial, Ref. ID: [id number], Energy: 15X, Dose/Fx (cGy): 200, #Fx: , Dose Correction (cGy): 0, Total Dose (cGy): 4,600, Start Date: 04/28/2023, End Date: 05/31/2023, Elapsed Days: 33 Course: [id number], Treatment Site: ProstateBoost, Ref. ID: [id number], Energy: 15X, Dose/Fx (cGy): 200, #Fx: , Dose Correction (cGy): 0, Total Dose (cGy): 2,200, Start Date: 06/01/2023, Elapsed Days: 14 Reason for visit: The patient is being seen today as part of their regularly scheduled weekly on treatment visits to assess for acute toxicities from radiotherapy. Review of Systems: Fatigue a bit worse. Just had his repeat ADT shot last week. Persistent somewhat bothersome HF. Nocturia better only 3 x last night. No urinary pain. Bowels sometimes more frequent but no diarrhea. Vital Signs: Performed on 06/15/2023 11:33 AM BMI - 25.133 kg/m2 (high), Height - 71 in, Weight - 180.2 lbs, Temperature - 97 f, Pulse - 78 /min, Respiration - 16 /min, O2 Sat - 97 %, Pain - 0, Fatigue - 0 and BP - 124/ 67 mm(hg). Physical Exam: Imaging: Radiation therapy imaging related to accurate target localization (i.e. KV, MV and CBCT) was reviewed. Appropriate changes, if any, were made to ensure treatment accuracy. Plan: Good tolerance of treatment. Continue as planned. Signed by: Yang Hurley 06/15/2023 1:31:02 PM
--- NOTE | 2023-06-21 22:02 | N.ONRD TS_ITS ---
Radiation Oncology Treatment Summary Patient: Tay>Bryant> MR#: [id number] : 1945> Age: 77> Sex: Male Dictated by: Yang Hurley Date of Service: 06/21/2023 Referring Physician(s) : Dr. Tom Sow Diagnosis: C61 - Malignant neoplasm of prostate, Diagnosed 12/17/2022 (Active) Stage IIIC, T1c, N0, M0, P>=20, G5 I26.99 - Other pulmonary embolism without acute cor pulmonale, Diagnosed 09/25/2021 (Active) Radiotherapy to Date: Course: [id number] Treatment Site: Prost Initial, Ref. ID: [id number], Energy: 15X, Dose/Fx (cGy): 200, #Fx: 23 / 23, Dose Correction (cGy): 0, Total Dose (cGy): 4,600, Start Date: 04/28/2023, End Date: 05/31/2023, Elapsed Days: 33 Course: [id number], Treatment Site: ProstateBoost, Ref. ID: [id number], Energy: 15X, Dose/Fx , cGy): 200, #Fx: 15 / 15, Dose Correction (cGy): 0, Total Dose (cGy): 3,000, Start Date: 06/01/2023, , end Date: 06/21/2023, Elapsed Days: 20 Clinical Summary: The patient tolerated RT well. He underwent repeat ADT administration while on treatment. He had ongoing somewhat bothersome HF and fatigue from this. Stable 3 x nocturia without other urinary or bowel sxs. Plan: End of treatment today. Follow up in one month. Signed by: Yang Hurley>06/21/2023 10:00:21 PM <<Signature on File>>
== END 2023-07-13 23:59 | disposition home or self-care (01) ==
PROVIDERS: PCP Family Medicine; Visit Provider Radiology Radiation Oncology
DX: C61 Malignant neoplasm of prostate (principal)
CPT/HCPCS: 77336; 77385; 99024

== ENCOUNTER 2023-07-21 16:32 | Outpatient (CLI) | payer MEDICARE, OTHER, SELFPAY ==
--- NOTE | 2023-07-21 17:00 | CT_ITS ---
WS: [id number] CT ABDOMEN PELVIS TECHNIQUE: Contrast-enhanced CT of the abdomen and pelvis with coronal and sagittal reformatted image s. CLINICAL INFORMATION: increasing abd pain and swelling in abd COMPARISON: PET/CT 02/11/2023, CT 12/26/2022 DLP: 388.[address] scans at [facility] [place] use at least one of these dose optimization techniques: automated e xposure control; mA and/or kV adjustment per patient size (includes targeted exams where dose is matc hed to clinical indication); or iterative reconstruction. FINDINGS: Previously described nodular enlarged enhancing prostate compatible with history of prostate carcinom a eccentric to the LEFT as seen on the prior PET/CT. Prostate measures smaller today likely due to in terval treatment related changes. Mild bladder wall thickening likely due to chronic bladder outlet o bstruction. No pelvic or inguinal lymphadenopathy. Lung bases are well aerated. Interstitial thickening in the lung bases. Mild diffuse fatty filtration of the liver. Normal spleen. Large amount of fluid and food products in the stomach. Small esophagea l hiatal hernia. Thickening of the distal esophagus can be seen with esophagitis. Gallbladder is cont racted. Normal portal vein and splenic vein. Normal pancreas. Adrenal glands are normal. Normal renal parenchymal enhancement. No hydronephrosis. Normal caliber abdominal aorta. Celiac and SMA are patent. No abdominal or pelvic lymphadenopathy. Tiny fat-containing umbilical shara ia. Retroaortic LEFT renal vein. Sigmoid diverticulosis. Normal appendix in the RIGHT lower quadrant. Moderate spondylitic changes lumbar spine. IMPRESSION: 1. Nodular heterogeneous prostate compatible with history of prostate carcinoma measures slightly sm aller compared to previous. Prostate measures 3.5 x 4.0 cm today. 2. No abdominal or pelvic lymphadenopathy. No evidence of metastatic disease in the abdomen or pelvi s. 3. Small esophageal hernia with thickening of the distal esophagus can be seen with esophagitis. Thi s can be further evaluated with endoscopy. 4. No other acute findings.
[2023-07-21] MEDS: iohexol 350 mg/mL 500 mL Btl (per mL) IV (17:16)
[2023-07-21] MEDS: iohexol 350 mg/mL 500 mL Btl (per mL) PO (17:17)
== END 2023-07-21 16:33 | disposition home or self-care (01) ==
PROVIDERS: PCP Family Medicine; Visit Provider Family Medicine
DX: R10.9 Unspecified abdominal pain (principal); Z85.46 Personal history of malignant neoplasm of prostate; K44.9 Diaphragmatic hernia without obstruction or gangrene; K20.90 Esophagitis, unspecified without bleeding
CPT/HCPCS: 74177; Q9967

== ENCOUNTER 2023-07-22 10:25 | Oncology outpatient (recurring) (ONCR) | payer MEDICARE, OTHER, SELFPAY ==
--- NOTE | 2023-07-22 11:28 | ONCRAD EPV_ITS ---
Radiation Oncology Established Patient Visit Patient: Bryant Cross [id number] : 1945 Age: 77 Sex: Male Dictated by: Dr. Nuzhat Johns Date of Service: 07/22/2023 Interval history: Patient completed his external beam radiation for his prostate cancer 1 month ago. He received a another Lupron injection during the course of his treatment and is due for a third shot in August. He feels like his bowel and bladder habits have returned to normal. However earlier this week he began to feel bloated and had some increased abdominal pain. A CT scan done yesterday did not show any abnormalities. It did show that his prostate was slightly smaller. I reviewed these results with him and his . We talked about how at this time he is really experiencing many of the symptoms of menopause because of his androgen therapy. He has had fatigue, hot flashes, multiple waking at night, and weight gain. At this point I recommended to him that we hold his ADT especially with his history of pulmonary embolism, and allow his PSA to rise over the next 1 to 2 years. I reminded him that it would reach a point that would be his new normal. The radiation effects can take 1 to 2 years to be seen in the PSA. His requested a PSA today and we will get that ordered. Otherwise he will be seen back in 6 months with a PSA at that time. Referring Physician(s) : Dr. Tom Sow Diagnosis: C61 - Malignant neoplasm of prostate, Diagnosed 12/17/2022 (Active) Stage I, T1c, N0, M0, P>=20, G5 I26.99 - Other pulmonary embolism without acute cor pulmonale, Diagnosed 09/25/2021 (Active) Pulmonary embolism. This is a 76-year-old man who had an episode of significant pulmonary embolism in July 2021. In February 2021 he was found on ultrasound to have a solid heterogeneous mid right thyroid nodule measuring 1.8 x 1.6 x 1.8 cm. He was referred to Dr. 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 That procedure was complicated by postoperative nausea/vomiting. On May 25, 2021 he had presented to the emergency room with severe pain in his head and neck and he was confirmed on head CT to have a large amount of subarachnoid hemorrhage in the basilar cisterns, about the brainstem, and the fourth ventricle. He was admitted to the [facility] in [place], and on discharge he was transferred to [facility] in [place]. According to his he experienced severe back pain during his rehab, but he eventually was able to return home. On July 22, 2021 he was seen in the emergency room after having recurrent falls at home in association with acute mental status changes. He was found to have evidence of urinary retention and a urinary tract infection. His evaluation included CT scans of the chest, abdomen, and pelvis. 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 The chest CT, though, showed a large filling defect in the proximal right pulmonary artery with scattered smaller filling defects in the right and left pulmonary arteries, consistent with pulmonary emboli. Small subpleural densities were noted in the lower lobes bilaterally. There were no other acute findings. He began on anticoagulation with Lovenox and he was also given antibiotic coverage for the urinary tract infection. His bilateral lower extremity venous Doppler study showed no evidence of deep vein thrombosis. He was discharged to [facility] on apixaban. He was able to return home 5 days later. I had seen him initially on 09/25/2021. He was still on anticoagulation with apixaban, though he was fairly anxious to get off of it. In the setting of what was potentially a provoked episode of thromboembolism, we discussed the possibility of stopping anticoagulation after 3 months of treatment with the provision that there was satisfactory resolution of the emboli. His repeat CT pulmonary angiogram on 09/30/2021 did show resolution of previously described pulmonary emboli. There were slight patchy opacities, including micronodular tree-in-bud infiltrates in the lingula, which were felt to be most likely inflammatory, but follow-up was recommended. A 4 mm noncalcified right lower lobe nodule appeared unchanged. There was no mediastinal or axillary lymphadenopathy. He is seen for a follow-up visit. He continues to have significant fatigue, though he has up and around at home and he is able to do some light work. ECOG score is 1. His notes that he has continued to sleep a lot, requiring at least 2 or 3 naps every day. He also instantly forgets stuff, and he continues to have issues with balance. His appetite is not too bad. He has not had fever. During the past several weeks he has had a few episodes of night sweating. He has sinus drainage and he has some cough associated with it. He does not complain of shortness of breath or chest pain. He currently has no GI/ complaints other than occasional acid reflux. He notes improvement in his bowel function. His back pain has been getting better with physical therapy. He does not complain of headache. He occasionally has numbness in his right arm at night. He has no other focal neurologic symptoms. He does have known obstructive sleep apnea, but in the past he had very poor tolerance for CPAP. Radiotherapy to Date: Course: [id number], Treatment Site: Prost Initial, Ref. ID: [id number], Energy: 15X, Dose/Fx (cGy): 200, #Fx: , Dose Correction (cGy): 0, Total Dose (cGy): 4,600, Start Date: 04/28/2023, End Date: 05/31/2023, Elapsed Days: 33 [id number], Treatment Site: ProstateBoost, Ref. ID: [id number], Energy: 15X, Dose/Fx (cGy): 200, #Fx: , Dose Correction (cGy): 0, Total Dose (cGy): 3,000, Start Date: 06/01/2023, End Date: 06/21/2023, Elapsed Days: 20 Current History: As above Current Medications: Apixaban, finasteride, iS-ZC 50, losartan Potassium, mag-Tab SR, multivitamin, proAir HFA, tamsulosin HCl, zithromax Z-Donavan. Allergies: Levaquin and Ultram. Current Complaints / Review of Systems: . Vital Signs: Performed on 07/22/2023 10:37 AM BMI - 24.882 kg/m2 (high), Height - 71 in, Weight - 178.4 lbs, Temperature - 97.1 f, Pulse - 71 /min, Respiration - 16 /min, O2 Sat - 97 %, Pain - 0, Fatigue - 0 and BP - 138/ 68 mm(hg). Physical Exam: General: Alert and oriented x 3. No acute distress. HEENT: Normocephalic, atraumatic. Extraocular Movements Intact: Pupils Equal, Round, Reactive to Light: Sclerae anicteric. . LUNGS: Clear to auscultation. HEART: Regular rate and rhythm, MUSCULOSKELETAL: No gross musculoskeletal abnormalities noted. ABDOMEN: Soft, mildly distended and mildly tender without masses or organomegaly. Bowell sounds are present. EXTREMITIES: No gross peripheral edema is identified. NEUROLOGIC: Alert and orientated x2 gait walks with a cane speech is intact. Performance Status: ECOG 2 Lab: None pending. PSA pending Pathology: Primary, c61 - malignant neoplasm of prostate, Diagnosed 12/17/2022 (active) stage iiic, t1c, n0, m0, p>=20, g5 and Primary, i26.99 - other pulmonary embolism without acute cor pulmonale, Diagnosed 09/25/2021 (active). Imaging: See HPI Impression: Adenocarcinoma the prostate Nigel score 9, initial PSA 27 status post ADT and external beam radiation completed in June 2023 Plan: At this time we will discontinue his ADT for now. We will see him back in 6 months or call if any problems arise in the interim. Signed by: 07/22/2023 11:26:56 AM <<Signature on File>> Time spent with patient:25 CPT Code: CPT Code:
[2023-07-22 11:49] LABS: Prostate Specific Antigen < 0.014 ng/mL (0-4)
== END 2023-08-12 23:59 | disposition home or self-care (01) ==
PROVIDERS: PCP Family Medicine; Visit Provider Radiology Radiation Oncology
DX: C61 Malignant neoplasm of prostate (principal); Z51.0 Encounter for antineoplastic radiation therapy
CPT/HCPCS: 36415; 84153; 99024

== ENCOUNTER → 2023-08-10 10:21 | Outpatient (BNVA) | payer MEDICARE, OTHER, SELFPAY | PROVIDERS: PCP Family Medicine; Referring Provider Family Medicine; Visit Provider Surgery | DX: R10.9 Unspecified abdominal pain (principal); K21.9 Gastro-esophageal reflux disease without esophagitis | CPT/HCPCS: 99204 ==

== ENCOUNTER → 2023-08-12 08:44 | Outpatient (BNVA) | payer MEDICARE, OTHER, SELFPAY | PROVIDERS: PCP Family Medicine; Visit Provider Podiatrist Foot & Ankle Surgery | DX: L60.0 Ingrowing nail (principal) | CPT/HCPCS: 11750 ==

== ENCOUNTER 2023-08-13 08:15 | Day surgery (SDC) | payer MEDICARE, OTHER, SELFPAY ==
[2023-08-13 08:50] VITALS: BP 119/73; PULSE 77; RESP 16; TEMP 36.3; O2SAT 97; BMI 25.1
[2023-08-13] MEDS: sodium chloride 0.9% 1,000 ML 30 ML IV (09:03)
--- NOTE | 2023-08-13 09:07 | ANES.PREANE2 ---
Pre-Anesthetic Assessment Height/Weight: Height 1.8 m Weight 81.647 kg Temp Pulse Resp BP Pulse Ox O2 Del Method 97.3 F L 77 16 119/73 97 Room Air 08/13/23 08:50 08/13/23 08:50 08/13/23 08:50 08/13/23 08:50 08/13/23 08:50 08/13/23 08:50 Preop Diagnosis: GERD Operation Date: 08/13/23 10:15 Proposed Procedures p [id number] egd R10.9,K21.9(Not Applicable) - Niko Friedman DO Familial anesthetic complications: post op nausea Was Beta Jorge taken within 24 hours: N/A Was Clonidine taken within 24 hours: N/A Last intake: Intake Last Liquid Date 08/12/23 Last Liquid Time 18:00 Last Solid Date 08/12/23 Last Solid Time 18:00 Social No alcohol and No tobacco Exam alert, oriented x 3, clear to auscultation bilaterally and regular rate & rhythm Airway Submandibular: within normal limits Cervical ROM: within normal limits Mallampati: Class II Dentition: full Pulmonary Asthma emphysema CV/HEM Atrial Fibrillation and Hypertension on BP meds to keep pressure low so no more brain bleeds, history of blood clots in lungs, history of VTach None reported Hepatic None reported GI Gastroesophageal Reflux Disease (controlled ) Metabolic Thyroid Disease (thyroid cancer (removed)) Musc/skel Lower Back Pain and Osteoarthritis/DJD Neuropsych Depression and Transient Ischemic Attack Anesthetic Plan ASA status: 3 Anesthesia: MAC Medications/Allergies Home Medications Medication Instructions Recorded Confirmed Last Taken Type vit C 250 mg-vit E 90 mg-zinc 40 1 tab PO BID 07/22/21 08/13/23 08/12/23 History mg-copper 1 [id number] capsule (PreserVision AREDS-2) acetaminophen 325 mg capsule 325 mg PO QID PRN Pain 08/06/21 08/13/23 Unknown History ketoconazole 2 % shampoo 1 applic topical ONCE #120 mL 02/25/22 08/13/23 Unknown Rx finasteride 5 mg tablet 5 mg PO DAILY #90 tabs 09/16/22 08/13/23 08/12/23 Rx codeine 10 mg-guaifenesin 100 mg/5 5 ml PO Q6H PRN cough #237 mL 09/24/22 08/13/23 Unknown Rx mL oral liquid (Virtussin AC) aspirin 81 mg tablet,delayed 81 mg PO DAILY #30 tabs 10/27/22 08/13/23 08/12/23 Rx release (Adult Aspirin Regimen) losartan 25 mg tablet 25 mg PO QAM #30 tabs 11/18/22 08/13/23 08/12/23 Rx magnesium 200 mg tablet 200 mg PO DAILY 01/18/23 08/13/23 08/12/23 History zinc acetate 50 mg (zinc) capsule 50 mg PO DAILY 01/18/23 08/12/23 08/11/23 History famotidine 20 mg tablet (Pepcid) 20 mg PO BID PRN Heartburn 03/22/23 08/13/23 Unknown History albuterol sulfate 90 mcg/actuation 2 puff inhalation Q4H PRN 04/27/23 08/13/23 08/13/23 Rx aerosol inhaler shortness of breath or wheezing #8.5 grams cholecalciferol (vitamin D3) 50 50 mcg PO DAILY 08/10/23 08/13/23 08/12/23 History mcg (2,000 unit) capsule pantoprazole 40 mg tablet,delayed 40 mg PO BID 6 weeks #84 tabs 08/10/23 08/13/23 08/12/23 Rx release (Protonix) cephalexin 500 mg capsule 500 mg PO BID #14 caps 08/12/23 08/13/23 Unknown Rx silver sulfadiazine 1 % topical 1 applic topical BID #50 grams 08/12/23 08/13/23 Unknown Rx cream (Silvadene) Allergies Allergy/AdvReac Type Severity Reaction Status Date / Time levofloxacin [From Levaquin] Allergy Severe ALGY-Rash Verified 08/13/23 08:48 tramadol [From Ultram] AdvReac Mild Unknown Verified 08/13/23 08:48 Current Medications Generic Name Dose Route Start Last Admin Trade Name Freq PRN Reason Stop Dose Admin Sodium Chloride 1,000 mls @ 30 mls/hr 08/13/23 08:45 08/13/23 09:03 Sodium Chloride 0.9% IV 08/14/23 08:44 30 mls/hr .Q24H DARCY Administration PFSH Anesthesia Medical History Pincer nail deformity V tach Atrial fibrillation History of pulmonary embolism Hyperlipidemia GERD (gastroesophageal reflux disease) Degenerative joint disease of spine Degenerative arthritis Obstructive sleep apnea Asthma Back pain History of subarachnoid hemorrhage Thyroid cancer Elevated PSA BPH with obstruction/lower urinary tract symptoms Surgical History Status post surgical removal of malignant neoplasm of skin Basal cell skin cancer History of thyroid surgery (05/21/21) Right hemithyroidectomy History of hernia repair Bilateral inguinal hernia repair History of eye surgery History of surgical removal of ganglion cyst History of rotator cuff surgery Family History Father , at age 77 Lung cancer Mother , at age 64 Colon cancer Social History Smoking and tobacco/nicotine status: never used tobacco/nicotine Alcohol intake: never Substance/Drug Use: never Marital status: Current occupational status: retired Data Anesthesia Cardiac Studies: Echocardiogram 04/14/23 Sestamibi Stress Test (Cardiology) 04/14/23 Cardiac Event Monitor 09/30/22
--- NOTE | 2023-08-13 10:14 | W.PM.OPSUD ---
Surgery/Procedure H&P Update DATE OF PROCEDURE: August 13, 2023 DATE H&P PERFORMED: 08/10/23 H&P UPDATE INFORMATION: I have reviewed H&P completed within last 30 days, I have examined patient prior to procedure and Changes to prior documentation as noted here CHANGES TO PREVIOUS DOCUMENTATION: Patient is refusing colonoscopy and only wants EGD PREOP DIAGNOSIS: GERD PLANNED PROCEDURE: Operation Date: 08/13/23 10:15 Proposed Procedures p [id number] egd R10.9,K21.9(Not Applicable) - Niko Friedman DO
[2023-08-13 10:38] VITALS: BP 136/95; PULSE 81; RESP 16; TEMP 36.1; O2SAT 97
[2023-08-13 10:53] VITALS: BP 127/74; PULSE 71; RESP 16; O2SAT 98
[2023-08-13 11:09] VITALS: BP 114/67; PULSE 64; RESP 16; O2SAT 96
--- NOTE | 2023-08-13 13:33 | ANE.PACU2 ---
Inpatient post-anesthesia follow up: Airway intact: Yes Vital signs: Temperature 97 F Pulse Rate 64 Respiratory Rate 16 Blood Pressure 114/67 Pulse Oximetry 96 Oxygen Delivery Me thod Room Air Oxygen Flow Rate Fraction of Inspir ed Oxygen Hydration adequate: Yes Nausea and vomiting: No Pain level: 1 Mental status: Baseline
== END 2023-08-13 11:20 | disposition home or self-care (01) ==
PROVIDERS: PCP Family Medicine; Visit Provider Surgery
PROC: 0DJ08ZZ Inspection of Upper Intestinal Tract, Via Natural or Artificial Opening Endoscopic (ICD-10-PCS; CPT 43235; principal; 2023-08-13 10:15)
DX: R10.9 Unspecified abdominal pain (principal); K21.9 Gastro-esophageal reflux disease without esophagitis; K44.9 Diaphragmatic hernia without obstruction or gangrene; K29.50 Unspecified chronic gastritis without bleeding; I48.91 Unspecified atrial fibrillation; I10 Essential (primary) hypertension; Z86.73 Personal history of transient ischemic attack (TIA), and cerebral infarction without residual deficits; Z86.711 Personal history of pulmonary embolism; N40.1 Benign prostatic hyperplasia with lower urinary tract symptoms; N13.8 Other obstructive and reflux uropathy
CPT/HCPCS: 43239; 88305; 88342; J2704; J7030

== ENCOUNTER → 2023-08-18 12:41 | Outpatient (BNVA) | payer MEDICARE, OTHER, SELFPAY | PROVIDERS: PCP Family Medicine; Visit Provider Internal Medicine Cardiovascular Disease | DX: I48.91 Unspecified atrial fibrillation (principal) | CPT/HCPCS: 99214 ==

== ENCOUNTER 2023-08-23 10:41 | Outpatient (CLI) | payer MEDICARE, OTHER, SELFPAY ==
[2023-08-23 13:54] LABS: Free T4 Free Thyroxine 1.18 ng/dL (0.82-1.77); Thyroid Stimulating Hormone 2.72 uIU/mL (0.27-4.20)
[2023-08-25 11:03] LABS: Thyroglobulin AB <1 IU/mL (< or = 1)
[2023-09-02 16:50] LABS: Thyroglobulin Level 9.9 ng/mL
== END 2023-08-23 10:42 | disposition home or self-care (01) ==
LOC: ENDOOACUTE 12:25
PROVIDERS: PCP Family Medicine; Visit Provider Internal Medicine
DX: C73 Malignant neoplasm of thyroid gland (principal); C77.0 Secondary and unspecified malignant neoplasm of lymph nodes of head, face and neck; R97.20 Elevated prostate specific antigen [PSA]
CPT/HCPCS: 36415; 84432; 84439; 84443; 86800; 99214

== ENCOUNTER → 2023-08-26 08:19 | Outpatient (BNVA) | payer MEDICARE, OTHER, SELFPAY | PROVIDERS: PCP Family Medicine; Visit Provider Podiatrist Foot & Ankle Surgery | DX: L60.0 Ingrowing nail (principal) | CPT/HCPCS: 99213 ==

== ENCOUNTER 2023-09-03 08:53 | Oncology outpatient (recurring) (ONCR) | payer MEDICARE, OTHER, SELFPAY ==
[2023-09-03 09:40] LABS: Basophils % 0.9 %; Eosinophils # 0.3 10^3/uL (0.0-0.8); Hematocrit 39.4 % (37-53); Lymphocytes # 0.9 10^3/uL (0.8-4.8); Lymphocytes % 24.4 %; Mean Corpuscular Hemoglobin 31.7 pg (27-33); Mean Corpuscular Volume 90.6 fl (82-101); Mean Platelet Volume 9.8 fL (7.4-10.4); Monocytes # 0.4 10^3/uL (0.2-0.9); Monocytes % 10.9 %; Neutrophils # 1.94 10^3/uL (1.8-7.7); Neutrophils % 55.5 %; Nucleated Red Blood Cells % 0 %; Platelet Count 163 10^3/cmm (157-399); Red Blood Count 4.35 10^6/uL (3.85-5.65); Red Cell Distribution Width 12.4 % (12.1-15.1); White Blood Count 3.49 10^3/uL (3.29-11.43)
[2023-09-03 10:05] LABS: Alanine Aminotransferase 30 U/L (0-41); Albumin Level 3.9 g/dL (3.5-5.2); Alkaline Phosphatase 77 U/L (40-130); Anion Gap 12.9 (5-19); Aspartate Amino Transferase 28 U/L (0-40); Blood Urea Nitrogen 19 mg/dL (8-23); Carbon Dioxide 28 mmol/L (22-29); Chloride 107 mmol/L (98-107); Globulin 2.4 g/dL (1.3-4.6); Glucose 108 mg/dL (65-115); Osmolality Calculated 301 mOsm/kg (285-295); Potassium 3.9 mmol/L (3.5-5.1); Sodium 144 mmol/L (136-145); Total Bilirubin 0.8 mg/dL (0.15-1.2); Total Protein 6.3 g/dL (6.6-8.7)
[2023-09-03 10:06] LABS: Prostate Specific Antigen < 0.014 ng/mL (0-4)
[2023-09-03 11:22] LABS: Testosterone Total < 2.5 ng/dL (193-740)
== END 2023-09-12 23:59 | disposition home or self-care (01) ==
PROVIDERS: Nurse Practitioner Family; PCP Family Medicine; Visit Provider Radiology Radiation Oncology
DX: C61 Malignant neoplasm of prostate (principal); Z51.0 Encounter for antineoplastic radiation therapy; Z08 Encounter for follow-up examination after completed treatment for malignant neoplasm; Z79.818 Long term (current) use of other agents affecting estrogen receptors and estrogen levels; Z86.711 Personal history of pulmonary embolism; Z79.01 Long term (current) use of anticoagulants; R53.83 Other fatigue
CPT/HCPCS: 36415; 80053; 84153; 84403; 85025; 99214

== ENCOUNTER → 2023-09-21 08:52 | Outpatient (BNVA) | payer MEDICARE, OTHER, SELFPAY | PROVIDERS: PCP Family Medicine; Visit Provider Surgery | DX: Z09 Encounter for follow-up examination after completed treatment for conditions other than malignant neoplasm (principal) | CPT/HCPCS: 99213 ==

== ENCOUNTER → 2023-09-30 13:43 | Outpatient (BNVA) | payer MEDICARE, OTHER, SELFPAY | PROVIDERS: PCP Family Medicine; Visit Provider Nurse Practitioner Family | DX: I48.91 Unspecified atrial fibrillation (principal) | CPT/HCPCS: 93005; 99213 ==

== ENCOUNTER → 2023-11-09 14:25 | Outpatient (BNVA) | payer MEDICARE, OTHER, SELFPAY | PROVIDERS: PCP Family Medicine; Referring Provider Dermatology; Visit Provider Student in an Organized Health Care Education/Training Program | DX: G56.03 Carpal tunnel syndrome, bilateral upper limbs (principal); M65.312 Trigger thumb, left thumb; C73 Malignant neoplasm of thyroid gland | CPT/HCPCS: 20600; 20605; 36415; 73130; 84432; 84439; 84443; 86800; 99204; J3301; J3490 ==

== ENCOUNTER 2023-11-09 15:57 | Outpatient (CLI) | payer MEDICARE, OTHER, SELFPAY | END 2023-11-09 15:58 | disposition home or self-care (01) | LOC: LAB 15:58 | PROVIDERS: PCP Family Medicine; Visit Provider Internal Medicine | DX: G56.03 Carpal tunnel syndrome, bilateral upper limbs (principal); M65.312 Trigger thumb, left thumb; C73 Malignant neoplasm of thyroid gland | CPT/HCPCS: 20600; 20605; 36415; 84432; 84439; 84443; 86800; 99204; J3301; J3490 ==

== ENCOUNTER → 2023-11-15 09:49 | Outpatient (BNVA) | payer MEDICARE, OTHER, SELFPAY | PROVIDERS: PCP Family Medicine; Visit Provider Internal Medicine | DX: C73 Malignant neoplasm of thyroid gland (principal); C77.0 Secondary and unspecified malignant neoplasm of lymph nodes of head, face and neck; R97.20 Elevated prostate specific antigen [PSA] | CPT/HCPCS: 84439; 84443; 84480; 99214 ==

== ENCOUNTER 2023-11-29 13:44 | Oncology outpatient (recurring) (ONCR) | payer MEDICARE, OTHER, SELFPAY ==
[2023-11-29 14:09] LABS: Basophils % 0.6 %; Eosinophils # 0.1 10^3/uL (0.0-0.8); Eosinophils % 3.4 %; Hematocrit 41.8 % (37-53); Lymphocytes # 0.9 10^3/uL (0.8-4.8); Lymphocytes % 23.7 %; Mean Corpuscular Hemoglobin 30.5 pg (27-33); Mean Corpuscular Volume 89.7 fl (82-101); Mean Platelet Volume 9.6 fL (7.4-10.4); Monocytes # 0.4 10^3/uL (0.2-0.9); Monocytes % 11.2 %; Neutrophils # 2.18 10^3/uL (1.8-7.7); Neutrophils % 60.8 %; Nucleated Red Blood Cells % 0 %; Platelet Count 162 10^3/cmm (157-399); Red Blood Count 4.66 10^6/uL (3.85-5.65); Red Cell Distribution Width 13.5 % (12.1-15.1); White Blood Count 3.58 10^3/uL (3.29-11.43)
[2023-11-29 14:36] LABS: Alanine Aminotransferase 18 U/L (0-41); Albumin Level 3.8 g/dL (3.5-5.2); Alkaline Phosphatase 94 U/L (40-130); Aspartate Amino Transferase 20 U/L (0-40); Blood Urea Nitrogen 19 mg/dL (8-23); Calcium 9.6 mg/dL (8.5-10.5); Carbon Dioxide 29 mmol/L (22-29); Chloride 101 mmol/L (98-107); Globulin 2.4 g/dL (1.3-4.6); Glucose 115 mg/dL (65-115); Osmolality Calculated 287 mOsm/kg (285-295); Sodium 137 mmol/L (136-145); Total Bilirubin 0.8 mg/dL (0.15-1.2); Total Protein 6.2 g/dL (6.6-8.7)
[2023-11-29 14:39] LABS: Prostate Specific Antigen < 0.014 ng/mL (0-4)
[2023-11-29 16:17] LABS: Testosterone Total 563.5 ng/dL (193-740)
[2023-11-29 21:57] LABS: Free T4 Free Thyroxine 0.95 ng/dL (0.82-1.77); Thyroid Stimulating Hormone 0.64 uIU/mL (0.27-4.20)
== END 2023-12-12 23:59 | disposition home or self-care (01) ==
PROVIDERS: Internal Medicine Medical Oncology; Nurse Practitioner Family; PCP Family Medicine; Visit Provider Radiology Radiation Oncology
DX: C61 Malignant neoplasm of prostate (principal); Z51.0 Encounter for antineoplastic radiation therapy; Z08 Encounter for follow-up examination after completed treatment for malignant neoplasm; Z79.818 Long term (current) use of other agents affecting estrogen receptors and estrogen levels; Z86.711 Personal history of pulmonary embolism; Z79.01 Long term (current) use of anticoagulants; R53.83 Other fatigue
CPT/HCPCS: 36415; 80053; 84153; 84403; 84439; 84443; 85025; 99214

== ENCOUNTER → 2023-12-15 12:54 | Outpatient (BNVA) | payer MEDICARE, OTHER, SELFPAY | PROVIDERS: PCP Family Medicine; Visit Provider Internal Medicine | DX: C73 Malignant neoplasm of thyroid gland (principal); C77.0 Secondary and unspecified malignant neoplasm of lymph nodes of head, face and neck | CPT/HCPCS: 36415; 84439; 84443; 84480; 99214 ==

== ENCOUNTER 2024-01-03 11:56 | Outpatient (CLI) | payer MEDICARE, OTHER, SELFPAY ==
[2024-01-03 13:12] LABS: Free T4 Free Thyroxine 0.21 ng/dL (0.82-1.77); Thyroid Stimulating Hormone 72.37 uIU/mL (0.27-4.20)
[2024-01-04 12:14] LABS: T3 Total 42 ng/dL (76-181)
== END 2024-01-03 11:57 | disposition home or self-care (01) ==
LOC: LAB 11:56
PROVIDERS: PCP Family Medicine; Visit Provider Internal Medicine
DX: C73 Malignant neoplasm of thyroid gland (principal); C77.0 Secondary and unspecified malignant neoplasm of lymph nodes of head, face and neck
CPT/HCPCS: 36415; 84439; 84443; 84480

== ENCOUNTER → 2024-01-19 12:10 | Outpatient (BNVA) | payer MEDICARE, OTHER, SELFPAY | PROVIDERS: PCP Family Medicine; Visit Provider Internal Medicine | DX: C73 Malignant neoplasm of thyroid gland (principal); C77.0 Secondary and unspecified malignant neoplasm of lymph nodes of head, face and neck; Z79.890 Hormone replacement therapy | CPT/HCPCS: 99214 ==

== ENCOUNTER → 2024-01-27 13:09 | Outpatient (BNVA) | payer MEDICARE, OTHER, SELFPAY | PROVIDERS: PCP Family Medicine; Visit Provider Dermatology | DX: L57.0 Actinic keratosis (principal); L30.9 Dermatitis, unspecified; D48.5 Neoplasm of uncertain behavior of skin; Z85.828 Personal history of other malignant neoplasm of skin; L82.1 Other seborrheic keratosis | CPT/HCPCS: 11102; 17000; 69100; 99213 ==

== ENCOUNTER 2024-02-01 14:22 | Oncology outpatient (recurring) (ONCR) | payer MEDICARE, OTHER, SELFPAY ==
--- NOTE | 2024-02-01 14:30 | CT_ITS ---
WS: [id number] CT chest wo con [id number] HISTORY: Chronic productive cough TECHNIQUE: Axial imaging performed through the thorax. Coronal and sagittal reformats are submitted. All CT scans at [facility] use at least one of these dose optimization techniques: automated exposure control; mA and/or kV adjustment per patient size (includes targeted exams where dose is mat ched to clinical indication); or iterative reconstruction. CONTRAST: None DLP: 421.92 mGy.cm COMPARISON: 03/06/2022 Lungs and central airway: Lungs are hyperexpanded. Breathing motion artifact beginning at the lung ba ses. Increased peripheral interstitial thickening at the lung bases with areas of fibrosis and scarri ng. The pulmonary fibrotic changes do appear to have progressed slightly since 03/06/2022. No pneumoni a. Pleura: Normal. No pleural effusion. Heart and pericardium: Normal size heart with no pericardial effusion. Mediastinum and mode: No mediastinum or hilar adenopathy. Vessels: Normal size aorta. Normal size pulmonary artery. Very minimal coronary artery calcifications . Chest wall and lower neck: No soft tissue masses. Clips noted at the thyroid bed. Upper abdomen: Moderate size hiatal hernia. There is significant dilatation of the stomach with fluid and food products. Patient may have recently eaten. No adrenal mass. Osseous structures: Mild increase in thoracic kyphosis. Disc spaces are narrowed and desiccated. No d estructive bone lesions. Fusion across the L1-[address]/CT chest wo con [id number] IMPRESSION: 1. No pneumonia. 2. Pulmonary fibrotic changes have slightly progressed at the lung bases since 03/06/2022. 3. No adenopathy.
== END 2024-02-11 23:59 | disposition home or self-care (01) ==
PROVIDERS: PCP Family Medicine; Visit Provider Family Medicine
DX: C61 Malignant neoplasm of prostate (principal); Z51.0 Encounter for antineoplastic radiation therapy; Z08 Encounter for follow-up examination after completed treatment for malignant neoplasm; Z79.818 Long term (current) use of other agents affecting estrogen receptors and estrogen levels; Z86.711 Personal history of pulmonary embolism; Z79.01 Long term (current) use of anticoagulants; R53.83 Other fatigue; J41.1 Mucopurulent chronic bronchitis
CPT/HCPCS: 71250

== ENCOUNTER → 2024-02-08 13:39 | Outpatient (BNVA) | payer MEDICARE, OTHER, SELFPAY | PROVIDERS: PCP Family Medicine; Visit Provider Student in an Organized Health Care Education/Training Program | DX: G56.03 Carpal tunnel syndrome, bilateral upper limbs; M65.312 Trigger thumb, left thumb | CPT/HCPCS: 99213 ==

== ENCOUNTER → 2024-02-16 10:26 | Outpatient (BNVA) | payer MEDICARE, OTHER, SELFPAY | PROVIDERS: PCP Family Medicine; Visit Provider Internal Medicine | DX: C73 Malignant neoplasm of thyroid gland (principal); C77.0 Secondary and unspecified malignant neoplasm of lymph nodes of head, face and neck; E03.9 Hypothyroidism, unspecified; Z79.890 Hormone replacement therapy | CPT/HCPCS: 99214 ==

== ENCOUNTER → 2024-02-21 13:08 | Outpatient (BNVA) | payer MEDICARE, OTHER, SELFPAY | PROVIDERS: PCP Family Medicine; Visit Provider Dermatology | DX: C44.319 Basal cell carcinoma of skin of other parts of face (principal); D48.5 Neoplasm of uncertain behavior of skin | CPT/HCPCS: 13132; 17000; 17311 ==

== ENCOUNTER 2024-03-01 11:53 | Oncology outpatient (recurring) (ONCR) | payer MEDICARE, OTHER, SELFPAY ==
[2024-03-01 12:23] LABS: Basophils % 0.8 %; Eosinophils # 0.4 10^3/uL (0.0-0.8); Eosinophils % 7.7 %; Hematocrit 42.9 % (37-53); Lymphocytes # 1.1 10^3/uL (0.8-4.8); Lymphocytes % 22.1 %; Mean Corpuscular Hemoglobin 32.3 pg (27-33); Mean Corpuscular Volume 92.5 fl (82-101); Mean Platelet Volume 10.3 fL (7.4-10.4); Monocytes # 0.6 10^3/uL (0.2-0.9); Monocytes % 12.1 %; Neutrophils # 2.74 10^3/uL (1.8-7.7); Neutrophils % 57.1 %; Nucleated Red Blood Cells % 0 %; Platelet Count 170 10^3/cmm (157-399); Red Blood Count 4.64 10^6/uL (3.85-5.65); Red Cell Distribution Width 15.2 % (12.1-15.1)
[2024-03-01 12:53] LABS: Alanine Aminotransferase 18 U/L (0-41); Albumin Level 3.9 g/dL (3.5-5.2); Alkaline Phosphatase 87 U/L (40-130); Anion Gap 15.4 (5-19); Aspartate Amino Transferase 20 U/L (0-40); Blood Urea Nitrogen 19 mg/dL (8-23); Calcium 9.3 mg/dL (8.5-10.5); Carbon Dioxide 26 mmol/L (22-29); Chloride 102 mmol/L (98-107); Globulin 2.5 g/dL (1.3-4.6); Glucose 101 mg/dL (65-115); Osmolality Calculated 290 mOsm/kg (285-295); Potassium 4.4 mmol/L (3.5-5.1); Sodium 139 mmol/L (136-145); Testosterone Total 311.8 ng/dL (193-740); Thyroid Stimulating Hormone 48.66 uIU/mL (0.27-4.20); Total Bilirubin 0.9 mg/dL (0.15-1.2); Total Protein 6.4 g/dL (6.6-8.7)
[2024-03-01 12:54] LABS: Prostate Specific Antigen < 0.014 ng/mL (0-4)
[2024-03-01 15:33] LABS: Vitamin B12 > 2000 pg/mL (232-1245)
[2024-03-01 15:43] LABS: Folate Level 8.6 ng/mL (4.5-32.2)
[2024-03-03 07:14] LABS: Thyroglobulin AB 39 IU/mL (< or = 1)
== END 2024-03-12 23:59 | disposition home or self-care (01) ==
PROVIDERS: Internal Medicine; Internal Medicine Medical Oncology; PCP Family Medicine; Visit Provider Family Medicine
DX: C61 Malignant neoplasm of prostate (principal); Z79.818 Long term (current) use of other agents affecting estrogen receptors and estrogen levels; Z86.711 Personal history of pulmonary embolism; Z79.01 Long term (current) use of anticoagulants; C73 Malignant neoplasm of thyroid gland; C77.0 Secondary and unspecified malignant neoplasm of lymph nodes of head, face and neck; E03.9 Hypothyroidism, unspecified; R53.82 Chronic fatigue, unspecified; N40.1 Benign prostatic hyperplasia with lower urinary tract symptoms; N13.8 Other obstructive and reflux uropathy
CPT/HCPCS: 36415; 80053; 82607; 82746; 84153; 84403; 84432; 84439; 84443; 85025; 86800; 99214

== ENCOUNTER 2024-04-24 11:36 | Outpatient (CLI) | payer MEDICARE, OTHER, SELFPAY ==
[2024-04-24 13:18] LABS: Thyroid Stimulating Hormone 74.76 uIU/mL (0.27-4.20)
[2024-04-27 08:09] LABS: Thyroglobulin AB 18 IU/mL (< or = 1)
[2024-04-28 13:00] LABS: Thyroglobulin Level 6.3 ng/mL
== END 2024-04-24 11:37 | disposition home or self-care (01) ==
LOC: LAB 11:39
PROVIDERS: PCP Family Medicine; Visit Provider Internal Medicine
DX: C73 Malignant neoplasm of thyroid gland (principal); C77.0 Secondary and unspecified malignant neoplasm of lymph nodes of head, face and neck
CPT/HCPCS: 36415; 84432; 84439; 84443; 86800

== ENCOUNTER → 2024-04-25 10:37 | Outpatient (BNVA) | payer MEDICARE, OTHER, SELFPAY | PROVIDERS: PCP Family Medicine; Visit Provider Internal Medicine | DX: E03.9 Hypothyroidism, unspecified (principal); C73 Malignant neoplasm of thyroid gland; C77.0 Secondary and unspecified malignant neoplasm of lymph nodes of head, face and neck; I48.91 Unspecified atrial fibrillation; Z79.890 Hormone replacement therapy | CPT/HCPCS: 99214 ==

== ENCOUNTER 2024-05-09 10:26 | Outpatient (CLI) | payer MEDICARE, OTHER, SELFPAY ==
[2024-05-09 11:42] LABS: Free T4 Free Thyroxine 0.74 ng/dL (0.82-1.77)
== END 2024-05-09 10:27 | disposition home or self-care (01) ==
LOC: LAB 10:27
PROVIDERS: PCP Family Medicine; Visit Provider Internal Medicine
DX: E03.9 Hypothyroidism, unspecified (principal); I61.9 Nontraumatic intracerebral hemorrhage, unspecified; I60.9 Nontraumatic subarachnoid hemorrhage, unspecified; J43.9 Emphysema, unspecified; R04.89 Hemorrhage from other sites in respiratory passages; Z86.79 Personal history of other diseases of the circulatory system
CPT/HCPCS: 36415; 84439; 99203

== ENCOUNTER 2024-05-22 14:52 | Outpatient (CLI) | payer MEDICARE, OTHER, SELFPAY ==
[2024-05-22 15:43] LABS: Free T4 Free Thyroxine 1.31 ng/dL (0.82-1.77)
== END 2024-05-22 14:53 | disposition home or self-care (01) ==
LOC: LAB 14:54
PROVIDERS: PCP Family Medicine; Visit Provider Internal Medicine
DX: C73 Malignant neoplasm of thyroid gland (principal); C77.0 Secondary and unspecified malignant neoplasm of lymph nodes of head, face and neck
CPT/HCPCS: 36415; 84439; 99214

== ENCOUNTER → 2024-05-26 10:15 | Outpatient (BNVA) | payer MEDICARE, OTHER, SELFPAY | PROVIDERS: PCP Family Medicine; Visit Provider Student in an Organized Health Care Education/Training Program | DX: G56.02 Carpal tunnel syndrome, left upper limb (principal); M65.312 Trigger thumb, left thumb; M65.322 Trigger finger, left index finger | CPT/HCPCS: 99214 ==

== ENCOUNTER 2024-06-01 11:16 | Oncology outpatient (recurring) (ONCR) | payer MEDICARE, OTHER, SELFPAY ==
[2024-06-01 11:40] LABS: Basophils % 0.8 %; Eosinophils # 0.1 10^3/uL (0.0-0.8); Eosinophils % 3.6 %; Hematocrit 43.8 % (37-53); Mean Corpuscular HGB Conc 35.2 g/dL (30-55); Mean Corpuscular Hemoglobin 32.4 pg (27-33); Mean Corpuscular Volume 92.2 fl (82-101); Monocytes # 0.7 10^3/uL (0.2-0.9); Monocytes % 18.2 %; Neutrophils # 1.83 10^3/uL (1.8-7.7); Neutrophils % 50.4 %; Nucleated Red Blood Cells % 0 %; Platelet Count 150 10^3/cmm (157-399); Red Blood Count 4.75 10^6/uL (3.85-5.65); Red Cell Distribution Width 13.9 % (12.1-15.1); White Blood Count 3.63 10^3/uL (3.29-11.43)
[2024-06-01 12:08] LABS: Alanine Aminotransferase 21 U/L (0-41); Albumin Level 4.1 g/dL (3.5-5.2); Alkaline Phosphatase 92 U/L (40-130); Anion Gap 14.5 (5-19); Aspartate Amino Transferase 27 U/L (0-40); Blood Urea Nitrogen 20 mg/dL (8-23); Calcium 9.4 mg/dL (8.5-10.5); Carbon Dioxide 27 mmol/L (22-29); Chloride 106 mmol/L (98-107); Globulin 2.6 g/dL (1.3-4.6); Glucose 107 mg/dL (65-115); Osmolality Calculated 299 mOsm/kg (285-295); Potassium 4.5 mmol/L (3.5-5.1); Sodium 143 mmol/L (136-145); Total Bilirubin 1.1 mg/dL (0.15-1.2); Total Protein 6.7 g/dL (6.6-8.7)
[2024-06-01 12:10] LABS: Prostate Specific Antigen < 0.014 ng/mL (0-4)
== END 2024-06-12 23:59 | disposition home or self-care (01) ==
PROVIDERS: Nurse Practitioner Family; PCP Family Medicine; Visit Provider Family Medicine
DX: C61 Malignant neoplasm of prostate (principal); Z08 Encounter for follow-up examination after completed treatment for malignant neoplasm; Z86.711 Personal history of pulmonary embolism; Z92.25 Personal history of immunosuppression therapy
CPT/HCPCS: 36415; 80053; 84153; 84403; 85025; 99213

== ENCOUNTER 2024-06-09 08:20 | Outpatient (CLI) | payer MEDICARE, OTHER, SELFPAY ==
--- NOTE | 2024-06-09 08:30 | MR_ITS ---
WS: [id number] MRI BRAIN WITH AND WITHOUT CONTRAST HISTORY: I61.9 - Nontraumatic intracerebral hemorrhage, unspecified COMPARISON: 04/08/2022, CT head 07/22/2021 TECHNIQUE: Multiplanar imaging performed through the brain with MultiHance 18 ml's IV. Diffusion imaging is normal. No acute infarct. Moderate bilateral symmetric atrophy and mild small ve ssel ischemic disease with minimal progression since 2021. Bilateral ischemic changes are also noted within the keshawn. Reidentified is the moderate to advanced temporal and hippocampal formation atrophy. No susceptibility artifacts or prior lacunar infarcts. Mildly dilated ventricles on the basis of atrophy. Progression of temporal lobe dilatation since the prior study. Mild bilateral cerebellar atrophy also is stable. Clivus and pituitary gland are normal. Visualized posterior fossa and brainstem are also normal. Postcontrast images are negative for masses or vascular malformations. Dural venous sinuses are normal. Paranasal sinuses: Small amount of fluid in the LEFT maxillary sinus. Mastoid air cells: Normal. Calvarium and scalp: Normal. MR/MR head wo/w con [id number] IMPRESSION: 1. No acute diffusion abnormality or hemorrhage. 2. Mild atrophy and small vessel ischemic disease. Very minimal change since t he prior study from 2021. 3. Mild ventriculomegaly on the basis of atrophy. Progression of temporal lobe dilatation since 2019. 4. Moderate to advanced temporal lobe and hippocampal atrophy.
--- NOTE | 2024-06-09 09:15 | MR_ITS ---
WS: [id number] MRA CAROTID ARTERIES HISTORY: I60.9 - Nontraumatic subarachnoid hemorrhage, unspecified COMPARISON: None available. TECHNIQUE: MRA is performed with intravenous gadolinium. 2D imaging also performed. MIP and source im ages are reviewed. Right: Cervical common carotid arteries patent. There is a focal narrowing of mild stenosis involving the origin of the RIGHT ICA. Stenosis is estimated at 50%. No high-grade stenosis or occlusion. The remaining ICA is patent. External carotid artery normal caliber. Left: LEFT cervical carotid artery arises normally from the arch. The caliber is small but patent. Mi nimal plaque at the bifurcation with no high-grade stenosis. Patent internal and external carotid art eries. Subclavian Arteries: Patent. No occlusions. Vertebral Arteries: Both vertebral arteries are patent. Loss of flow in the distal LEFT vertebral art lorrie is better seen on the source images. Not visualized due to small caliber on the reformats. MR/MR angio neck w con* [id number] IMPRESSION: 1. Proximal, bilateral cervical ICA stenosis estimated at 50% or less. No high -grade stenosis. 2. Small caliber but patent distal LEFT vertebral artery. 3. Normal subclavian arteries.
--- NOTE | 2024-06-09 10:00 | MR_ITS ---
WS: [id number] MRA ANGIOGRAPHY [place] HISTORY: I60.9 - Nontraumatic subarachnoid hemorrhage, unspecified COMPARISON: None available. TECHNIQUE: 3-D MR angiography is performed of the [place]. All images are reviewed including source images. Distal vertebral arteries are not included on this MR angiogram. Distal vertebral arteries were inclu ded on the MRI brain obtained on the same day. Distal vertebral arteries are small caliber and patent . Basilar artery is normal caliber. Posterior cerebral arteries are identified. Both posterior communic ating arteries are well visualized. Mild atherosclerotic plaque in the carotid arteries to the cavernous sinuses. Mild stenosis with no o cclusion. Additional mild atherosclerotic disease in the M1 segments. No aneurysms. No occlusions. No beading or vasculitis. Anterior cerebral arteries are patent. MR/MR angio head wo con [id number] IMPRESSION: 1. Mild atherosclerotic plaque in the distal intracranial carotid arteries and the M1 segments. No occlusions or high-grade stenosis. 2. No [place] aneurysm. 3. No vasculitis.
== END 2024-06-09 08:21 | disposition home or self-care (01) ==
LOC: RAD 08:20
PROVIDERS: PCP Family Medicine; Visit Provider Psychiatry & Neurology Neurology
DX: I61.9 Nontraumatic intracerebral hemorrhage, unspecified (principal); I60.9 Nontraumatic subarachnoid hemorrhage, unspecified; G31.9 Degenerative disease of nervous system, unspecified
CPT/HCPCS: 70544; 70548; 70553; A9577

== ENCOUNTER → 2024-06-22 14:05 | Outpatient (BNVA) | payer MEDICARE, OTHER, SELFPAY | PROVIDERS: PCP Family Medicine; Visit Provider Nurse Practitioner Family | DX: L57.0 Actinic keratosis (principal); L30.9 Dermatitis, unspecified; L82.1 Other seborrheic keratosis; Z85.828 Personal history of other malignant neoplasm of skin | CPT/HCPCS: 17000; 17110; 99213 ==

== ENCOUNTER 2024-06-26 09:37 | Outpatient (CLI) | payer MEDICARE, OTHER, SELFPAY ==
[2024-06-26 10:36] LABS: Free T4 Free Thyroxine 1.88 ng/dL (0.82-1.77); Thyroid Stimulating Hormone 3.21 uIU/mL (0.27-4.20)
== END 2024-06-26 09:38 | disposition home or self-care (01) ==
LOC: LAB 09:39
PROVIDERS: PCP Family Medicine; Visit Provider Internal Medicine
DX: C73 Malignant neoplasm of thyroid gland (principal); E03.9 Hypothyroidism, unspecified
CPT/HCPCS: 36415; 84439; 84443

== ENCOUNTER → 2024-06-27 14:25 | Outpatient (BNVA) | payer MEDICARE, OTHER, SELFPAY | PROVIDERS: PCP Family Medicine; Visit Provider Psychiatry & Neurology Neurology | DX: R09.89 Other specified symptoms and signs involving the circulatory and respiratory systems (principal); I61.9 Nontraumatic intracerebral hemorrhage, unspecified; I48.91 Unspecified atrial fibrillation; I47.20 Ventricular tachycardia, unspecified; E03.9 Hypothyroidism, unspecified | CPT/HCPCS: 99212; 99213 ==

== ENCOUNTER 2024-07-03 08:27 | Day surgery (SDC) | payer MEDICARE, OTHER, SELFPAY ==
[2024-07-03] VITALS (9 sets, daily range): BP systolic 93–134; BP diastolic 58–83; PULSE 46–54; RESP 10–16; TEMP 36.1–36.7; O2SAT 95–99; BMI 25.1
--- NOTE | 2024-07-03 08:59 | W.PM.OPSFHP ---
Same Day Surgery H&P Indication for Procedure/HPI DATE OF PROCEDURE: July 03, 2024 CHIEF COMPLAINT/INDICATIONFOR SURGICAL PROCEDURE: Left carpal tunnel syndrome, left thumb and index trigger fingers PREOP DIAGNOSIS: Left carpal tunnel syndrome, left thumb index trigger fingers PLANNED PROCEDURE: Operation Date: 07/03/24 10:20 Proposed Procedures p Carpal Tunnel Release(Left) - Brad Neli, DO s thumb and index finger trigger release(Left) - Brad Neli, DO Medications/Allergies* Home Medications Medication Instructions Recorded Confirmed Type vit C 250 mg-vit E 90 mg-zinc 40 1 tab PO BID 07/22/21 06/30/24 History mg-copper 1 [id number] capsule (PreserVision AREDS-2) magnesium 200 mg tablet 200 mg PO DAILY 01/18/23 06/30/24 History zinc acetate 50 mg (zinc) capsule 50 mg PO DAILY 01/18/23 06/30/24 History Allergies/Adverse Reactions Allergy/AdvReac Type Severity Reaction Status Date / Time levofloxacin [From Levaquin] Allergy Severe ALGY-Rash Verified 06/30/24 13:33 tramadol [From Ultram] AdvReac Mild Unknown Verified 06/30/24 13:33 Pertinent History/Comorbid Conditions* Medical History (Updated 06/15/24 @ 10:23 by Rajeev Craig MD) Moderate major depression Essential hypertension H/O radioactive iodine thyroid ablation Pincer nail deformity V tach Atrial fibrillation History of pulmonary embolism Hyperlipidemia GERD (gastroesophageal reflux disease) Degenerative joint disease of spine Degenerative arthritis Obstructive sleep apnea Asthma Back pain History of subarachnoid hemorrhage Thyroid cancer Elevated PSA BPH with obstruction/lower urinary tract symptoms Surgical History (Updated 12/03/23 @ 19:26 by Santo Yuan MD) History of esophagogastroduodenoscopy (EGD) Dr Gasca and Dr Ahuja Hx of colonoscopy x3 10+ years Status post surgical removal of malignant neoplasm of skin Basal cell skin cancer History of thyroid surgery (05/21/21) Right hemithyroidectomy History of hernia repair Bilateral inguinal hernia repair History of eye surgery History of surgical removal of ganglion cyst History of rotator cuff surgery Family History (Updated 01/13/21 @ 15:14 by Mary Tavarez LPN) Father, at age 77 Mother, at age 64 Colon cancer Mother Lung cancer Father Social History Smoking and tobacco/nicotine status: never used tobacco/nicotine Second hand smoke exposure: Yes Alcohol intake: never Substance/Drug Use: never Adopted: No Caregiver/support person: No Lives independently: Yes Household members: spouse Marital status: Current occupational status: retired Do you think of yourself as: Straight/Heterosexual Current gender identity: Male Pertinent Exam Findings alert, oriented x 3, operative site marked and procedure specific exam findings Please refer to detailed orthopedic examination on 05/26/2024 listed below: Bilateral UE Neg spurlings Neg tinels shoulders or elbows positive median nerve compression test bilateral,positive tinels wrist carpal tunnel mild thenar weakness bilateral, no intrinsic atropy or weakness noted TTP over L thumb A1 brittanie with mild palpable nodule with mechanical clicking noted Tenderness palpation over the left index finger A1 brittanie with mechanical triggering and palpable nodule noted Recommendations Surgery/Procedure today Other Plans: plan to proceed to the OR today for left carpal tunnel release, left thumb trigger release and left index finger trigger release. Patient understands the ins and outs procedure, the risk benefits complication alternatives surgery and through shared decision make elects proceed with surgical intervention. All questions have been answered at this time. Will proceed with surgery today. Coding Level of Care Code Acute Code for Chg Fwjama
--- NOTE | 2024-07-03 09:27 | P.ANESASSM_ITS ---
Pre-Anesthetic Assessment Height/Weight: Height 1.8 m Weight 81.647 kg Temp Pulse Resp BP Pulse Ox O2 Del Method 97.5 F L 54 L 16 126/83 98 Room Air 07/03/24 09:03 07/03/24 09:03 07/03/24 09:03 07/03/24 09:03 07/03/24 09:03 07/03/24 09:03 Preop Diagnosis: Left carpal tunnel syndrome, left thumb index trigger fingers Operation Date: 07/03/24 10:20 Proposed Procedures p Carpal Tunnel Release(Left) - Brad Neli, DO s thumb and index finger trigger release(Left) - Brad [place], DO Familial anesthetic complications: PONV Was Beta Jorge taken within 24 hours: N/A Was Clonidine taken within 24 hours: N/A Last intake: Intake Last Liquid Date 07/02/24 Last Liquid Time 23:55 Last Solid Date 07/02/24 Last Solid Time 18:00 Social No alcohol and No tobacco Exam alert, oriented x 3, clear to auscultation bilaterally and regular rate & rhythm Airway Mallampati: Class I Dentition: full Pulmonary Sleep Apnea CV/HEM Atrial Fibrillation V tach GI Gastroesophageal Reflux Disease Metabolic Thyroid Disease Neuropsych Cerebrovascular Accident (hemorrhage post op after thyroid, possibly due to refractory PONV) Anesthetic Plan ASA status: 3 Anesthesia: MAC Risk of > 500 ml blood loss (7ml/kg in children): No Medications/Allergies Home Medications Medication Instructions Recorded Confirmed Last Taken Type vit C 250 mg-vit E 90 mg-zinc 40 1 tab PO BID 07/22/21 06/30/24 06/30/24 History mg-copper 1 [id number] capsule (PreserVision AREDS-2) aspirin 81 mg tablet,delayed 81 mg PO DAILY #30 tabs 10/27/22 06/30/24 06/29/24 Rx release (Adult Aspirin Regimen) magnesium 200 mg tablet 200 mg PO DAILY 01/18/23 06/30/24 06/30/24 History zinc acetate 50 mg (zinc) capsule 50 mg PO DAILY 01/18/23 06/30/24 06/30/24 History albuterol sulfate 90 mcg/actuation 2 puff inhalation Q4H PRN 04/27/23 06/30/24 08/13/23 Rx aerosol inhaler shortness of breath or wheezing #8.5 grams metoprolol succinate 25 mg See Rx Instructions .Route 08/24/23 06/30/24 07/02/24 Rx tablet,extended release 24 hr .COMPLEX #30 tabs finasteride 5 mg tablet 5 mg PO DAILY #90 tabs 11/02/23 06/30/24 07/02/24 Rx losartan 25 mg tablet 25 mg PO QAM #30 tabs 11/02/23 06/30/24 07/02/24 Rx loperamide 2 mg capsule 2 mg PO Q6H PRN loose stool #30 01/25/24 06/30/24 Unknown Rx caps flecainide 50 mg tablet 50 mg PO Q12H #60 tabs 03/22/24 06/30/24 06/30/24 Rx tamsulosin 0.4 mg capsule 0.4 mg PO BID #180 caps 05/04/24 06/30/24 07/02/24 Rx levothyroxine 200 mcg tablet 200 mcg PO DAILY #60 tabs 05/10/24 06/30/24 07/02/24 Rx pantoprazole 40 mg tablet,delayed 40 mg PO DAILY #30 tabs 06/01/24 06/30/24 06/30/24 Rx release (Protonix) fluticasone propionate 50 2 spray intranasal DAILY #16 grams 06/15/24 06/30/24 Unknown Rx mcg/actuation nasal spray,suspension (Flonase Allergy Relief) hydrocodone 5 mg-acetaminophen 325 1 tab PO Q6H PRN pain 5 days #20 07/03/24 Unknown Rx mg tablet tabs ondansetron 4 mg disintegrating 4 mg PO Q8H PRN nausea and 07/03/24 Unknown Rx tablet vomiting 3 days #9 tabs Allergies Allergy/AdvReac Type Severity Reaction Status Date / Time levofloxacin [From Levaquin] Allergy Severe ALGY-Rash Verified 06/30/24 13:33 tramadol [From Ultram] AdvReac Mild Unknown Verified 06/30/24 13:33 PFSH Anesthesia Medical History Moderate major depression Essential hypertension H/O radioactive iodine thyroid ablation Pincer nail deformity V tach Atrial fibrillation History of pulmonary embolism Hyperlipidemia GERD (gastroesophageal reflux disease) Degenerative joint disease of spine Degenerative arthritis Obstructive sleep apnea Asthma Back pain History of subarachnoid hemorrhage Thyroid cancer Elevated PSA BPH with obstruction/lower urinary tract symptoms Surgical History History of esophagogastroduodenoscopy (EGD) Dr Gasca and Dr Ahuja Hx of colonoscopy x3 10+ years Status post surgical removal of malignant neoplasm of skin Basal cell skin cancer History of thyroid surgery (05/21/21) Right hemithyroidectomy History of hernia repair Bilateral inguinal hernia repair History of eye surgery History of surgical removal of ganglion cyst History of rotator cuff surgery Family History Father , at age 77 Lung cancer Mother , at age 64 Colon cancer Social History Smoking and tobacco/nicotine status: never used tobacco/nicotine Second hand smoke exposure: Yes Alcohol intake: never Substance/Drug Use: never Adopted: No Caregiver/support person: No Lives independently: Yes Household members: spouse Marital status: Current occupational status: retired Do you think of yourself as: Straight/Heterosexual Current gender identity: Male Data Anesthesia Cardiac Studies: Echocardiogram 04/14/23 Sestamibi Stress Test (Cardiology) 04/14 Cardiac Event Monitor 09/30/22
[2024-07-03] MEDS: acetaminophen 1,000 MG/100 ML PIGGYBACK 400 MG IV (09:43)
[2024-07-03] MEDS: sodium chloride 0.9% 1,000 ML 30 ML IV (09:43)
[2024-07-03] MEDS: ceFAZolin 2,000 MG in sodium chloride 0.9% (plus) 50 ML 100 MG IV (11:00)
[2024-07-03] MEDS: lidocaine 2% INJ 20 mL INJECTION (11:16)
[2024-07-03] MEDS: ROPivacaine 0.5% SDV 30 mL 150 MG INJECTION (11:16)
--- NOTE | 2024-07-03 11:55 | P.OP_ITS ---
Operative Report Date of procedure: June Surgeon: Brad Quinteros DO Procedure: Preop Diagnosis: Left Carpal Tunnel Syndrome Left thumb trigger, left index finger trigger Post-op diagnosis: Same Procedure done: Left carpal tunnel release Left trigger thumb release Left index trigger finger release Surgeon: Brad Quinteros DO Anesthesia: MAC (Local) Estimated blood loss: 2 mL Tourniquet time 17 minutes IV fluids: See anesthesia record Complications: None Findings: See operative report narrative Condition: stable Disposition: same day Brief History: Patient is a pleasant 78 year-old male with left carpal tunnel syndrome left thumb trigger, left index finger trigger. Patient has been worked up in the outpatient setting findings and physical examination consistent with this. Patient nerve conduction studies consistent with carpal tunnel syndrome. We detailed out patient's risk benefits complication alternatives with surgical and nonsurgical treatment options. Through shared decision making, patient agrees to proceed with surgical intervention of the left carpal tunnel release, left thumb trigger release, left index finger trigger release. Patient understands and agrees with current plan. All questions answered. Patient elects to proceed with surgical intervention. Procedure: Patient seen and evaluated in the preoperative holding area. Consent was reviewed and signed with patient. Correct extremity was marked. Patient was seen evaluated by the anesthesia department once cleared for surgery was brought back to the operative suite. Patient was kept on [facility] in supine position all bony prominences were well-padded patient properly secured to the bed. Left upper extremity was then placed onto an armboard. A nonsterile tourniquet was applied to the left upper arm. Patient underwent anesthesia per the anesthesia department. Patient's left upper extremity was then prepped and draped in standard orthopedic fashion. Final timeout performed. Patient received appropriate preoperative antibiotics. Under sterile aseptic technique patient received local anesthesia over the preplanned incision sites. Esmarch was used to exsanguinate the left upper extremity and tourniquet was insufflated to 250 mmHg. A standard mini open left carpal tunnel incision was made. Starting distally at Hall's cardinal line in line with the fourth ray extending proximally distal to the wrist crease centered over the carpal tunnel. Sharp scalpel incision was made through skin and subcutaneous tissue. Self-retaining retractor was placed and the palmar fascia was identified. This was then split longitudinally and direct visualization of the transverse carpal ligament was then made. I then utilizing scalpel feathered through the transverse carpal ligament until I entered the floor of the transverse carpal tunnel ligament into the carpal tunnel. Next I switched to dissection scissors and completed my release of the transverse carpal ligament distally with care to protect the recurrent motor branch. I completely released into the palmar fat and until no entrapment was noted distally. Care was made to protect the superficial palmar arch during my distal dissection. Next, nasal speculum placed proximally for retraction of soft tissue on top of the Transverse carpal ligament. Next the contents of the carpal tunnel where protected and and subsequently utilizing dissection scissors under loupe magnification completely released the transverse carpal ligament proximally into the antebrachial fascia. Care was made to protect the palmar cutaneous branch by keeping my scissors curved ulnarly. Once completely released, I then placed my Darrington and had appropriate decompression of the carpal tunnel proximally as well as distally. I then inspected the contents of the carpal tunnel which showed an hourglass shape of the median nerve showing its compression. No masses were noted. Tendons appeared healthy. Wound was then thoroughly irrigated. I then proceeded with the trigger releases. I started with the left trigger thumb. I identified patient's left thumb MP flexion crease marked appropriate incision transversely across the flexion crease within Jayce's lines sharp scalpel incision was made only through skin.? Once this was done I switched to Littler dissection scissors this I then subsequently spread longitudinally in the planes of the digital nerves.? Once these were identified these were protected by my emergency room physician assistant with Kasdan retractors.? Next I identified directly over the A1 brittanie of the right?thumb.? This was significantly thickened and identified to be the area of patient's?thumb?triggering.? I used sharp scalpel to incise the A1 brittanie and then utilized my emergency room physician assistant to retract the ability and under loupe magnification released the entirety of the A1 brittanie both proximally and distally up to the oblique brittanie.? This point time the tendon was then inspected and found to be healthy there was some inflammation around the tendon itself but no evidence of tearing and no need for any debridement.? The Ragnell was used to pull the tendon out of the incision and there was no mechanical?triggering I then took the patient's?thumb?through range of motion no recurrent?triggering was noted.? There irrigation performed and a Ray-Sotero was placed inside the incision site. Next turned attention towards the left index finger trigger release. Once appropriately anesthetized a standard longitudinal/oblique incision was made centering over the A1 brittanie following patient's flexor crease of the left index finger.? Sharp scalpel incision was made only through skin and then switched to Littler dissection scissors and spread longitudinally directly over the flexor tendon sheath.? I then mobilized both radially and ulnarly and Kasdan retractors were used and placed by my emergency room physician assistant to protect neurovascular bundle.? Next I visualized the A1 brittanie and this was incised with a scalpel.? I then switched to dissection scissors and released the A1 brittanie both proximally as well as distally to its entirety.? Significant tendon sheath fluid was noted consistent with inflammation.? Mild fraying of the flexor tendons noted but no tear.? At this point I utilized a rag nail and pulled the tendons FDS and FDP out of the incision and no?triggering was noted.? This point thorough irrigation was performed.? Tourniquet deflated. Hemostasis satisfactory with bipolar electrocautery. I then closed the incision with interrupted nylon stitches. Xeroform 4 x 4's and a bulky soft dressing was applied to the left upper extremity. Patient was then awakened from anesthesia and taken to PACU in stable condition. Patient tolerated procedure without complications. Disposition: Patient taken to PACU in stable condition recovering well. Dressing clean dry and intact. Patient will receive appropriate discharge instructions as well as pain medication postoperatively. Patient to follow-up with me in the office in 2 weeks. They understand they may be weightbearing as tolerated to the left hand. Patient should keep incision clean dry and intact. Patient understands if any questions or concerns may contact the office.
--- NOTE | 2024-07-03 11:56 | W.PM.BPON ---
Date of Procedure: [July 03, 2024] Surgeon: [Dr. Quinteros DO] Research Management Associate(s): [Jimbo Quinteros PA-C] Procedure(s) performed: [Left carpal tunnel release Left trigger thumb release Left index trigger finger release] Findings of the procedure(s): [Left carpal tunnel syndrome and left index trigger finger left trigger thumb. Procedure went well and as planned.] Estimated blood loss: [2 ml] Specimen(s) removed: [N/A] Post-operative diagnosis: [Left carpal tunnel syndrome and left index trigger finger left trigger thumb]
--- NOTE | 2024-07-03 11:58 | PM.PACU ---
PACU note Narrative: Patient is an 78-year-old male that just underwent a left carpal tunnel release, left index trigger finger release and left trigger thumb release. Patient transferred to PACU in stable condition. Pain is well controlled. Dressing on hand is dry and in place. Patient's fingers are warm and well-perfused. Patient can wiggle fingers. normal cap refill under 2 seconds. Patient has normal elbow range of motion. Unable to assess sensation due to residual localized anesthetic. Exam: awake Disposition: discharged
--- NOTE | 2024-07-03 12:29 | SUR.PHASEII ---
GOOD CAP REFILL ROM AND SENSATION OF LEFT HAND FINGERS.
--- NOTE | 2024-07-03 13:30 | ANE.PACU2 ---
Inpatient post-anesthesia follow up: Airway intact: Yes Vital signs: Temperature 98.0 F Pulse Rate 51 Respiratory Rate 14 Blood Pressure 134/66 Pulse Oximetry 97 Oxygen Delivery Me thod Room Air Oxygen Flow Rate Fraction of Inspir ed Oxygen Hydration adequate: Yes Nausea and vomiting: No Pain level: 1 Mental status: Baseline
== END 2024-07-03 13:30 | disposition home or self-care (01) ==
PROVIDERS: PCP Family Medicine; Visit Provider Student in an Organized Health Care Education/Training Program
PROC: (CPT 64721; principal; 2024-07-03 10:20)
PROC: (CPT 26055; 2024-07-03 10:20)
DX: G56.02 Carpal tunnel syndrome, left upper limb (principal); M65.312 Trigger thumb, left thumb; M65.322 Trigger finger, left index finger; G47.30 Sleep apnea, unspecified; I48.91 Unspecified atrial fibrillation; K21.9 Gastro-esophageal reflux disease without esophagitis; Z86.73 Personal history of transient ischemic attack (TIA), and cerebral infarction without residual deficits; Z79.82 Long term (current) use of aspirin; I10 Essential (primary) hypertension; Z86.711 Personal history of pulmonary embolism; E78.5 Hyperlipidemia, unspecified; N40.1 Benign prostatic hyperplasia with lower urinary tract symptoms
CPT/HCPCS: 26055 ×2; 64721; J0131; J0690; J1100; J2405; J2704; J2795; J3010; J7030

== ENCOUNTER 2024-07-20 15:02 | Emergency (ER) | payer MEDICARE, OTHER, SELFPAY ==
[2024-07-20 15:06] VITALS: BP 122/76; PULSE 62; RESP 15; TEMP 36.3; O2SAT 97; BMI 24.7
--- NOTE | 2024-07-20 15:06 | CTR_ITS ---
PROCEDURE INFORMATION: Exam: CT Head Without Contrast Exam date and time: 07/20/2024 3:37 PM Age: 78 years old Clinical indication: Injury or trauma; Fall; Blunt trauma (contusions or hematomas); Without loss of consciousness; Injury date: 07/20/2024; Additional info: Blunt head injury, HX of aneurysm TECHNIQUE: Imaging protocol: Computed tomography of the head without contrast. Radiation optimization: All CT scans at this facility use at least one of these dose optimization techniques: automated exposure control; mA and/or kV adjustment per patient size (includes targeted exams where dose is matched to clinical indication); or iterative reconstruction. COMPARISON: MR head wo/w con [id number] 06/09/2024 9:09 AM RADIATION DOSE METRICS: Total DLP (mGy-cm): 1209.4 FINDINGS: Brain: There are global involutional changes of the brain which are in keeping with the patient's age. Periventricular hypodensities are nonspecific but most likely reflect chronic microvascular ischemic disease. There is no acute intracranial hemorrhage, mass effect or midline shift. Cerebral ventricles: The ventricles appear prominent and may be disproportionate to the sulci. In the appropriate clinical setting, this may reflect normal pressure hydrocephalus. Correlate with clinical information in this regard. Paranasal sinuses: The visualized sinuses are unremarkable. Mastoid air cells: There is no mastoid effusion detected. Bones: Unremarkable. No acute fracture. Soft tissues: Midline frontal scalp injury. CT/CT head wo con* [id number] IMPRESSION: 1. Midline frontal scalp injury. 2. Ventricles appear prominent and may be disproportionate to the sulci. In the appropriate clinical setting, this may reflect normal pressure hydrocephalus. Correlate with clinical information in this regard. 3. No acute intracranial hemorrhage, mass effect or midline shift.
--- NOTE | 2024-07-20 15:07 | CTR_ITS ---
PROCEDURE INFORMATION: Exam: CT Cervical Spine Without Contrast Exam date and time: 07/20/2024 3:37 PM Age: 78 years old Clinical indication: Injury or trauma; Fall; Blunt trauma; Injury date: 07/20/2024; Additional info: Blunt head injury, impacted front of head TECHNIQUE: Imaging protocol: Computed tomography of the cervical spine without contrast. Radiation optimization: All CT scans at this facility use at least one of these dose optimization techniques: automated exposure control; mA and/or kV adjustment per patient size (includes targeted exams where dose is matched to clinical indication); or iterative reconstruction. COMPARISON: CT cervical spin wo con* [id number] 01/18/2023 1:05 PM RADIATION DOSE METRICS: Total DLP (mGy-cm): 195.3 FINDINGS: Bones: There is anterolisthesis at C4-C5 and C7-T1. No anterior wedging deformity. No acute lucent fracture lines visualized. Spondylitic changes are seen at multiple levels. Cervical facet arthropathy is eccentric to the left. There is no severe central canal stenosis demonstrated by CT. Neural foraminal stenosis is seen at C3-C4 through C6-C7. Lungs: The lung apices are not included in the field of view. Soft tissues: Unremarkable. CT/CT cervical spin wo con* [id number] IMPRESSION: 1. No acute cervical spinal injury demonstrated by CT. 2. Degenerative changes of the cervical spine.
--- NOTE | 2024-07-20 15:35 | CTR_ITS ---
PROCEDURE INFORMATION: Exam: CT Maxillofacial Without Contrast Exam date and time: 07/20/2024 3:37 PM Age: 78 years old Clinical indication: Injury or trauma; Fall; Blunt trauma (contusions or hematomas); Head/scalp and nose and maxilla; Without loss of consciousness; Injury date: 07/20/2024 TECHNIQUE: Imaging protocol: Computed tomography of the face without contrast. Radiation optimization: All CT scans at this facility use at least one of these dose optimization techniques: automated exposure control; mA and/or kV adjustment per patient size (includes targeted exams where dose is matched to clinical indication); or iterative reconstruction. COMPARISON: CT head wo con* [id number] 07/20/2024 3:37 PM RADIATION DOSE METRICS: Total DLP (mGy-cm): 588.7 FINDINGS: Paranasal sinuses: There is mild sinus mucosal disease, with no air-fluid level identified. Orbital cavities: The appearance of the optic globes suggests previous bilateral cataract surgery. The orbital conal contents are unremarkable. Mastoid air cells: There is no mastoid effusion detected. Auditory system: There is probable cerumen in the external auditory canals bilaterally. Bones: No acute facial fracture identified. Soft tissues: Midline frontal scalp injury. CT/CT facial bones wo con* [id number] IMPRESSION: No acute facial fracture identified.
--- NOTE | 2024-07-20 15:46 | ED_ITS ---
HPI - Fall General: Chief Complaint: Fall Stated Complaint: open wond on forehead, fall Time Seen by Provider: 07/20/24 15:36 History of Present Illness: 78-year-old male who fell while working on a tractor and burning some trash he hit his head on the tractor tire has a large laceration. He also has a partial- thickness laceration on his nose there was no loss of consciousness. He stumbled while using cane on uneven ground he tried to catch himself but after a few steps fell and hit the tractor. He has no other injury. No injuries extremities. He did strike his head. He has not had any vomiting no visual changes. He recently had a carpal tunnel release he had no injury to that hand at the time of the fall today. He still has similar function as he had prior to the fall. He does have a history of previous subarachnoid hemorrhage. Associated symptoms-after fall: Denies abdominal pain or chest pain Related Data Home Medications Medication Instructions Recorded Confirmed vit C 250 mg-vit E 90 mg-zinc 40 1 tab PO BID 07/22/21 07/21/24 mg-copper 1 [id number] capsule (PreserVision AREDS-2) magnesium 200 mg tablet 200 mg PO DAILY 01/18/23 07/21/24 zinc acetate 50 mg (zinc) capsule 50 mg PO DAILY 01/18/23 07/21/24 Previous Rx's Medication Instructions Recorded aspirin 81 mg tablet,delayed 81 mg PO DAILY #30 tabs 10/27/22 release (Adult Aspirin Regimen) albuterol sulfate 90 mcg/actuation 2 puff inhalation Q4H PRN 04/27/23 aerosol inhaler shortness of breath or wheezing #8.5 grams metoprolol succinate 25 mg See Rx Instructions .Route 08/24/23 tablet,extended release 24 hr .COMPLEX #30 tabs finasteride 5 mg tablet 5 mg PO DAILY #90 tabs 11/02/23 loperamide 2 mg capsule 2 mg PO Q6H PRN loose stool #30 01/25/24 caps flecainide 50 mg tablet 50 mg PO Q12H #60 tabs 03/22/24 pantoprazole 40 mg tablet,delayed 40 mg PO DAILY #30 tabs 06/01/24 release (Protonix) fluticasone propionate 50 2 spray intranasal DAILY #16 grams 06/15/24 mcg/actuation nasal spray,suspension (Flonase Allergy Relief) levothyroxine 200 mcg tablet See Rx Instructions .Route 07/04/24 .COMPLEX #60 tabs losartan 25 mg tablet 25 mg PO QAM #30 tabs 07/20/24 mupirocin 2 % topical ointment 1 applic topical BID #22 grams 07/20/24 tamsulosin 0.4 mg capsule 0.4 mg PO BID #180 caps 07/20/24 Allergies Allergy/AdvReac Type Severity Reaction Status Date / Time levofloxacin [From Levaquin] Allergy Severe ALGY-Rash Verified 07/21/24 09:50 tramadol [From Ultram] AdvReac Mild Unknown Verified 07/21/24 09:50 Review of Systems Const: Denies: fever(s) or chills Card: Denies: chest pain Resp: Denies: dyspnea GI: Denies: abdominal pain, nausea or vomiting : Denies: dysuria, urinary frequency or urinary urgency Musc: Denies: back pain Skin/Breast: Denies: rash PFSH ED PFSH: Medical History Moderate major depression Essential hypertension H/O radioactive iodine thyroid ablation Pincer nail deformity V tach Atrial fibrillation History of pulmonary embolism Hyperlipidemia GERD (gastroesophageal reflux disease) Degenerative joint disease of spine Degenerative arthritis Obstructive sleep apnea Asthma Back pain History of subarachnoid hemorrhage Thyroid cancer Elevated PSA BPH with obstruction/lower urinary tract symptoms Surgical History History of esophagogastroduodenoscopy (EGD) Dr Gasca and Dr Ahuja Hx of colonoscopy x3 10+ years Status post surgical removal of malignant neoplasm of skin Basal cell skin cancer History of thyroid surgery (05/21/21) Right hemithyroidectomy History of hernia repair Bilateral inguinal hernia repair History of eye surgery History of surgical removal of ganglion cyst History of rotator cuff surgery Family History Father , at age 77 Lung cancer Mother , at age 64 Colon cancer Social History Smoking and tobacco/nicotine status: unknown if used tobacco/nicotine Second hand smoke exposure: Yes Alcohol intake: never Substance/Drug Use: never Adopted: No Caregiver/support person: No Lives independently: Yes Household members: spouse Marital status: Current occupational status: retired Do you think of yourself as: Straight/Heterosexual Current gender identity: Male Physical Exam Const: COMMON NORMALS: no acute distress GENERAL APPEARANCE: cooperative and comfortable ORIENTATION/CONSCIOUSNESS: Yes awake, Yes oriented to person, Yes oriented to place and Yes oriented to time HENMT: COMMON NORMALS: normocephalic and hearing grossly normal bilaterally HEAD & SCALP: normocephalic OTHER: 10 cm laceration vertical down the appro ximate midline of the forehead full- thickness no active bleeding Resp: COMMON NORMALS: normal respiratory effort, No retractions, No use of accessory muscles and clear to auscultation bilaterally AUSCULTATION: clear to auscultation bilaterally Cardio: COMMON NORMALS: regular rate, regular rhythm and No murmurs present (Cardio) RATE: regular rate RHYTHM: regular rhythm GI: COMMON NORMALS: Soft to palpation and No hepatosplenomegaly present AUSCULTATION: Yes normoactive bowel sounds PALPATION: Yes Soft to palpation, No Tenderness to palpation present (GI), No Guarding due to palpation present (GI) and Yes No hepatosplenomegaly present Extremity: COMMON NORMALS: normal to inspection, capillary refill normal, no clubbing, cyanosis or edema, no calf tenderness and no pedal edema OTHER: Normal sensation in the left right hands normal range of motion. Sutures in place. No sign infection no redness erythema, There is a full-thickness laceration on the left elbow no active bleeding. Range of motion normal. No crepitus at the elbow or pain. Neuro: SENSORIUM/ORIENTATION: Yes oriented to person, Yes oriented to place and Yes oriented to time Skin: COMMON NORMALS: no rashes or lesions noted GENERAL SKIN EXAM: no rashes or lesions noted Procedures Laceration Laceration 1: Site: face Size (cm): 10 Description: linear Depth: simple, single layer Local Anesthetic: lidocaine 1% and with epi Amount of anesthesia used (mL): 6 Pre-repair: wound explored, irrigated extensively and deep structures intact Skin layer closed with: other (Prolene) Size (cm): 5-0 Number of sutures: 1 Technique: running Course Vital Signs: Vital signs: Vital Signs Temperature 97.3 F L 07/20/24 15:06 Pulse Rate 60 07/20/24 18:05 Respiratory Rate 15 07/20/24 15:06 Blood Pressure 119/78 07/20/24 18:05 Pulse Oximetry 97 07/20/24 18:05 Oxygen Delivery Me thod Room Air 07/20/24 15:06 MDM - Fall Medical Decision Making Wound on the elbow Steri-Stripped offered patient to sutures however it will likely heal same with or without he does not want to have the sutures placed. We did suture the forehead that should be removed in 7 days by his primary care doctor. Tetanus updated. Labs and imaging updated. Patient has some mild ventriculomegaly that was seen on previous MRI in May was also seen this evening. No other acute findings. Medical Records I reviewed the patient's medical records. Lab Data I reviewed the patient's lab results. Radiology Impressions Head CT 07/20/24 15:06 IMPRESSION: 1. Midline frontal scalp injury. 2. Ventricles appear prominent and may be disproportionate to the sulci. In the appropriate clinical setting, this may reflect normal pressure hydrocephalus. Correlate with clinical information in this regard. 3. No acute intracranial hemorrhage, mass effect or midline shift. Cervical Spine CT 07/20/24 15:07 IMPRESSION: 1. No acute cervical spinal injury demonstrated by CT. 2. Degenerative changes of the cervical spine. Face CT 07/20/24 15:35 IMPRESSION: No acute facial fracture identified. All radiology interpretation(s) finalized by discharge Discharge Plan Discharge Patient Disposition: Home Clinical Impression: Laceration of face, Concussion, Fall Condition: Stable Prescriptions: New mupirocin 2 % ointment 1 applic topical BID Qty: 22 0RF No Action albuterol sulfate 90 mcg/actuation HFA aerosol inhaler 2 puff INHALATION Q4H PRN (Reason: shortness of breath or wheezing) Qty: 8.5 5RF Rx Instructions: 340B PLAN finasteride 5 mg tablet 5 mg PO DAILY Qty: 90 3RF loperamide 2 mg capsule 2 mg PO Q6H PRN (Reason: loose stool) Qty: 30 0RF aspirin [Adult Aspirin Regimen] 81 mg tablet,delayed release (DR/EC) 81 mg PO DAILY Qty: 30 11RF fluticasone propionate [Flonase Allergy Relief] 50 mcg/actuation spray,suspension 2 spray intranasal DAILY Qty: 16 0RF Rx Instructions: administer into each nostril metoprolol succinate 25 mg tablet extended release 24 hr See Rx Instructions .ROUTE .COMPLEX Qty: 30 11RF Dose Instruction: TAKE 1 TABLET BY MOUTH EVERY DAY Rx Instructions: TAKE 1 TABLET BY MOUTH EVERY DAY flecainide 50 mg tablet 50 mg PO Q12H Qty: 60 3RF pantoprazole [Protonix] 40 mg tablet,delayed release (DR/EC) 40 mg PO DAILY Qty: 30 3RF levothyroxine 200 mcg tablet See Rx Instructions .ROUTE .COMPLEX Qty: 60 1RF Dose Instruction: TAKE 1 TABLET BY MOUTH EVERY DAY Rx Instructions: TAKE 1 TABLET BY MOUTH EVERY DAY losartan 25 mg tablet 25 mg PO QAM Qty: 30 11RF tamsulosin 0.4 mg capsule 0.4 mg PO BID Qty: 180 0RF PreserVision AREDS-2 250-90-40-1 mg Capsule 1 tab PO BID zinc acetate 50 mg (zinc) Capsule 50 mg PO DAILY magnesium 200 mg Tablet 200 mg PO DAILY Discharge Orders: Discharge ED (Routine); Ordered 07/20/24 Ordered By: Scott Moy Referrals: Rajeev Craig MD [Primary Care Provider] - Discharge Diet: Usual diet Discharge Activity: Resume usual activity Patient Instructions: Facial Laceration (ED), Opioid Safety, Pain Management Activity Restrictions/Additional Instructions: Thank you for choosing [facility] for your healthcare needs today. It is very important that you follow up as instructed or that you return to the Emergency Department should you have concerns or if your condition changes or worsens in any way. You are seen in the emergency room for a fall. CT of the head and neck and facial bones were all normal. You did have a pretty significant laceration on the forehead which was sutured. Apply the topical antibiotic ointment to the wound twice a day sutures to be removed in 7 days. Do not submerge wound in water for extended periods of time washing occasional for usual bathing is fine. If there is any redness or drainage return. You will likely get a significant amount of swelling and bruising around your face over the next day or 2 this is normal as the blood settles from the injury to the forehead. It will likely settle about the eyes and cause a significant amount of swelling. You can apply the topical antibiotic ointment to the left elbow as well. Coding Level of Care Code ED Wardrobe Manager for Griselda Hernandez
[2024-07-20 17:10] VITALS: BP 137/69; PULSE 58; O2SAT 98
[2024-07-20 17:30] VITALS: BP 146/74; PULSE 64; O2SAT 98
[2024-07-20] MEDS: lidocaine-epi 1% 20 mL INJ INJECTION (17:30)
[2024-07-20] MEDS: tetanus-dipt-pertussis 0.5 mL SDV IM (18:01)
[2024-07-20 18:05] VITALS: BP 119/78; PULSE 60; O2SAT 97
== END 2024-07-20 18:15 | disposition home or self-care (01) ==
PROVIDERS: Emergency Provider Family Medicine; PCP Family Medicine
DX: S01.81XA Laceration without foreign body of other part of head, initial encounter (principal); W19.XXXA Unspecified fall, initial encounter; S06.0XAA Concussion with loss of consciousness status unknown, initial encounter; Z79.82 Long term (current) use of aspirin; C73 Malignant neoplasm of thyroid gland; I10 Essential (primary) hypertension
CPT/HCPCS: 12015; 70450; 70486; 72125; 90471; 90715; 99284

== ENCOUNTER → 2024-07-21 09:15 | Outpatient (BNVA) | payer MEDICARE, OTHER, SELFPAY | PROVIDERS: PCP Family Medicine; Visit Provider Physician Assistant | DX: Z98.890 Other specified postprocedural states (principal) | CPT/HCPCS: 99024 ==

== ENCOUNTER 2024-07-25 10:15 | Outpatient (CLI) | payer MEDICARE, OTHER, SELFPAY ==
--- NOTE | 2024-07-25 10:21 | XRR_ITS ---
PROCEDURE INFORMATION: Exam: XR Chest Exam date and time: 07/25/2024 10:25 AM Age: 78 years old Clinical indication: Injury or trauma; Blunt trauma (contusions or hematomas); Injury details: Recent fall on 07/20, intermittent chest pains since, HX of stroke 2 yrs ago; Patient HX: HX of skin, prostate, and thyroid cancer TECHNIQUE: Imaging protocol: Radiologic exam of the chest. Views: 2 views. COMPARISON: CT chest [facility] [id number] 02/01/2024 2:27 PM FINDINGS: Lungs: Unremarkable. No consolidation. Pleural spaces: Unremarkable. No pleural effusion. No pneumothorax. Heart/Mediastinum: Unremarkable. No cardiomegaly. Bones/joints: Unremarkable. XR/XR chest 2V* [id number] IMPRESSION: No acute findings.
== END 2024-07-25 10:16 | disposition home or self-care (01) ==
LOC: RAD 10:16
PROVIDERS: PCP Family Medicine
DX: R07.9 Chest pain, unspecified (principal); W19.XXXA Unspecified fall, initial encounter
CPT/HCPCS: 71046

== ENCOUNTER 2024-08-01 13:05 | Outpatient (CLI) | payer MEDICARE, OTHER, SELFPAY ==
--- NOTE | 2024-08-01 13:08 | XR_ITS ---
WS: [id number] Exam: XR thoracic spine 3V* [id number] Date/Time of Exam: 08/01/2024 1:29 PM Reason For Exam: fall The lungs are hyperinflated and clear. The lower lateral LEFT chest is out of the [id number]-swgk. The anterior chest is out of the hcdkg-kf-hliy on the lateral projection. Cardiomediastinal silhouette is unremarkable for technique. Bony structures are intact. Moderate DJD and spondylosis of the T-spine. IMPRESSION1. Pulmonary hyperinflation. No acute process noted based on images presented.
--- NOTE | 2024-08-01 13:08 | XR_ITS ---
WS: [id number] Exam: XR cervical spine 3V* [id number] Date/Time of Exam: 08/01/2024 1:29 PM Reason For Exam: fall No fracture identified. 3 mm degenerative anterolisthesis of C4 on C5. Facet arthropathy at all level s. Degenerative vacuum disc at C6-7. Mild spondylosis. Normal paraspinal soft tissues. Surgical clips in the RIGHT neck. RIGHT carotid artery calcifications. There is demineralization and/or cystic diaz ge in the RIGHT lateral aspect of the odontoid. This is unchanged since cervical spine CT performed . XR/XR cervical spine 3V* [id number] IMPRESSION: . 1. 3 mm degenerative anterolisthesis of C4 on C5. 2. Moderate degenerative changes as detailed above. No acute fracture. 3. Demineralization of the RIGHT lateral aspect of the odontoid unchanged.
== END 2024-08-01 13:06 | disposition home or self-care (01) ==
LOC: RAD 13:07
PROVIDERS: PCP Family Medicine
DX: M43.12 Spondylolisthesis, cervical region (principal); M50.323 Other cervical disc degeneration at C6-C7 level; M85.88 Other specified disorders of bone density and structure, other site; J98.4 Other disorders of lung; W19.XXXA Unspecified fall, initial encounter
CPT/HCPCS: 72040; 72072

== ENCOUNTER 2024-08-25 12:28 | Outpatient (CLI) | payer MEDICARE, OTHER, SELFPAY ==
[2024-08-25 13:18] LABS: Free T4 Free Thyroxine 0.81 ng/dL (0.82-1.77); Thyroid Stimulating Hormone 75.53 uIU/mL (0.27-4.20)
== END 2024-08-25 12:29 | disposition home or self-care (01) ==
LOC: LAB 12:30
PROVIDERS: PCP Family Medicine; Visit Provider Internal Medicine
DX: C73 Malignant neoplasm of thyroid gland (principal)
CPT/HCPCS: 36415; 84439; 84443

== ENCOUNTER 2024-08-31 14:08 | Oncology outpatient (recurring) (ONCR) | payer MEDICARE, OTHER, SELFPAY ==
[2024-08-31 15:43] LABS: Basophils % 0.7 %; Eosinophils # 0.2 10^3/uL (0.0-0.8); Eosinophils % 4.2 %; Hematocrit 43.7 % (37-53); Lymphocytes # 1.3 10^3/uL (0.8-4.8); Lymphocytes % 30.7 %; Mean Corpuscular HGB Conc 34.1 g/dL (30-55); Mean Corpuscular Hemoglobin 32.4 pg (27-33); Mean Platelet Volume 10.3 fL (7.4-10.4); Monocytes # 0.6 10^3/uL (0.2-0.9); Monocytes % 13.2 %; Neutrophils # 2.21 10^3/uL (1.8-7.7); Nucleated Red Blood Cells % 0 %; Platelet Count 153 10^3/cmm (157-399); Red Cell Distribution Width 13.8 % (12.1-15.1); White Blood Count 4.33 10^3/uL (3.29-11.43)
[2024-08-31 16:12] LABS: Alanine Aminotransferase 21 U/L (0-41); Albumin Level 3.9 g/dL (3.5-5.2); Alkaline Phosphatase 135 U/L (40-130); Aspartate Amino Transferase 24 U/L (0-40); Blood Urea Nitrogen 18 mg/dL (8-23); Calcium 9.4 mg/dL (8.5-10.5); Carbon Dioxide 26 mmol/L (22-29); Chloride 102 mmol/L (98-107); Creatinine Clr Calc Pharmacy 57.6482; Globulin 2.5 g/dL (1.3-4.6); Glucose 108 mg/dL (65-115); Osmolality Calculated 286 mOsm/kg (285-295); Prostate Specific Antigen 0.018 ng/mL (0-4); Sodium 137 mmol/L (136-145); Testosterone Total 366.9 ng/dL (193-740); Total Bilirubin 0.7 mg/dL (0.15-1.2); Total Protein 6.4 g/dL (6.6-8.7)
== END 2024-09-12 23:59 | disposition home or self-care (01) ==
PROVIDERS: Internal Medicine; PCP Family Medicine; Visit Provider Family Medicine
DX: C61 Malignant neoplasm of prostate; Z86.711 Personal history of pulmonary embolism; Z92.25 Personal history of immunosuppression therapy; C73 Malignant neoplasm of thyroid gland; C77.0 Secondary and unspecified malignant neoplasm of lymph nodes of head, face and neck; N40.1 Benign prostatic hyperplasia with lower urinary tract symptoms; N13.8 Other obstructive and reflux uropathy
CPT/HCPCS: 36415; 80053; 84153; 84403; 85025; 99213

== ENCOUNTER 2024-09-14 06:57 | Outpatient (CLI) | payer MEDICARE, OTHER, SELFPAY | END 2024-09-14 06:58 | disposition home or self-care (01) | LOC: RT 06:58 | PROVIDERS: PCP Family Medicine; Visit Provider Family Medicine | DX: J43.9 Emphysema, unspecified (principal); R09.89 Other specified symptoms and signs involving the circulatory and respiratory systems; Z86.711 Personal history of pulmonary embolism; R94.2 Abnormal results of pulmonary function studies; C73 Malignant neoplasm of thyroid gland; C77.0 Secondary and unspecified malignant neoplasm of lymph nodes of head, face and neck; E03.9 Hypothyroidism, unspecified | CPT/HCPCS: 94010; 94726; 94729; 99214 ==

== ENCOUNTER 2024-10-18 15:30 | Outpatient (CLI) | payer MEDICARE, OTHER, SELFPAY | END 2024-10-18 15:31 | disposition home or self-care (01) | LOC: LAB 15:31 | PROVIDERS: PCP Family Medicine; Visit Provider Psychiatry & Neurology Neurology | DX: F03.90 Unspecified dementia, unspecified severity, without behavioral disturbance, psychotic disturbance, mood disturbance, and anxiety (principal) | CPT/HCPCS: 36415; 83520 ==

== ENCOUNTER → 2024-10-24 08:56 | Outpatient (BNVA) | payer MEDICARE, OTHER, SELFPAY | PROVIDERS: PCP Family Medicine; Visit Provider Nurse Practitioner Family | DX: L85.3 Xerosis cutis (principal); L57.8 Other skin changes due to chronic exposure to nonionizing radiation; Z08 Encounter for follow-up examination after completed treatment for malignant neoplasm; Z85.828 Personal history of other malignant neoplasm of skin; L82.0 Inflamed seborrheic keratosis; L29.89 Other pruritus; L53.8 Other specified erythematous conditions; L57.0 Actinic keratosis | CPT/HCPCS: 17000; 17110; 99213 ==

== ENCOUNTER 2024-10-25 10:27 | Outpatient (CLI) | payer MEDICARE, OTHER, SELFPAY ==
[2024-10-25 12:11] LABS: Free T4 Free Thyroxine 1.81 ng/dL (0.82-1.77); Thyroid Stimulating Hormone 1.43 uIU/mL (0.27-4.20)
== END 2024-10-25 10:28 | disposition home or self-care (01) ==
LOC: LAB 10:33
PROVIDERS: PCP Family Medicine; Visit Provider Internal Medicine
DX: E03.9 Hypothyroidism, unspecified (principal)
CPT/HCPCS: 36415; 84439; 84443

== ENCOUNTER → 2024-10-31 10:03 | Outpatient (BNVA) | payer MEDICARE, OTHER, SELFPAY | PROVIDERS: PCP Family Medicine; Visit Provider Internal Medicine | DX: E03.9 Hypothyroidism, unspecified (principal); C73 Malignant neoplasm of thyroid gland; C77.0 Secondary and unspecified malignant neoplasm of lymph nodes of head, face and neck | CPT/HCPCS: 99214 ==

== ENCOUNTER 2024-11-30 12:43 | Oncology outpatient (recurring) (ONCR) | payer MEDICARE, OTHER, SELFPAY ==
[2024-11-30 13:23] LABS: Basophils % 0.7 %; Eosinophils # 0.5 10^3/uL (0.0-0.8); Eosinophils % 8.6 %; Hematocrit 45.4 % (37-53); Lymphocytes # 1.5 10^3/uL (0.8-4.8); Lymphocytes % 26.1 %; Mean Corpuscular HGB Conc 34.8 g/dL (30-55); Mean Corpuscular Hemoglobin 32.2 pg (27-33); Mean Corpuscular Volume 92.5 fl (82-101); Mean Platelet Volume 10.3 fL (7.4-10.4); Monocytes # 0.8 10^3/uL (0.2-0.9); Monocytes % 14.1 %; Neutrophils # 2.83 10^3/uL (1.8-7.7); Neutrophils % 50.5 %; Nucleated Red Blood Cells % 0 %; Platelet Count 171 10^3/cmm (157-399); Red Blood Count 4.91 10^6/uL (3.85-5.65); Red Cell Distribution Width 12.9 % (12.1-15.1)
[2024-11-30 13:52] LABS: Alanine Aminotransferase 15 U/L (0-41); Albumin Level 3.9 g/dL (3.5-5.2); Alkaline Phosphatase 87 U/L (40-130); Anion Gap 12.4 (5-19); Aspartate Amino Transferase 21 U/L (0-40); Blood Urea Nitrogen 19 mg/dL (8-23); Calcium 9.5 mg/dL (8.5-10.5); Carbon Dioxide 27 mmol/L (22-29); Chloride 106 mmol/L (98-107); Creatinine Clr Calc Pharmacy 63.2362; Globulin 2.5 g/dL (1.3-4.6); Glucose 84 mg/dL (65-115); Lactate Dehydrogenase 184 U/L (135-225); Osmolality Calculated 293 mOsm/kg (285-295); Potassium 4.4 mmol/L (3.5-5.1); Prostate Specific Antigen 0.021 ng/mL (0-4); Sodium 141 mmol/L (136-145); Total Bilirubin 0.9 mg/dL (0.15-1.2); Total Protein 6.4 g/dL (6.6-8.7)
[2024-11-30 14:14] LABS: Testosterone Total 463.7 ng/dL (193-740)
== END 2024-12-11 23:59 | disposition home or self-care (01) ==
PROVIDERS: Internal Medicine; PCP Family Medicine; Visit Provider Family Medicine
DX: Z08 Encounter for follow-up examination after completed treatment for malignant neoplasm (principal); Z85.46 Personal history of malignant neoplasm of prostate; N13.8 Other obstructive and reflux uropathy; N40.1 Benign prostatic hyperplasia with lower urinary tract symptoms; E03.9 Hypothyroidism, unspecified; Z86.711 Personal history of pulmonary embolism; Z90.89 Acquired absence of other organs; Z92.21 Personal history of antineoplastic chemotherapy; Z92.3 Personal history of irradiation
CPT/HCPCS: 36415; 80053; 83615; 84153; 84403; 85025; 99213

== ENCOUNTER 2024-12-14 13:37 | Outpatient (CLI) | payer MEDICARE, OTHER, SELFPAY ==
--- NOTE | 2024-12-14 13:40 | USCV_ITS ---
Bryant Cross Age: 79 Gender: M : 1945 Exam Date: 12/14/2024 14:30 Ordering Phys: Hermes Rehman MD Technologist: Exam Location: [facility] [place] Indication: sob BP: 130 / 83 HR: 54 Rhythm: Sinus Technical Quality: Adequate MEASUREMENTS (Male / Female) Normal Values 2D ECHO LV Diastolic Diameter PLAX 3.6 cm 4.2 - 5.9 / 3.9 - 5.3 cm IVS Diastolic Thickness 1.4 cm 0.6 - 1.0 / 0.6 - 0.9 cm IVS Systolic Thickness 1.8 cm LVPW Diastolic Thickness 1.1 cm 0.6 - 1.0 / 0.6 - 0.9 cm LVPW Systolic Thickness 1.8 cm LVOT Diameter 2.1 cm LV Ejection Fraction 2D Teich 61.6 % LV Ejection Fraction MOD 4C 66.1 % LV Ejection Fraction MOD 2C 64.5 % LV Ejection Fraction 2C AL 64.3 % LA Diameter 3.4 cm RA Systolic Volume 4C AL 42.7 ml RA Systolic Volume 4C MOD 39.9 ml Aorta at Sinotubular Diameter 2.9 cm IVC Diameter 1.6 cm M-MODE LA Ao Ratio MM 1.0 AV Cusp Separation MM 1.9 cm DOPPLER AV Peak Velocity 102.0 cm/s LVOT Peak Velocity 81.0 cm/s AV Area Cont Eq vti 3.8 cm squared AV Area Cont Eq pk 2.7 cm squared MV Area PHT 5.1 cm squared Mitral E to A Ratio 0.9 TV Peak Velocity 268.0 cm/s TR Peak Velocity 276.0 cm/s TR Peak Gradient 30.5 mmHg PV Peak Velocity 101.0 cm/s FINDINGS Left Ventricle Left ventricle is normal in size. LV systolic function is normal with EF of 60-65%. No regional wall motion abnormalities. Right Ventricle Normal in size and function Right Atrium Normal in size Left Atrium Normal in size Mitral Valve Structurally normal mitral valve. Mild mitral regurgitation Aortic Valve Aortic valve is thickened. No significant stenosis or regurgitation. Tricuspid Valve Mild tricuspid regurgitation. Pulmonary artery systolic pressure is normal Pulmonic Valve Mild pulmonic regurgitation. Pericardium Normal Aorta Normal in size IVC Appears to be normal CONCLUSIONS LV systolic function is normal with EF of 60-65% Mild mitral regurgitation Mild tricuspid regurgitation Mild pulmonic regurgitation Compared to prior echocardiogram from 2022, no significant changes are seen Jarrod Momin MD (Electronically Signed) Final Date: 31 December 2024 22:40 S
== END 2024-12-14 13:38 | disposition home or self-care (01) ==
LOC: RAD 13:38
PROVIDERS: PCP Family Medicine; Visit Provider Student in an Organized Health Care Education/Training Program
DX: R94.2 Abnormal results of pulmonary function studies (principal); I34.0 Nonrheumatic mitral (valve) insufficiency; I35.8 Other nonrheumatic aortic valve disorders; I07.1 Rheumatic tricuspid insufficiency; I37.1 Nonrheumatic pulmonary valve insufficiency
CPT/HCPCS: 93306

== ENCOUNTER → 2024-12-26 14:11 | Outpatient (BNVA) | payer MEDICARE, OTHER, SELFPAY | PROVIDERS: PCP Family Medicine; Visit Provider Psychiatry & Neurology Neurology | DX: I26.99 Other pulmonary embolism without acute cor pulmonale (principal); I48.91 Unspecified atrial fibrillation; I47.20 Ventricular tachycardia, unspecified; I61.9 Nontraumatic intracerebral hemorrhage, unspecified; G20.A1 Parkinson's disease without dyskinesia, without mention of fluctuations | CPT/HCPCS: 99212 ==

== ENCOUNTER → 2024-12-29 12:23 | Outpatient (BNVA) | payer MEDICARE, OTHER, SELFPAY | PROVIDERS: PCP Family Medicine; Visit Provider Internal Medicine | DX: E03.9 Hypothyroidism, unspecified (principal); C73 Malignant neoplasm of thyroid gland; C77.0 Secondary and unspecified malignant neoplasm of lymph nodes of head, face and neck | CPT/HCPCS: 36415; 84432; 84439; 84443; 86800; 99214 ==

== ENCOUNTER 2025-01-26 09:38 | Outpatient (CLI) | payer MEDICARE, OTHER, SELFPAY ==
--- NOTE | 2025-01-26 09:44 | CTR_ITS ---
PROCEDURE INFORMATION: Exam: CT Chest Without Contrast; Diagnostic Exam date and time: 01/26/2025 9:58 AM Age: 79 years old Clinical indication: Other: Decreased diffusion capacity of lung; Cancer (type)--prostate, thyroid, skin TECHNIQUE: Imaging protocol: Diagnostic computed tomography of the chest without contrast. Radiation optimization: All CT scans at this facility use at least one of these dose optimization techniques: automated exposure control; mA and/or kV adjustment per patient size (includes targeted exams where dose is matched to clinical indication); or iterative reconstruction. COMPARISON: CT chest con [id number] 02/01/2024 2:27 PM RADIATION DOSE METRICS: Total DLP (mGy-cm): 412.01 FINDINGS: Lungs: Mild fibrous stranding in the bilateral lower lobes. Moderate emphysematous COPD. Pleural spaces: Unremarkable. No pneumothorax. No pleural effusion. Heart: Unremarkable. No cardiomegaly. No pericardial effusion. Coronary arteries: Coronary artery calcifications. Lymph nodes: Unremarkable. No enlarged lymph nodes. Vasculature: Unremarkable. No aortic aneurysm. Bones/joints: Interval a 20% compression of a midthoracic vertebral body. This has occurred since 02/01/2024. Soft tissues: Unremarkable. CT/CT chest con [id number] IMPRESSION: 1. No evidence of metastatic disease. 2. Mild interval thoracic compression fracture.
== END 2025-01-26 09:39 | disposition home or self-care (01) ==
PROVIDERS: PCP Family Medicine; Visit Provider Student in an Organized Health Care Education/Training Program
DX: R94.2 Abnormal results of pulmonary function studies (principal); R91.8 Other nonspecific abnormal finding of lung field; J44.9 Chronic obstructive pulmonary disease, unspecified; J43.9 Emphysema, unspecified; I25.10 Atherosclerotic heart disease of native coronary artery without angina pectoris; S22.008A Other fracture of unspecified thoracic vertebra, initial encounter for closed fracture; X58.XXXA Exposure to other specified factors, initial encounter
CPT/HCPCS: 71250

== ENCOUNTER → 2025-02-08 08:20 | Outpatient (BNVA) | payer MEDICARE, OTHER, SELFPAY | PROVIDERS: PCP Family Medicine; Visit Provider Podiatrist Foot & Ankle Surgery | DX: M79.671 Pain in right foot (principal); M20.21 Hallux rigidus, right foot; M20.22 Hallux rigidus, left foot; L84 Corns and callosities | CPT/HCPCS: 73630; 99214 ==

== ENCOUNTER 2025-03-08 12:42 | Oncology outpatient (recurring) (ONCR) | payer MEDICARE, OTHER, SELFPAY ==
[2025-03-08 13:53] LABS: Basophils # 0.1 10^3/uL (0.0-0.1); Eosinophils # 0.5 10^3/uL (0.0-0.8); Hematocrit 44.5 % (37-53); Lymphocytes # 1.3 10^3/uL (0.8-4.8); Lymphocytes % 25.8 %; Mean Corpuscular HGB Conc 35.1 g/dL (30-55); Mean Corpuscular Volume 91.4 fl (82-101); Mean Platelet Volume 10.3 fL (7.4-10.4); Monocytes # 0.6 10^3/uL (0.2-0.9); Monocytes % 10.8 %; Nucleated Red Blood Cells % 0 %; Platelet Count 193 10^3/cmm (157-399); Red Blood Count 4.87 10^6/uL (3.85-5.65); Red Cell Distribution Width 14.8 % (12.1-15.1); White Blood Count 5.19 10^3/uL (3.29-11.43)
[2025-03-08 14:32] LABS: Alanine Aminotransferase 30 U/L (0-41); Alkaline Phosphatase 77 U/L (40-130); Aspartate Amino Transferase 41 U/L (0-40); Blood Urea Nitrogen 22 mg/dL (8-23); Calcium 9.7 mg/dL (8.5-10.5); Carbon Dioxide 24 mmol/L (22-29); Chloride 104 mmol/L (98-107); Ferritin 68 ng/mL (30-400); Globulin 2.8 g/dL (1.3-4.6); Glucose 90 mg/dL (65-115); Lactate Dehydrogenase 248 U/L (135-225); Osmolality Calculated 293 mOsm/kg (285-295); Prostate Specific Antigen 0.125 ng/mL (0-4); Sodium 140 mmol/L (136-145); Total Bilirubin 0.6 mg/dL (0.15-1.2); Total Protein 6.8 g/dL (6.6-8.7)
[2025-03-08 15:11] LABS: Testosterone Total 292.3 ng/dL (193-740)
== END 2025-03-12 23:59 | disposition home or self-care (01) ==
PROVIDERS: Internal Medicine; PCP Family Medicine; Visit Provider Family Medicine
DX: C73 Malignant neoplasm of thyroid gland (principal); C61 Malignant neoplasm of prostate; N13.8 Other obstructive and reflux uropathy; N40.1 Benign prostatic hyperplasia with lower urinary tract symptoms; K59.00 Constipation, unspecified; I26.99 Other pulmonary embolism without acute cor pulmonale; E03.9 Hypothyroidism, unspecified; Z86.711 Personal history of pulmonary embolism; Z90.89 Acquired absence of other organs; Z92.21 Personal history of antineoplastic chemotherapy; Z92.3 Personal history of irradiation
CPT/HCPCS: 36415; 80053; 82728; 83615; 84153; 84403; 85025; 99213

== ENCOUNTER 2025-03-30 11:15 | Oncology outpatient (recurring) (ONCR) | payer MEDICARE, OTHER, SELFPAY ==
--- NOTE | 2025-03-30 11:45 | US_ITS ---
WS: [id number] THYROID ULTRASOUND REASON FOR EXAM: see below TECHNIQUE: Grayscale and Doppler ultrasound examination of the thyroid gland. FINDINGS: Total thyroidectomy. No significant cervical adenopathy. No neck mass. US/US thyroid [id number] IMPRESSION: Status post thyroidectomy with no significant abnormality.
[2025-03-30 12:47] LABS: Thyroid Stimulating Hormone 22.12 uIU/mL (0.27-4.20)
[2025-04-02 13:35] LABS: Free T4 Free Thyroxine 1.50 ng/dL (0.82-1.77)
== END 2025-04-12 23:59 | disposition home or self-care (01) ==
LOC: RAD 11:17 → ONCMED 04-02 09:15
PROVIDERS: Internal Medicine; PCP Family Medicine; Visit Provider Family Medicine
DX: Z08 Encounter for follow-up examination after completed treatment for malignant neoplasm (principal); Z85.46 Personal history of malignant neoplasm of prostate; N13.8 Other obstructive and reflux uropathy; N40.1 Benign prostatic hyperplasia with lower urinary tract symptoms; E03.9 Hypothyroidism, unspecified; Z86.711 Personal history of pulmonary embolism; Z90.89 Acquired absence of other organs; Z92.21 Personal history of antineoplastic chemotherapy; Z92.3 Personal history of irradiation; C73 Malignant neoplasm of thyroid gland; C77.0 Secondary and unspecified malignant neoplasm of lymph nodes of head, face and neck
CPT/HCPCS: 36415; 76536; 84432; 84439; 84443; 86800

== ENCOUNTER → 2025-04-04 09:16 | Outpatient (BNVA) | payer MEDICARE, OTHER, SELFPAY | PROVIDERS: PCP Family Medicine; Visit Provider Nurse Practitioner Family | DX: I48.91 Unspecified atrial fibrillation (principal); Z79.82 Long term (current) use of aspirin; I47.29 Other ventricular tachycardia; M51.379 Other intervertebral disc degeneration, lumbosacral region without mention of lumbar back pain or lower extremity pain; N40.1 Benign prostatic hyperplasia with lower urinary tract symptoms; Z86.711 Personal history of pulmonary embolism | CPT/HCPCS: 99213 ==

== ENCOUNTER → 2025-04-05 09:27 | Outpatient (BNVA) | payer MEDICARE, OTHER, SELFPAY | PROVIDERS: PCP Family Medicine; Visit Provider Internal Medicine | DX: E03.9 Hypothyroidism, unspecified (principal); C73 Malignant neoplasm of thyroid gland | CPT/HCPCS: 99214 ==

== ENCOUNTER 2025-05-03 12:07 | Outpatient (CLI) | payer MEDICARE, OTHER, SELFPAY ==
[2025-05-03 13:07] LABS: Thyroid Stimulating Hormone 5.27 uIU/mL (0.27-4.20)
[2025-05-03 13:31] LABS: Free T4 Free Thyroxine 1.57 ng/dL (0.82-1.77)
== END 2025-05-03 12:08 | disposition home or self-care (01) ==
PROVIDERS: PCP Family Medicine; Visit Provider Internal Medicine
DX: E03.9 Hypothyroidism, unspecified (principal)
CPT/HCPCS: 36415; 84439; 84443

== ENCOUNTER → 2025-05-04 11:31 | Outpatient (BNVA) | payer MEDICARE, OTHER, SELFPAY | PROVIDERS: PCP Family Medicine; Visit Provider Internal Medicine | DX: E03.9 Hypothyroidism, unspecified (principal) | CPT/HCPCS: 99214 ==

== ENCOUNTER → 2025-05-07 08:00 | Outpatient (BNVA) | payer MEDICARE, OTHER, SELFPAY | PROVIDERS: PCP Family Medicine; Visit Provider Podiatrist Foot & Ankle Surgery | DX: L57.8 Other skin changes due to chronic exposure to nonionizing radiation (principal); X32.XXXA Exposure to sunlight, initial encounter; L81.4 Other melanin hyperpigmentation; L91.8 Other hypertrophic disorders of the skin; L73.8 Other specified follicular disorders; L82.1 Other seborrheic keratosis; Z08 Encounter for follow-up examination after completed treatment for malignant neoplasm; Z85.828 Personal history of other malignant neoplasm of skin; L82.0 Inflamed seborrheic keratosis; L53.8 Other specified erythematous conditions; R20.8 Other disturbances of skin sensation; L29.89 Other pruritus; L57.0 Actinic keratosis; L60.0 Ingrowing nail | CPT/HCPCS: 11750; 17000; 17110; 99213; J9999 ==

== ENCOUNTER 2025-05-16 12:36 | Outpatient (CLI) | payer MEDICARE, OTHER, SELFPAY ==
[2025-05-16 13:03] LABS: Hematocrit 46.2 % (37-53); Hemoglobin 16.10 g/dL (11.27-16.99); Mean Corpuscular HGB Conc 34.8 g/dL (30-55); Mean Corpuscular Hemoglobin 31.9 pg (27-33); Mean Corpuscular Volume 91.7 fl (82-101); Nucleated Red Blood Cells % 0 %; Platelet Count 186 10^3/cmm (157-399); Red Blood Count 5.04 10^6/uL (3.85-5.65); White Blood Count 5.32 10^3/uL (3.29-11.43)
[2025-05-16 13:56] LABS: Alanine Aminotransferase 16 U/L (0-41); Albumin Level 4.2 g/dL (3.5-5.2); Alkaline Phosphatase 91 U/L (40-130); Anion Gap 15.6 (5-19); Aspartate Amino Transferase 22 U/L (0-40); Blood Urea Nitrogen 19 mg/dL (8-23); Calcium 9.8 mg/dL (8.5-10.5); Carbon Dioxide 26 mmol/L (22-29); Chloride 103 mmol/L (98-107); Globulin 3.0 g/dL (1.3-4.6); Glucose 99 mg/dL (65-115); Osmolality Calculated 292 mOsm/kg (285-295); Potassium 4.6 mmol/L (3.5-5.1); Prostate Specific Antigen 0.206 ng/mL (0-4); Sodium 140 mmol/L (136-145); Total Protein 7.2 g/dL (6.6-8.7)
[2025-05-17 11:46] LABS: Free T4 Free Thyroxine 1.33 ng/dL (0.82-1.77); Thyroid Stimulating Hormone 12.32 uIU/mL (0.27-4.20)
== END 2025-05-16 12:37 | disposition home or self-care (01) ==
PROVIDERS: Nurse Practitioner Family; PCP Family Medicine; Visit Provider Internal Medicine
DX: C61 Malignant neoplasm of prostate (principal); E03.9 Hypothyroidism, unspecified
CPT/HCPCS: 36415; 80053; 84153; 84403; 84439; 84443; 85025

== ENCOUNTER → 2025-05-17 10:34 | Outpatient (BNVA) | payer MEDICARE, OTHER, SELFPAY | PROVIDERS: PCP Family Medicine; Visit Provider Internal Medicine | DX: C73 Malignant neoplasm of thyroid gland (principal); C77.0 Secondary and unspecified malignant neoplasm of lymph nodes of head, face and neck; E03.9 Hypothyroidism, unspecified; I48.91 Unspecified atrial fibrillation | CPT/HCPCS: 99214 ==

== ENCOUNTER → 2025-05-21 08:43 | Outpatient (BNVA) | payer MEDICARE, OTHER, SELFPAY | PROVIDERS: PCP Family Medicine; Visit Provider Podiatrist Foot & Ankle Surgery | DX: L60.0 Ingrowing nail (principal) | CPT/HCPCS: 99213 ==

== ENCOUNTER 2025-05-23 12:08 | Observation (INO) | payer MEDICARE, OTHER, SELFPAY ==
--- OUTSIDE RECORDS SUMMARY | 2025-01-04 12:00 | XMS_ITS ---
Author Organization [email or web address] [facility], [facility] Address [address] [facility] [address] [place] [address] Care Team Providers Care Machining Supervisor Name Role Phone Jhony Esparza DO Primary Care Provider DOUG Fritz Unavailable [phone] REASON FOR VISIT 1 yr w/ ua/pvr/psa Encounters Encounter Location Date Provider Diagnosis [email or web address], [facility] [address] [place] [address] 01/04/2025 DOUG FERGUSON Plan Of Treatment No Information Progress Notes * Bryant CROSS GDOB:1945 (79 yo M)Acc No.[id number]:01/04/2025 Progress Notes Patient: Bryant MOSLEY Provider: Catherine Ferguson APRN :1945 A ge:79 Y S ex:Male Date:01/04/2025 Address:[address] [place], [place] [id number] Pcp:Jhony Esparza DO Subjective: * Chief Complaints: * 1 . 1 yr w/ ua/pvr/psa. * Medical History: Objective: * Vitals: Assessment: Plan: * Treatment: * Billing Information: * Visit Code: * Procedure Codes: * Electronic signature of JADEN FERGUSON APRN on 05/23/2025 at 12:13 PM CDT Sign off status: Pending * Provider: Catherine Ferguson APRN Date: 01/04/2025 Generated for Isaac mix/Eros/eTransmitting on: 05/23/2025 12:13 PM CDT
[2025-05-23] VITALS (23 sets, daily range): BP systolic 93–114; BP diastolic 49–88; PULSE 58–147; RESP 13–29; TEMP 36.4–36.6; O2SAT 94–99; BMI 23.7
--- OUTSIDE RECORDS SUMMARY | 2025-05-23 12:12 | XMS_ITS | Patient Health Record ---
Author Organization [employer] [facility] Address [address] [place] [address] Care Team Providers Care Coal Washer Name Role Phone Jhony Esparza DO Primary Care Provider Unavail DOUG Hernandez Unavailable [phone] Allergies Allergen (clinical drug ingredient) Drug/Non Drug Allergy documented on EMR Reaction Allergy Type Onset Date Status Levaquin Unknown Drug Allergy Active tramadol Tramadol Unknown Drug Allergy Active Reason For Referral No Information Medications Medication SIG (Take, Route, Frequency, Duration) Notes Start Date End Date Status methIMAzole 10 MG TAKE 2 TABLETS BY MO UTH EVERY DAY Oral; Duration: 30 Days Active Metoprolol Succinate ER 25 MG Oral; Duration: 60 Days Acti ve Pantoprazole Sodium 40 MG Oral; Duration: 30 Days Active methIMAzole 10 MG Oral; Duration: 30 Days Active Finasteride 5 MG Oral; Duration: 90 Days Active Losartan Potassium 25 MG Oral; Duration: 90 Days Active Pantoprazole Sodium 40 MG TAKE 1 TABLET BY MOUTH TWICE DAILY FOR SIX WEEKS Oral; Duration: 42 Days Active Losartan Potassium 25 MG TAKE 1 TABLET B Y MOUTH EVERY MORNING Oral; Duration: 90 Days Active Metoprolol Succinate ER 25 MG TAKE 1 TABLET BY MOUTH EVERY DAY Oral; Duration: 60 Days Active Flecainide Acetate 50 MG TAKE 1 TABLET B Y MOUTH EVERY TWELVE HOURS Oral; Duration: 60 Days Active Social History Tobacco Use: Social History Observation Description Date Details (start date - stop date) Never Smoker NA - NA Tobacco Control (Standard) Question Answer Notes Tobacco use: Nonsmoker Problems Problem Type SNOMED Code ICD Code Onset Dates Problem Status W/U Status Risk Notes Problem Malignant neoplasm of prostate (257993856) Malignant neoplasm of prostate (C61) Active confirmed Problem History of external beam radiation therapy (7428000337557 3) History of external beam radiation therapy (Z92.3) Active confirmed Encounters Encounter Location Date Provider Diagnosis [facility], [place] [address] [place] [address] 01/04/2025 DOUG FERGUSON Plan Of Treatment Pending Test Test Name Order Date TESTOSTERONE, TOTAL, MALES (ADULT), [place] ( 873) 01/03/2024 PSA, TOTAL (5363) 01/03/2024 Future Test Test Name Order Date TESTOSTERONE, TOTAL, MALES (ADULT), [place] ( 873) 07/01/2024 PSA, TOTAL (5363) 07/01/2024 Insurance Providers Payer Name Payer Address Payer Phone Subscriber Number Group Number Insured Name Patient Relationship to Insured Coverage Start Date Coverage End Date [place] [address] VERÓNICA DONNY DICKEY [id number] Bryant Cross Self - patient is the insured [employer] [address] [place], [place] [address]MAGY QUIROS [id number] Bryant Cross Self - patient is the insured Medical (General) History Medical History History ICD Code Prostate ca thyroid cancer history of brain bleed skin cancer Surgical History Surgery Date(Month/Year) hernia surgery finger on right hand retina surgery thyroid partially removed
--- OUTSIDE RECORDS SUMMARY | 2025-05-23 12:12 | XMS_ITS | Clinical Summary ---
Author Organization [facility] Address [address] [place] [address] Care Team Providers Care Engineering Agent Name Role Phone Tom Sow MD Primary Care Provider Allergies Active Allergy Reactions Criticality Noted Date Comments Levofloxacin Hives High 11/18/2009 Tramadol Confusion Low 08/10/2016 Medications MAGNESIUM CHLORIDE (MAG 64 PO) Take 1 Tablet by mouth daily . Active raNITIdine (ZANTAC) 150 mg tablet Take 150 mg by mouth 2 times daily . 06/13/2016 Active meloxicam (MOBIC) 15 mg tablet Take 15 mg by mouth daily . 06/13/2016 Active VIT A/VIT C/VIT E/ZINC/COPPER (OCUVITE PRESERVISION ORAL) Take 1 Tablet by mouth 2 times daily. Active zinc sulfate 220 (50) mg capsule Take 220 mg by mouth 1 time daily as needed. 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 Gender Identity Not on file Sexual Orientation Not on file Last Filed Vital Signs Vital Sign [place] Time Taken Comments Blood Pressure 125/76 11/17/2016 11:20 AM NATIONAL STORMWATER LEADER Pulse 73 11/17/2016 11:20 AM NATIONAL STORMWATER LEADER Temperature 36.8 C (98.2 F) 08/19/2016 1:00 PM 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 STORMWATER LEADER Respiratory Rate 13 08/19/2016 12:00 PM NATIONAL STORMWATER LEADER Oxygen Saturation 93% 08/19/2016 1:00 PM NATIONAL STORMWATER LEADER Inhaled Oxygen Concentration - - Weight 79.4 kg (175 lb) 11/17/2016 11:20 AM 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 STORMWATER LEADER Height 180.3 cm (5' 11 ) 11/17/2016 11:20 AM 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 STORMWATER LEADER Body Mass Index 24.41 11/17/2016 11:20 AM NATIONAL STORMWATER LEADER Plan of Treatment Health Maintenance Due Date Last Done Comments DTAP/TDAP/TD VACCINES (1 - Tdap) 1964 PNEUMOCOCCAL VACCINE 50+ YEARS (1 of 1 - PCV) 09/25/18 94 ZOSTER VACCINE (1 of 2) 1993 RSV VACCINE (60+ or ) (1 - 1-dose 75+ series) 2018 INFLUENZA VACCINE (#1) 2025 Medical Devices Implanted Type Area Pm Head Cook Device Identifier Shelf Expiration Date Model / Serial / Lot Anchr Tnds Biocmp Swvlck 7mm [id number] - [id number] Implanted:Qty: 1 on 08/19/2016 by Gorge Martin III, MD at [facility] Right: Shoulder [employer] 09/13/2017 AR-1662BCC -7 / / [id number] [place] Speedbridge W/ Biocmpst Swivelck [id number] - [id number] Implanted:Qty: 1 on 08/19/2016 by Gorge Martin III, MD at [facility] Right: Shoulder [employer] 01/10/2018 AR-[id number] -4 / / [id number] [place] Sut Bio Swvlck-C 4.17x56xm [id number] - [id number] Implanted:Qty: 1 on 08/19/2016 by Gorge Martin III, MD at [facility] Right: Shoulder [employer] 01/11/2018 AR-[id number] -2 / / [id number] Insurance MEDICARE PART A AND B [facility] MEDICARE PART A AND B Advance Directives For more information, please contact: [phone] * Full Code (Latest Code Status on File) Date Activated Date Inactivated Comments 08/19/2016 7:38 AM 08/19/2016 3:40 PM * Full Code Date Activated Date Inactivated Comments 08/19/2016 6:54 AM 08/19/2016 7:38 AM Care Teams Engineering Agent Relationship Specialty [place] [address] [place] [id number] PCP - General Family Practice 10/03/15
--- OUTSIDE RECORDS SUMMARY | 2025-05-23 12:12 | XMS_ITS | Clinical Summary ---
Author Organization [facility] Address [address] [facility] Attn: Epic [place] [address] Care Team Providers Care Automatic Buffer Name Role Phone Tom Sow MD Primary Care Provider [phone] Allergies Active Allergy Reactions Criticality Noted Date Comments Levofloxacin Hives High 11/18/2009 Tramadol Confusion Low 08/10/2016 Medications carvediloL (COREG) 12.5 mg tablet Take 1 Tablet (12.5 mg) by mouth every 12 hours. 60 Tablet 1 Active finasteride (PROSCAR) 5 mg tablet Take 1 Tablet (5 mg) by mouth daily. 30 Tablet 1 Active levothyroxine 25 mcg tablet Take 1 Tablet (25 mcg) by mouth daily in the morning. 30 Tablet 1 Active melatonin 3 mg Tablet Take 2 Tablets (6 mg) by mouth daily at bedtime. 30 Each 1 Active menthol (HALLS COUGH DROPS) 7.6 mg Lozenge 1 Lozenge (7.6 mg) by See Admin Instructions route every 2 hours as needed for Sore Throat. 1 Active modafiniL (PROVIGIL) 200 mg TabletIndication s:Subarachnoid hemorrhage (CMS/HCC),Cognit silvia impairment Take 1 Tablet (200 mg) by mouth daily. 30 Tablet 1 Active multivitamin,berta cium,minerals,ir on,folic acid (THERA-M,THERA-M PLUS) 9 mg iron-400 mcg Tablet Take 1 Tablet by mouth daily. 1 Active phenoL (CHLORASEPTIC) 1.4 % Aerosol, [place] 1 [place] by Mouth/Throat route every 2 hours as needed for Discomfort or Sore Throat. 1 Active tamsulosin (FLOMAX) 0.4 mg capsule Take 1 Capsule (0.4 mg) by mouth daily after supper. 30 Capsule 1 Active Vit C-Vit G-Qawznx-UzKx-Katy tein (PRESERVISION) 226 mg-200 unit -5 mg-0.8 mg Capsule Take 1 Capsule by mouth daily. 1 Active zinc sulfate 50 mg zinc (220 mg) capsule Take 1 Capsule (220 mg) by mouth daily. 1 Active raNITIdine (ZANTAC) 150 mg tablet Take 150 mg by mouth 2 times daily . 6 Active vit A/vit C/vit E/zinc/copper (OCUVITE PRESERVISION ORAL) Take 1 Tablet by mouth 2 times daily. 6 Active meloxicam (MOBIC) 15 mg tablet Take 15 mg by mouth daily . 6 Active zinc sulfate 50 mg zinc (220 mg) capsule Take 220 mg by mouth 1 time daily as needed. 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 BPH (benign prostatic hyperplasia) 06/05/2021 Hypothyroidism 06/05/2021 Hyponatremia 06/05/2021 HTN (hypertension), benign 06/05/2021 Cognitive impairment 06/05/2021 Impaired mobility and ADLs 06/05/2021 GERD (gastroesophageal reflux disease) 0 Dysphagia, pharyngoesophageal phase 11/18/2009 Immunizations Immunization Administration Dates Next Due INFLUENZA VACCINE HIGH DOSE QUADRIVALENT 65 YR U P PF IM 06/24/2021 Social History Tobacco Use Types Packs/Day Years Used Date Smoking Tobacco: Never Smokeless Tobacco: Never Alcohol Use Standard Drinks/Week Comments No 0 (1 standard drink = 0.6 oz pur e alcohol) Sex and Gender Information Value Date Recorded Sex Assigned at Not on file 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 Gender Identity Not on file Sexual Orientation Not on file Last Filed Vital Signs Vital Sign [place] Time Taken Comments Blood Pressure 113/71 06/24/2021 3:33 AM CDT Pulse 67 06/24/2021 3:33 AM CDT Temperature 36.4 C (97.5 F) 06/24/2021 3:33 AM CDT Respiratory Rate 16 06/24/2021 3:33 AM CDT Oxygen Saturation 97% 06/24/2021 3:33 AM CDT Inhaled Oxygen Concentration - - Weight 69.8 kg (153 lb 12.8 oz) 06/22/2021 5:11 AM CDT Height 180.3 cm (5' 11 ) 06/05/2021 4:05 PM CDT Body Mass Index 21.45 06/05/2021 4:05 PM CDT Plan of Treatment Health Maintenance Due Date Last Done Comments DTAP/TDAP/TD VACCINES (1 - Tdap) 1962 PNEUMOCOCCAL VACCINE 50+ YEARS (1 of 1 - PCV) 09/25/18 94 ZOSTER VACCINE (1 of 2) 1993 RSV VACCINE (60+ or ) (1 - 1-dose 75+ series) 2018 INFLUENZA VACCINE (#1) 2025 06/24/2021 Medical Devices Implanted Type Area Chemistry Laboratory Technician Device Identifier Shelf Expiration Date Model / Serial / Lot [place] Speedbridge W/ Biocmpst Wali [id number] - [id number] Implanted:Qty: 1 on 08/19/2016 by Gorge Martin III, MD [place] Right: Shoulder [employer] 01/10/2018 AR-2600SBS -4 / / [id number] [place] Sut Bio Swvlck-C 4.20z65us [id number] - [id number] Implanted:Qty: 1 on 08/19/2016 by Gorge Martin III, MD [place] Right: Shoulder [employer] 01/11/2018 AR-2324BCC -2 / / [id number] Anchr Tnds Biocmp Swvlck 7mm [id number] - [id number] Implanted:Qty: 1 on 08/19/2016 by Gorge Martin III, MD [place] Right: Shoulder [employer] 09/13/2017 AR-[id number] -7 / / [id number] Insurance MEDICARE PART A AND B [facility] Advance Directives For more information, please contact: [phone] * Full Code (Latest Code Status on File) Date Activated Date Inactivated Comments 06/05/2021 4:20 PM 06/24/2021 3:52 PM Care Teams Automatic Buffer Relationship Specialty Start Date End Date Tom Sow MD [address] [place] [id number] PCP - General Family Practice 10/03/15
--- NOTE | 2025-05-23 12:19 | W.ED.ARRPALP ---
HPI - Arrhythmia/Palpitations General: Chief Complaint: Arrhythmia/Palpitations Stated Complaint: Chest pain Time Seen by Provider: 05/23/25 12:14 History of Present Illness: 79-year-old man with a history of atrial fibrillation, history of intracranial hemorrhage so not on any anticoagulation any longer, hypertension, depression, arthritis, obstructive sleep apnea, and a history of thyroid cancer now with hypothyroidism who presents to the emergency room with palpitations and tachycardia. He says he woke up this way. He says whenever he sits up quickly he gets a little bit dizzy. No chest pain. Some shortness of breath and dizziness with exertion. He does have a history of atrial fibrillation. No fevers. No cough. No abdominal pain. No vomiting. No altered mental status. No focal motor deficits Related Data Home Medications ?Medication ?Instructions ?Recorded ?Confirmed vit C 250 mg-vit E 90 mg-zinc 40 1 tab PO BID 07/22/21 05/23/25 mg-copper 1 nn-nnmpyh-dwvvud capsule (PreserVision AREDS-2) magnesium 200 mg tablet 200 mg PO DAILY 01/18/23 05/23/25 zinc acetate 50 mg (zinc) capsule 50 mg PO DAILY 01/18/23 05/23/25 Previous Rx's ?Medication ?Instructions ?Recorded albuterol sulfate 90 mcg/actuation 2 puff inhalation Q4H PRN 12/12/24 aerosol inhaler shortness of breath or wheezing #8.5 grams aspirin 81 mg tablet,delayed 81 mg PO DAILY #90 tabs 12/12/24 release (Adult Aspirin Regimen) finasteride 5 mg tablet 5 mg PO DAILY #90 tabs 12/12/24 flecainide 50 mg tablet 50 mg PO Q12H #180 tabs 12/12/24 losartan 25 mg tablet 25 mg PO QAM #90 tabs 12/12/24 metoprolol succinate 25 mg 25 mg PO DAILY #90 tabs 12/12/24 tablet,extended release 24 hr tamsulosin 0.4 mg capsule 0.4 mg PO BID #180 caps 12/12/24 pantoprazole 40 mg tablet,delayed 40 mg PO DAILY #90 tabs 02/02/25 release (Protonix) silver sulfadiazine 1 % topical 1 applic topical BID #50 grams 05/07/25 cream (Silvadene) levothyroxine 175 mcg tablet See Rx Instructions .Route 05/18/25 (Synthroid) .COMPLEX #102 tabs Allergies Allergy/AdvReac Type Severity Reaction Status Date / Time levofloxacin (From Levaquin) Allergy Severe ALGY-Rash Verified 05/21/25 08:45 tramadol (From Ultram) AdvReac Mild Unknown Verified 05/21/25 08:45 Review of Systems Narrative: Constitutional symptoms: Negative except as documented in HPI. Skin symptoms: Negative except as documented in HPI. Eye symptoms: Negative except as documented in HPI. ENMT symptoms: Negative except as documented in HPI. Respiratory symptoms: Negative except as documented in HPI. Cardiovascular symptoms: Negative except as documented in HPI. Gastrointestinal symptoms: Negative except as documented in HPI. Genitourinary symptoms: Negative except as documented in HPI. Musculoskeletal symptoms: Negative except as documented in HPI. Neurologic symptoms: Negative except as documented in HPI. Psychiatric symptoms: Negative except as documented in HPI. Endocrine symptoms: Negative except as documented in HPI. PFSH ED PFSH: Medical History (Updated 05/23/25 @ 14:38 by Socorro Lara MD) Moderate major depression Essential hypertension H/O radioactive iodine thyroid ablation Pincer nail deformity V tach Atrial fibrillation History of pulmonary embolism Hyperlipidemia GERD (gastroesophageal reflux disease) Degenerative joint disease of spine Degenerative arthritis Obstructive sleep apnea Asthma Back pain History of subarachnoid hemorrhage Thyroid cancer Elevated PSA BPH with obstruction/lower urinary tract symptoms Surgical History History of esophagogastroduodenoscopy (EGD) Dr Gasca and Dr Ahuja Hx of colonoscopy x3 10+ years Status post surgical removal of malignant neoplasm of skin Basal cell skin cancer History of thyroid surgery (05/21/21) Right hemithyroidectomy History of hernia repair Bilateral inguinal hernia repair History of eye surgery History of surgical removal of ganglion cyst History of rotator cuff surgery Family History Father , at age 77 Lung cancer Mother , at age 64 Colon cancer Social History Smoking and tobacco/nicotine status: never used tobacco/nicotine Second hand smoke exposure: Yes Alcohol intake: never Substance/Drug Use: never Adopted: No Caregiver/support person: No Lives independently: Yes Household members: spouse Marital status: Current occupational status: retired Do you think of yourself as: Straight/Heterosexual Current gender identity: Male Physical Exam Narrative: EXAM NARRATIVE: General: Alert, no acute distress. Skin: Warm, dry. Head: Normocephalic, atraumatic. Neck: Supple, trachea midline. Eye: Extraocular movements are intact. Ears, nose, mouth and throat: mucosa moist. Cardiovascular: Tachycardic, Normal peripheral perfusion. Respiratory: Lungs are clear to auscultation, respirations are non-labored, breath sounds are equal, Symmetrical chest wall expansion. Gastrointestinal: Soft, Nontender, Non distended Musculoskeletal: Normal ROM, no deformity. Neurological: Alert and oriented, No focal neurological deficit observed. Psychiatric: Cooperative, appropriate mood & affect. Course Vital Signs: Vital signs: Vital Signs Temperature 97.5 F L 05/23/25 12:10 Pulse Rate 65 05/23/25 14:30 Respiratory Rate 18 05/23/25 12:27 Blood Pressure 94/58 05/23/25 14:30 Pulse Oximetry 98 05/23/25 14:30 Oxygen Delivery Me thod Room Air 05/23/25 14:30 MDM - Arrhythmia/Palpitations Medical Decision Making Medical decision making: Differential diagnosis including but not limited to and based on the above HPI, review of systems and physical exam: for patient with palpitations: atrial fibrillation with rapid ventricular response. ventricular tachycardia. sinus tachycardia. PVCs. also concern for underlying issues causing tachycardia. Infection, electrolyte abnormalities and thyroid issues. Orders placed to evaluate differential diagnosis based on the above differential, HPI and physical exam EKG: Time 1211. Rate 152. Atrial fibrillation with rapid ventricular response, nonspecific ST-T changes, no ectopy, This was reviewed and interpreted by myself the ER physician at 1212 Chest x-ray: No acute process. No infiltrate. No pneumothorax. This was reviewed and interpreted by myself the emergency room physician. I also reviewed the radiology report. Lab Review: Laboratory results were reviewed and interpreted by myself the emergency room physician. No leukocytosis. Hemoglobin bit elevated at 17. BUN and creatinine are little above his baseline at 21 and 1.3. I reviewed the patient's medical record. Reexamination: Patient has converted into a sinus rhythm. He has no chest pain complaints at this time. Blood pressure had come back up initially but is now back down to around to 100 systolic on admission. No increased work of breathing. No altered mental status. Consultation: I spoke with Dr. Wayne who is on-call for the hospitalist service and agrees to admission to observation. Assessment and plan: Atrial fibrillation with rapid ventricular response Elevated troponin - Normal saline bolus and an amiodarone bolus. I have stopped the amiodarone drip. -I discussed the patient with the hospitalist on-call who is admitting the patient. - Discussed findings and plan with patient. Answered any questions. - All laboratory values were reviewed and interpreted personally by myself, the ER physician - All imaging was reviewed and interpreted personally by myself, the ER physician. - Evaluation and treatment of this problem were appropriate in the emergency setting Lab Data 05/23/25 12:17 05/23/25 12:17 Radiology Impressions Chest X-Ray 05/23/25 12:22 Impression: Hyperinflation and atherosclerosis. Laboratory Results WBC 9.28 10^3/uL (3.29-11.43) 05/23/25 12:17 RBC 5.54 10^6/uL (3.85-5.65) 05/23/25 12:17 Hgb 17.40 g/dL (11.27-16.99) H 05/23/25 12:17 Hct 51.0 % (37-53) 05/23/25 12:17 MCV 92.1 fl (82-101) 05/23/25 12:17 MCH 31.4 pg (27-33) 05/23/25 12:17 MCHC 34.1 g/dL (30-55) 05/23/25 12:17 RDW 13.9 % (12.1-15.1) 05/23/25 12:17 Plt Count 204 10^3/cmm (157-399) 05/23/25 12:17 MPV 10.1 fL (7.4-10.4) 05/23/25 12:17 Neut % (Auto) 69.1 % 05/23/25 12:17 Lymph % (Auto) 18.0 % 05/23/25 12:17 [place] % (Auto) 8.7 % 05/23/25 12:17 Eos % (Auto) 3.0 % 05/23/25 12:17 Baso % (Auto) 0.8 % 05/23/25 12:17 Neut # (Auto) 6.41 10^3/uL (1.8-7.7) 05/23/25 12:17 Lymph # (Auto) 1.7 10^3/uL (0.8-4.8) 05/23/25 12:17 [place] # (Auto) 0.8 10^3/uL (0.2-0.9) 05/23/25 12:17 Eos # (Auto) 0.3 10^3/uL (0.0-0.8) 05/23/25 12:17 Baso # (Auto) 0.1 10^3/uL (0.0-0.1) 05/23/25 12:17 Nucleated RBC % (auto) 0 % 05/23/25 12:17 Nucleated RBCs # 0.0 /100WBC 05/23/25 12:17 Sodium 140 mmol/L (136-145) 05/23/25 12:17 Potassium 4.2 mmol/L (3.5-5.1) 05/23/25 12:17 Chloride 105 mmol/L (98-107) 05/23/25 12:17 Carbon Dioxide 23 mmol/L (22-29) 05/23/25 12:17 Anion Gap 16.2 (5-19) 05/23/25 12:17 BUN 21 mg/dL (8-23) 05/23/25 12:17 Creatinine 1.3 mg/dL (0.7-1.2) H 05/23/25 12:17 GFR Calculation Not Reportable 05/23/25 12:17 Glucose 127 mg/dL (65-115) H 05/23/25 12:17 Calculated Osmolality 295 mOsm/kg (285-295) 05/23/25 12:17 Lactic Acid 1.5 mmol/L (0.5-2.2) 05/23/25 12:17 Calcium 9.7 mg/dL (8.5-10.5) 05/23/25 12:17 Magnesium 2.1 mg/dL (1.7-2.3) 05/23/25 12:17 Total Bilirubin 1.3 mg/dL (0.15-1.2) H 05/23/25 12:17 AST 22 U/L (0-40) 05/23/25 12:17 ALT 15 U/L (0-41) 05/23/25 12:17 Alkaline Phosphatase 84 U/L (40-130) 05/23/25 12:17 Troponin T Baseline 59 ng/L (0-15) H 05/23/25 12:17 Troponin T 120 Minute 95.65 ng/L (0-15) H 05/23/25 13:53 Delta Troponin T 36.65 ABS# (0-10) H* 05/23/25 13:53 NT-Pro-B Natriuret Pep 777 pg/mL (0-450) H 05/23/25 12:17 Total Protein 6.8 g/dL (6.6-8.7) 05/23/25 12:17 Albumin 4.4 g/dL (3.5-5.2) 05/23/25 12:17 Globulin 2.4 g/dL (1.3-4.6) 05/23/25 12:17 TSH 18.39 uIU/mL (0.27-4.20) H 05/23/25 12:17 Urine Color Yellow (Yellow) 05/23/25 14:00 Urine Appearance Cloudy (CLEAR) A 05/23/25 14:00 Urine pH 5.0 (5-7) 05/23/25 14:00 Ur Specific [place] 1.023 (1.005-1.030) 05/23/25 14:00 Urine Protein Negative (Negative) 05/23/25 14:00 Urine Glucose (UA) Negative (Normal) 05/23/25 14:00 Urine Ketones Negative (Negative) 05/23/25 14:00 Urine Blood Negative (Negative) 05/23/25 14:00 Urine Nitrate Negative (Negative) 05/23/25 14:00 Urine Bilirubin Negative (Negative) 05/23/25 14:00 Urine Urobilinogen 1.0 mg/dL (Negative) 05/23/25 14:00 Ur Leukocyte Esterase Negative (Negative) 05/23/25 14:00 Urine RBC 0-2 /hpf (0-2) 05/23/25 14:00 Urine WBC 0-5 /hpf (0-5) 05/23/25 14:00 Ur Squamous Epith Cells 0-5 /hpf (0-5) 05/23/25 14:00 Amorphous Sediment Not Reportable 05/23/25 14:00 Urine Bacteria None seen /hpf (NONE) 05/23/25 14:00 Hyaline Casts 3.71 /lpf 05/23/25 14:00 All radiology interpretation(s) finalized by discharge Discharge Plan Discharge Patient Disposition: Placed in Observation Admit Provider: Rudolph Wayne Clinical Impression: Atrial fibrillation with rapid ventricular response, Elevated troponin Coding Level of Care Code ED 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
--- NOTE | 2025-05-23 12:22 | XR_ITS ---
WS: [id number] Portable AP upright chest, 05/23/2025 Clinical Data: palpitations Comparison: Two-view chest, 07/25/2024 Findings: No nodules, masses or effusions are seen. The heart is normal. The pulmonary vascularity is not increased. No pneumonia or pneumothorax is seen. The diaphragms are flattened. The aortic arch and descending thoracic aorta shows minimal tortuosity. Monitor leads are on the chest wall. There are small clips in the right supraclavicular region. XR/XR chest 1V portable [id number] Impression: Hyperinflation and atherosclerosis.
[2025-05-23 12:25] LABS: Hematocrit 51.0 % (37-53); Hemoglobin 17.40 g/dL (11.27-16.99); Mean Corpuscular HGB Conc 34.1 g/dL (30-55); Mean Corpuscular Hemoglobin 31.4 pg (27-33); Mean Corpuscular Volume 92.1 fl (82-101); Nucleated Red Blood Cells % 0 %; Platelet Count 204 10^3/cmm (157-399); Red Blood Count 5.54 10^6/uL (3.85-5.65); White Blood Count 9.28 10^3/uL (3.29-11.43)
[2025-05-23] MEDS: amiodarone 150 MG/100 ML PREMIX 400 MG IV (12:32)
[2025-05-23 12:45] LABS: Lactic Sepsis W/Reflex 1.5 mmol/L (0.5-2.2)
[2025-05-23 12:51] LABS: Troponin(5th) Baseline 59 ng/L (0-15)
[2025-05-23 12:59] LABS: Alanine Aminotransferase 15 U/L (0-41); Albumin Level 4.4 g/dL (3.5-5.2); Alkaline Phosphatase 84 U/L (40-130); Anion Gap 16.2 (5-19); Aspartate Amino Transferase 22 U/L (0-40); Blood Urea Nitrogen 21 mg/dL (8-23); Calcium 9.7 mg/dL (8.5-10.5); Carbon Dioxide 23 mmol/L (22-29); Chloride 105 mmol/L (98-107); Creatinine Clr Calc Pharmacy 47.9214; Globulin 2.4 g/dL (1.3-4.6); Glucose 127 mg/dL (65-115); Magnesium 2.1 mg/dL (1.7-2.3); NT Pro B Type Natriuretic Pept 777 pg/mL (0-450); Osmolality Calculated 295 mOsm/kg (285-295); Potassium 4.2 mmol/L (3.5-5.1); Sodium 140 mmol/L (136-145); Thyroid Stimulating Hormone 18.39 uIU/mL (0.27-4.20); Total Protein 6.8 g/dL (6.6-8.7)
[2025-05-23] MEDS: AMIODARONE HCL/D5W 900 MG/500 ML BAG 33.33 MG IV (13:00)
--- NOTE | 2025-05-23 14:13 | ECG_ITS ---
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 Measurements Intervals [place] Rate: 152 P: 0 WA: 0 QRS: 85 QRSD: 118 T: 39 QT: 274 QTc: 436 Interpretive Statements SUPRAVENTRICULAR TACHYCARDIA INTRAVENTRICULAR CONDUCTION DELAY [110+ ms QRS DURATION] MILD J POINT ST DEPRESSION [0.05+ mV ST DEPRESSION] Compared to ECG 09/30/2023 13:48:25 Intraventricular conduction delay now present ST deviation now present Sinus rhythm no longer present Electronically Signed On 05-23-2025 23:34:48 CDT by Clifton Rodriguez M.D. [email or web address]
[2025-05-23 14:18] LABS: Glucose Urine UA Negative (Normal); Nitrate Urine Negative (Negative); Specific Gravity, Urine 1.023 (1.005-1.030)
[2025-05-23 14:29] LABS: Troponin 5 2HR 95.65 ng/L (0-15)
[2025-05-23 14:31] LABS: Troponin 5 2HR Delta 36.65 ABS# (0-10)
--- NOTE | 2025-05-23 15:31 | PC.NURSE ---
Arrived on unit, AO x4, sinus rhythm on monitor, at bedside
--- NOTE | 2025-05-23 16:00 | PM.HP ---
Providers/Chief Complaint Admitting Physician: Rudolph Wayne DO Primary Care Provider: Hemant De Oliveira MD Chief Complaint: Chest pain History of Present Illness Bryant Cross is a 79 year old male presents to the emergency room after a few hours of irregular heartbeat. He states that he had no symptoms other than when standing he got lightheaded and dizzy. But he did not fall. He reports to me that he fairly frequently approximately once a week has episodes of irregular heartbeat without any symptoms. He states that usually goes away in a few minutes to no more than an hour. Today he awoke with the irregular rhythm again had no symptoms. He denies chest pain chest pressure shortness of breath or nausea. He was lightheaded when he attempted to stand and decided to come to the emergency room In the emergency room he was found to have a rapid ventricular response personally reviewed of EKG appears to be atrial flutter with a rate of 150. He received a bolus of amiodarone and converted to normal sinus rhythm and currently has a rate of 60. The concern is that the patient is not anticoagulated, already on flecainide and metoprolol and continues to have A-fib/a flutter. Although he is mostly asymptomatic today was a symptomatic response. Also concern his troponin initial was 59 and rodolfo to 95 after 2 hours. Review of Systems Const: Denies: fever(s) or chills Eyes: Denies: change in vision ENMT: Denies: throat pain or nasal congestion Card: Denies: chest pain or palpitations Resp: Denies: dyspnea or productive cough GI: Denies: abdominal pain, nausea, vomiting or change in stool character : Denies: difficulty urinating or dysuria Musc: Reports: back pain; Denies: extremity pain Skin/Breast: Denies: rash or lesions Neuro: Reports: dizziness and other (decrease in memory in the last 2 months, and not feeling sharp ); Denies: headache(s) Psych: Denies: anxiety or depression Oswaldo/Lymph: Denies: easy bruising or easy bleeding Medications/Allergies Home Medications ?Medication ?Instructions ?Recorded ?Confirmed ?Last Taken ?Type vit C 250 mg-vit E 90 mg-zinc 40 1 tab PO BID 07/22/21 05/23/25 05/23/25 History mg-copper 1 qy-owphul-bxenob capsule (PreserVision AREDS-2) magnesium 200 mg tablet 200 mg PO DAILY 01/18/23 05/23/25 05/23/25 History zinc acetate 50 mg (zinc) capsule 50 mg PO DAILY 01/18/23 05/23/25 05/23/25 History albuterol sulfate 90 mcg/actuation 2 puff inhalation Q4H PRN 12/12/24 05/23/25 Unknown Rx aerosol inhaler shortness of breath or wheezing #8.5 grams aspirin 81 mg tablet,delayed 81 mg PO DAILY #90 tabs 12/12/24 05/23/25 05/23/25 Rx release (Adult Aspirin Regimen) finasteride 5 mg tablet 5 mg PO DAILY #90 tabs 12/12/24 05/23/25 05/23/25 Rx flecainide 50 mg tablet 50 mg PO Q12H #180 tabs 12/12/24 05/23/25 05/23/25 Rx losartan 25 mg tablet 25 mg PO QAM #90 tabs 12/12/24 05/23/25 05/23/25 Rx metoprolol succinate 25 mg 25 mg PO DAILY #90 tabs 12/12/24 05/23/25 05/23/25 Rx tablet,extended release 24 hr tamsulosin 0.4 mg capsule 0.4 mg PO BID #180 caps 12/12/24 05/23/25 05/23/25 Rx pantoprazole 40 mg tablet,delayed 40 mg PO DAILY #90 tabs 02/02/25 05/23/25 05/23/25 Rx release (Protonix) silver sulfadiazine 1 % topical 1 applic topical BID #50 grams 05/07/25 05/23/25 05/23/25 Rx cream (Silvadene) levothyroxine 175 mcg tablet See Rx Instructions .Route 05/18/25 05/23/25 05/23/25 Rx (Synthroid) .COMPLEX #102 tabs Allergies Allergy/AdvReac Type Severity Reaction Status Date / Time levofloxacin (From Levaquin) Allergy Severe ALGY-Rash Verified 05/21/25 08:45 tramadol (From Ultram) AdvReac Mild Unknown Verified 05/21/25 08:45 PFSH Acute PFSH: Medical History Moderate major depression Essential hypertension H/O radioactive iodine thyroid ablation Pincer nail deformity V tach Atrial fibrillation History of pulmonary embolism Hyperlipidemia GERD (gastroesophageal reflux disease) Degenerative joint disease of spine Degenerative arthritis Obstructive sleep apnea Asthma Back pain History of subarachnoid hemorrhage Thyroid cancer Elevated PSA BPH with obstruction/lower urinary tract symptoms Surgical History History of esophagogastroduodenoscopy (EGD) Dr Gasca and Dr Ahuja Hx of colonoscopy x3 10+ years Status post surgical removal of malignant neoplasm of skin Basal cell skin cancer History of thyroid surgery (05/21/21) Right hemithyroidectomy History of hernia repair Bilateral inguinal hernia repair History of eye surgery History of surgical removal of ganglion cyst History of rotator cuff surgery Family History Father , at age 77 Lung cancer Mother , at age 64 Colon cancer Social History Smoking and tobacco/nicotine status: never used tobacco/nicotine Second hand smoke exposure: Yes Alcohol intake: never Substance/Drug Use: never Adopted: No Caregiver/support person: No Lives independently: Yes Household members: spouse Marital status: Current occupational status: retired Do you think of yourself as: Straight/Heterosexual Current gender identity: Male Vitals/I&O/Wt Last Vital Signs Temp 97.5 F L 05/23/25 12:10 Pulse 63 05/23/25 15:55 Resp 18 05/23/25 15:55 BP 107/67 05/23/25 15:55 Pulse Ox 96 05/23/25 15:55 O2 Del Method Room Air 05/23/25 15:32 05/23/25 05/23/25 05/23/25 06:59 14:59 22:59 Intake Total 1108.333 / 1108.333 Balance 1108.333 / 1108.333 Weight last 48 hrs Weight 77.111 kg Physical Exam Narrative: Elderly male in no acute distress at time of examination. Neuro alert and oriented to person place time and situation nonfocal exam. HEENT head is normocephalic atraumatic pupils equal round elective to light and accommodation extraocular muscles are intact there is no scleral icterus neck is supple no JVD carotid bruits or lymphadenopathy Heart is regular rate and rhythm distant heart sounds no loud murmur auscultated Lungs clear to auscultation without wheezes rales or rhonchi Abdomen soft nontender nondistended positive bowel sounds no hepatosplenomegaly Extremities no clubbing cyanosis or edema Back kyphosis noted in the thoracic spine no CVA tenderness Skin no rashes or concerning lesions Psych mood and affect are appropriate. Data 05/23/25 12:17 05/23/25 12:17 Other Labs: Troponin 59, 2-hour troponin 95 with a 36 delta Micro: Microbiology 05/23/25 12:41 Blood Culture - Preliminary Blood SPECIMEN COLLECTED 05/23/25 12:41 Blood Culture - Preliminary Blood SPECIMEN COLLECTED EKG 1: My Interpretation: A flutter rate of 150 A&P Assessment and plan 1. Atrial flutter with rapid ventricular response: Patient with longstanding history of A-fib/a flutter. He takes flecainide 50 mg twice daily losartan 25 mg daily and metoprolol 25 mg daily. He is usually asymptomatic with his symptoms once a week but today he was symptomatic upon standing. Denies chest pain chest pressure or shortness of breath or nausea. 2. Dizziness: With standing during arrhythmia. 3. History of intracranial hemorrhage: Patient believes this was in 2020 4. History of pulmonary embolism: Unknown timeframe 5. Low blood pressure reading: Patient had somewhat low blood pressure reading of 95/60 reported in the emergency room after receiving amiodarone bolus. 6. Elevated TSH: Interesting patient's TSH has increased from 5.2 on 821 25-12.3 on 05/16/2025 and today is 18.39. Suspect he stopped taking his medication 7. Elevated troponin: Delta of 36. Plan: Patient is admitted to observation status in the [facility]. He is currently in normal sinus rhythm no drips are ordered. I will give him normal saline overnight for blood pressure losartan and metoprolol on hold. I am going to hold flecainide until seen by Dr. Goodwin from cardiology. Continue other home medications Monitor and follow expectantly PDMP PDMP Reviewed: Not Reviewed Attestations Medical Necessity Statement*: Patient is placed in observation status with a less than 2 midnight stay expected. Coding Level of Care Code Acute Code for [facility] Fwd Diagnoses Atrial flutter with rapid ventricular response I48.92 Dizziness R42 History of intracranial hemorrhage Z86.79 History of pulmonary embolism Z86.711 Low blood pressure reading R03.1 Elevated TSH R79.89 Elevated troponin R79.89
--- NOTE | 2025-05-23 16:05 | P.CONIM_ITS ---
<Statement entered by Sanjuana Goodwin MD - 05/23/25 20:10> Patient was evaluated and cared for in conjunction with an advanced practice practitioner. I personally examined the patient and reviewed the chart and all pertinent data including imaging, telemetry, and laboratory results. I discussed the patient in detail with the advanced practice practitioner. Please see their note for complete H&P testing result and agreed upon plan of care for the patient. 79-year-old male presented with atrial flutter and rapid ventricular response with thyroid disorder on levothyroxine denies any prior history of coronary artery disease noted to have elevated troponin. Patient was manage at home with flecainide. GENERAL: Patient is alert, awake and oriented x3. HEART: Regular S1 and S2. No murmur, rub or gallop. LUNGS: Clear to auscultate bilaterally. CENTRAL NERVOUS SYSTEM: Grossly nonfocal. EXTREMITIES: Lower extremities with out edema bilaterally. Assessment and plan Atrial flutter with rapid ventricle response Abnormal elevated cardiac markers Elevated BNP Patient converted back to sinus rhythm with amiodarone however in the face of thyroid dysfunction amiodarone at the moment is not an appropriate medicine due to iodine mighty. Will recommend increasing flecainide to 75 mg twice daily from [facility] Because of elevated cardiac markers will ask for Lexiscan MIBI stress test for abnormal cardiac markers however will ask for echocardiogram to rule out any wall motion abnormalities BNP elevation secondary to possible rapid ventricle response or atrial stretch, will obtain echocardiogram to assess LV function as well patient on physical examination does not appear to be volume overloaded. 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 He is followed by Dr. Felipe, was treated with methimazole last year, had been prescribed levothyroxine 200 mcg daily but patient was self adjusting doses depending on how he felt. In March levothyroxine was decreased to 175 mcg daily. He presented to the emergency room earlier today due to noting rapid heart rate upon waking this morning, did not improve after he ate breakfast and began to have dizziness with position changes and standing. EKG in the ER revealed 2:1 atrial flutter, rate 152 bpm. Most recent echocardiogram in December showed normal LV function. CBC unremarkable, creatinine 1.3 (baseline 1.0-1.2). Troponin series: 59-> 95. BNP 777. He converted to sinus rhythm with amiodarone bolus. Does not currently have any amiodarone infusion. At home he has been on flecainide 50 mg twice daily and metoprolol succinate 25 mg daily. He has had discussion about Watchman device in the past, in reviewing his most recent note with his neurologist he was wanting to proceed, however during his visit in the cardiology clinic 04/04/2025 he had declined. He notes he also referred to [facility] in [place] for VT ablation, according to patient was unable to induce the rhythm at the time of the procedure, I do not have those notes in the system. Review of Systems 2 Const: Denies: fever(s), chills, change in weight, fatigue or diaphoresis Eyes: Denies: change in vision ENMT: Denies: epistaxis Card: Reports: palpitations (tachycardia) and pre-syncope (dizziness, especially on standing); Denies: chest pain, irregular heart rhythm, edema, syncope, dyspnea on exertion, orthopnea or leg pain with exertion Resp: Denies: dyspnea, productive cough or wheezing GI: Denies: nausea, vomiting, hematemesis, hematochezia or melena : Denies: hematuria Musc: Denies: extremity swelling Oswaldo/Lymph: Denies: easy bruising or easy bleeding Medications/Allergies Home Medications ?Medication ?Instructions ?Recorded ?Confirmed ?Last Taken ?Type vit C 250 mg-vit E 90 mg-zinc 40 1 tab PO BID 07/22/21 05/23/25 05/23/25 History mg-copper 1 kl-fldwky-fjhxao capsule (PreserVision AREDS-2) magnesium 200 mg tablet 200 mg PO DAILY 01/18/2307/0705/23/25 History zinc acetate 50 mg (zinc) capsule 50 mg PO DAILY 01/1805/23/25 05/23/25 History albuterol sulfate 90 mcg/actuation 2 puff inhalation Q 4H PRN 12/12/24 05/23/25 Unknown Rx aerosol inhaler shortness of breath or wheez ing #8.5 grams aspirin 81 mg tablet,delayed 81 mg PO DAILY #90 tabs 0 12/12/24 05/23/25 05/23/25 Rx release (Adult Aspirin Regimen) finasteride 5 mg tablet 5 mg PO DAILY #90 tabs 12/1205/23/25 05/23/25 Rx flecainide 50 mg tablet 50 mg PO Q12H #180 tabs 04/0 10/0705/23/25 05/23/25 Rx losartan 25 mg tablet 25 mg PO QAM #90 tabs 05/23/25 05/23/25 Rx metoprolol succinate 25 mg 25 mg PO DAILY #90 tabs 10/0705/23/25 05/23/25 Rx tablet,extended release 24 hr tamsulosin 0.4 mg capsule 0.4 mg PO BID #180 caps 04/10/0705/23/25 05/23/25 Rx pantoprazole 40 mg tablet,delayed 40 mg PO DAILY #90 t abs 02/02/25 05/23/25 05/23/25 Rx release (Protonix) silver sulfadiazine 1 % topical 1 applic topical BID # 50 grams 05/07/25 05/23/25 05/23/25 Rx cream (Silvadene) levothyroxine 175 mcg tablet See Rx Instructions .Rout e 05/18/25 05/23/25 05/23/25 Rx (Synthroid) .COMPLEX #102 tabs Allergies Allergy/AdvReac Type Severity Reaction Status Date / Time levofloxacin (From Levaquin) Allergy Severe ALGY-Rash Verified 05/21/25 08:45 tramadol (From Ultram) AdvReac Mild Unknown Verified 05/21/25 08:45 Current Medications Generic Name Dose Route Start Last Admin Trade Name Freq PRN Reason Stop Dose Admin AMIODARONE HCL/D5W 900 mg in 500 mls @ 0 mls/hr 05/23/25 12:18 05/23/25 13:15 Amiodarone 900 Mg/500 Ml-D5w IV 0 mg/min .Q0M DARCY 0 mls/hr Protocol Titration Per Protocol PFSH Acute 2 PFSH: Medical History Moderate major depression Essential hypertension H/O radioactive iodine thyroid ablation Pincer nail deformity V tach Atrial fibrillation History of pulmonary embolism Hyperlipidemia GERD (gastroesophageal reflux disease) Degenerative joint disease of spine Degenerative arthritis Obstructive sleep apnea Asthma Back pain History of subarachnoid hemorrhage Thyroid cancer Elevated PSA BPH with obstruction/lower urinary tract symptoms Surgical History History of esophagogastroduodenoscopy (EGD) Dr Gasca and Dr Ahuja Hx of colonoscopy x3 10+ years Status post surgical removal of malignant neoplasm of skin Basal cell skin cancer History of thyroid surgery (05/21/21) Right hemithyroidectomy History of hernia repair Bilateral inguinal hernia repair History of eye surgery History of surgical removal of ganglion cyst History of rotator cuff surgery Family History Father , at age 77 Lung cancer Mother , at age 64 Colon cancer Social History Smoking and tobacco/nicotine status: never used tobacco/nicotine Second hand smoke exposure: Yes Alcohol intake: never Substance/Drug Use: never Adopted: No Caregiver/support person: No Lives independently: Yes Household members: spouse Marital status: Current occupational status: retired Do you think of yourself as: Straight/Heterosexual Current gender identity: Male Vitals/I&O/Wt Last Vital Signs Temp 97.5 F L 05/23/25 12:10 Pulse 63 05/23/25 15:55 Resp 18 05/23/25 15:55 BP 107/67 05/23/25 15:55 Pulse Ox 96 05/23/25 15:55 O2 Del Method Room Air 05/23/25 15:32 05/23/25 05/23/25 05/23/25 06:59 14:59 22:59 Intake Total 1108.333 / 1108.333 Balance 1108.333 / 1108.333 Weight last 48 hrs Weight 170 lb Physical Exam 2 Const: COMMON NORMALS: no acute distress and patient oriented x3 GENERAL APPEARANCE: cooperative and comfortable ORIENTATION/CONSCIOUSNESS: Yes awake, Yes oriented to person, Yes oriented to place and Yes oriented to time Chest: COMMONS NORMALS: normal inspection of the chest and normal palpation of entire chest wall CHEST: Yes Symmetrical chest wall rise Resp: COMMON NORMALS: normal respiratory effort, No retractions, No use of accessory muscles and clear to auscultation bilaterally EFFORT & INSPECTION: Yes symmetric chest movement AUSCULTATION: clear to auscultation bilaterally Cardio: COMMON NORMALS: regular rate, regular rhythm, S1 normal heart sound present, S2 normal heart sound present, No gallops present (Cardio), No clicks present (Cardio), No murmurs present (Cardio) and No rub (Cardio) RATE: r egular rate RHYTHM: regular rhythm HEART SOUNDS: S1 normal heart sound present and S2 normal heart sound present PERIPHERAL PULSES: radial pulses present Extremity: COMMON NORMALS: no pedal edema Neuro: COMMON NORMALS: patient oriented x3 and moves all extremities S ENSORIUM/ORIENTATION: Yes oriented to person, Yes oriented to place and Yes oriented to time Data 05/23/25 12:17 05/23/25 12:17 Micro: Microbiology 05/23/25 12:41 Blood Culture - Preliminary Blood SPECIMEN COLLECTED 05/23/25 12:41 Blood Culture - Preliminary Blood SPECIMEN COLLECTED A&P Assessment and plan 1. Atrial flutter with rapid ventricular response: 2. Elevated troponin: 3. Orthostasis: 4. Essential hypertension: 5. Elevated TSH: 6. History of intracranial hemorrhage: Plan: He appears euvolemic, blood pressure is soft. He is in sinus rhythm currently. He did not have any chest pain or pressure during the time of the arrhythmia. Will obtain limited echocardiogram to reassess LVEF, and plan for Lexiscan stress test to determine if he should restart and uptitrate flecainide or amiodarone if LVEF is decreased. Currently he is asymptomatic. PDMP PDMP Reviewed: Not Reviewed Coding Level of Care Code Acute Code for [facility] Fwd Diagnoses Atrial flutter with rapid ventricular response I48.92 Elevated troponin R79.89 Orthostasis I95.1 Essential hypertension I10 Elevated TSH R79.89 History of intracranial hemorrhage Z86.79
--- NOTE | 2025-05-23 16:45 | USCV_ITS ---
Bryant Cross Age: 79 Gender: M : 1945 Exam Date: 05/23/2025 18:46 Ordering Phys: Nusrat Whitehead Technologist: MAIKOL Exam Location: [facility] [place] Indication: atrial flutter BP: 93 / 49 HR: 64 Rhythm: Sinus Technical Quality: Adequate MEASUREMENTS (Male / Female) Normal Values 2D ECHO LV Diastolic Diameter PLAX 4.0 cm 4.2 - 5.9 / 3.9 - 5.3 cm IVS Diastolic Thickness 1.1 cm 0.6 - 1.0 / 0.6 - 0.9 cm IVS Systolic Thickness 1.6 cm LVPW Diastolic Thickness 1.4 cm 0.6 - 1.0 / 0.6 - 0.9 cm LVPW Systolic Thickness 1.5 cm LVOT Diameter 1.6 cm LV Ejection Fraction 2D Teich 68.2 % LV Ejection Fraction MOD 4C 71.2 % LV Ejection Fraction MOD 2C 62.3 % LV Ejection Fraction 2C AL 60.8 % LA Diameter 2.7 cm Aorta at Sinotubular Diameter 3.3 cm IVC Diameter 1.8 cm M-MODE LA Ao Ratio MM 0.9 AV Cusp Separation MM 1.9 cm DOPPLER AV Peak Velocity 108.0 cm/s LVOT Peak Velocity 65.0 cm/s AV Area Cont Eq vti 1.4 cm squared AV Area Cont Eq pk 1.2 cm squared MV Area PHT 3.4 cm squared Mitral E to A Ratio 1.3 TV Peak Velocity 213.3 cm/s TR Peak Velocity 226.0 cm/s TR Peak Gradient 20.4 mmHg TV Peak E Velocity 37.0 cm/s PV Peak Velocity 89.0 cm/s FINDINGS Left Ventricle Normal left ventricular size and systolic function, EF 55-60%. No regional wall motion abnormalities. Right Ventricle Normal right ventricular size and systolic function. Right Atrium Normal right atrial size. Left Atrium Normal left atrial size. Mitral Valve Structurally normal mitral valve. Mild mitral regurgitation Aortic Valve Thickened aortic valve. No significant stenosis or regurgitation Tricuspid Valve Mild tricuspid regurgitation. Pulmonary artery systolic pressure is normal Pulmonic Valve Not well visualized Pericardium Normal Aorta Normal in size IVC Appears to be normal CONCLUSIONS LV systolic function is normal with EF of 55-60% Mild mitral regurgitation Mild tricuspid regurgitation. Jarrod Momin MD (Electronically Signed) Final Date: 24 May 2025 09:38 S
[2025-05-23] MEDS: heparin 5,000 unit/mL INJ 1 mL 5000 UNIT SUBCUT (16:48)
--- NOTE | 2025-05-23 17:06 | ECG_ITS ---
[facility] Test Date: 2025-05-24 Pat Name: Bryant Cross Department: Room: 106 Gender: Male Clinical Research Spec: : 1945 Requested By: Nusrat Whitehead Order Number: [id number] Berger MD: Jarrod Momin M.D. Interpretive Statements Lung unchanged pre/post procedure; Intraprocedure shortess of breath; Symptoms resoled by discharge; Symptoms resoled by discharge [email or web address]
--- NOTE | 2025-05-23 18:13 | ECG_ITS ---
[facility] Test Date: 2025-05-23 Pat Name: Bryant Cross Department: Room: 106 Gender: Male Data Coordinator: : 1945 Requested By: Socorro Nguynễ Order Number: [id number] Reading MD: SYLVIE HARDIN Measurements Intervals [place] Rate: 63 P: 51 OK: 185 QRS: 61 QRSD: 97 T: 36 QT: 402 QTc: 413 Interpretive Statements SINUS RHYTHM NONSPECIFIC T-WAVE ABNORMALITY Compared to ECG 05/23/2025 12:11:37 T-wave abnormality now present Supraventricular tachycardia no longer present Intraventricular conduction delay no longer present ST (T wave) deviation no longer present Electronically Signed On 05-25-2025 20:24:43 CDT by SYLVIE HARDIN [email or web address]
[2025-05-23 18:27] LABS: Troponin 5 6HR 181.5 ng/L (0-15); Troponin 5 6HR Delta 122.5 ng/L (0-12)
--- NOTE | 2025-05-23 23:52 | PC.NURSE ---
Patient states he no longer uses the silvadene ointment on his toe.
[2025-05-24] VITALS (11 sets, daily range): BP systolic 101–146; BP diastolic 52–73; PULSE 57–73; RESP 9–20; TEMP 36.4–36.9; O2SAT 93–99
[2025-05-24 03:15] LABS: Anion Gap 14.0 (5-19); Blood Urea Nitrogen 17 mg/dL (8-23); Calcium 8.3 mg/dL (8.5-10.5); Carbon Dioxide 20 mmol/L (22-29); Chloride 111 mmol/L (98-107); Creatinine Clr Calc Pharmacy 56.6343; Glucose 90 mg/dL (65-115); Osmolality Calculated 293 mOsm/kg (285-295); Potassium 4.0 mmol/L (3.5-5.1); Sodium 141 mmol/L (136-145)
[2025-05-24] MEDS: heparin 5,000 unit/mL INJ 1 mL 5000 UNIT SUBCUT ×2 (04:43→16:33)
--- NOTE | 2025-05-24 09:36 | P.PN_ITS ---
<Statement entered by Sanjuana Goodwin MD - 05/24/25 20:16> Patient was evaluated and cared for in conjunction with an advanced practice practitioner. I personally examined the patient and reviewed the chart and all pertinent data including imaging, telemetry, and laboratory results. I discussed the patient in detail with the advanced practice practitioner. Please see their note for complete H&P testing result and agreed upon plan of care for the patient. Subjective 2 Subjective: Lexiscan stress test negative for ischemia, LV function is normal. He is felling well, at the time of my exam he was in sinus rhythm. I was called later in the morning stating he was back in atrial flutter with ventricular rates in the 150s. Patient was examined, asymptomatic except for feeling a sensation of rapid heart rate. He had received flecainide 75 mg at 0830. Vitals/I&O/Wt Last Vital Signs Temp 97.5 F L 05/24/25 08:48 Pulse 64 05/24/25 08:48 Resp 18 05/24/25 08:48 BP 146/72 05/24/25 08:48 Pulse Ox 99 05/24/25 08:48 O2 Del Method Room Air 05/24/25 08:48 05/23/25 05/24/25 05/24/25 22:59 06:59 14:59 Intake Total 100 / 2253.333 1045.00 / 2253.333 Balance 100 / 2253.333 1045.00 / 2253.333 Weight last 48 hrs Weight 168 lb 14.4 oz Weight 170 lb Physical Exam 2 Const: COMMON NORMALS: no acute distress and patient oriented x3 GENERAL APPEARANCE: cooperative and comfortable ORIENTATION/CONSCIOUSNESS: Yes awake, Yes oriented to person, Yes oriented to place and Yes oriented to time Chest: COMMONS NORMALS: normal inspection of the chest and normal palpation of entire chest wall CHEST: Yes Symmetrical chest wall rise Resp: COMMON NORMALS: normal respiratory effort, No retractions, No use of accessory muscles and clear to auscultation bilaterally EFFORT & INSPECTION: Yes symmetric chest movement AUSCULTATION: clear to auscultation bilaterally Cardio: COMMON NORMALS: regular rate, regular rhythm, S1 normal heart sound present, S2 normal heart sound present, No gallops present (Cardio), No clicks present (Cardio), No murmurs present (Cardio) and No rub (Cardio) RATE: r egular rate RHYTHM: regular rhythm HEART SOUNDS: S1 normal heart sound present and S2 normal heart sound present PERIPHERAL PULSES: radial pulses present Extremity: COMMON NORMALS: no pedal edema Neuro: COMMON NORMALS: patient oriented x3 and moves all extremities S ENSORIUM/ORIENTATION: Yes oriented to person, Yes oriented to place and Yes oriented to time Data 05/23/25 12:17 05/24/25 02:10 Micro: Microbiology 05/23/25 12:41 Blood Culture - Preliminary Blood SPECIMEN COLLECTED 05/23/25 12:41 Blood Culture - Preliminary Blood SPECIMEN COLLECTED A&P Assessment and plan 1. Atrial flutter with rapid ventricular response: 2. Essential hypertension: 3. Hypothyroid: Plan: Order given for metoprolol tartrate 25mg x 1 now, he went back into sinus rhythm shortly after administration of the oral metoprolol. Will continue flecainide 75mg BID, and restart metoprolol succinate 25mg daily starting in 2 hours. Also ordered and placed an event monitor for outpatient monitoring of rhythm. Follow up in cardiology clinic in 2 weeks. PDMP PDMP Reviewed: Not Reviewed Attestations 2 Medical Necessity Statement*: Plan discharge today Coding Level of Care Code Acute Code for Chg Fwd Diagnoses Atrial flutter with rapid ventricular response I48.92 Essential hypertension I10 Hypothyroid E03.9
--- NOTE | 2025-05-24 10:51 | ECG_ITS ---
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
--- NOTE | 2025-05-24 10:55 | PC.NURSE ---
Afib with RVR: Discharged orders were recei tori. Nurse disconnected patient from monitoring. REmoved IVs. Obtained the home heart monitor from the nurses station and returned to the room to apply. The patient states that he suddenly feels like his heart is racing. Nurse connected patient back to cardiac monitoring and checked BP. Heart rate is 155. No P wves present, but SVT. Blood pressure is 130/70. Patient states he feels like his heart is racing, but otherwise asymptoimatic. Nurse alerted Nusrat Whitehead NP, and started a new IV. A short time later Nusrat called back with orders for metoprolol.
--- NOTE | 2025-05-24 11:12 | P.DS_ITS ---
Discharge Providers Date of Admission: 05/23/25 14:58 Date of Discharge: May 24, 2025 Attending Provider at Admission: Rudolph Wayne DO Attending Provider at Discharge: Rudolph Wayne DO Consults: Cardiology Speech-language pathology for cognitive assessment Primary Care Provider: Hemant De Oliveira MD Diagnoses at Discharge Discharge Diagnosis 1. Atrial flutter with rapid ventricular response: 2. Elevated troponin: 3. Orthostasis: 4. Essential hypertension: 5. Elevated TSH: 6. History of intracranial hemorrhage: Reason for Visit Reason for Visit: Chest pain Brief History: Bryant Cross is a 79 year old male presents after a few hours of irregular heartbeat. Denies symptoms other than lightheaded and dizzy. He reports episodes of irregular heartbeat without any symptoms, approximately once a week. He states that usually goes away in a few minutes to no more than an hour. Today, he awoke with the irregular rhythm that lasted a few hours and he had dizziness lightheadedness with standing In the emergency room EKG showed atrial flutter with a rate of 150. He received a bolus of amiodarone and converted to normal sinus rhythm and currently has a rate of 60. The concern is that the patient is not anticoagulated, already on flecainide and metoprolol and continues to have breakthrough arrhythmia with rapid response He is placed under observation to the hospital to observe heart rate blood pressure and rhythm as well as for cardiac consultation regarding antiarrhythmics. Hospital Course Hospital Course Patient was admitted to the [facility]. He was placed on telemetry. He remained in normal sinus rhythm. His troponins were elevated. cardiac consult was placed. They ordered a stress test and echo The stress test was negative for ischemia, echo mostly unremarkable with normal EF and no diastolic dysfunction. Cardiology recommended a event monitor to go home with. They recommended increased dose of flecainide to 75 mg p.o. twice daily. We are holding metoprolol for now Patient's MoCA was 23/30 showing mild to moderate cognitive dysfunction he did not display any word retrieval deficits. His shows problem-solving mostly due to poor memory. I spoke extensively with the patient's son and advised that the patient and his need much more supervision. He states that they are looking at assisted living. The patient would need assistance taking medications. We are sending home health care RN out to assess medications and to check vital signs after his tachycardic episode. I recommended that the move happen swiftly. I recommended that they learn his medications and assist with pill planning and check on the patient daily that he took his medicines correctly. I have explained that he is not taking his levothyroxine correctly and as per the discharge instructions need to be taken on an empty stomach without multivitamins also I am concerned that he is not taking the flecainide correctly since he was hospitalized with rapid ventricular response. Son, Tom, is now aware of the concerns and the abnormalities that we have found with his father. He confirms that himself and other family members will assist the patient and his . I will also start him on Aricept 10 mg daily at night for the diagnosis of mild to moderate cognitive deficit. Physical Exam Narrative: Heart is regular rate and rhythm distant heart sounds no loud murmur auscultated Lungs clear to auscultation without wheezes rales or rhonchi Abdomen soft nontender nondistended positive bowel sounds no hepatosplenomegaly Extremities no clubbing cyanosis or edema Discharge Data Studies Completed and Pending Completed Studies During Hospitalization Category Date Time Status Cardiac Stress Test MIBI [Sestamibi Stress Test Request Exams 05/23/25 17:06 Draft ] Routine XR chest 1V portable [id number] Stat Exams 05/23/25 12:22 Completed NM claire perf SPECT r/s* [id number] Routine Nuc Med 05/24/25 17:07 Completed CV. echo limited [id number] Routine Ultrasound 05/23/25 16:45 Completed Pending at discharge Category Date Time Status Blood Culture Stat Lab 05/23/25 12:41 Results Radiology Impressions Chest X-Ray 05/23/25 12:22 Impression: Hyperinflation and atherosclerosis. Laboratory Results WBC 9.28 10^3/uL (3.29-11.43) 05/23/25 12:17 RBC 5.54 10^6/uL (3.85-5.65) 05/23/25 12:17 Hgb 17.40 g/dL (11.27-16.99) H 05/23/25 12:17 Hct 51.0 % (37-53) 05/23/25 12:17 MCV 92.1 fl (82-101) 05/23/25 12:17 MCH 31.4 pg (27-33) 05/23/25 12:17 MCHC 34.1 g/dL (30-55) 05/23/25 12:17 RDW 13.9 % (12.1-15.1) 05/23/25 12:17 Plt Count 204 10^3/cmm (157-399) 05/23/25 12:17 MPV 10.1 fL (7.4-10.4) 05/23/25 12:17 Neut % (Auto) 69.1 % 05/23/25 12:17 Lymph % (Auto) 18.0 % 05/23/25 12:17 Braxton % (Auto) 8.7 % 05/23/25 12:17 Eos % (Auto) 3.0 % 05/23/25 12:17 Baso % (Auto) 0.8 % 05/23/25 12:17 Neut # (Auto) 6.41 10^3/uL (1.8-7.7) 05/23/25 12:17 Lymph # (Auto) 1.7 10^3/uL (0.8-4.8) 05/23/25 12:17 Braxton # (Auto) 0.8 10^3/uL (0.2-0.9) 05/23/25 12:17 Eos # (Auto) 0.3 10^3/uL (0.0-0.8) 05/23/25 12:17 Baso # (Auto) 0.1 10^3/uL (0.0-0.1) 05/23/25 12:17 Nucleated RBC % (auto) 0 % 05/23/25 12:17 Nucleated RBCs # 0.0 /100WBC 05/23/25 12:17 Sodium 141 mmol/L (136-145) 05/24/25 02:10 Potassium 4.0 mmol/L (3.5-5.1) 05/24/25 02:10 Chloride 111 mmol/L (98-107) H 05/24/25 02:10 Carbon Dioxide 20 mmol/L (22-29) L 05/24/25 02:10 Anion Gap 14.0 (5-19) 05/24/25 02:10 BUN 17 mg/dL (8-23) 05/24/25 02:10 Creatinine 1.1 mg/dL (0.7-1.2) 05/24/25 02:10 GFR Calculation Not Reportable 05/24/25 02:10 Glucose 90 mg/dL (65-115) 05/24/25 02:10 Calculated Osmolality 293 mOsm/kg (285-295) 05/24/25 02:10 Lactic Acid 1.5 mmol/L (0.5-2.2) 05/23/25 12:17 Calcium 8.3 mg/dL (8.5-10.5) L 05/24/25 02:10 Magnesium 2.1 mg/dL (1.7-2.3) 05/23/25 12:17 Total Bilirubin 1.3 mg/dL (0.15-1.2) H 05/23/25 12:17 AST 22 U/L (0-40) 05/23/25 12:17 ALT 15 U/L (0-41) 05/23/25 12:17 Alkaline Phosphatase 84 U/L (40-130) 05/23/25 12:17 Troponin T Baseline 59 ng/L (0-15) H 05/23/25 12:17 Troponin T 120 Minute 95.65 ng/L (0-15) H 05/23/25 13:53 Delta Troponin T 36.65 ABS# (0-10) H* 05/23/25 13:53 Troponin T Hi Sens 6Hr 181.5 ng/L (0-15) H 05/23/25 17:57 Troponin T Hi Sens 6Hr Delta 122.5 ng/L (0-12) H* 05/23/25 17:57 NT-Pro-B Natriuret Pep 777 pg/mL (0-450) H 05/23/25 12:17 Total Protein 6.8 g/dL (6.6-8.7) 05/23/25 12:17 Albumin 4.4 g/dL (3.5-5.2) 05/23/25 12:17 Globulin 2.4 g/dL (1.3-4.6) 05/23/25 12:17 TSH 18.39 uIU/mL (0.27-4.20) H 05/23/25 12:17 Urine Color Yellow (Yellow) 05/23/25 14:00 Urine Appearance Cloudy (CLEAR) A 05/23/25 14:00 Urine pH 5.0 (5-7) 05/23/25 14:00 Ur Specific [place] 1.023 (1.005-1.030) 05/23/25 14:00 Urine Protein Negative (Negative) 05/23/25 14:00 Urine Glucose (UA) Negative (Normal) 05/23/25 14:00 Urine Ketones Negative (Negative) 05/23/25 14:00 Urine Blood Negative (Negative) 05/23/25 14:00 Urine Nitrate Negative (Negative) 05/23/25 14:00 Urine Bilirubin Negative (Negative) 05/23/25 14:00 Urine Urobilinogen 1.0 mg/dL (Negative) 05/23/25 14:00 Ur Leukocyte Esterase Negative (Negative) 05/23/25 14:00 Urine RBC 0-2 /hpf (0-2) 05/23/25 14:00 Urine WBC 0-5 /hpf (0-5) 05/23/25 14:00 Ur Squamous Epith Cells 0-5 /hpf (0-5) 05/23/25 14:00 Amorphous Sediment Not Reportable 05/23/25 14:00 Urine Bacteria None seen /hpf (NONE) 05/23/25 14:00 Hyaline Casts 3.71 /lpf 05/23/25 14:00 Vitals Last Vital Signs Temp 97.5 F L 05/24/25 08:48 Pulse 64 05/24/25 08:48 Resp 18 05/24/25 08:48 BP 146/72 05/24/25 08:48 Pulse Ox 99 05/24/25 08:48 O2 Del Method Room Air 05/24/25 08:48 Discharge Plan Discharge Patient Disposition: Home Health Service Condition: Stable Prescriptions: New donepezil [Aricept] 10 mg tablet 10 mg PO DAILY Qty: 30 0RF Continued pantoprazole [Protonix] 40 mg tablet,delayed release (DR/EC) 40 mg PO DAILY Qty: 90 1RF silver sulfadiazine [Silvadene] 1 % cream 1 applic topical BID Qty: 50 0RF Rx Instructions: apply a 1.5 mm thickness albuterol sulfate 90 mcg/actuation HFA aerosol inhaler 2 puff INHALATION Q4H PRN (Reason: shortness of breath or wheezing) Qty: 8.5 5RF Rx Instructions: 340B PLAN aspirin [Adult Aspirin Regimen] 81 mg tablet,delayed release (DR/EC) 81 mg PO DAILY Qty: 90 3RF finasteride 5 mg tablet 5 mg PO DAILY Qty: 90 3RF tamsulosin 0.4 mg capsule 0.4 mg PO BID Qty: 180 1RF levothyroxine [Synthroid] 175 mcg tablet See Rx Instructions .ROUTE .COMPLEX Qty: 102 1RF Rx Instructions: Take one tablet by mouth Wednesday through Wednesday and 2 tablets on Wednesday. 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 OK for DC: Cardiology and Hospitalist Discharge Order = DC NOW: Discharge Order (Routine); Ordered 05/24/25 Ordered By: Nusrat Whitehead Referrals: Jarrod Momin M.D [Physician, Cardiology] - 06/06/25 12:45 pm Hemant De Oliveira MD [Primary Care Provider, Family Practice] - 05/29/25 10:40 am Discharge Diet: Cardiac Discharge Activity: Increase activity as tolerated Patient Instructions: Donepezil (By mouth) (Aricept, Aricept ODT), Atrial Flutter (DC), Hypotension (DC), Dizziness (GEN), Patient Portal & Kathleen Instructions Activity Restrictions/Additional Instructions: * Be discharged with home health care for RN to check medications vital signs and report to your physician or cardiology if abnormal. * You will have a event monitor for 7 days to assess for arrhythmia. * Please note metoprolol is on hold. Check with cardiology about continuing or discontinuing after about a week * Please note flecainide is is increased to 75 mg twice a day you will need to take 1 tablet and half a tablet to attain that dose * You have been diagnosed with mild cognitive impairment. This is early signs of dementia. You will be started on Aricept 10 mg nightly to help with memory and help slow down the process of decline * Recommend changing her living situation to assisted living if they provide you with medications or living at a retirement or with family who can assist with medications. I discussed the recommendations with your son Tom at 10:15 AM. He agreed that the family would visit once daily to check on medications. And that the family would learn a pill tool planner with the home health care nurse and will fill the pill tool planner weekly. * Take levothyroxine on an empty stomach first thing in the morning and then you can eat at least 1 hour later. Vitamin D, calcium and other vitamins cannot be taken at the same time as levothyroxine. You must wait at minimum 2 hours after the levothyroxine before taking other vitamins Discharge Attestations Time Spent in Discharge Care*: greater than 30 min Quality Metrics Clinical Quality Measures [ No reported AMI, CVA or VTE this stay] Coding Level of Care Code Acute Code for Chg Fwd Diagnoses Atrial flutter with rapid ventricular response I48.92 Elevated troponin R79.89 Orthostasis I95.1 Essential hypertension I10 Elevated TSH R79.89 History of intracranial hemorrhage Z86.79
--- NOTE | 2025-05-24 13:35 | PC.NURSE ---
Provider Communication..... Dr Goodwin in a cath procedure. Panfilo called Nusrat Whitehead NP. Informed her that the patient has been normal sinus/sinus jimi since he took metoprolol this morning (see previous notes). Did not give afternnon dose of metoprolol Succinate 25 mg due to vital contraindication. HR is currently 57, BP is 109/65. SHe will discuss discharge plan with Dr Goodwin.
--- NOTE | 2025-05-24 17:07 | NMCV_ITS ---
NM claire perf SPECT r/s* [id number] Bryant Cross Age: 79 Gender: M : 1945 Exam Date: 05/24/2025 06:46 Ordering Phys: Nusrat Whitehead Technologist: ROCIO Arboleda Exam Location: [facility] Indications: cp STRESS TEST Please see separate stress test report in [facility] for full findings IMAGE PROTOCOL Rest/Stress 1 Lexiscan Day Radiopharmaceutical Dose (mCi) Administration Site Administered by Rest: Tc-99m 10.8 IV ROCIO Whatley Sestamibi Stress:Tc-99m 32.9 IV ROCIO Arboleda Sestamideb Rest: 24-May-2025 60 Discovery 630 Stress: 24-May-2025 30 Discovery 630 0.4mg Lexiscan. Images obtained in supine and prone position. SPECT RESULTS Technical Quality: Good Raw Data Analysis: Normal Image Corrections: No attenuation or motion correction applied Summed Stress Score: 1 Summed Rest Score: 2 Summed Difference Score: 1 PERFUSION FINDINGS SPECT images demonstrate homogeneous tracer distribution throughout the myocardium. Attenuation artifact seen in inferior wall. FUNCTIONAL RESULTS (calculated via Gated SPECT) Stress Image LV EF (%): 71 Stress EDV (mL):89 TID: 0.87 Stress ESV (mL):26 FUNCTIONAL FINDINGS: There is normal left ventricular systolic function. IMPRESSIONS 1. Normal myocardial perfusion imaging with no evidence of ischemia. 2. Attenuation artifact is seen in inferior wall. Resolves on prone imaging 3. LV systolic function is normal. Jarrod Momin MD (Electronically Signed) Final Date: 24 May 2025 09:29 S
--- NOTE | 2025-05-24 18:47 | PC.NURSE ---
Shift SUmmary: after conversion from Aflutter to normal sinus in the morning, it has been an uneventful shift. Patient has remained a low NS or Sinus jimi since. Next dose of Flecainide at 2000
--- NOTE | 2025-05-24 19:18 | PC.NURSE ---
Event monitor is sitting on window sill, awaiting application at discharge.
[2025-05-25] VITALS (7 sets, daily range): BP systolic 101–124; BP diastolic 55–73; PULSE 55–71; RESP 9–21; TEMP 36.5–36.6; O2SAT 94–95
[2025-05-25] MEDS: heparin 5,000 unit/mL INJ 1 mL 5000 UNIT SUBCUT (04:54)
--- NOTE | 2025-05-25 08:31 | P.PN_ITS ---
<Statement entered by Sanjuana Goodwin MD - 05/25/25 19:58> Patient was evaluated and cared for in conjunction with an advanced practice practitioner. I have not personally examined the patient today but reviewed the chart and all pertinent data including imaging, telemetry, and laboratory results. I discussed the patient in detail with the advanced practice practitioner. Please see their note for complete H&P testing result and agreed upon plan of care for the patient. Subjective 2 Subjective: He does not have any recurrence of atrial flutter overnight, heart rate ranged from 55 to 71 bpm in sinus rhythm, blood pressure is ranging 108-124 systolic. He is feeling well, asymptomatic at the time of my exam. Vitals/I&O/Wt Last Vital Signs Temp 97.7 F 05/25/25 07:31 Pulse 58 L 05/25/25 07:31 Resp 18 05/25/25 07:31 BP 108/55 05/25/25 07:31 Pulse Ox 95 05/25/25 02:00 O2 Del Method Room Air 05/25/25 02:00 05/24/25 05/25/25 05/25/25 22:59 06:59 14:59 Intake Total 60 / 400 100 / 400 Balance 60 / 400 100 / 400 Weight last 48 hrs Weight 167 lb 12.8 oz Weight 168 lb 14.4 oz Weight 170 lb Physical Exam 2 Const: COMMON NORMALS: no acute distress and patient oriented x3 GENERAL APPEARANCE: cooperative and comfortable ORIENTATION/CONSCIOUSNESS: Yes awake, Yes oriented to person, Yes oriented to place and Yes oriented to time Chest: COMMONS NORMALS: normal inspection of the chest and normal palpation of entire chest wall CHEST: Yes Symmetrical chest wall rise Resp: COMMON NORMALS: normal respiratory effort, No retractions, No use of accessory muscles and clear to auscultation bilaterally EFFORT & INSPECTION: Yes symmetric chest movement AUSCULTATION: clear to auscultation bilaterally Cardio: COMMON NORMALS: regular rate, regular rhythm, S1 normal heart sound present, S2 normal heart sound present, No gallops present (Cardio), No clicks present (Cardio), No murmurs present (Cardio) and No rub (Cardio) RATE: r egular rate RHYTHM: regular rhythm HEART SOUNDS: S1 normal heart sound present and S2 normal heart sound present PERIPHERAL PULSES: radial pulses present Extremity: COMMON NORMALS: no pedal edema Neuro: COMMON NORMALS: patient oriented x3 and moves all extremities S ENSORIUM/ORIENTATION: Yes oriented to person, Yes oriented to place and Yes oriented to time Data 05/23/25 12:17 05/24/25 02:10 Micro: Microbiology 05/23/25 12:41 Blood Culture - Preliminary Blood NEGATIVE TO DATE 05/23/25 12:41 Blood Culture - Preliminary Blood NEGATIVE TO DATE A&P Assessment and plan 1. Paroxysmal atrial flutter: Plan: Will plan to discharge him home this morning wearing the event monitor, continuing flecainide 75 mg twice daily, holding metoprolol for now. Depending on results of the event monitor after discharge we may consider restarting metoprolol at a later date. PDMP PDMP Reviewed: Not Reviewed Attestations 2 Medical Necessity Statement*: Discharge home Coding Level of Care Code Acute Code for [facility] Fwd Diagnoses Paroxysmal atrial flutter I48.92
--- NOTE | 2025-05-25 12:22 | P.PN_ITS ---
Subjective 2 Subjective: Patient's discharge was completed yesterday and then just as he was getting placed on the event monitor patient experienced an A-fib/flutter with a rapid ventricular response. He quickly converted while simultaneously receiving a dose of metoprolol. He was monitored overnight No further episodes of A-fib or a flutter. The patient remains asymptomatic. Vitals/I&O/Wt Last Vital Signs Temp 97.8 F 05/25/25 09:29 Pulse 62 05/25/25 09:29 Resp 14 05/25/25 09:29 BP 118/71 05/25/25 09:29 Pulse Ox 95 05/25/25 09:29 O2 Del Method Room Air 05/25/25 02:00 05/24/25 05/25/25 05/25/25 22:59 06:59 14:59 Intake Total 60 / 300 100 / 400 360 / 360 Balance 60 / 300 100 / 400 360 / 360 Weight last 48 hrs Weight 76.113 kg Weight 76.612 kg Physical Exam 2 Narrative: Patient's heart rate running in the 50s and 60s. His blood pressure is soft Heart is regular rate and rhythm distant heart sounds no loud murmur auscultated Lungs clear to auscultation without wheezes rales or rhonchi Abdomen soft nontender nondistended positive bowel sounds no hepatosplenomegaly Extremities no clubbing cyanosis or edema Data 05/23/25 12:17 05/24/25 02:10 Micro: Microbiology 05/23/25 12:41 Blood Culture - Preliminary Blood NEGATIVE TO DATE 05/23/25 12:41 Blood Culture - Preliminary Blood NEGATIVE TO DATE A&P Assessment and plan 1. Atrial flutter with rapid ventricular response: 2. Dizziness: 3. History of intracranial hemorrhage: 4. History of pulmonary embolism: 5. Low blood pressure readin. Elevated TSH: 7. Elevated troponin: Plan: Patient remains with paroxysmal atrial flutter. Patient's blood pressure and heart rate would not tolerate a beta-tamela. Cardiology agreed that holding the beta-tamela on discharge would be best practice. He will be sent home with a event monitor and cardiology would be notified of any events. He is to increase his flecainide dose to 75 mg every 12 hours. Please see yesterday's discharge summary for full discharge details. PDMP PDMP Reviewed: Not Reviewed Attestations 2 Medical Necessity Statement*: Patient is discharged today after events occurring after discharge summary written yesterday. He remained in the hospital after a dose of metoprolol and for assessment of any further arrhythmia. He remained stable overnight and is discharged in stable and improved condition today Coding Level of Care Code Acute Code for Chg Fwd Diagnoses Atrial flutter with rapid ventricular response I48.92 Dizziness R42 History of intracranial hemorrhage Z86.79 History of pulmonary embolism Z86.711 Low blood pressure reading R03.1 Elevated TSH R79.89 Elevated troponin R79.89
--- NOTE | 2025-05-25 12:47 | PC.NURSE ---
Report given to [facility].
== END 2025-05-25 09:39 | disposition home health service (06) ==
LOC: ER 14:38 → CSU 14:58
PROVIDERS: Admitting Provider Internal Medicine; Emergency Provider Emergency Medicine; PCP Family Medicine; Visit Provider Internal Medicine
DX: I48.92 Unspecified atrial flutter (principal); R79.89 Other specified abnormal findings of blood chemistry; I95.0 Idiopathic hypotension; I10 Essential (primary) hypertension; Z86.79 Personal history of other diseases of the circulatory system; Z79.82 Long term (current) use of aspirin; K21.9 Gastro-esophageal reflux disease without esophagitis; E03.9 Hypothyroidism, unspecified; E78.5 Hyperlipidemia, unspecified; G47.33 Obstructive sleep apnea (adult) (pediatric); Z86.711 Personal history of pulmonary embolism; Z85.850 Personal history of malignant neoplasm of thyroid; J45.909 Unspecified asthma, uncomplicated; F32.9 Major depressive disorder, single episode, unspecified
CPT/HCPCS: 36415; 71045; 78452; 80048; 80053; 81001; 83605; 83735; 83880; 84443; 84484; 85025; 87040; 92507; 92523; 93005; 93308; 96365; 96366; 96372; 96375; 97116; 97161; 97165; 99285; A4222; A9500; G0378; J0282; J0283; J1644; J2785; J7030; J9999

== ENCOUNTER 2025-06-04 10:01 | Oncology outpatient (recurring) (ONCR) | payer MEDICARE, OTHER, SELFPAY ==
[2025-06-04 10:18] LABS: Hematocrit 45.2 % (37-53); Hemoglobin 15.90 g/dL (11.27-16.99); Mean Corpuscular HGB Conc 35.2 g/dL (30-55); Mean Corpuscular Hemoglobin 32.9 pg (27-33); Mean Corpuscular Volume 93.6 fl (82-101); Nucleated Red Blood Cells % 0 %; Platelet Count 185 10^3/cmm (157-399); Red Blood Count 4.83 10^6/uL (3.85-5.65); White Blood Count 3.63 10^3/uL (3.29-11.43)
[2025-06-04 10:43] LABS: Prostate Specific Antigen 0.104 ng/mL (0-4)
[2025-06-04 10:45] LABS: Alanine Aminotransferase 20 U/L (0-41); Albumin Level 4.2 g/dL (3.5-5.2); Alkaline Phosphatase 88 U/L (40-130); Anion Gap 17.3 (5-19); Aspartate Amino Transferase 27 U/L (0-40); Blood Urea Nitrogen 19 mg/dL (8-23); Calcium 9.2 mg/dL (8.5-10.5); Carbon Dioxide 22 mmol/L (22-29); Chloride 101 mmol/L (98-107); Free T4 Free Thyroxine 0.84 ng/dL (0.82-1.77); Globulin 3.0 g/dL (1.3-4.6); Glucose 88 mg/dL (65-115); Osmolality Calculated 284 mOsm/kg (285-295); Potassium 4.3 mmol/L (3.5-5.1); Sodium 136 mmol/L (136-145); Thyroid Stimulating Hormone 33.54 uIU/mL (0.27-4.20); Total Protein 7.2 g/dL (6.6-8.7)
== END 2025-06-12 23:59 | disposition home or self-care (01) ==
PROVIDERS: Internal Medicine; Nurse Practitioner; PCP Family Medicine; Visit Provider Family Medicine
DX: Z08 Encounter for follow-up examination after completed treatment for malignant neoplasm (principal); Z85.46 Personal history of malignant neoplasm of prostate; N13.8 Other obstructive and reflux uropathy; N40.1 Benign prostatic hyperplasia with lower urinary tract symptoms; E03.9 Hypothyroidism, unspecified; Z86.711 Personal history of pulmonary embolism; Z90.89 Acquired absence of other organs; Z92.21 Personal history of antineoplastic chemotherapy; Z92.3 Personal history of irradiation; C73 Malignant neoplasm of thyroid gland; C77.0 Secondary and unspecified malignant neoplasm of lymph nodes of head, face and neck
CPT/HCPCS: 36415; 80053; 84153; 84432; 84439; 84443; 85025; 86800

== ENCOUNTER 2025-06-20 11:16 | Oncology outpatient (recurring) (ONCR) | payer MEDICARE, OTHER, SELFPAY | END 2025-07-13 23:59 | disposition home or self-care (01) | PROVIDERS: PCP Family Medicine; Visit Provider Internal Medicine | DX: Z08 Encounter for follow-up examination after completed treatment for malignant neoplasm (principal); Z85.46 Personal history of malignant neoplasm of prostate; Z86.711 Personal history of pulmonary embolism; Z90.49 Acquired absence of other specified parts of digestive tract; Z85.850 Personal history of malignant neoplasm of thyroid; E03.9 Hypothyroidism, unspecified; Z92.3 Personal history of irradiation; Z92.21 Personal history of antineoplastic chemotherapy | CPT/HCPCS: 36415; 85025; 99213 ==

== ENCOUNTER → 2025-07-11 12:43 | Outpatient (BNVA) | payer MEDICARE, OTHER, SELFPAY | PROVIDERS: PCP Family Medicine; Visit Provider Specialist | DX: R41.3 Other amnesia (principal) | CPT/HCPCS: 96116; 99215 ==

== ENCOUNTER 2025-07-19 10:55 | Outpatient (CLI) | payer MEDICARE, OTHER, SELFPAY ==
[2025-07-19 12:04] LABS: Thyroid Stimulating Hormone 1.02 uIU/mL (0.27-4.20)
== END 2025-07-19 10:56 | disposition home or self-care (01) ==
LOC: LAB 10:57
PROVIDERS: PCP Family Medicine; Visit Provider Nurse Practitioner
DX: C73 Malignant neoplasm of thyroid gland (principal); C61 Malignant neoplasm of prostate
CPT/HCPCS: 36415; 84443

== ENCOUNTER 2025-08-01 09:43 | Outpatient (CLI) | payer MEDICARE, OTHER, SELFPAY | END 2025-08-01 09:44 | disposition home or self-care (01) | LOC: RT 09:45 | PROVIDERS: PCP Family Medicine; Visit Provider Student in an Organized Health Care Education/Training Program | DX: R94.2 Abnormal results of pulmonary function studies (principal); J84.10 Pulmonary fibrosis, unspecified | CPT/HCPCS: 94010; 94726; 94729 ==

== ENCOUNTER 2025-08-07 11:45 | Emergency (ER) | payer MEDICARE, OTHER, SELFPAY ==
--- OUTSIDE RECORDS SUMMARY | 2025-01-04 11:00 | XMS_ITS ---
Author Organization [employer] [facility], [facility] Address [address] [facility] [address] [place] [address] Care Team Providers Care Quality Control Inspector Heading Name Role Phone Jhony Esparza DO Primary Care Provider DOUG Fritz Unavailable [phone] REASON FOR VISIT 1 yr w/ ua/pvr/psa Encounters Encounter Location Date Provider Diagnosis [facility], [facility] [address] [place] [address] 01/04/2025 DOUG FERGUSON Plan Of Treatment No Information Progress Notes * Bryant CROSS GDOB:1945 (79 yo M)Acc No.[id number]:01/04/2025 Progress Notes Patient: Bryant MOSLEY Provider: Catherine Ferguson APRN :1945 A ge:79 Y S ex:Male Date:01/04/2025 Address:[address] [place], [place] [id number] Pcp:Jhony Esparza DO Subjective: * Chief Complaints: * 1 . 1 yr w/ ua/pvr/psa. * Medical History: Objective: * Vitals: Assessment: Plan: * Treatment: * Billing Information: * Visit Code: * Procedure Codes: * Electronic signature of JADEN FERGUSON APRN on 08/07/2025 at 12:45 PM IT HELP DESK TECHNICIAN Sign off status: Pending * Provider: Catherine Ferguson APRN Date: 0 01/04/2025 Generated for Isaac mix/Eros/eTransmitting on: 10/07/2024 12:45 PM IT HELP DESK TECHNICIAN
--- NOTE | 2025-08-07 11:46 | XRR_ITS ---
PROCEDURE INFORMATION: Exam: XR Abdomen Exam date and time: 08/07/2025 12:19 PM Age: 79 years old Clinical indication: Constipation; Prior surgery; Surgery date: 6+ months; Surgery type: Hernia; HX of thyroid, prostate and skin cancer TECHNIQUE: Imaging protocol: Radiologic exam of the abdomen. Views: Frontal supine view of the abdomen. 1 View. COMPARISON: CT abdomen pelvis w con* [id number] 07/21/2023 5:13 PM FINDINGS: Gastrointestinal tract: There is moderate retained stool present within the colon and rectum. No evidence of bowel obstruction. Bones/joints: Severe degenerative changes of the spine are noted. XR/XR KUB [id number] IMPRESSION: Constipation. Otherwise no acute abnormality identified.
[2025-08-07 11:47] VITALS: BP 118/76; PULSE 102; RESP 18; TEMP 36.6; O2SAT 98
--- NOTE | 2025-08-07 12:20 | W.ED.ABDPA2 ---
HPI - Abdominal Pain General: Chief Complaint: Abdominal Pain Stated Complaint: urgent care sent, constipation Time Seen by Provider: 08/07/25 12:16 Source: patient Mode of arrival: ambulatory Limitations: no limitations History of Present Illness: 79-year-old male states that he has not had a bowel movement over the last 3 days. States he is tried enemas along with laxatives with no results. States having some lower abdominal pain has been having difficult time urinating as well. He denies any fevers denies any vomiting rates his pain a 3 out of 10 currently Associated Symptoms: Reports constipation Related Data Home Medications ?Medication ?Instructions ?Recorded ?Confirmed vit C 250 mg-vit E 90 mg-zinc 40 1 tab PO BID 07/22/21 07/11/25 mg-copper 1 [id number] capsule (PreserVision AREDS-2) zinc acetate 50 mg (zinc) capsule 50 mg PO DAILY 01/18/23 07/11/25 Previous Rx's ?Medication ?Instructions ?Recorded albuterol sulfate 90 mcg/actuation 2 puff inhalation Q4H PRN 12/12/24 aerosol inhaler shortness of breath or wheezing #8.5 grams aspirin 81 mg tablet,delayed 81 mg PO DAILY #90 tabs 12/12/24 release (Adult Aspirin Regimen) finasteride 5 mg tablet 5 mg PO DAILY #90 tabs 12/12/24 metoprolol succinate 25 mg 25 mg PO DAILY #90 tabs 12/12/24 tablet,extended release 24 hr pantoprazole 40 mg tablet,delayed 40 mg PO DAILY #90 tabs 02/02/25 release (Protonix) levothyroxine 175 mcg tablet See Rx Instructions .Route 05/18/25 (Synthroid) .COMPLEX #102 tabs donepezil 10 mg tablet (Aricept) 10 mg PO DAILY #30 tabs 05/24/25 flecainide 50 mg tablet 75 mg (1.5 x 50 mg) PO Q12H #180 05/24/25 tabs losartan 25 mg tablet 25 mg PO QAM #90 tabs 06/25/25 memantine 10 mg tablet (Namenda) 10 mg PO BID 90 days #180 tabs 07/11/25 memantine 5 mg tablet (Namenda) 5 mg PO BID 7 days #14 tabs 07/11/25 memantine 5 mg tablet (Namenda) 5 mg PO QAM 7 days #7 tabs 07/11/25 memantine 5 mg tablet (Namenda) See Rx Instructions PO BID 7 days 07/11/25 #21 tabs polyethylene glycol 3350 17 gram 17 g PO DAILY PRN constipation #14 08/07/25 oral powder packet (Miralax) ea Allergies Allergy/AdvReac Type Severity Reaction Status Date / Time levofloxacin (From Levaquin) Allergy Severe ALGY-Rash Verified 08/07/25 11:53 tramadol (From Ultram) AdvReac Mild Unknown Verified 08/07/25 11:53 Review of Systems GI: Reports: abdominal pain and constipation PFSH ED PFSH: Medical History (Updated 08/07/25 @ 13:21 by Sandra Loredo MD) Low blood pressure reading History of intracranial hemorrhage Dizziness Atrial flutter with rapid ventricular response Elevated troponin Orthostasis Moderate major depression Essential hypertension H/O radioactive iodine thyroid ablation Pincer nail deformity V tach Atrial fibrillation History of pulmonary embolism Hyperlipidemia GERD (gastroesophageal reflux disease) Degenerative joint disease of spine Degenerative arthritis Obstructive sleep apnea Asthma Back pain History of subarachnoid hemorrhage Thyroid cancer Elevated PSA BPH with obstruction/lower urinary tract symptoms Surgical History History of esophagogastroduodenoscopy (EGD) Dr Gasca and Dr Ahuja Hx of colonoscopy x3 10+ years Status post surgical removal of malignant neoplasm of skin Basal cell skin cancer History of thyroid surgery (05/21/21) Right hemithyroidectomy History of hernia repair Bilateral inguinal hernia repair History of eye surgery History of surgical removal of ganglion cyst History of rotator cuff surgery Family History Father , at age 77 Lung cancer Mother , at age 64 Colon cancer Social History Smoking and tobacco/nicotine status: never used tobacco/nicotine Second hand smoke exposure: Yes Alcohol intake: never Substance/Drug Use: never Adopted: No Caregiver/support person: No Lives independently: Yes Household members: spouse Marital status: Current occupational status: retired Do you think of yourself as: Straight/Heterosexual Current gender identity: Male Physical Exam Const: COMMON NORMALS: no acute distress, patient oriented x3 and healthy appearing HENMT: COMMON NORMALS: normocephalic and atraumatic HEAD & SCALP: normocephalic and atraumatic Neck/C-Spine: COMMON NORMALS: full ROM and supple Chest: COMMONS NORMALS: normal inspection of the chest and normal palpation of entire chest wall Resp: COMMON NORMALS: normal respiratory effort, No retractions, No use of accessory muscles and clear to auscultation bilaterally AUSCULTATION: clear to auscultation bilaterally Cardio: COMMON NORMALS: regular rate, regular rhythm and No murmurs present (Cardio) RATE: regular rate RHYTHM: regular rhythm GI: COMMON NORMALS: Normal to inspection, nondistended, normoactive bowel sounds present, Soft to palpation, non-tender and no masses PALPATION: Yes Soft to palpation Extremity: COMMON NORMALS: normal to inspection and full ROM Neuro: COMMON NORMALS: patient oriented x3, moves all extremities and no focal motor deficits Psych: COMMON NORMALS: mental status grossly normal, Normal thought process present and cooperative THOUGHT PROCESS: Normal thought process present Skin: COMMON NORMALS: no rashes or lesions noted and no wounds GENERAL SKIN EXAM: no rashes or lesions noted Course Vital Signs: Vital signs: Vital Signs Temperature 97.8 F 08/07/25 11:47 Pulse Rate 102 H 08/07/25 11:47 Respiratory Rate 18 08/07/25 11:47 Blood Pressure 118/76 08/07/25 11:47 Pulse Oximetry 98 08/07/25 11:47 MDM - Abdominal Pain Medical Decision Making 79-year-old male presented here with constipation had not had a bowel movement in days. Did interpret his x-ray KUB did show constipation. Did review his labs that showed no significant abnormalities. Did give him lactulose along with enema here he had multiple large bowel movements and feels improved. Will prescribe him MiraLAX for home did go over findings he has follow-up with his PCP in 3 to 5 days return if worsening he understands agrees to plan. Medical Records I reviewed the patient's medical records. Lab Data I reviewed the patient's lab results. 08/07/25 12:28 08/07/25 12:28 Labs/Radiology: Radiology Impressions KUB X-Ray 08/07/25 11:46 IMPRESSION: Constipation. Otherwise no acute abnormality identified. Laboratory Results WBC 12.28 10^3/uL (3.29-11.43) H 08/07/25 12: RBC 5.36 10^6/uL (3.85-5.65) 08/07/25 12: Hgb 16.80 g/dL (11.27-16.99) 08/07/25 12: Hct 47.5 % (37-53) 08/07/25 12: MCV 88.6 fl (82-101) 08/07/25 12: MCH 31.3 pg (27-33) 08/07/25 12: MCHC 35.4 g/dL (30-55) 08/07/25 12: RDW 13.3 % (12.1-15.1) 08/07/25 12: Plt Count 175 10^3/cmm (157-399) 08/07/25 12: MPV 10.2 fL (7.4-10.4) 08/07/25 12: Neut % (Auto) 81.1 % 08/07/25 12: Lymph % (Auto) 11.0 % 08/07/25 12: Burt % (Auto) 6.0 % 08/07/25 12: Eos % (Auto) 1.1 % 08/07/25 12: Baso % (Auto) 0.6 % 08/07/25 12: Neut # (Auto) 9.96 10^3/uL (1.8-7.7) H 08/07/25 12: Lymph # (Auto) 1.4 10^3/uL (0.8-4.8) 08/07/25 12: Burt # (Auto) 0.7 10^3/uL (0.2-0.9) 08/07/25 12: Eos # (Auto) 0.1 10^3/uL (0.0-0.8) 08/07/25 12: Baso # (Auto) 0.1 10^3/uL (0.0-0.1) 08/07/25 12: Nucleated RBC % (auto) 0 % 08/07/25 12: Nucleated RBCs # 0.0 /100WBC 08/07/25 12: Sodium 143 mmol/L (136-145) 08/07/25 12:28 Potassium 4.0 mmol/L (3.5-5.1) 08/07/25 12:28 Chloride 107 mmol/L (98-107) 08/07/25 12:28 Carbon Dioxide 23 mmol/L (22-29) 08/07/25 12:28 Anion Gap 17.0 (5-19) 08/07/25 12:28 BUN 17 mg/dL (8-23) 08/07/25 12:28 Creatinine 1.2 mg/dL (0.7-1.2) 08/07/25 12:28 GFR Calculation Not Reportable 08/07/25 12:28 Glucose 117 mg/dL (65-115) H 08/07/25 12:28 Calculated Osmolality 299 mOsm/kg (285-295) H 08/07/25 12:28 Calcium 9.6 mg/dL (8.5-10.5) 08/07/25 12:28 Total Bilirubin 1.1 mg/dL (0.15-1.2) 08/07/25 12:28 AST 21 U/L (0-40) 08/07/25 12:28 ALT 15 U/L (0-41) 08/07/25 12:28 Alkaline Phosphatase 87 U/L (40-130) 08/07/25 12:28 Total Protein 7.1 g/dL (6.6-8.7) 08/07/25 12:28 Albumin 4.1 g/dL (3.5-5.2) 08/07/25 12:28 Globulin 3.0 g/dL (1.3-4.6) 08/07/25 12:28 Lipase 74 U/L (13-60) H 08/07/25 12:28 All radiology interpretation(s) finalized by discharge Discharge Plan Discharge Patient Disposition: Home Clinical Impression: Constipation Qualifiers: Constipation type: unspecified constipation type Qualified Code(s): K59.00 - Constipation, unspecified Condition: Stable Prescriptions: New polyethylene glycol 3350 [Miralax] 17 gram powder in packet 17 g PO DAILY PRN (Reason: constipation) Qty: 14 0RF No Action pantoprazole [Protonix] 40 mg tablet,delayed release (DR/EC) 40 mg PO DAILY Qty: 90 1RF memantine [Namenda] 10 mg tablet 10 mg PO BID 90 Days Qty: 180 1RF memantine [Namenda] 5 mg tablet 5 mg PO BID 7 Days Qty: 14 0RF Rx Instructions: 2nd memantine [Namenda] 5 mg tablet 5 mg PO QAM 7 Days Qty: 7 0RF Rx Instructions: 1st memantine [Namenda] 5 mg tablet See Rx Instructions PO BID 7 Days Qty: 21 0RF Rx Instructions: 3rd; orally twice a day; 5mg in AM; 10mg in PM albuterol sulfate 90 mcg/actuation HFA aerosol inhaler 2 puff INHALATION Q4H PRN (Reason: shortness of breath or wheezing) Qty: 8.5 5RF Rx Instructions: 340B PLAN aspirin [Adult Aspirin Regimen] 81 mg tablet,delayed release (DR/EC) 81 mg PO DAILY Qty: 90 3RF finasteride 5 mg tablet 5 mg PO DAILY Qty: 90 3RF metoprolol succinate 25 mg tablet extended release 24 hr 25 mg PO DAILY Qty: 90 1RF levothyroxine [Synthroid] 175 mcg tablet See Rx Instructions .ROUTE .COMPLEX Qty: 102 1RF Rx Instructions: Take one tablet by mouth Wednesday through Wednesday and 2 tablets on Wednesday. losartan 25 mg tablet 25 mg PO QAM Qty: 90 1RF PreserVision AREDS-2 250-90-40-1 mg Capsule 1 tab PO BID zinc acetate 50 mg (zinc) Capsule 50 mg PO DAILY donepezil [Aricept] 10 mg tablet 10 mg PO DAILY Qty: 30 0RF flecainide 50 mg tablet 75 mg PO Q12H Qty: 180 1RF Discharge Orders: Discharge ED (Routine); Ordered 08/07/25 Ordered By: Sandra Loredo Referrals: Hemant De Oliveira MD [Primary Care Provider, Family Practice] - 4-7 days Discharge Diet: Advance as tolerated Discharge Activity: Resume usual activity Patient Instructions: Constipation (ED) Print Language: Georgian Coding Level of Care Code ED 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
[2025-08-07] MEDS: lactulose oral liq 20 gm/30 mL UDC 30 GM PO (12:42)
--- OUTSIDE RECORDS SUMMARY | 2025-08-07 12:44 | XMS_ITS | Clinical Summary ---
Author Organization [facility] Address [address] [place] [address] Care Team Providers Care Sap Pi Architect Name Role Phone Tom Sow MD Primary Care Provider [phone] Allergies Active Allergy Reactions Criticality Noted Date [...] on file Legal Sex Male 7:09 AM MANAGER PRODUCTION Gender Identity Not on file Sexual Orientation Not on file Last Filed Vital Signs Vital Sign Reading Time Taken Comments Blood Pressure 125/76 11/17/2016 11:20 AM MANAGER PRODUCTION Pulse 73 11/17/2016 11:20 AM MANAGER PRODUCTION Temperature 36.8 C (98.2 F) 08/19/2016 1:00 PM MANAGER PRODUCTION Respiratory Rate 13 08/19/2016 12:00 PM MANAGER PRODUCTION Oxygen Saturation 93% 08/19/2016 1:00 PM MANAGER PRODUCTION Inhaled Oxygen Concentration - - Weight 79.4 kg (175 lb) 11/17/2016 11:20 AM MANAGER PRODUCTION Height 180.3 cm (5' 11 ) 11/17/2016 11:20 AM MANAGER PRODUCTION Body Mass Index 24.41 11/17/2016 11:20 AM MANAGER PRODUCTION Plan of Treatment Health Maintenance Due Date Last Done Comments DTAP/TDAP/TD VACCINES (1 - Tdap) 1962 PNEUMOCOCCAL VACCINE 50+ YEARS (1 of 1 - PCV) 09/25/18 94 ZOSTER VACCINE (1 of 2) 1993 RSV VACCINE (60+ or ) (1 - 1-dose 75+ series) 2018 INFLUENZA VACCINE (#1) 2025 Medical Devices Implanted Type Area Deputy Controller Device Identifier Shelf Expiration Date Model / Serial / Lot Anchr Tnds Biocmp Swvlck 7mm [id number] - [id number] Implanted:Qty: 1 on 08/19/2016 by Gorge Martin III, MD at [facility] [employer] [place] Right: Shoulder [employer] 09/13/2017 [id number] / / [id number] [employer] [place] [employer] W/ Biocmpst Swivelck [id number] - [id number] Implanted:Qty: 1 on 08/19/2016 by Gorge Martin III, MD at [facility] [employer] [place] Right: Shoulder [employer] 01/10/2018 [id number] -4 / / [id number] [employer] [place] Sut Bio Swvlck-C [id number] - [id number] Implanted:Qty: 1 on 08/19/2016 by Gorge Martin III, MD at [facility] [employer] [place] Right: Shoulder [employer] 01/11/2018 [id number] -[id number] / / [id number] Insurance MEDICARE PART A AND B [facility] MEDICARE PART A AND B Advance Directives For more information, please contact: [phone] * Full Code (Latest Code Status on File) Date Activated Date Inactivated Comments 08/19/2016 7:38 AM 08/19/2016 3:40 PM * Full Code Date Activated Date Inactivated Comments 08/19/2016 6:54 AM 08/19/2016 7:38 AM Care Teams Sap Pi Architect Relationship Specialty [place] [address] [place] [id number] PCP - General Family Practice 10/03/15
--- OUTSIDE RECORDS SUMMARY | 2025-08-07 12:45 | XMS_ITS | Continuity of Care Document ---
Author Organization THAD Romario Johnson [facility], [place], [employer] [facility] [facility] ([facility]) Address [address] [place] [address] Care Team Providers [employer] Sales Representative Name Role Phone HEBERT DE OLIVEIRA Primary Care Provider Unavailabl e Assessment No assessment recorded. Plan of Treatment Reminders Order Date Submit Date Provider Last Modified By Organization Details Last Modified Time Details Appointments ACUTE VISIT 2024 11:20A M WALK-IN Not available Not available Not available RECHECK 15 2025 02:45P M Hebert De Oliveira MD Not available Not available Not available Lab None recorded. Referral None recorded. Procedures None recorded. Surgeries None recorded. Imaging None recorded. Medication Orders lactulose 10 gram/15 mL oral solution 2024 [facility], [address], [address], 07/03/2025 11:54:54 triamcino lone acetonide 0.1 % topical cream 2024 [facility], [address], [place], [address], 07/03/2025 11:54:56 mirtazapi ne 15 mg tablet 2024 025 [facility], [address], [place], [address], 07/03/2025 11:54:58 Patient TargetsNo targets recorded. Patient InstructionsNo instructions recorded. Reason for Referral None Reported. Problems Name Problem SNOMED Code Status Onset Date Resolution Date Notes Provider Name and Address Organization Details Recorded Time Gastroes ophageal reflux disease 768975414 Active 2021 Esophage al Reflux; 07/04/20 9:28AM by Naomi Ragsdale, Office Visit; Promoted ; acuity set as *; Hebert De Oliveira MD [address] [place] [address], [phone] [facility] 5 17:55:09 Bilatera l posterio r subcapsu lar cataract [id number] 435021 Active 2021 Cataract Extracti on-Bilat eral; 10/2009; 07/04/20 9:28AM by Naomi Ragsdale, Office Visit; Promoted ; acuity set as *; Not Available [facility] 3 03:08:38 Colonosc opy Completed 202105/02/2025 Colonosc opy; 2000 done by 01/28/07; 07/04/20 9:28AM by Naomi Ragsdale, Office Visit; Promoted ; acuity set as *; TAHMINA harding [facility] 5 15:18:25 Asthma 401632883 Active 2021 asthma; 07/04/20 9:28AM by Naomi Ragsdale, Office Visit; Promoted ; acuity set as *; Not Available [facility] 3 03:08:38 Inguinal region repair Completed 202105/02/2025 Inguinal Hernia Repair-B ilateral ; 07/04/20 9:28AM by Naomi Ragsdale, Office Visit; Promoted ; acuity set as *; TAHMINA harding [facility] 5 15:18:25 Malignan t neoplasm of thyroid gland 111064974 Active 2024 TAHMINA harding [facility] 5 15:19:56 Memory impairme nt 303973844 Active 2024 Hebert De Oliveira MD [address] [place] [address], [phone] , [facility] 16:02:28 Acquired hypothyr oidism 565542645 Active 2024 Hebert De Oliveira MD [address] [place] [address], [phone] , [facility] 16:04:03 Chronic atrial fibrilla tion 247421326 Active 2024 Hebert De Oliveira MD [address] [place] [address], [phone] , [facility] 16:06:56 Paroxysm al atrial fibrilla tion 282989650 Active 2024 Hebert De Oliveira MD [address] [place] [address], [phone] , [facility] 17:54:29 Decrease in appetite 23166397 Active 2024 Hebert De Oliveira MD [address] [place] [address], [phone] , [facility] 11:49:44 Unintent ional weight loss 350525891 Active 2024 Hebert De Oliveira MD [address] [place] [address], [phone] , [facility] 11:50:03 Eczema 96093627 Active 2024 Hebert De Oliveira MD [address] [place] [address], [phone] , [facility] 11:50:13 Chronic constipa tion 989330539 Active 2024 Hebert De Oliveira MD [address] [place] [phone] , [facility] 5 11:50:44 Problem Notes None recorded. Procedures Surgical History Date Name Laterality Status Provider Name and Address Organization Details Recorded Time 09/13/19 23 thyroidectomy completed , [facility] 05/02/2025 15:19:33 excision of cyst completed , [facility] 05/02/2025 15:17:27 hernia repair completed , [facility] 05/02/2025 15:17:40 colonoscopy completed , [facility] 05/02/2025 15:18:10 Imaging Results None recorded. Procedure Notes None recorded. Medical Equipment None Reported. Allergies Allergen ID Allergen Name Allergen Category Reaction Reaction Severity Criticality Documentation Date Start Date Code Code System Note Provider Name and Address Organization Details Recorded Time 94419 Ultram medicatio n vomiting Not available Not available 04/10/2023 97726 6 RxNorm React ion: Vomit ing; Comme nt: Recor ded 07/04 9:28A M by Naomi Ragsdale Offic e Visit ; Yun paige ce: *; ; Not Available [facility] 3 02:28:13 32452 Levaquin medicatio n Not available Not available Not available 04/10/2023 57300 2 RxNorm Comme nt: Recor ded 07/04 9:28A M by Naomi Ragsdale Offic e Visit ; Yun paige ce: *; ; Not Available [facility] 3 02:28:13 Medications Name Sig Start Date Stop Date Status Note LastModified by Organization Details LastModified Time silver sulfadiaz ine 1 % topical cream APPLY 1.5 MM THICKNES S OF CREAM EXTERNAL LY TO AFFECTED AREA TWICE DAILY active Not Available Not Available No t Available levothyro xine 175 mcg tablet TAKE 1 TABLET BY MOUTH ONCE DAILY active Not Available Not Available No t Available hydrocodo ne 5 mg-acetam inophen 325 mg tablet TAKE ONE TABLET BY MOUTH EVERY 6 HOURS NEEDED FOR PAIN for FIVE DAYS 05/30 completed Not Available Not Available Not Available donepezil 10 mg tablet Take 1 tablet every day by oral route. 2024 active Not Available Not Available Not Avai lable loperamid e 2 mg tablet Take 2 tablets every 6 hours by oral route as needed. active Not Available Not Available No t Available Zyrtec 10 mg tablet daily 05/02 completed doc: Kellie/yasmine; Recorded 11/19/19 1:36PM by Shaq Cummings/Huyen camargo; Refill Quantity : 0; Not Available Not Available Not Available sulfameth oxazole 800 mg-trimet hoprim 160 mg tablet TAKE 1 TABLET BY MOUTH EVERY 12 HOURS FOR 7 DAYS 06/11 completed Not Available Not Available Not Available triamcino lone acetonide 0.1 % topical cream APPLY A THIN LAYER TOPICALL Y TO THE AFFECTED AREA TWO TIMES PER DAY active Not Available Not Available No t Available tamsulosi n 0.4 mg capsule take 1 capsule BY MOUTH TWICE DAILY 07/03 completed Not Available Not Available Not Available cephalexi n 500 mg capsule TAKE 1 CAPSULE BY MOUTH THREE TIMES DAILY FOR 7 DAYS 05/30 completed Not Available Not Available Not Available pantopraz ole 40 mg tablet,de layed release TAKE 1 TABLET BY MOUTH ONCE DAILY active Not Available Not Available No t Available flecainid e 50 mg tablet TAKE 1 TABLET BY MOUTH EVERY 12 HOURS active Not Available Not Available No t Available losartan 25 mg tablet TAKE 1 TABLET BY MOUTH ONCE DAILY IN THE MORNING active Not Available Not Available No t Available levothyro xine 200 mcg tablet Take 1 tablet every day by oral route. 06/11 completed Not Available Not Available Not Available aspirin 81 mg tablet Take 1 tablet every day by oral route. active Not Available Not Available No t Available mupirocin 2 % topical ointment APPLY A SMALL AMOUNT OF OINTMENT TOPICALL Y TO AFFECTED AREA THREE TIMES DAILY active Not Available Not Available No t Available mirtazapi ne 15 mg tablet TAKE 1 TABLET BY MOUTH ONCE DAILY active Not Available Not Available No t Available metoprolo l succinate ER 25 mg tablet,ex tended release 24 hr Take 1 tablet every day by oral route. 07/03 completed Not Available Not Available Not Available albuterol 90 mcg/actua tion aerosol inhaler Inhale 2 puffs every 4 hours by inhalati on route. active Not Available Not Available No t Available ibuprofen 600 mg tablet TAKE 1 TABLET BY MOUTH EVERY 8 HOURS NEEDED FOR PAIN active Not Available Not Available No t Available albuterol sulfate HFA 90 mcg/actua tion aerosol inhaler INHALE 2 PUFFS BY MOUTH EVERY 4 HOURS NEEDED FOR SHORTNES S OF BREATH OR WHEEZING active Not Available Not Available No t Available ondansetr on 4 mg disintegr ating tablet Place 1 tablet twice a day by translin gual route as needed for 4 days. 06/18 completed Not Available Not Available Not Available finasteri de 5 mg tablet TAKE 1 TABLET BY MOUTH ONCE DAILY 07/03 completed Not Available Not Available Not Available escitalop evelyn 10 mg tablet TAKE 1 TABLET BY MOUTH EVERY DAY 07/03 completed Not Available Not Available Not Available duloxetin e 30 mg capsule,d elayed release take 1 capsule BY MOUTH EVERY DAY 07/03 completed Not Available Not Available Not Available Constulos e 10 gram/15 mL oral solution TAKE 15 ML BY MOUTH DAILY. MAY TAKE BETWEEN 15-30ML DAILY NEEDED FOR CONSTIPA TION active Not Available Not Available No t Available magnesium daily 05/02 completed 0; Recorded 09/23/19 9:52AM by Kate gunn, Office Visit; Not Available Not Available Not Available atorvasta tin QD 05/02 completed Recorded 09/23/19 9:52AM by Kate gunn, Office Visit; Refill Quantity : 0; Not Available Not Available Not Available zinc active Not Available Not Availa ble Not Available meclizine two times daily 05/02 completed DOC: LB/ks; 13442; Recorded 11/19/19 1:36PM by Radha Longoria (Authori jie through [employer]), Annotati on/Adden dum; Refill Quantity : 0; Not Available Not Available Not Available Allergy Relief (fluticas one) 50 mcg/actua tion nasal spray,juan pension [place] 2 sprays every day by intranas al route. active Not Available Not Available No t Available magnesium 200 mg (as magnesium oxide) tablet Take 1 tablet every day by oral route. active Not Available Not Available No t Available [facility] AREDS-2 active Not Available Not Available Not Available Vitals Date Recorded Body height Body mass index (BMI) Body weight Heart rate Systolic And Diastolic Provider Name and Address Organization Details Last Updated DateTime 07/03/2025 182.88 cm 21 kg/m2 34095.82 g 60 /min 118/62 mm[Hg] ELMER REEDER [facility] 11:18:24 Social History Question Answer Notes LastModified by [employer] Details LastModified Time Tobacco Smoking Status Never Smoker TAHMINA harding [facility] 05/02/2025 15:16:36 What Was The Date Of Your Most Recent Tobacco Screening? 08/07/2025 [email or web address] Information not available 08/07/2025 Sex: Unknown Functional Status Question Answer Note LastModified by [employer] Details LastModified Time Do you use any illicit or recreational drugs? No [email or web address] Information not available 05/02/2025 Do you or have you ever used any other forms of tobacco or nicotine? No [email or web address] Information not available 06/07/2025 What is your level of alcohol consumption? None [email or web address] Information not available 05/02/2025 Do you or have you ever used any nicotine-free cigarettes, vape, or chewing tobacco? No [email or web address] Information not available 06/07/2025 Mental Status None recorded. Family History Relationship Description Onset Age of this Age Resolved Age Notes LastModified by Organization Details LastModified Time Mother Malignant neoplasm of colon [email or web address] Not available 06/11 17:23:37 Father Malignant neoplasm of lung [email or web address] Not available 06/11 17:23:46 Medical History No medical history recorded. Immunizations Vaccine Type Date Status Note Provider Nam e and Address Organization Details Recorded Time Influenza, split virus, quadrivalent, PF 4 completed Not Available [facility] 07/03/2025 11:06:29 Influenza, split virus, trivalent, preservative 4 completed Not Available [facility] 07/03/2025 11:06:29 Influenza, high-dose, trivalent, PF 5 completed Not Available [facility] 07/03/2025 11:06:29 Influenza, high-dose, trivalent, PF 6 completed Not Available [facility] 07/03/2025 11:06:29 Influenza, high-dose, trivalent, PF 7 completed Not Available [facility] 07/03/2025 11:06:29 Influenza, high-dose, trivalent, PF 8 completed Not Available [facility] 07/03/2025 11:06:29 Influenza, high-dose, trivalent, PF 9 completed Not Available [facility] 07/03/2025 11:06:29 pneumococcal polysaccharide PPV23 0 completed Not Available [facility] 07/03/2025 11:06:29 COVID-19, mRNA, LNP-S, PF, 30 mcg/0.3 mL dose 1 completed Not Available [facility] 07/03/2025 11:06:29 COVID-19, mRNA, LNP-S, PF, 30 mcg/0.3 mL dose 1 completed Not Available [facility] 07/03/2025 11:06:29 COVID-19, mRNA, LNP-S, PF, 30 mcg/0.3 mL dose 1 completed Not Available [facility] 07/03/2025 11:06:29 COVID-19, mRNA, LNP-S, PF, 30 mcg/0.3 mL dose, homero-sucrose 2 completed Not Available [facility] 07/03/2025 11:06:29 COVID-19, mRNA, LNP-S, bivalent, PF, 30 mcg/0.3 mL dose 2 completed Not Available [facility] 07/03/2025 11:06:29 Influenza, high-dose, quadrivalent, PF 2 completed Not Available [facility] 07/03/2025 11:06:29 Pneumococcal conjugate PCV20, polysaccharide [id number] conjugate, adjuvant, PF 2 completed Not Available [facility] 07/03/2025 11:06:29 COVID-19, mRNA, LNP-S, PF, homero-sucrose, 30 mcg/0.3 mL 3 completed Not Available [facility] 07/03/2025 11:06:29 Influenza, high-dose, quadrivalent, PF 3 completed Not Available [facility] 07/03/2025 11:06:29 Influenza, high-dose, trivalent, PF 4 completed Not Available [facility] 07/03/2025 11:06:29 COVID-19, mRNA, LNP-S, PF, 50 mcg/0.5 mL 4 completed Not Available [facility] 07/03/2025 11:06:29 Tdap 4 completed Not Available [facility] 07/03/2025 11:06:29 zoster recombinant 5 completed Not Available [facility] 07/03/2025 11:06:29 Pneumococcal conjugate PCV21, polysaccharide [id number] conjugate, PF 5 completed Not Available [facility] 07/03/2025 11:06:29 Tdap 5 completed Not Available [facility] 07/03/2025 11:06:29 zoster recombinant 5 completed Not Available [facility] 07/03/2025 11:06:29 COVID-19, mRNA, LNP-S, PF, 10 mcg/0.2 mL 5 completed Not Available [facility] 07/03/2025 11:06:29 Tdap 7 completed Not Available [facility] 04/10/2023 02:23:30 Influenza, split virus, trivalent, preservative 0 completed Not Available [facility] 04/10/2023 02:23:30 Influenza, split virus, trivalent, preservative 2 completed Not Available [facility] 04/10/2023 02:23:30 Past Encounters Encounter ID Performer Location Encounter Start Date Encounter Closed Date Diagnosis/Indication Diagnosis SNOMED-CT Code Diagnosis ICD10 Code Diagnosis IMO Codes Diagnosis Note [id number] GRUPO CLIFFORD APRN [employer] [facility] [facility] ([facility]) [address] [place] [address] 06/07/2025 11:16:08 06/07/2025 15:48:55 Gastroenteritis 16485093 K52.9 [id number] Hebert De Oliveira MD [employer] [facility] [employer] [facility] ([facility]) [address] [place] [phone] 06/11/2025 16:44:50 06/11/2025 17:57:57 Paroxysmal atrial fibrillation 365628799 I48.0 05742 stable at this time. Acquired hypothyroidism 359112919 E03.9 43803 S/P ablation of the thyroid from [place]. Followed by Endocrinol ogy. On 175mcg Levothyrox ine. Gastroesop hageal reflux disease 238860825 K21.9 Memory impairment 530510 006 R41.3 628345 mild to moderate by history. [id number] Hebert De Oliveira MD [employer] [facility] ([facility]) [address] [place] [phone] 07/03/2025 11:06:08 07/03/2025 12:00:14 Decrease in appetite 22555351 R63.0 384394 Unintentio nal weight loss 659837212 R63.4 189843 Eczema 34874073 L30.9 956335 buttocks area. Chronic constipation 236 411071 K59.09 [id number] Health Concerns Section Related Observation LastModified by Organization Detai ls LastModified Time None Recorded Concern Status LastModified by Organization Details LastModified Time None Recorded Payers Encounter Date Sequence Insurance Name Policy Number Policy Rodriguez Covered Member ID Rodriguez Member ID Guarantor Name 07/03/2025 1 [place] [place] [id number] [employer] 07/03/2025 2 [employer] (MEDICARE SUPPLEMENT) Bryant Cross [id number] [employer]
--- OUTSIDE RECORDS SUMMARY | 2025-08-07 12:45 | XMS_ITS | Continuity of Care Document ---
Author Organization [facility] Jenna, L.LEvelyn, [facility] ([facility]) Address [address] [place] [address] Care Team Providers Care Silk Winding Machine Operator Name Role Phone HEBERT DE OLIVEIRA Primary Care Provider Unavailabl e Assessment No assessment recorded. Plan of Treatment Reminders Order Date Submit Date Provider Last Modified By Organization Details Last Modified Time Details Appointments ACUTE VISIT 2024 11:20A M WALK-IN Not available Not available Not available RECHECK 15 2025 02:45P M Hebert De Oliveira MD Not available Not available Not available Lab None recorded . Referral None recorded . Procedures None recorded . Surgeries None recorded . Imaging None recorded . Medication Orders None recorded . Patient TargetsNo targets recorded. Patient Instructions Encounter Date Encounter Id Patient Instructions Last Modified By Organization Details Last Modified Time 08/07/2025 [id number] I will send patient to ER for further eval since he cannot urinate [email or web address] Not available 08/07/2025 12:43:52 Reason for Referral None Reported. Problems Name Problem SNOMED Code Status Onset Date Resolution Date Notes Provider Name and Address Organization Details Recorded Time Gastroes ophageal reflux disease 108924025 Active 2021 Esophage al Reflux; 07/04/20 9:28AM by Naomi Ragsdale, Office Visit; Promoted ; acuity set as *; Hebert De Oliveira MD [address] [place] [address], [phone] , [facility] L.[facility].CNewton 17:55:09 Bilatera l posterio r subcapsu lar cataract 99745799125 981765 Active 2021 Cataract Extracti on-Bilat eral; 10/2009; 07/04/20 9:28AM by Naomi Ragsdale, Office Visit; Promoted ; acuity set as *; Not Available [facility] 3 03:08:38 Colonosc opy Completed 202105/02/2025 Colonosc opy; 2000 done by 01/28/07; 07/04/20 9:28AM by Naomi Ragsdale, Office Visit; Promoted ; acuity set as *; TAHMINA harding [facility] 5 15:18:25 Asthma 543037055 Active 2021 asthma; 07/04/20 9:28AM by Naomi Ragsdale, Office Visit; Promoted ; acuity set as *; Not Available [facility] 3 03:08:38 Inguinal region repair Completed 202105/02/2025 Inguinal Hernia Repair-B ilateral ; 07/04/20 9:28AM by Naomi Ragsdale, Office Visit; Promoted ; acuity set as *; TAHMINA harding [facility] 5 15:18:25 Malignan t neoplasm of thyroid gland 479286620 Active 2024 TAHMINA harding [facility] 5 15:19:56 Memory impairme nt 767050142 Active 2024 Hebert De Oliveira MD [address] [place] [address], [phone] , [facility] 5 16:02:28 Acquired hypothyr oidism 064245551 Active 2024 Hebert De Oliveira MD [address] [place] [address], [phone] , [facility] 5 16:04:03 Chronic atrial fibrilla tion 308169111 Active 2024 Hebert De Oliveira MD [address] [place] [address] [place] [address] , [facility] 16:06:56 Paroxysm al atrial fibrilla tion 659320795 Active 2024 Hebert De Oliveira MD [address] [place] [address], [phone] , [facility] 17:54:29 Decrease in appetite 34155367 Active 2024 Hebert De Oliveira MD [address] [place] [address], [phone] , [facility] 11:49:44 Unintent ional weight loss 065434733 Active 2024 Hebert De Oliveira MD [address] [place] [address], [phone] , [facility] 11:50:03 Eczema 87492660 Active 2024 Hebert De Oliveira MD [address] [place] [address], [phone] , [facility] 11:50:13 Chronic constipa tion 644017033 Active 2024 Hebert De Oliveira MD [address] [place] [address], [address] [place] [address] , [facility] 11:50:44 Problem Notes None recorded. Procedures Surgical History Date Name Laterality Status Provider Name and Address Organization Details Recorded Time 09/13/19 23 thyroidectomy completed TAHMINA LONGORIA [facility], RobL[facility]CNetwon 05/02/2025 15:19:33 excision of cyst completed TAHMINA LONGORIA [facility], LNewtonLNewtonCNewton 05/02/2025 15:17:27 hernia repair completed TAHMINA LONGORIA [facility], RobLEvelyn 05/02/2025 15:17:40 colonoscopy [facility] 05/02/2025 15:18:10 Imaging Results None recorded. Procedure Notes None recorded. Medical Equipment None Reported. Allergies Allergen ID Allergen Name Allergen Category Reaction Reaction Severity Criticality Documentation Date Start Date Code Code System Note Provider Name and Address Organization Details Recorded Time 65852 Ultram medicatio n vomiting Not available Not available 04/10/2023 01481 6 RxNorm React ion: Vomit ing; Comme nt: Recor ded 07/04 9:28A M by Naomi Ragsdale Offic e Visit ; Promo bryant; Signi royal ce: *; ; Not Available [facility] 3 02:28:13 36732 Levaquin medicatio n Not available Not available Not available 04/10/2023 81834 2 RxNorm Comme nt: Recor ded 07/04 9:28A M by Naomi Ragsdale Offic e Visit ; Promo bryant; Korey paige ce: *; ; Not Available [facility] 3 02:28:13 Medications Name Sig Start [...] 10 mg tablet daily 05/02 completed doc: Marla; Recorded 11/19/19 21 1:36PM by Shaq Cummings on/Huyen dum; Refill Quantity : 0; Not Available [...] two times daily 05/02 completed DOC: LB/ks; 58437; Recorded 11/19/19 1:36PM by Radha Longoria (i jie through [facility]), Annotati on/Addkings dum; Refill Quantity : 0; Not Available Not Available Not Available Allergy Relief (fluticas one) 50 mcg/actua tion nasal spray,juan pension [place] 2 sprays every day by intranas al route. active Not Available Not Available No t Available magnesium 200 mg (as magnesium oxide) tablet Take 1 tablet every day by oral route. active Not Available Not Available No t Available [facility] AREDS-2 active Not Available Not Available Not Available Vitals Date Recorded Body height Body mass index (BMI) Body weight Body temperature Heart rate Oxygen saturation Systolic And Diastolic Provider Name and Address Organization Details Last Updated DateTime 5 182.88 cm 22.4 kg/m2 59887.5 4 g 98.3 [degF] 97 /min 98 % 148/72 mm[Hg] Monica Schaeffer [facility], L.L[facility] 5 12:30:58 Social History Question Answer Notes LastModified by Organizat ion Details LastModified Time Tobacco Smoking Status Never Smoker TAHMINA harding, [facility] 05/02/2025 15:16:36 What Was The Date Of Your Most Recent Tobacco Screening? 08/07/2025 [email or web address] Information not available 08/07/2025 Sex: Unknown Functional Status Question Answer Note LastModified by Organizat ion Details LastModified Time Do you use any illicit or recreational drugs? No [email or web address] Information not available 05/02/2025 Do you or have you ever used any other forms of tobacco or nicotine? No Information not available 06/07/2025 What is your level of alcohol consumption? None [email or web address] Information not available 05/02/2025 Do you or have you ever used any nicotine-free cigarettes, vape, or chewing tobacco? No [email or web address] Information not available 06/07/2025 Mental Status None [...] virus, quadrivalent, PF 4 completed Not Available [facility] 07/03/2025 11:06:29 Influenza, split virus, trivalent, preservative 4 completed Not Available [facility] 07/03/2025 11:06:29 Influenza, high-dose, trivalent, PF 5 completed Not Available [facility] 07/03/2025 11:06:29 Influenza, high-dose, trivalent, PF 6 completed Not Available [facility] 07/03/2025 11:06:29 Influenza, high-dose, trivalent, PF 7 completed Not Available [facility] 07/03/2025 11:06:29 Influenza, high-dose, trivalent, PF 8 completed Not Available [facility] 07/03/2025 11:06:29 Influenza, high-dose, trivalent, PF 9 completed [facility]25 11:06:29 pneumococcal polysaccharide PPV23 0 completed Not Available [facility] 07/03/2025 11:06:29 COVID-19, mRNA, LNP-S, PF, 30 mcg/0.3 mL dose 1 completed Not Available [facility] 07/03/2025 11:06:29 COVID-19, mRNA, LNP-S, PF, 30 mcg/0.3 mL dose 1 completed Not Available [facility] 07/03/2025 11:06:29 COVID-19, mRNA, LNP-S, PF, 30 mcg/0.3 mL dose 1 completed Not Available [facility] 07/03/2025 11:06:29 COVID-19, mRNA, LNP-S, PF, 30 mcg/0.3 mL dose, homero-sucrose 2 completed Not Available [facility] 07/03/2025 11:06:29 COVID-19, mRNA, LNP-S, bivalent, PF, 30 mcg/0.3 mL dose 2 completed [facility] 07/03/2025 11:06:29 Influenza, high-dose, quadrivalent, PF 2 completed Not Available [facility] 07/03/2025 11:06:29 Pneumococcal conjugate PCV20, polysaccharide [id number] conjugate, adjuvant, PF 2 completed Not Available [facility] 07/03/2025 11:06:29 COVID-19, mRNA, LNP-S, PF, homero-sucrose, 30 mcg/0.3 mL 3 completed [facility] 07/03/2025 11:06:29 Influenza, high-dose, quadrivalent, PF 3 completed Not Available [facility] 07/03/2025 11:06:29 Influenza, high-dose, trivalent, PF 4 completed Not Available [facility] 07/03/2025 11:06:29 COVID-19, mRNA, LNP-S, PF, 50 mcg/0.5 mL 4 completed Not Available [facility] 07/03/2025 11:06:29 Tdap 4 completed Not Available [facility] 07/03/2025 11:06:29 zoster recombinant 5 completed Not Available [facility] 07/03/2025 11:06:29 Pneumococcal conjugate PCV21, polysaccharide [id number] conjugate, PF 5 completed Not Available [facility] 07/03/2025 11:06:29 Tdap 5 completed Not Available [facility] 07/03/2025 11:06:29 zoster recombinant 5 completed Not Available [facility] 07/03/2025 11:06:29 COVID-19, mRNA, LNP-S, PF, 10 mcg/0.2 mL 5 completed Not Available [facility] 07/03/2025 11:06:29 Tdap 7 completed Not Available [facility] 04/10/2023 02:23:30 Influenza, split virus, trivalent, preservative 0 completed Not Available [facility] 04/10/2023 02:23:30 Influenza, split virus, trivalent, preservative 2 completed Not Available [facility] 04/10/2023 02:23:30 Past Encounters Encounter ID Performer Location Encounter Start Date Encounter Closed Date Diagnosis/Indication Diagnosis SNOMED-CT Code Diagnosis ICD10 Code Diagnosis IMO Codes Diagnosis Note [id number] GRUPO CLIFFORD APRN [facility] ([facility]) [address] [place] [phone] 08/07/2025 12:21:22 08/07/2025 12:45:53 Acute constipation 110386731 K59.00 360418 Health Concerns Section Related Observation LastModified by Organization Detai ls LastModified Time None Recorded Concern Status LastModified by Organization Details LastModified Time None Recorded Payers Encounter Date Sequence Insurance Name Policy Number Policy Rodriguez Covered Member ID Rodriguez Member ID Guarantor Name 08/07/2025 1 [place]ICARE [place]: [employer] [place] [employer] [id number] [employer] 08/07/2025 2 [employer] (MEDICARE SUPPLEMENT) [employer] [id number] [employer] Notes Date Note Type Note Provider Name and Address Organization Details Recorded Time 08/07/2025 text/html walk in ptPT is constipated, last BM was 2 days ago. PT has tired a suppository and enema a few hours ago with no results. He states he hasn't urinated since last night GRUPO CLIFFORD, [employer]ST BASTER [address] [place], [address], [facility] 08/07/2025 12:44:17
--- OUTSIDE RECORDS SUMMARY | 2025-08-07 12:45 | XMS_ITS | Clinical Summary ---
Author Organization [facility] Address [address] [place]: Epic [place] [address] Care Team Providers Care Dredge Pumper Name Role Phone Tom Sow MD Primary Care Provider [phone] Allergies Active Allergy Reactions Criticality Noted Date [...] 1 Active phenoL (CHLORASEPTIC) 1.4 % Aerosol, [place] 1 [place] by Mouth/Throat route every 2 hours as needed for Discomfort or Sore Throat. 1 Active tamsulosin (FLOMAX) 0.4 mg capsule Take 1 Capsule (0.4 mg) by mouth daily after supper. 30 Capsule 1 Active Vit C-Vit T-Ihtsvr-PbNl-Katy tein (PRESERVISION) 226 mg-200 unit -5 mg-0.8 [...] on file Legal Sex Male 1:41 PM [employer] Gender Identity Not on file Sexual Orientation [...] 2025 06/24/2021 Medical Devices Implanted Type Area Machine Gun Mechanic Device Identifier Shelf Expiration Date Model / Serial / Lot [place] Speedjoel W/ Biocmpst Wali [id number] - [id number] Implanted:Qty: 1 on 08/19/2016 by Gorge Martin III, MD [place] Right: Shoulder [employer] 01/10/2018 AR-[id number] -4 / / [id number] [place] Sut Bio Swvlck-C [id number] - [id number] Implanted:Qty: 1 on 08/19/2016 by Gorge Martin III, MD [place] Right: Shoulder [employer] 01/11/2018 AR-[id number] -2 / / [id number] Anchr Tnds Biocmp Swvlck 7mm [id number] - [id number] Implanted:Qty: 1 on 08/19/2016 by Gorge Martin III, MD [place] Right: Shoulder [employer] 09/13/2017 [id number] -7 / / [id number] Insurance MEDICARE PART A AND B [facility] Advance Directives For more information, please contact: [phone] * Full Code (Latest Code Status on File) Date Activated Date Inactivated Comments 06/05/2021 4:20 PM 06/24/2021 3:52 PM Care Teams Dredge Pumper Relationship Specialty Start Date End Date Tom Sow MD [address] [place] [phone] PCP - General Family Practice 10/03/15
--- OUTSIDE RECORDS SUMMARY | 2025-08-07 12:45 | XMS_ITS | Continuity of Care Document ---
Author Organization [facility] Romario Johnson [facility], [place], [facility] ([facility]) Address [address] [place] [address] Care Team Providers Care Bicycle Technician Name Role Phone HEBERT DE OLIVEIRA Primary [...] None recorded. Imaging None recorded. Medication Orders ondansetr on 4 mg disintegr ating tablet 2024 025 [facility], [address] [facility]/[address], [address], 06/18/2025 05:02:10 Patient TargetsNo targets recorded. Patient Instructions Encounter Date Encounter Id Patient Instructions Last Modified By Organization Details Last Modified Time 06/07/2025 [id number] Increase fluids and follow up for worsening [email or web address] Not available 06/07/2025 15:44:34 Reason for Referral None Reported. Problems Name Problem SNOMED Code Status Onset Date Resolution Date Notes Provider Name and Address Organization Details Recorded Time Gastroes ophageal reflux disease 447350975 Active 2021 Esophage al Reflux; 07/04/20 9:28AM by Naomi Ragsdale, Office Visit; Promoted ; acuity set as *; Hebert De Oliveira MD [address] [place], [address] , [facility] 5 17:55:09 Bilatera l posterio r subcapsu lar cataract 65177364008 715165 Active 2021 Cataract Extracti on-Bilat eral; 10/2009; 07/04/20 9:28AM by Naomi Ragsdale, Office Visit; Promoted ; acuity set as *; Not Available [facility] 3 03:08:38 Colonosc opy Completed 202105/02/2025 Colonosc opy; 2000 done by 01/28/07; 07/04/20 9:28AM by Naomi Ragsdale, Office Visit; Promoted ; acuity set as *; TAHMINA harding [facility] 5 15:18:25 Asthma 950178545 Active 2021 asthma; 07/04/20 9:28AM by Naomi Ragsdale, Office Visit; Promoted ; acuity set as *; Not Available [facility] 3 03:08:38 Inguinal region repair Completed 202105/02/2025 Inguinal Hernia Repair-B ilateral ; 07/04/20 9:28AM by Naomi Ragsdale, Office Visit; Promoted ; acuity set as *; TAHMINA harding [facility] 5 15:18:25 Malignan t neoplasm of thyroid gland 510205503 Active 2024 TAHMINA harding [facility] 5 15:19:56 Memory impairme nt 316294965 Active 2024 Hebert De Oliveira MD [address] [place] [address], [phone] , [facility] 5 16:02:28 Acquired hypothyr oidism 001017785 Active 2024 Hebert De Oliveira MD [address] [place] [address], [phone] , [facility] 16:04:03 Chronic atrial fibrilla tion 762174448 Active 2024 Hebert De Oliveira MD [address] [place] [address], [phone] , [facility] 16:06:56 Paroxysm al atrial fibrilla tion 146819869 Active 2024 Hebert De Oliveira MD [address] [place] [address], [address] [place] [address] , [facility] 17:54:29 Decrease in appetite 84896092 Active 2024 Hebert De Oliveira MD [address] [place] [address], [address] [place] [address] , [facility] 11:49:44 Unintent ional weight loss 715501430 Active 2024 Hebert De Oliveira MD [address] [place] [address], [phone] , [facility] 11:50:03 Eczema 77758631 Active 2024 Hebert De Oliveira MD [address] [place] [address], [phone] , [facility] 11:50:13 Chronic constipa tion 548355950 Active 2024 Hebert De Oliveira MD [address] [place] [address], [phone] , [facility] 11:50:44 Problem Notes None recorded. Procedures Surgical History Date Name Laterality Status Provider Name and Address Organization Details Recorded Time 09/13/19 23 thyroidectomy completed TAHMINA LONGORIA [facility] Jenna, [place] 05/02/2025 15:19:33 excision of cyst completed TAHMINA LONGORIA [facility], [place] 05/02/2025 15:17:27 hernia repair completed [facility], [place] 05/02/2025 15:17:[address] [facility], [place] 05/02/2025 15:18:10 Imaging Results None recorded. Procedure Notes None recorded. Medical Equipment None Reported. Allergies Allergen ID Allergen Name Allergen Category Reaction Reaction Severity Criticality Documentation Date Start Date Code Code System Note Provider Name and Address Organization Details Recorded Time 44237 Ultram medicatio n vomiting Not available Not available 04/10/2023 30370 6 RxNorm React ion: Vomit ing; Comme nt: Recor ded 07/04 9:28A M by Naomi Ragsdale Offic e Visit ; Promo bryant; Korey paige ce: *; ; Not Available [facility] 3 02:28:13 33540 Levaquin medicatio n Not available Not available Not available 04/10/2023 06129 2 RxNorm Comme nt: Recor ded 07/04 9:28A M by Naomi Ragsdale Offic e Visit ; Yun mane; Korey paige ce: *; ; Not Available [facility] 3 02:28:13 Medications Name Sig Start [...] daily 05/02 completed doc: Kellie/yasmine; Recorded 11/19/19 21 1:36PM by Shaq Cummings/Huyen camargo; Refill Quantity [...] two times daily 05/02 completed DOC: LB/ks; 68484; Recorded 11/19/19 1:36PM by Radha Longoria (Authori jie through BLAN[employer] Yee), Annotati on/Adden dum; Refill Quantity : 0; Not Available Not Available Not Available Allergy Relief (fluticas one) 50 mcg/actua tion nasal spray,juan pension [place] 2 sprays every day by intranas al route. active Not Available Not Available No t Available magnesium 200 mg (as magnesium oxide) tablet Take 1 tablet every day by oral route. active Not Available Not Available No t Available [facility] AREDS-2 active Not Available Not Available Not Available Vitals Date Recorded Body height Body mass index (BMI) Body weight Oxygen saturation Heart rate Body temperature Respiratory rate Systolic And Diastolic Provider Name and Address Organization Details Last Updated DateTime 5 182.88 cm 21.8 kg/m2 50612.3 7 g 96 % 57 /min 98.6 [degF] 17 /min 118/64 mm[Hg] KASH HUMPHREYS [facility] 11:32:43 Social History Question Answer Notes LastModified by Organizat ion Details LastModified Time Tobacco Smoking Status Never Smoker TAHMINA LONGORIA mehdi, [facility] 05/02/2025 15:16:36 What Was The Date Of Your Most Recent Tobacco Screening? 08/07/2025 [email or web address] Information not available 08/07/2025 Sex: Unknown Functional Status Question Answer Note LastModified by Organizat ion Details LastModified Time Do you use any illicit or recreational drugs? No [email or web address] Information not available 05/02/2025 Do you or have you ever used any other forms of tobacco or nicotine? No Information not available 06/07/2025 What is your level of alcohol consumption? None Information not available 05/02/2025 Do you or have you ever used any nicotine-free cigarettes, vape, or chewing tobacco? No Information not available 06/07/2025 Mental Status None [...] virus, quadrivalent, PF 4 completed Not Available [facility] 07/03/2025 11:06:29 Influenza, split virus, trivalent, preservative 4 completed Not Available [facility] 07/03/2025 11:06:29 Influenza, high-dose, trivalent, PF 5 completed Not Available [facility] 07/03/2025 11:06:29 Influenza, high-dose, trivalent, PF 6 completed Not Available [facility] 07/03/2025 11:06:29 Influenza, high-dose, trivalent, PF 7 completed Not Available [facility] 07/03/2025 11:06:29 Influenza, high-dose, trivalent, PF 8 completed Not Available [facility] 07/03/2025 11:06:29 Influenza, high-dose, trivalent, PF 9 completed Not Available [facility] 07/03/2025 11:06:29 pneumococcal polysaccharide PPV23 0 completed Not Available [facility] 07/03/2025 11:06:29 COVID-19, mRNA, LNP-S, PF, 30 mcg/0.3 mL dose 1 completed Not Available [facility] 07/03/2025 11:06:29 COVID-19, mRNA, LNP-S, PF, 30 mcg/0.3 mL dose 1 completed Not Available [facility] 07/03/2025 11:06:29 COVID-19, mRNA, LNP-S, PF, 30 mcg/0.3 mL dose 1 completed Not Available [facility] 07/03/2025 11:06:29 COVID-19, mRNA, LNP-S, PF, 30 mcg/0.3 mL dose, homero-sucrose 2 completed Not Available [facility] 07/03/2025 11:06:29 COVID-19, mRNA, LNP-S, bivalent, PF, 30 mcg/0.3 mL dose 2 completed Not Available [facility] 07/03/2025 11:06:29 Influenza, high-dose, quadrivalent, PF 2 completed Not Available [facility] 07/03/2025 11:06:29 Pneumococcal conjugate PCV20, polysaccharide [id number] conjugate, adjuvant, PF 2 completed Not Available [facility] 07/03/2025 11:06:29 COVID-19, mRNA, LNP-S, PF, homero-sucrose, 30 mcg/0.3 mL 3 completed Not Available [facility] 07/03/2025 11:06:29 Influenza, high-dose, quadrivalent, PF 3 completed Not Available [facility] 07/03/2025 11:06:29 Influenza, high-dose, trivalent, PF 4 completed Not Available [facility] 07/03/2025 11:06:29 COVID-19, mRNA, LNP-S, PF, 50 mcg/0.5 mL 4 completed Not Available [facility] 07/03/2025 11:06:29 Tdap 4 completed Not Available [facility] 07/03/2025 11:06:29 zoster recombinant 5 completed Not Available [facility] 07/03/2025 11:06:29 Pneumococcal conjugate PCV21, polysaccharide [id number] conjugate, PF 5 completed Not Available [facility] 07/03/2025 11:06:29 Tdap 5 completed Not Available [facility] 07/03/2025 11:06:29 zoster recombinant 5 completed Not Available [facility] 07/03/2025 11:06:29 COVID-19, mRNA, LNP-S, PF, 10 mcg/0.2 mL 5 completed Not Available [facility] 07/03/2025 11:06:29 Tdap 7 completed Not Available [facility] 04/10/2023 02:23:30 Influenza, split virus, trivalent, preservative 0 completed Not Available [facility] 04/10/2023 02:23:30 Influenza, split virus, trivalent, preservative 2 completed Not Available [facility] 04/10/2023 02:23:30 Past Encounters Encounter ID Performer Location Encounter Start Date Encounter Closed Date Diagnosis/Indication Diagnosis SNOMED-CT Code Diagnosis ICD10 Code Diagnosis IMO Codes Diagnosis Note [id number] BLANCA TODD [facility] ([facility]) [address] [place] [id number] 05/30/2025 14:56:25 06/05/2025 11:47:54 Abscess of nose 7788556 J34.0 10720 Discussed use of rxn's and applying a warm compress to the outside of the nostril for 5 minutes every 2 hours while awake. F/u if you develop increased swelling or symptoms worsen. [id number] GRUPO CLIFFORD APRN [facility] ([facility] [address] [place] [address] 06/07/2025 11:16:08 06/07/2025 15:48:55 [facility] [id number] K52.9 23223 Health Concerns Section Related Observation LastModified by Organization Detai ls LastModified Time None Recorded Concern Status LastModified by Organization Details LastModified Time None Recorded Payers Encounter Date Sequence Insurance Name Policy Number Policy Rodriguez Covered Member ID Rodriguez Member ID Guarantor Name 06/07/2025 1 [place]: [place] Cross [id number] Bryant Cross 06/07/2025 2 [employer] (MEDICARE SUPPLEMENT) Bryant Cross [id number] Bryant Cross Notes Date Note Type Note Provider Name and Address Organization Details Recorded Time 06/07/2025 text/html ROS as noted in the HPI walk-in; PCP Dr. De Oliveira Patient has been vomiting, has trouble keeping anything down. He's been vomiting and had diarrhea for several days off and on. GRUPO CLIFFORD APRN [address] [place], [address], [facility], [place] 06/07/2025 15:44:55
--- OUTSIDE RECORDS SUMMARY | 2025-08-07 12:45 | XMS_ITS | Patient Health Record ---
Author Organization [facility] Address [address] [place] [address] Care Team Providers [facility] Consultant Name Role Phone Jhony Esparza DO Primary Care Provider Unavail DOUG Hernandez Unavailable [phone] Allergies Allergen (clinical drug ingredient) Drug/Non Drug [...] Risk Notes Problem Malignant neoplasm of prostate (565149062) Malignant neoplasm of prostate (C61) Active confirmed Problem History of external beam radiation therapy (2324747347041 3) History of external beam radiation therapy (Z92.3) Active confirmed Encounters Encounter Location Date Provider Diagnosis [facility] [address] [place] [address] 01/04/2025 DOUG FERGUSON Plan Of Treatment Pending [...] Medicare [address] VERÓNICA DONNY DICKEY [id number] [phone] [id number] [employer] Cross Self - patient is the insured [place] [employer] [place] [address] [place], [place] [address]MAGY QUIROS [id number] [phone] [id number] [employer] Self - patient is the insured Medical (General) History Medical History History ICD Code Prostate ca thyroid cancer history of brain bleed skin cancer Surgical History Surgery Date(Month/Year) thyroid partially removed retina surgery finger on right hand hernia surgery
--- OUTSIDE RECORDS SUMMARY | 2025-08-07 12:45 | XMS_ITS | Data Portability ---
Author Organization [facility] Romario Johnson [facility], .[facility] Address [address] [facility] [address] [place] [address] Care Team Providers Care Underwriting Intern Name Role Phone HEBERT DE OLIVEIRA Primary [...] lactulose 10 gram/15 mL oral solution 2024 [facility], [address], [place], [address], 07/03/2025 11:54:54 triamcino lone acetonide 0.1 % topical cream 2024 [facility], [address], [place], [address], 07/03/2025 11:54:56 mirtazapi ne 15 mg tablet 2024 [facility], [address], [place], [address], 07/03/2025 11:54:58 ondansetr on 4 mg disintegr ating tablet 2024 [facility], [address], [place], [address], 06/18/2025 05:02:10 mupirocin 2 % topical ointment 2024 025 [facility], [address], [place], [address], 05/30/2025 15:16:13 Bactrim DS 800 mg-160 mg tablet 2024 025 [facility], [address], [place], [address], 06/11/2025 17:26:25 Patient TargetsNo targets recorded. Patient Instructions Encounter Date Encounter Id Patient Instructions Last Modified By Organization Details Last Modified Time 06/07/2025 [id number] Increase fluids and follow up for worsening Not available 06/07/2025 15:44:34 08/07/2025 [id number] I will send patient to ER for further eval since he cannot urinate Not available 08/07/2025 12:43:52 Reason for Referral None Reported. Problems Name Problem SNOMED Code Status Onset Date Resolution Date Notes Provider Name and Address Organization Details Recorded Time Gastroes ophageal reflux disease 153405668 Active 2021 Esophage al Reflux; 07/04/20 9:28AM by Naomi Ragsdale, Office Visit; Promoted ; acuity set as *; Hebert De Oliveira MD [address] [place], [address] , [facility], .[facility] 5 17:55:09 Bilatera l posterio r subcapsu lar cataract 97233649649 552064 Active 2021 Cataract Extracti on-Bilat eral; 10/2009; 07/04/20 9:28AM by Naomi Ragsdale, Office Visit; Promoted ; acuity set as *; Not Available [facility] 3 03:08:38 Colonosc opy Completed 202105/02/2025 Colonosc opy; 2000 done by 01/28/07; 07/04/20 9:28AM by Naomi Ragsdale, Office Visit; Promoted ; acuity set as *; TAHMINA harding [facility] 5 15:18:25 Asthma 266751032 Active 2021 asthma; 07/04/20 9:28AM by Naomi Ragsdale, Office Visit; Promoted ; acuity set as *; Not Available [facility] 3 03:08:38 Inguinal region repair Completed 202105/02/2025 Inguinal Hernia Repair-B ilateral ; 07/04/20 9:28AM by Naomi Ragsdale, Office Visit; Promoted ; acuity set as *; TAHMINA harding [facility] 15:18:25 Malignan t neoplasm of thyroid gland 912323907 Active 2024 TAHMINA harding [facility] 5 15:19:56 Memory impairme nt 014617376 Active 2024 Hebert De Oliveira MD [address] [place] [address], [address] , [facility] 5 16:02:28 Acquired hypothyr oidism 253907192 Active 2024 Hebert De Oliveira MD [address] [place] [address], [address] , [facility] 5 16:04:03 Chronic atrial fibrilla tion 548187331 Active 2024 Hebert De Oliveira MD [address] [place] [address], [address] , [facility] 5 16:06:56 Paroxysm al atrial fibrilla tion 464082575 Active 2024 Hebert De Oliveira MD [address] [place] [address], [address] , [facility] 17:54:29 Decrease in appetite 64073845 Active 2024 Hebert De Oliveira MD [address] [place] [address], [address] , [facility] 11:49:44 Unintent ional weight loss 237554054 Active 2024 Hebert De Oliveira MD [address] [place] [address], [address] , [facility] 11:50:03 Eczema 84604020 Active 2024 Hebert De Oliveira MD [address] [place] [address], [address] , [facility] 11:50:13 Chronic constipa tion 374665554 Active 2024 Hebert De Oliveira MD [address] [place] [address], [address] , [facility] 11:50:44 Problem Notes None recorded. Procedures Surgical History Date Name Laterality Status Provider Name and Address Organization Details Recorded Time 09/13/19 23 thyroidectomy completed [facility] 05/02/2025 15:19:33 excision of cyst completed [facility] 05/02/2025 15:17:27 hernia repair completed [facility] 05/02/2025 15:17:40 colonoscopy completed [facility] 05/02/2025 15:18:10 Imaging Results None recorded. Procedure Notes None recorded. Medical Equipment None Reported. Allergies Allergen ID Allergen Name Allergen Category Reaction Reaction Severity Criticality Documentation Date Start Date Code Code System Note Provider Name and Address Organization Details Recorded Time 38053 Ultram medicatio n vomiting Not available Not available 04/10/2023 45824 6 RxNorm React ion: Vomit ing; Comme nt: Recor ded 07/04 9:28A M by Naomi Ragsdale, Offic e Visit ; Promo bryant; Korey paige ce: *; ; Not Available [facility] 3 02:28:13 20859 Levaquin medicatio n Not available Not available Not available 04/10/2023 07240 2 RxNorm Comme nt: Recor ded 07/04 9:28A M by Naomi Ragsdale Offic e Visit ; Yun mane; Korey paige ce: *; ; Not Available [facility] 3 02:28:13 Medications Name Sig Start Date [...] two times daily 05/02 completed DOC: LB/ks; 74865; Recorded 11/19/19 1:36PM by Radha Longoria (i jie through BLANCA Yee), Annotati on/Adden dum; Refill Quantity : 0; Not Available Not Available Not Available Allergy Relief (fluticas one) 50 mcg/actua tion nasal spray,juan pension Tignall 2 sprays every day by intranas al route. active Not Available Not Available No t Available magnesium 200 mg (as magnesium oxide) tablet Take 1 tablet every day by oral route. active Not Available Not Available No t Available [facility] AREDS-2 active Not Available Not Available Not Available Vitals Date Recorded Body weight Body mass index (BMI) Body height Oxygen saturation Heart rate Body temperature Systolic And Diastolic Provider Name and Address Organization Details Last Updated DateTime 5 40673.7 4 g 22.4 kg/m2 182.88 cm 96 % 66 /min 98.6 [degF] 116/60 mm[Hg] Judie Carter [facility] 5 15:07:38 Date Recorded Body height Body mass index (BMI) Body weight Oxygen saturation Heart rate Body temperature Respiratory rate Systolic And Diastolic Provider Name and Address Organization Details Last Updated DateTime 5 182.88 cm 21.8 kg/m2 97282.3 7 g 96 % 57 /min 98.6 [degF] 17 /min 118/64 mm[Hg] KASH HUMPHREYS [facility] 11:32:43 Date Recorded Body height Body mass index (BMI) Body weight Heart rate Systolic And Diastolic Provider Name and Address Organization Details Last Updated DateTime 06/11/2025 182.88 cm 21.7 kg/m2 36474.78 g 68 /min 112/80 mm[Hg] [facility] 17:20:10 Date Recorded Body height Body mass index (BMI) Body weight Heart rate Systolic And Diastolic Provider Name and Address Organization Details Last Updated DateTime 07/03/2025 182.88 cm 21 kg/m2 91310.82 g 60 /min 118/62 mm[Hg] [facility] 11:18:24 Date Recorded Body height Body mass index (BMI) Body weight Body temperature Heart rate Oxygen saturation Systolic And Diastolic Provider Name and Address Organization Details Last Updated DateTime 182.88 cm 22.4 kg/m2 94966.5 4 g 98.3 [degF] 97 /min 98 % 148/72 mm[Hg] Monica Maksim [facility] 12:30:58 Social History Question Answer Notes LastModified by [employer] Details LastModified Time Tobacco Smoking Status Never Smoker TAHMINA harding [facility] 05/02/2025 15:16:36 What Was The Date Of Your Most Recent Tobacco Screening? 08/07/2025 [email or web address] Information not available 08/07/2025 Sex: Unknown Functional Status Question Answer Note LastModified by [employer] Details LastModified Time Do you use any illicit or recreational drugs? No [email or web address] Information not available 05/02/2025 Do you or have you ever used any other forms of tobacco or nicotine? No [email or web address] Information not available 06/07/2025 What is your level of alcohol consumption? None [email or web address] Information not available 05/02/2025 Do you or have you ever used any nicotine-free cigarettes, vape, or chewing tobacco? No [email or web address] Information not available 06/07/2025 Mental Status None [...] virus, quadrivalent, PF 4 completed Not Available [facility] 07/03/2025 11:06:29 Influenza, split virus, trivalent, preservative 4 completed Not Available [facility] 07/03/2025 11:06:29 Influenza, high-dose, trivalent, PF 5 completed Not Available [facility] 07/03/2025 11:06:29 Influenza, high-dose, trivalent, PF 6 completed Not Available [facility] 07/03/2025 11:06:29 Influenza, high-dose, trivalent, PF 7 completed Not Available [facility] 07/03/2025 11:06:29 Influenza, high-dose, trivalent, PF 8 completed Not Available [facility] 07/03/2025 11:06:29 Influenza, high-dose, trivalent, PF 9 completed Not Available [facility] 07/03/2025 11:06:29 pneumococcal polysaccharide PPV23 0 completed Not Available [facility] 07/03/2025 11:06:29 COVID-19, mRNA, LNP-S, PF, 30 mcg/0.3 mL dose 1 completed Not Available [facility] 07/03/2025 11:06:29 COVID-19, mRNA, LNP-S, PF, 30 mcg/0.3 mL dose 1 completed Not Available [facility] 07/03/2025 11:06:29 COVID-19, mRNA, LNP-S, PF, 30 mcg/0.3 mL dose 1 completed Not Available [facility] 07/03/2025 11:06:29 COVID-19, mRNA, LNP-S, PF, 30 mcg/0.3 mL dose, homero-sucrose 2 completed Not Available [facility] 07/03/2025 11:06:29 COVID-19, mRNA, LNP-S, bivalent, PF, 30 mcg/0.3 mL dose 2 completed Not Available [facility] 07/03/2025 11:06:29 Influenza, high-dose, quadrivalent, PF 2 completed Not Available [facility] 07/03/2025 11:06:29 Pneumococcal conjugate PCV20, polysaccharide [id number] conjugate, adjuvant, PF 2 completed Not Available [facility] 07/03/2025 11:06:29 COVID-19, mRNA, LNP-S, PF, homero-sucrose, 30 mcg/0.3 mL 3 completed Not Available [facility] 07/03/2025 11:06:29 Influenza, high-dose, quadrivalent, PF 3 completed Not Available [facility] 07/03/2025 11:06:29 Influenza, high-dose, trivalent, PF 4 completed Not Available [facility] 07/03/2025 11:06:29 COVID-19, mRNA, LNP-S, PF, 50 mcg/0.5 mL 4 completed Not Available [facility] 07/03/2025 11:06:29 Tdap 4 completed Not Available [facility] 07/03/2025 11:06:29 zoster recombinant 5 completed Not Available [facility] 07/03/2025 11:06:29 Pneumococcal conjugate PCV21, polysaccharide [id number] conjugate, PF 5 completed Not Available [facility] 07/03/2025 11:06:29 Tdap 5 completed Not Available [facility] 07/03/2025 11:06:29 zoster recombinant 5 completed Not Available [facility] 07/03/2025 11:06:29 COVID-19, mRNA, LNP-S, PF, 10 mcg/0.2 mL 5 completed Not Available [facility] 07/03/2025 11:06:29 Tdap 7 completed Not Available [facility] 04/10/2023 02:23:30 Influenza, split virus, trivalent, preservative 0 completed Not Available [facility] 04/10/2023 02:23:30 Influenza, split virus, trivalent, preservative 2 completed Not Available [facility] 04/10/2023 02:23:30 Past Encounters Encounter ID Performer Location Encounter Start Date Encounter Closed Date Diagnosis/Indication Diagnosis SNOMED-CT Code Diagnosis ICD10 Code Diagnosis IMO Codes Diagnosis Note [id number] Hebert De Oliveira MD [facility] [address] [place] [phone] 05/02/2025 14:53:20 05/02/2025 16:37:26 Active or passive immunization 745421349 Z23 General ex amination of patient 696011419 Z00.01 66193272 Memory impairment 475594 006 R41.3 359447 mild to moderate by history. Acquired hypothyroidism 824298382 E03.9 72786 S/P [place] of the thyroid from [place]. Followed by Endocrinol ognisreen. On 175mcg Levothyrox ine. 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 [id number] BLANCA TODD [facility] ([facility]) [address] [place] [phone] 5 05/30/2025 14:56:25 06/05/2025 11:47:54 Abscess of nose 9003622 J34.0 96707 Discussed use of rxn's and applying a warm compress to the outside of the nostril for 5 minutes every 2 hours while awake. F/u if you develop increased swelling or symptoms worsen. [id number] GRUPO CLIFFORD APRN [facility] ([facility]) [address] [place] [phone] 06/07/2025 11:16:08 06/07/2025 15:48:55 Gastroenteritis 09938062 K52.9 29118 [id number] Hebert De Oliveira MD [facility] ([facility]) [address] [place] [phone] 06/11/2025 16:44:50 06/11/2025 17:57:57 Paroxysmal atrial fibrillation 116234675 I48.0 35692 stable at this time. Acquired hypothyroidism 441551311 E03.9 59590 S/P ablation of the thyroid from [place]. Followed by Endocrinol ogy. On 175mcg Levothyrox ine. Gastroesop hageal reflux disease 033223780 K21.9 Memory impairment 274146 006 R41.3 545552 mild to moderate by history. [id number] Hebert De Oliveira MD [facility] ([facility]) [address] [place] [phone] 07/03/2025 11:06:08 07/03/2025 12:00:14 Decrease in appetite 12905430 R63.0 838521 Unintentio nal weight loss 114983364 R63.4 659523 Eczema 36104436 L30.9 893686 buttocks area. Chronic constipation 236 453183 K59.09 582894 [id number] GRUPO CLIFFORD APRN [facility] ([facility]) [address] [place] [phone] 5 08/07/2025 12:21:22 08/07/2025 12:45:53 Acute constipation 769735094 K59.00 107880 Health Concerns Section Related Observation LastModified by Organization Detai ls LastModified Time None Recorded Concern Status LastModified by Organization Details LastModified Time None Recorded Advance Directives Directive None Recorded Payers Insurance Date Sequence Insurance Name Policy Number Policy Rodriguez Covered Member ID Rodriguez Member ID Guarantor Name 08/07/2025 [place] - [place] - [facility] (MEDICARE) [employer] Cross [id number] [employer] 08/07/2025 1 [place] [employer] [id number] [employer] 08/07/2025 2 [employer] (MEDICARE SUPPLEMENT) Bryant Cross [id number] [employer] Notes Date Note Type Note Provider Name and Address Organization Details Recorded Time 05/30/2025 text/html ROS as noted in the HPI walk inx4 days sore to right nare, painful- has tried MICHEAL and prescription my son brought . Denies injury to the nose. Has some clear nasal discharge. BLANCA TODD [address] [place], [address], [facility] [place] 06/01/2025 15:05:07 06/07/2025 text/html ROS as noted in the HPI walk-in; PCP Dr. De Oliveira Patient has been vomiting, has trouble keeping anything down. He's been vomiting and had diarrhea for several days off and on. GRUPO CLIFFORD APRN [address] [place], [address], [facility] [place] 06/07/2025 15:44:55 08/07/2025 text/html walk in ptPT is constipated, last BM was 2 days ago. PT has tired a suppository and enema a few hours ago with no results. He states he hasn't urinated since last night GRUPO CLIFFORD APRN [address] [place], [address], [facility] 08/07/2025 12:44:17
--- OUTSIDE RECORDS SUMMARY | 2025-08-07 12:45 | XMS_ITS | Continuity of Care Document ---
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 Imaging None recorded. Medication Orders mupirocin 2 % topical ointment 2024 025 [facility], [address], [place], [address], 05/30/2025 15:16:13 Bactrim DS 800 mg-160 mg tablet 2024 025 [facility], [address], [place], [address], 06/11/2025 17:26:25 Patient TargetsNo targets recorded. Patient InstructionsNo instructions recorded. Reason for Referral None Reported. Problems Name Problem SNOMED Code Status Onset Date Resolution Date Notes Provider Name and Address Organization Details Recorded Time Gastroes ophageal reflux disease 557711922 Active 2021 Esophage al Reflux; 07/04/20 22 9:28AM by Naomi Ragsdale, Office Visit; Promoted ; acuity set as *; Hebert De Oliveira MD [address] [place], [address] , [facility] 5 17:55:09 Bilatera l posterio r subcapsu lar cataract 03325357295 384110 Active 2021 Cataract Extracti on-Bilat eral; 10/2009; 07/04/20 9:28AM by Naomi Ragsdale, Office Visit; Promoted ; acuity set as *; Not Available [facility] 3 03:08:38 Colonosc opy Completed 202105/02/2025 Colonosc opy; 2000 done by 01/28/07; 07/04/20 9:28AM by Naomi Ragsdale, Office Visit; Promoted ; acuity set as *; TAHMINA harding [facility] 5 15:18:25 Asthma 568425096 Active 2021 asthma; 07/04/20 9:28AM by Naomi Ragsdale, Office Visit; Promoted ; acuity set as *; Not Available [facility] 3 03:08:38 Inguinal region repair Completed 202105/02/2025 Inguinal Hernia Repair-B ilateral ; 07/04/20 9:28AM by Naomi Ragsdale, Office Visit; Promoted ; acuity set as *; TAHMINA harding [facility] 5 15:18:25 Malignan t neoplasm of thyroid gland 433247263 Active 2024 TAHMINA harding [facility] 5 15:19:56 Memory impairme nt 425042199 Active 2024 Hebert De Oliveira MD [address] [place], [address] , [facility] 5 16:02:28 Acquired hypothyr oidism 155940794 Active 2024 Hebert De Oliveira MD [address] [place] [address], [address] , [facility] 16:04:03 Chronic atrial fibrilla tion 485909451 Active 2024 Hebert De Oliveira MD [address] [place] [address], [address] , [facility] 16:06:56 Paroxysm al atrial fibrilla tion 110847798 Active 2024 Hebert De Oliveira MD [address] [place] [address], [address] , [facility] 17:54:29 Decrease in appetite 87175228 Active 2024 Hebert De Oliveira MD [address] [place] [address], [address] , [facility] 11:49:44 Unintent ional weight loss 538983805 Active 2024 Hbeert De Oliveira MD [address] [place] [address], [address] , [facility] 11:50:03 Eczema 38162427 Active 2024 Hebert De Oliveira MD [address] [place] [address], [address] , [facility] 11:50:13 Chronic constipa tion 520280045 Active 2024 Hebert De Oliveira MD [address] [place] [address], [address] , [facility] 11:50:44 Problem Notes None recorded. Procedures Surgical History Date Name Laterality Status Provider Name and Address Organization Details Recorded Time 09/13/19 23 thyroidectomy completed TAHMINA LONGORIA [facility] 05/02/2025 15:19:33 [facility] 15:17:27 hernia repair completed [facility] 05/02/2025 15:17:40 colonoscopy [facility] 05/02[facility]2025 15:18:10 Imaging Results None recorded. Procedure Notes None recorded. Medical Equipment None Reported. Allergies Allergen ID Allergen Name Allergen Category Reaction Reaction Severity Criticality Documentation Date Start Date Code Code System Note Provider Name and Address Organization Details Recorded Time 15395 Ultram medicatio n vomiting Not available Not available 04/10/2023 40169 6 RxNorm React ion: Vomit ing; Comme nt: Recor ded 07/04 9:28A M by Naomi Ragsdale Offic e Visit ; Yun mane; Korey paige ce: *; ; Not Available [facility] 3 02:28:13 51227 Levaquin medicatio n Not available Not available Not available 04/10/2023 74355 2 RxNorm Comme nt: Recor ded 07/04 9:28A M by Naomirebekah Ragsdale Offic e Visit ; Yun paige ce: *; ; Not Available [facility] 3 02:28:13 Medications Name Sig Start [...] doc: Kellie/yasmine; Recorded 11/19/19 1:36PM by Shaq Cummings on/Huyen camargo; Refill Quantity : 0; Not Available [...] two times daily 05/02 completed DOC: LB/ks; 89833; Recorded 11/19/19 1:36PM by Radha Longoria (Authori jie through BLANCA Yee), Annotati on/Adden dum; Refill Quantity : 0; Not Available Not Available Not Available Allergy Relief (fluticas one) 50 mcg/actua tion nasal spray,juan pension [place] 2 sprays every day by intranas al [...] Address Organization Details Last Updated DateTime 5 83129.7 4 g 22.4 kg/m2 182.88 cm 96 % 66 /min 98.6 [degF] 116/60 mm[Hg] Judie Carter [facility] 15:07:38 Social History Question Answer Notes LastModified by Organizat ion Details LastModified Time Tobacco Smoking Status Never Smoker TAHMINA LONGORIA mehdi, [facility] 05/02/2025 15:16:36 What Was The Date Of Your Most Recent Tobacco Screening? 08/07/2025 [email or web address] Information not available 08/07/2025 Sex: Unknown Functional Status Question Answer Note LastModified by Organizat ion Details LastModified Time Do you use any illicit or recreational drugs? No [email or web address] Information not available 05/02/2025 Do you or have you ever used any other forms of tobacco or nicotine? No [email or web address] Information not available 06/07/2025 What is your level of alcohol consumption? None [email or web address] Information not available 05/02/2025 Do you or have you ever used any nicotine-free cigarettes, vape, or chewing tobacco? No [email or web address] Information not available 06/07/2025 Mental Status None [...] virus, quadrivalent, PF 4 completed Not Available [facility] 07/03/2025 11:06:29 Influenza, split virus, trivalent, preservative 4 completed Not Available [facility] 07/03/2025 11:06:29 Influenza, high-dose, trivalent, PF 5 completed Not Available [facility] 07/03/2025 11:06:29 Influenza, high-dose, trivalent, PF 6 completed Not Available [facility] 07/03/2025 11:06:29 Influenza, high-dose, trivalent, PF 7 completed Not Available [facility] 07/03/2025 11:06:29 Influenza, high-dose, trivalent, PF 8 completed Not Available [facility] 07/03/2025 11:06:29 Influenza, high-dose, trivalent, PF 9 completed Not Available [facility] 07/03/2025 11:06:29 pneumococcal polysaccharide PPV23 0 completed Not Available [facility] 07/03/2025 11:06:29 COVID-19, mRNA, LNP-S, PF, 30 mcg/0.3 mL dose 1 completed Not Available [facility] 07/03/2025 11:06:29 COVID-19, mRNA, LNP-S, PF, 30 mcg/0.3 mL dose 1 completed Not Available [facility] 07/03/2025 11:06:29 COVID-19, mRNA, LNP-S, PF, 30 mcg/0.3 mL dose 1 completed Not Available [facility] 07/03/2025 11:06:29 COVID-19, mRNA, LNP-S, PF, 30 mcg/0.3 mL dose, homero-sucrose 2 completed Not Available [facility] 07/03/2025 11:06:29 COVID-19, mRNA, LNP-S, bivalent, PF, 30 mcg/0.3 mL dose 2 completed Not Available [facility] 07/03/2025 11:06:29 Influenza, high-dose, quadrivalent, PF 2 completed Not Available [facility] 07/03/2025 11:06:29 Pneumococcal conjugate PCV20, polysaccharide [id number] conjugate, adjuvant, PF 2 completed Not Available [facility] 07/03/2025 11:06:29 COVID-19, mRNA, LNP-S, PF, homero-sucrose, 30 mcg/0.3 mL 3 completed Not Available [facility] 07/03/2025 11:06:29 Influenza, high-dose, quadrivalent, PF 3 completed Not Available [facility] 07/03/2025 11:06:29 Influenza, high-dose, trivalent, PF 4 completed Not Available [facility] 07/03/2025 11:06:29 COVID-19, mRNA, LNP-S, PF, 50 mcg/0.5 mL 4 completed Not Available [facility] 07/03/2025 11:06:29 Tdap 4 completed Not Available [facility] 07/03/2025 11:06:29 zoster recombinant 5 completed Not Available [facility] 07/03/2025 11:06:29 Pneumococcal conjugate PCV21, polysaccharide [id number] conjugate, PF 5 completed Not Available [facility] 07/03/2025 11:06:29 Tdap 5 completed Not Available [facility] 07/03/2025 11:06:29 zoster recombinant 5 completed Not Available [facility] 07/03/2025 11:06:29 COVID-19, mRNA, LNP-S, PF, 10 mcg/0.2 mL 5 completed Not Available [facility] 07/03/2025 11:06:29 Tdap 7 completed Not Available [facility] 04/10/2023 02:23:30 Influenza, split virus, trivalent, preservative 0 completed Not Available [facility] 04/10/2023 02:23:30 Influenza, split virus, trivalent, preservative 2 completed Not Available [facility] 04/10/2023 02:23:30 Past Encounters Encounter ID Performer Location Encounter Start Date Encounter Closed Date Diagnosis/Indication Diagnosis SNOMED-CT Code Diagnosis ICD10 Code Diagnosis IMO Codes Diagnosis Note [id number] Hebert De Oliveira MD [facility] ([facility]) [address] [place] [address] 05/02/2025 14:53:20 05/02/2025 16:37:26 Active or passive immunization 479177061 Z23 General ex amination of patient 077376684 Z00.01 47704205 Memory impairment 955249 006 R41.3 346504 mild to moderate by history. Acquired hypothyroidism 618734929 E03.9 70719 S/P [place] of the thyroid from [place]. Followed by Endocrinol daniel. On 175mcg Levothyrox ine. 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 [id number] BLANCA TODD [facility] ([facility]) [address] [place] [address] 05/30/2025 14:56:25 06/05/2025 11:47:54 Abscess of nose 6815444 J34.0 26555 Discussed use of rxn's and applying a warm compress to the outside of the nostril for 5 minutes every 2 hours while awake. F/u if you develop increased swelling or symptoms worsen. Health Concerns Section Related Observation LastModified by Organization Detai ls LastModified Time None Recorded Concern Status LastModified by Organization Details LastModified Time None Recorded Payers Encounter Date Sequence Insurance Name Policy Number Policy Rodriguez Covered Member ID Rodriguez Member ID Guarantor Name 05/30/2025 1 [place] [employer] Cross [id number] 7 Bryant Cross 05/30/2025 2 [employer] [place] (MEDICARE SUPPLEMENT) Bryant Cross [id number] rByant Cross Notes Date Note Type Note Provider Name and Address Organization Details Recorded Time 05/30/2025 text/html ROS as noted in the HPI walk inx4 days sore to right nare, painful- has tried MICHEAL and prescription my son brought . Denies injury to the nose. Has some clear nasal discharge. BLANCA TODD [address] [place], [address], [facility] 06/01/2025 15:05:07
--- OUTSIDE RECORDS SUMMARY | 2025-08-07 12:45 | XMS_ITS | Continuity of Care Document ---
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 Patient TargetsNo targets recorded. Patient InstructionsNo instructions recorded. Reason for Referral None Reported. Problems Name Problem SNOMED Code Status Onset Date Resolution Date Notes Provider Name and Address Organization Details Recorded Time Gastroes ophageal reflux disease 852988821 Active 2021 Esophage al Reflux; 07/04/20 9:28AM by Naomi Ragsdale, Office Visit; Promoted ; acuity set as *; Hebert De Oliveira MD [address] [place] [address], [address] , [facility], [facility] 5 17:55:09 Bilatera l posterio r subcapsu lar cataract 65162627045 880659 Active 2021 Cataract Extracti on-Bilat eral; 10/2009; 07/04/20 9:28AM by Naomi Ragsdale, Office Visit; Promoted ; acuity set as *; Not Available [facility] 3 03:08:38 Colonosc opy Completed 202105/02/2025 Colonosc opy; 2000 done by 01/28/07; 07/04/20 9:28AM by Naomi Ragsdale, Office Visit; Promoted ; acuity set as *; TAHMINAJohn harding [facility] 5 15:18:25 Asthma 388158767 Active 2021 asthma; 07/04/20 9:28AM by Naomi Ragsdale, Office Visit; Promoted ; acuity set as *; Not Available [facility] 3 03:08:38 Inguinal region repair Completed 202105/02/2025 Inguinal Hernia Repair-B ilateral ; 07/04/20 9:28AM by Naomi Ragsdale, Office Visit; Promoted ; acuity set as *; TAHMINA harding [facility] 5 15:18:25 Malignan t neoplasm of thyroid gland 015844633 Active 2024 TAHMINA harding [facility] 5 15:19:56 Memory impairme nt 078502529 Active 2024 Hebert De Oliveira MD [address] [place] [address], [address] , [facility] 5 16:02:28 Acquired hypothyr oidism 798523416 Active 2024 Hebert De Oliveira MD [address] [place] [address], [address] , [facility] 5 16:04:03 Chronic atrial fibrilla tion 010455188 Active 2024 Hebert De Oliveira MD [address] [place] [address], [address] , [facility] 5 16:06:56 Paroxysm al atrial fibrilla tion 621845228 Active 2024 Hebert De Oliveira MD [address] [place], [address] , [facility] 17:54:29 Decrease in appetite 36507314 Active 2024 Hebert De Oliveira MD [address] [place] [address], [address] , [facility] 11:49:44 Unintent ional weight loss 052892683 Active 2024 Hebert De Oliveira MD [address] [place] [address], [address] , [facility] 11:50:03 Eczema 00048974 Active 2024 Hebert De Oliveira MD [address] [place] [address], [address] , [facility] 11:50:13 Chronic constipa tion 156677976 Active 2024 Hebert De Oliveira MD [address] [place] [address], [address] , [facility] 11:50:44 Problem Notes None recorded. Procedures Surgical History Date Name Laterality Status Provider Name and Address Organization Details Recorded Time 09/13/19 23 thyroidectomy completed [facility] 05/02/2025 15:19:33 excision of cyst completed [facility] 05/02/2025 15:17:27 hernia repair completed [facility] 05/02/2025 15:17:40 colonoscopy completed [facility] 05/02/2025 15:18:10 Imaging Results None recorded. Procedure Notes None recorded. Medical Equipment None Reported. Allergies Allergen ID Allergen Name Allergen Category Reaction Reaction Severity Criticality Documentation Date Start Date Code Code System Note Provider Name and Address Organization Details Recorded Time 05387 Ultram medicatio n vomiting Not available Not available 04/10/202365804 6 RxNorm React ion: Vomit ing; Comme nt: Recor ded 07/04 9:28A M by Naomi Ragsdale, Offic e Visit ; Yun mane; Korey paige ce: *; ; Not Available [facility] 3 02:28:13 46429 Levaquin medicatio n Not available Not available Not available 04/10/2023 48267 2 RxNorm Comme nt: Recor ded 07/04 9:28A M by Naomirebekah Ragsdale, Offic e Visit ; Yun mane; Korey paige ce: *; ; Not Available [facility] 3 02:28:13 Medications Name Sig Start Date [...] two times daily 05/02 completed DOC: LB/ks; 30173; Recorded 11/19/19 1:36PM by Radha Longoria (i jie through [employer] Yee), Annotati on/Adden dum; Refill Quantity : 0; Not Available Not Available Not Available Allergy Relief (fluticas one) 50 mcg/actua tion nasal spray,juan pension [place] 2 sprays every day by intranas al [...] Updated DateTime 06/11/2025 182.88 cm 21.7 kg/m2 78255.78 g 68 /min 112/80 mm[Hg] ELMER REEDER [facility] 17:20:10 Social History Question Answer Notes LastModified by Organizat ion Details LastModified Time Tobacco Smoking Status Never Smoker TAHMINA harding [facility] 05/02/2025 15:16:36 What Was The Date Of Your Most Recent Tobacco Screening? 08/07/2025 [email or web address] Information not available 08/07/2025 Sex: Unknown Functional Status Question Answer Note LastModified by Organizat ion Details LastModified Time Do you use any illicit or recreational drugs? No [email or web address] Information not available 05/02/2025 Do you or have you ever used any other forms of tobacco or nicotine? No [email or web address] Information not available 06/07/2025 What is your level of alcohol consumption? None [email or web address] Information not available 05/02/2025 Do you or have you ever used any nicotine-free cigarettes, vape, or chewing tobacco? No [email or web address] Information not available 06/07/2025 Mental Status None [...] virus, quadrivalent, PF 4 completed Not Available [facility] 07/03/2025 11:06:29 Influenza, split virus, trivalent, preservative 4 completed Not Available [facility] 07/03/2025 11:06:29 Influenza, high-dose, trivalent, PF 5 completed Not Available [facility] 07/03/2025 11:06:29 Influenza, high-dose, trivalent, PF 6 completed Not Available [facility] 07/03/2025 11:06:29 Influenza, high-dose, trivalent, PF 7 completed Not Available [facility] 07/03/2025 11:06:29 Influenza, high-dose, trivalent, PF 8 completed Not Available [facility] 07/03/2025 11:06:29 Influenza, high-dose, trivalent, PF 9 completed Not Available [facility] 07/03/2025 11:06:29 pneumococcal polysaccharide PPV23 0 completed Not Available [facility] 07/03/2025 11:06:29 COVID-19, mRNA, LNP-S, PF, 30 mcg/0.3 mL dose 1 completed Not Available [facility] 07/03/2025 11:06:29 COVID-19, mRNA, LNP-S, PF, 30 mcg/0.3 mL dose 1 completed Not Available [facility] 07/03/2025 11:06:29 COVID-19, mRNA, LNP-S, PF, 30 mcg/0.3 mL dose 1 completed Not Available [facility] 07/03/2025 11:06:29 COVID-19, mRNA, LNP-S, PF, 30 mcg/0.3 mL dose, homero-sucrose 2 completed Not Available [facility] 07/03/2025 11:06:29 COVID-19, mRNA, LNP-S, bivalent, PF, 30 mcg/0.3 mL dose 2 completed Not Available [facility] 07/03/2025 11:06:29 Influenza, high-dose, quadrivalent, PF 2 completed Not Available [facility] 07/03/2025 11:06:29 Pneumococcal conjugate PCV20, polysaccharide [id number] conjugate, adjuvant, PF 2 completed Not Available [facility] 07/03/2025 11:06:29 COVID-19, mRNA, LNP-S, PF, homero-sucrose, 30 mcg/0.3 mL 3 completed Not Available [facility] 07/03/2025 11:06:29 Influenza, high-dose, quadrivalent, PF 3 completed Not Available [facility] 07/03/2025 11:06:29 Influenza, high-dose, trivalent, PF 4 completed Not Available [facility] 07/03/2025 11:06:29 COVID-19, mRNA, LNP-S, PF, 50 mcg/0.5 mL 4 completed Not Available [facility] 07/03/2025 11:06:29 Tdap 4 completed Not Available [facility] 07/03/2025 11:06:29 zoster recombinant 5 completed Not Available [facility] 07/03/2025 11:06:29 Pneumococcal conjugate PCV21, polysaccharide [id number] conjugate, PF 5 completed Not Available [facility] 07/03/2025 11:06:29 Tdap 5 completed Not Available [facility] 07/03/2025 11:06:29 zoster recombinant 5 completed Not Available [facility] 07/03/2025 11:06:29 COVID-19, mRNA, LNP-S, PF, 10 mcg/0.2 mL 5 completed Not Available [facility] 07/03/2025 11:06:29 Tdap 7 completed Not Available [facility] 04/10/2023 02:23:30 Influenza, split virus, trivalent, preservative 0 completed Not Available [facility] 04/10/2023 02:23:30 Influenza, split virus, trivalent, preservative 2 completed Not Available [facility] 04/10/2023 02:23:30 Past Encounters Encounter ID Performer Location Encounter Start Date Encounter Closed Date Diagnosis/Indication Diagnosis SNOMED-CT Code Diagnosis ICD10 Code Diagnosis IMO Codes Diagnosis Note [id number] BLANCA TODD [facility] ([facility]) [address] [place] [address] 05/30/2025 14:56:25 06/05/2025 11:47:54 Abscess of nose 6013913 J34.0 83085 Discussed use of rxn's and applying a warm compress to the outside of the nostril for 5 minutes every 2 hours while awake. F/u if you develop increased swelling or symptoms worsen. [id number] GRUPO CLIFFORD APRN [facility] ([facility]) [address] [place] [address] 06/07/2025 11:16:08 06/07/2025 15:48:55 Gastroenteritis 59545851 K52.9 52585 [id number] Hebert De Oliveira MD [facility] ([facility]) [address] [place] [address] 06/11/2025 16:44:50 06/11/2025 17:57:57 Paroxysmal atrial fibrillation 810223134 I48.0 31258 stable at this time. Acquired hypothyroidism 281518482 E03.9 64352 S/P [place] of the thyroid from [place]. Followed by Endocrinol ognisreen. On 175mcg Levothyrox ine. Gastroesop hageal reflux disease 604864308 K21.9 Memory impairment 681057 006 R41.3 364239 mild to moderate by history. Health Concerns Section Related Observation LastModified by Organization Detai ls LastModified Time None Recorded Concern Status LastModified by Organization Details LastModified Time None Recorded Payers Encounter Date Sequence Insurance Name Policy Number Policy Rodriguez Covered Member ID Rodriguez Member ID Guarantor Name 06/11/2025 1 [place] [employer] Cross [id number] Bryant Cross 06/11/2025 2 [employer] [place] (MEDICARE SUPPLEMENT) Bryant Cross [id number] Bryant Cross
[2025-08-07 12:46] LABS: Hematocrit 47.5 % (37-53); Hemoglobin 16.80 g/dL (11.27-16.99); Mean Corpuscular HGB Conc 35.4 g/dL (30-55); Mean Corpuscular Hemoglobin 31.3 pg (27-33); Mean Corpuscular Volume 88.6 fl (82-101); Nucleated Red Blood Cells % 0 %; Platelet Count 175 10^3/cmm (157-399); Red Blood Count 5.36 10^6/uL (3.85-5.65); White Blood Count 12.28 10^3/uL (3.29-11.43)
[2025-08-07] MEDS: Fleet Enema 133 mL Enema PR (12:48)
[2025-08-07 13:03] LABS: Alanine Aminotransferase 15 U/L (0-41); Albumin Level 4.1 g/dL (3.5-5.2); Alkaline Phosphatase 87 U/L (40-130); Anion Gap 17.0 (5-19); Aspartate Amino Transferase 21 U/L (0-40); Blood Urea Nitrogen 17 mg/dL (8-23); Calcium 9.6 mg/dL (8.5-10.5); Carbon Dioxide 23 mmol/L (22-29); Chloride 107 mmol/L (98-107); Globulin 3.0 g/dL (1.3-4.6); Glucose 117 mg/dL (65-115); Lipase 74 U/L (13-60); Osmolality Calculated 299 mOsm/kg (285-295); Potassium 4.0 mmol/L (3.5-5.1); Sodium 143 mmol/L (136-145); Total Protein 7.1 g/dL (6.6-8.7)
== END 2025-08-07 14:11 | disposition home or self-care (01) ==
PROVIDERS: Emergency Provider Emergency Medicine; PCP Family Medicine
DX: K59.00 Constipation, unspecified (principal); Z79.82 Long term (current) use of aspirin; E78.5 Hyperlipidemia, unspecified; I10 Essential (primary) hypertension; Z85.850 Personal history of malignant neoplasm of thyroid
CPT/HCPCS: 36415; 74018; 80053; 83690; 85025; 99284; J9999